=== PATIENT | male | born 1945 | race Caucasian/White ===

== ENCOUNTER 2023-07-05 15:01 | Outpatient (OUT) | payer MEDICARE, SELFPAY ==
[2023-07-06 04:07] LABS: PSA, Free 2.23 ng/mL; Prostate Specific Ag 9.5 ng/mL (0.0-4.0)
== END 2023-07-05 15:02 | disposition home or self-care (01) ==
LOC: LAB 15:07
PROVIDERS: PCP Family Medicine; Visit Provider Urology
DX: R97.20 Elevated prostate specific antigen [PSA] (principal)
CPT/HCPCS: 36415; 84153; 84154

== ENCOUNTER 2023-08-24 13:16 | Outpatient (OUT) | payer MEDICARE, SELFPAY | END 2023-08-24 13:17 | disposition home or self-care (01) | LOC: PST 13:18 | PROVIDERS: PCP Family Medicine; Visit Provider Urology | DX: Z01.818 Encounter for other preprocedural examination (principal); R97.20 Elevated prostate specific antigen [PSA]; I10 Essential (primary) hypertension; R31.9 Hematuria, unspecified; N40.0 Benign prostatic hyperplasia without lower urinary tract symptoms; E78.5 Hyperlipidemia, unspecified; N28.1 Cyst of kidney, acquired ==

== ENCOUNTER 2023-08-26 14:21 | Day surgery (SDC) | payer MEDICARE, SELFPAY ==
--- NOTE | 2023-08-24 13:19 | PC.NURSE ---
Left voice message, as patient did not answer. Gave instruction for patient to call the arrival time number after 4 pm tomorrow to obtain time of arrival for the 16th for his procedure. Also noted that he could have a light breakfast and his meds with a sip of water prior to coming in the morning of his procedure. Message included that it will be a local anesthetic, thus he can drive himself or he can have someone bring him.
[2023-08-26] MEDS: GENTAMICIN SULFATE 80 MG/2 ML VIAL IM (15:18)
[2023-08-26 15:56] VITALS: BP 140/65; PULSE 67; RESP 18
--- NOTE | 2023-08-26 15:59 | US_ITS ---
[address] [address] Patient Name: AYALA ROY MRN: [id number] date: 1945 Sex: M Assigned Patient Location: [facility] Current Patient Location: Accession/Order Number: [id number] Exam Date: 08/26/2023 16:00 Report Date: 08/27/2023 01:38 At the request of: VERNELL SIFUENTES Procedure: US prostate EXAMINATION: US prostate HISTORY: Elevated PSA, TRUS BX COMPARISON: No relevant comparison available. TECHNIQUE: Ultrasound exam for the prostate with an endorectal transducer was performed utilizing real-time and color duplex Doppler sonography. FINDINGS: ESTIMATED SIZE: 6.3 x 6.4 x 5.1 cm (108 mL) APPEARANCE: Heterogeneous echotexture. OTHER: 8 biopsies of right side and 8 biopsies of left side of prostate performed by Dr. Sifuentes. US/US prostate IMPRESSION: 1. Ultrasound-guided prostate biopsy performed by Dr. Sifuentes. Electronically authenticated by: MOHSEN GARCIA Date: 08/27/2023 01:38
[2023-08-26] MEDS: LIDOCAINE HCL 1% 100 MG/10 ML MDV INJ (16:00)
[2023-08-26] MEDS: LIDOCAINE 2% JELLY 20 ML UR (16:00)
[2023-08-26 16:08] VITALS: BP 137/62; PULSE 62; RESP 18; O2SAT 98
--- NOTE | 2023-08-26 16:18 | PM.URSON ---
Urology Surgery Operative Note Operative Note Procedure Date: 08/26/23 Time Out Performed: yes Pre-op Diagnosis: elevated PSA Post-op Diagnosis: same as pre-op Procedures performed: . #1. Transrectal ultrasound of the prostate. #2. Prostate needle biopsies Anesthesia: local Primary Surgeon: Ted Sifuentes Complications: none Estimated blood loss (mL): 20 Specimens: 16 satisfactory cores Indications for Procedures: this gentleman has an elevated PSA up to 9.2. His digital rectal exam is benign. His MRI was suspicion. He now presents for transrectal ultrasound with biopsies. He has signed an informed consent for these procedures after risks were explained. Some of these risks include bleeding, infection, sepsis and anesthesia to name a few Detailed description of Procedure: . The patient was kept on his gurney bed and brought to the endoscopy suite. He was put in the left lateral decubitus position. 2 percent lidocaine gel was passed per rectum. The ultrasound probe was passed per rectum. The prostate was scanned in the transverse and longitudinal views. The volume was calculated to be 112 g. No hypoechoic areas were noted. One percent plain lidocaine was used to place a debbie-prostatic block. I then began taking biopsies. I started at the left base and went towards the apex. I divided it up into 4 levels and from each level took 2 biopsies. The same maneuver was done on the right side. At the end of the procedure we had 16 satisfactory cores. The probe was removed. He was then discharged to home. The plan is that he will finish his antibiotic course. He will follow-up within 2 weeks to review the pathology. He has been instructed to present to the emergency room if he gets a temp near one 101 and/or shaking chills that will not stop
== END 2023-08-26 16:26 | disposition home or self-care (01) ==
PROVIDERS: PCP Family Medicine; Visit Provider Urology
PROC: (CPT 55700; principal; 2023-08-26 14:35)
DX: C61 Malignant neoplasm of prostate (principal); R97.20 Elevated prostate specific antigen [PSA]; I10 Essential (primary) hypertension; N40.1 Benign prostatic hyperplasia with lower urinary tract symptoms; E78.5 Hyperlipidemia, unspecified; N28.1 Cyst of kidney, acquired; R31.0 Gross hematuria; Z87.891 Personal history of nicotine dependence
CPT/HCPCS: 55700; 76872; 88305; 88344

== ENCOUNTER 2023-12-19 11:02 | Emergency (ER) | payer MEDICARE, SELFPAY ==
[2023-12-19 11:06] VITALS: BP 143/72; PULSE 64; RESP 16; TEMP 36.7; O2SAT 95; BMI 37.5
--- OUTSIDE RECORDS SUMMARY | 2023-12-19 11:11 | XMS_ITS | CCD ---
Author Name Unknown Address [address] [place] [address] Organization [facility] Care Team Providers Care Resident Assistant Name Role Phone MERRILL IRAHETA Primary Care Physician [phone] MD Ankur Duran Jr Attending Provider NON STAFF Primary Care Provider Unavailabl e ESEQUIEL, DR MERRILL Fisher Consulting Unavailable NADERER, DR MERRILL Fisher Attending Unavailable NADERER, DR MERRILL Fisher Admitting Unavailable NADERER, DR MERRILL Fisher Primary Care Unavailable SIFUENTES ., DR MATT Admitting Unavailable SIFUENTES ., DR MATT Consulting Unavailable SIFUENTES ., DR MATT Attending Unavailable NADERER, DR MERRILL Fisher Primary Care Unavailable WEST, DR AYALA Bob Consulting Unavailable NADERER, DR MERRILL Fisher Primary Care Unavailable SIFUENTES ., DR MATT Admitting Unavailable SIFUENTES ., DR MATT Consulting Unavailable SIFUENTES ., DR MATT Attending Unavailable Unavailable Primary Care Provider Unavailabl e SIFUENTES, Vernell R Attending Unavailable SIFUENTES, Vernell R Attending Unavailable SIFUENTES, Vernell R Referring Unavailable SIFUENTES, Vernell R Attending Unavailable SIFUENTES, Vernell R Attending Unavailable SIFUENTES, Vernell R Admitting Unavailable SIFUENTES, Vernell R Referring Unavailable SIFUENTES, Vernell R Attending Unavailable SIFUENTES, Vernell R Attending Unavailable SIFUENTES, Vernell R Attending Unavailable SIFUENTES, Vernell R Attending Unavailable Naderer, Merrill Fisher Primary Care Provider [phone] MERRILL IRAHETA Primary Care Unavailable ENGELER G SUKHDEV Referring Unavailable ENGELER G SUKHDEV Referring Unavailable ENGELER G SUKHDEV Attending Unavailable NADERER, MERRILL Fisher Primary Care Unavailable NADERER, MERRILL Fisher Primary Care Unavailable YESSIEREMERRILL Martinez Primary Care Unavailable ENGELER, G SUKHDEV Referring Unavailable ENGELER, G SUKHDEV Referring Unavailable NADERER, MERRILL Fisher Primary Care Unavailable SIFUENTES, VERNELL Martinez Referring Unavailable ENGELER G SUKHDEV Attending Unavailable NADERER, MERRILL A Primary Care Unavailable ENGELER, G SUKHDEV Referring Unavailable NADERER, MERRILL A Primary Care Unavailable NADERER, MERRILL A Primary Care Unavailable ENGELER, G SUKHDEV Referring Unavailable NADERER, MERRILL A Primary Care Unavailable ENGELER, G SUKHDEV Referring Unavailable NADERER, MERRILL A Primary Care Unavailable ENGELER, G SUKHDEV Referring Unavailable ENGELER, G SUKHDEV Referring Unavailable ENGELER, G SUKHDEV Attending Unavailable NADERER, MERRILL A Primary Care Unavailable NADERER, MERRILL A Primary Care Unavailable ENGELER, G SUKHDEV Attending Unavailable ENGELER, G SUKHDEV Referring Unavailable NADERER, MERRILL A Primary Care Unavailable ENGELER, G SUKHDEV Attending Unavailable ENGELER, G SUKHDEV Referring Unavailable NADERER, MERRILL A Primary Care Unavailable ENGELER, G SUKHDEV Referring Unavailable NADERER, MERRILL A Primary Care Unavailable ENGELER, G SUKHDEV Attending Unavailable NADERER, MERRILL A Primary Care Unavailable ENGELER, G SUKHDEV Referring Unavailable NADERER, MERRILL A Primary Care Unavailable ENGELER, G SUKHDEV Referring Unavailable NADERER, MERRILL A Primary Care Unavailable ENGELER, G SUKHDEV Attending Unavailable NADERER, MERRILL A Primary Care Unavailable NADERER, MERRILL A Primary Care Unavailable ENGELER, G SUKHDEV Referring Unavailable ENGELER, G SUKHDEV Referring Unavailable NADERER, MERRILL A Primary Care Unavailable NADERER, MERRILL A Primary Care Unavailable ENGELER, G SUKHDEV Attending Unavailable ENGELER, G SUKHDEV Referring Unavailable NADERER, MERRILL A Primary Care Unavailable ENGELER, G SUKHDEV Referring Unavailable NADERER, MERRILL A Primary Care Unavailable ENGELER, G SUKHDEV Attending Unavailable NADERER, MERRILL A Primary Care Unavailable ENGELER, G SUKHDEV Referring Unavailable NADERER, MERRILL A Primary Care Unavailable Allergies Allergy Classification Reported Allergen(s) Allergy Type Date of Onset Reaction(s) Facility (6 sources) Penicillin; Translations: [penicillin] Drug Allergy Unknown (qualifier value) [facility] (2 sources) Penicillins; Translations: [PENICILLINS] Drug allergy (disorder) [address] [facility] (11 sources) Penicillins Drug Allergy 3 Hives [facility] Medications Current Medications Medication Drug Class(es) Dates Sig (Normalized) Sig (Original) atenolol 100 mg / chlorthalidone 25 mg oral tablet (17 sources) Thiazide-like Diuretic, beta-Adrenergic Barak Start: 02-17-2022 atenolol-chlortha lidone 100 mg-25 mg Tab Refill(s) 0 Start Date: 02/17/22 Status: Ordered Start: 04-10-2020 take 1 tablet by laura th once daily Atenolol-Chlorthalidone 100-25 mg per tablet Take 1 tablet by mouth once daily. 0 04/10/2020 Active Comment on above: Take 1 tablet by laura th once daily. diphenhydrAMINE hydrochloride 25 mg oral capsule (1 source) Histamine-1 Receptor Antagonist Start: take 1 capsule by mouth three times daily Diphenhydramine Hcl (Benadryl) 25 mg Capsule Active 25 MG PO Three times daily March 17, 2022 7:22am dutasteride 0.5 mg oral capsule (1 source) 5-alpha Reductase Inhibitor Start: End: take 1 capsule by mouth once daily dutasteride 0.5 mg Cap 0.5 mg = 1 cap(s), Oral, Daily, X 30 day(s), # 30 cap(s), Refills(s) 11, Pharmacy: [id number], 186, cm, 07/05/23 13:25:00 EDT, Height/Length Dosing, 122, kg, 07/05/23 13:25:00 EDT, Weight Dosing Start Date: 07/05/23 Stop Date: 06/29/24 Status: Ordered fluticasone propionate 0.05 mg/actuat metered dose nasal spray (1 source) Corticosteroid Start: Fluticasone Propionate (Flonase Allergy Relief) 50 mcg/actuation [place],Suspension Active 1 SPRAY INTRANASAL Twice daily March 17, 2022 7:22am potassium chloride 20 meq extended release oral tablet (2 sources) Start: take 20 mEq by mouth twice daily Potassium Chloride Active 20 MEQ PO Twice daily March 17, 2022 7:22am Start: 02-17-2022 Potassium Chlo ride (Rqa-Afkh-Rlg M20) 20 mEq oral tablet, extended release Refills(s) 0 Start Date: 02/17/22 Status: Ordered prednisoLONE Opth acetate 1% Susp 5 mL (1 source) Start: 02-17-2022 prednisoLONE O pth acetate 1% Susp 5 mL Refill(s) 0 Start Date: 02/17/22 Status: Ordered Completed/Discontinued Medications Medication Drug Class(es) Dates Sig (Normalized) Sig (Original) amLODIPine 5 mg oral tablet (17 sources) Dihydropyridine Calcium Channel Barak Start: 04-10-2020 amLODIPine (NORVASC) 5 mg tablet Take 5 mg by mouth. 0 04/10/2020 Active Comment on above: Take 5 mg by mouth. ciprofloxacin 500 mg oral tablet (1 source) Quinolone Antimicrobial Start: 11-23-2022 take 1 tablet by mouth once daily Cipro 500 mg Tab 500 mg = 1 tab(s), Oral, Daily, Take 1 tablet the day before the procedure and 1 tablet after the procedure, # 2 tab(s), Refills(s) 0, Pharmacy: [id number], 186, cm, 11/23/22 11:13:00 EST, Height/Length Dosing, 120, kg, 11/23/22 11:13:... Start Date: 11/23/22 Status: Ordered nabumetone 500 mg oral tablet (17 sources) Nonsteroidal Anti-inflammatory Drug Start: 02-17-2022 nabumetone (RELAFEN) 500 mg tablet Refills(s) 0 0 02/17/2022 Active Comment on above: Refills(s) 0 simvastatin 40 mg oral tablet (17 sources) HMG-CoA Reductase Inhibitor Start: 04-10-2020 simvastatin (ZOCOR) 40 mg tablet Take 40 mg by mouth. 0 04/10/2020 Active Comment on above: Take 40 mg by mouth. Problems Problem Classification Problem Date Documented Da te Episodic/Chronic Cancer of prostate (11 sources) Malignant neoplasm of prostate; Translations: [Malignant tumor of prostate] Onset: 09-10-2023 Chronic Essential hypertension (4 sources) Hypertensive disorder 11-23-2022 Chronic Genitourinary symptoms and ill-defined conditions (11 sources) Gary hematuria; Translations: [Gross hematuria] Onset: 12-11-2022 11-23-2022 Episodic Hyperplasia of prostate (13 sources) Benign prostatic hypertrophy with outflow obstruction; Translations: [Benign prostatic hyperplasia with lower urinary tract symptoms] Onset: 02-17-2022 Chronic Other diseases of kidney and ureters (1 source) Urinary tract obstruction; Translations: [Other obstructive and reflux uropathy] Onset: 12-08-2022 Episodic Other diseases of kidney and ureters (3 sources) Acquired renal cyst without neoplastic change; Translations: [Cyst of kidney, acquired] Onset: 07-05-2023 Episodic Other diseases of kidney and ureters (3 sources) Simple renal cyst 07-05-2023 Episodic Other liver diseases (1 source) Fatty (change of) liver, not elsewhere classified; Translations: [FATTY CHANGE LIVER NEC] Onset: 12-14-2022 Chronic Other screening for suspected conditions (not mental disorders or infectious disease) (7 sources) Raised prostate specific antigen; Translations: [Elevated prostate specific antigen [PSA]] Onset: 02-17-2022 Episodic Results Test Name Value Interpretation Reference Range Facility CNOVon 12-13-2023 CNOV Office Visit (RADTSA ) AYALA DAMIAN ([id number]) 1945 M Date Time Provider Department 12/13/23 11:30 AM Adelfo GRAF During your visit today, we recorded the following information about you: Temperature Pulse Respiration Blood pressure 97.4 degrees 68/minute 18/minute 158/74 Weight 118.1 kg Adelfo Graf MD 12/13/2023 11:36 AM Signed Radiation Oncology - On Treatment Review (OTR) Note PATIENT NAME: Ayala Damian PATIENT DIAGNOSIS: Prostate adenocarcinoma, 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 COURSE: definitive Current dose: 3250 cGy in 13 fx Planned dose: 7000 cGy in 28 fx SUBJECTIVE: Overall doing well. Had some mild diarrhea last week. Responding to Imodium. Has not needed any since. PHYSICAL EXAM: 12/13/23 1124 BP: 158/74 Pulse: 68 Resp: 18 Temp: 36.3 ?C (97.4 ?F) SpO2: 95% Weight: 118.1 kg (260 lb 5.8 oz) KPS: 100 General Appearance: Alert and oriented. No acute distress. IMAGING/LAB RESULTS: Hemoglobin (g/dL) Date Value 12/02/2023 14.8 Hematocrit (%) Date Value 12/02/2023 42.1 WBC (k/uL) Date Value 12/02/2023 5.61 Platelet Count (k/uL) Date Value 12/02/2023 171 TOXICITY ASSESSMENT (CTC v4.0): Fatigue:grade 1 Radiation Dermatitis: grade 0 - No symptoms Diarrhea:grade 0 - No symptoms Proctitis: grade 0 - No symptoms Urinary frequency: grade 0 - No symptoms Dysuria: grade 1 Urinary incontinence: grade 0 (No symptoms) Urinary retention: grade 0 - No symptoms Treatment chart checked: Yes Patient treatment site reviewed and verified:Yes Port films reviewed and current:Yes Medications started: None ASSESSMENT/PLAN: Patient doing well. Chart and imaging reviewed. Continue radiation as outlined. Adelfo Graf MD Allergies As of Date: 12/13/2023 Noted Allergy Reaction PENICILLINS 09/21/2023 4 - Hives Date Reviewed: 12/13/2023 Reviewed by: Chelsy Fernando RN - Fully Assessed Reason for Visit: Radiotherapy On-treatment Visit [1722] Primary Visit Diagnosis:Malignant neoplasm of prostate (HCC) [C61] Prescriptions as of 12/13/2023 - amLODIPine (NORVASC) 5 mg tablet Take 5 mg by mouth. - Atenolol-Chlorthalidon e 100-25 mg per tablet Take 1 tablet by mouth once daily. - simvastatin (ZOCOR) 40 mg tablet Take 40 mg by mouth. - nabumetone (RELAFEN) 500 mg tablet Refills(s) 0 Problem List As Of Date: 12/13/2023 (None) Encounter Status:Closed by Adelfo GRAF on 12/13/23 [facility] CNOVon 12-06-2023 CNOV Office Visit (RADTSA ) AYALA DAMIAN ([id number]) 1945 M Date Time Provider Department 12/06/23 11:30 AM Adelfo GRAF RADFAYE During your visit today, we recorded the following information about you: Temperature Pulse Respiration Blood pressure 97.5 degrees 58/minute 18/minute 159/74 Weight 118.3 kg Adelfo Graf MD 12/06/2023 11:34 AM Signed Radiation Oncology - On Treatment Review (OTR) Note PATIENT NAME: Ayala Damian PATIENT DIAGNOSIS: Prostate adenocarcinoma, initial PSA 9.5, biopsy [place] score 4 + 3 = 7 (grade group 3), clinical stage T1c, N0, M0, stage IIC [T1-T2, N0, M0, PSA <20, GG 3] (AJCC 8th ed.), s/p TRUS Random biopsy. COURSE: definitive Current dose: 2000 cGy in 8 fx Planned dose: 7000 cGy in 28 fx SUBJECTIVE: Doing well, mild episode of dysuria. PHYSICAL EXAM: 12/06/23 1121 BP: 159/74 Pulse: (!) 58 Resp: 18 Temp: 36.4 ?C (97.5 ?F) SpO2: 97% Weight: 118.3 kg (260 lb 12.9 oz) KPS: 100 General Appearance: Alert and oriented. No acute distress. IMAGING/LAB RESULTS: Hemoglobin (g/dL) Date Value 12/02/2023 14.8 Hematocrit (%) Date Value 12/02/2023 42.1 WBC (k/uL) Date Value 12/02/2023 5.61 Platelet Count (k/uL) Date Value 12/02/2023 171 TOXICITY ASSESSMENT (CTC v4.0): Fatigue:grade 1 Radiation Dermatitis: grade 0 - No symptoms Diarrhea:grade 0 - No symptoms Proctitis: grade 0 - No symptoms Urinary frequency: grade 0 - No symptoms Dysuria: grade 1 Urinary incontinence: grade 0 (No symptoms) Urinary retention: grade 0 - No symptoms Treatment chart checked: Yes Patient treatment site reviewed and verified:Yes Port films reviewed and current:Yes Medications started: None ASSESSMENT/PLAN: Patient doing well. Chart and imaging reviewed. Continue radiation as outlined. Adelfo Graf MD Allergies As of Date: 12/06/2023 Noted Allergy Reaction PENICILLINS 09/21/2023 4 - Hives Date Reviewed: 12/06/2023 Reviewed by: Olga Monge LPN - Fully Assessed Primary Visit Diagnosis:Malignant neoplasm of prostate (HCC) [C61] Prescriptions as of 12/06/2023 - amLODIPine (NORVASC) 5 mg tablet Take 5 mg by mouth. - Atenolol-Chlorthalidon e 100-25 mg per tablet Take 1 tablet by mouth once daily. - simvastatin (ZOCOR) 40 mg tablet Take 40 mg by mouth. - nabumetone (RELAFEN) 500 mg tablet Refills(s) 0 Problem List As Of Date: 12/06/2023 (None) Encounter Status:Closed by Adelfo GRAF on 12/06/23 Normal [facility] CBC W Auto Differential pane l (Bld)on 12-02-2023 Basophils (Bld) [#/Vol] 0.04 10*3/uL Normal <0.11 [facility] Comment on above: Order Comment: Speci men Type: BLOOD SPECIMENOrdering Facility: [facility] Address: [address] [place] [address] Performed By: #### 5 7021-8 ####[facility] LABCLIA [id number] [place] [address] Basophils/100 WBC (Bld) 0.7 % Normal [facility] Comment on above: Order Comment: Speci men Type: BLOOD SPECIMENOrdering Facility: [facility] Address: [address] [place] [address] Performed By: #### 5 7021-8 ####[facility] LABCLIA [id number] [place] [address] Differential cell count method Nom (Bld) Auto Normal [facility] Comment on above: Order Comment: Speci men Type: BLOOD SPECIMENOrdering Facility: [facility] Address: [address] [place] [address] Performed By: #### 5 7021-8 ####[facility] LABCLIA [id number] [place] [address] Eosinophils (Bld) [#/Vol] 0.10 10*3/uL Normal <0.46 [facility] Comment on above: Order Comment: Speci men Type: BLOOD SPECIMENOrdering Facility: [facility] Address: [address] [place] [address] Performed By: #### 5 7021-8 ####[facility] LABCLIA [id number] [place] [address] Eosinophils/100 WBC (Bld) 1.8 % Normal [facility] Comment on above: Order Comment: Speci men Type: BLOOD SPECIMENOrdering Facility: [facility] Address: [address] [place] [address] Performed By: #### 5 7021-8 ####[facility] LABCLIA [id number] [place] [address] Erythrocyte distribution width (RBC) [Ratio] 12.3 % Normal 11.5-15.0 [facility] Comment on above: Order Comment: Speci men Type: BLOOD SPECIMENOrdering Facility: [facility] Address: [address] [place] [address] Performed By: #### 5 7021-8 ####[facility] LABCLIA [id number] [place] [address] Hematocrit (Bld) [Volume fraction] 42.1 % Normal 39.0-51.0 [facility] Comment on above: Order Comment: Speci men Type: BLOOD SPECIMENOrdering Facility: [facility] Address: [address] [place] [address] Performed By: #### 5 7021-8 ####[facility] LABCLIA [id number] [place] [address] Hemoglobin (Bld) [Mass/Vol] 14.8 g/dL Normal 13.0-17.0 [facility] Comment on above: Order Comment: Speci men Type: BLOOD SPECIMENOrdering Facility: [facility] Address: [address] [place] [address] Performed By: #### 5 7021-8 ####[facility] LABCLIA [id number] [place] [address] Immature granulocytes (Bld) [#/Vol] 10*3/uL Normal <0.10 [facility] Comment on above: Order Comment: Speci men Type: BLOOD SPECIMENOrdering Facility: [facility] Address: [address] [place] [address] Performed By: #### 5 7021-8 ####[facility] LABCLIA [id number] [place] [address] Immature granulocytes/100 WBC (Bld) 0.4 % Normal [facility] Comment on above: Order Comment: Speci men Type: BLOOD SPECIMENOrdering Facility: [facility] Address: [address] [place] [address] Performed By: #### 5 7021-8 ####[facility] LABCLIA [id number] [place] [address] Lymphocytes (Bld) [#/Vol] 0.59 10*3/uL Low 1.00-4.00 [facility] Comment on above: Order Comment: Speci men Type: BLOOD SPECIMENOrdering Facility: [facility] Address: [address] [place] [address] Performed By: #### 5 7021-8 ####[facility] LABCLIA [id number] [place] [address] Lymphocytes/100 WBC (Bld) 10.5 % Normal [facility] Comment on above: Order Comment: Speci men Type: BLOOD SPECIMENOrdering Facility: [facility] Address: [address] [place] [address] Performed By: #### 5 7021-8 ####[facility] LABCLIA [id number] [place] [address] MCH (RBC) [Entitic mass] 30.8 pg Normal 26.0-34.0 [facility] Comment on above: Order Comment: Speci men Type: BLOOD SPECIMENOrdering Facility: [facility] Address: [address] [place] [address] Performed By: #### 5 7021-8 ####[facility] LABCLIA [id number] [place] [address] MCHC (RBC) [Mass/Vol] 35.2 g/dL Normal 30.5-36.0 [facility] Comment on above: Order Comment: Speci men Type: BLOOD SPECIMENOrdering Facility: [facility] Address: [address] [place] [address] Performed By: #### 5 7021-8 ####[facility] LABIA [id number] [place] [address] MCV (RBC) [Entitic vol] 87.7 fL Normal 80.0-100.0 [facility] Comment on above: Order Comment: Speci men Type: BLOOD SPECIMENOrdering Facility: [facility] Address: [address] [place] [address] Performed By: #### 5 7021-8 ####[facility] LABCLIA [id number] [place] [address] Monocytes (Bld) [#/Vol] 0.61 10*3/uL Normal <0.87 [facility] Comment on above: Order Comment: Speci men Type: BLOOD SPECIMENOrdering Facility: [facility] Address: [address] [place] [address] Performed By: #### 5 7021-8 ####[facility] LABCLIA [id number] [place] [address] Monocytes/100 WBC (Bld) 10.9 % Normal [facility] Comment on above: Order Comment: Speci men Type: BLOOD SPECIMENOrdering Facility: [facility] Address: [address] [place] [address] Performed By: #### 5 7021-8 ####[facility] LABCLIA [id number] [place] [address] Neutrophils (Bld) [#/Vol] 4.25 10*3/uL Normal 1.45-7.50 [facility] Comment on above: Order Comment: Speci men Type: BLOOD SPECIMENOrdering Facility: [facility] Address: [address] [place] [address] Performed By: #### 5 7021-8 ####[facility] LABCLIA [id number] [place] [address] Neutrophils/100 WBC (Bld) 75.7 % Normal [facility] Comment on above: Order Comment: Speci men Type: BLOOD SPECIMENOrdering Facility: [facility] Address: [address] [place] [address] Performed By: #### 5 7021-8 ####[facility] LABCLIA [id number] [place] [address] Nucleated RBC (Bld) [#/Vol] 10*3/uL Normal <0.01 [facility] Comment on above: Order Comment: Speci men Type: BLOOD SPECIMENOrdering Facility: [facility] Address: [address] [place] [address] Performed By: #### 5 7021-8 ####[facility] LABCLIA [id number] [place] [address] Nucleated RBC/100 WBC (Bld) [Ratio] 0.0 /100 WBC Normal [facility] Comment on above: Order Comment: Speci men Type: BLOOD SPECIMENOrdering Facility: [facility] Address: [address] [place] [address] Performed By: #### 5 7021-8 ####[facility] LABCLIA [id number] [place] [address] Platelet mean volume (Bld) [Entitic vol] 10.7 fL Normal 9.0-12.7 [facility] Comment on above: Order Comment: Speci men Type: BLOOD SPECIMENOrdering Facility: [facility] Address: [address] [place] [address] Performed By: #### 5 7021-8 ####[facility] LABCLIA [id number] [place] [address] Platelets (Bld) [#/Vol] 171 10*3/uL Normal 150-400 [facility] Comment on above: Order Comment: Speci men Type: BLOOD SPECIMENOrdering Facility: [facility] Address: [address] [place] [address] Performed By: #### 5 7021-8 ####[facility] LABIA [id number] [place] [address] RBC (Bld) [#/Vol] 4.80 10*6/uL Normal 4.20-6.00 [facility] Comment on above: Order Comment: Speci men Type: BLOOD SPECIMENOrdering Facility: [facility] Address: [address] [place] [address] Performed By: #### 5 7021-8 ####[facility] LABCLIA [id number] [place] [address] WBC (Bld) [#/Vol] 5.61 10*3/uL Normal 3.70-11.00 [facility] Comment on above: Order Comment: Speci men Type: BLOOD SPECIMENOrdering Facility: [facility] Address: [address] [place] [address] Performed By: #### 5 7021-8 ####[facility] LABCLIA [id number] [place] [address] Basophils (Bld) [#/Vol] 0.04 10*3/uL <0.11 k/uL [facility] Basophils/100 WBC (Bld) 0.7 % [facility] Differential cell count method Nom (Bld) Auto [facility] Eosinophils (Bld) [#/Vol] 0.10 10*3/uL <0.46 k/uL [facility] Eosinophils/100 WBC (Bld) 1.8 % [facility] Erythrocyte distribution width (RBC) [Ratio] 12.3 % 11.5 - 15.0 % [facility] Hematocrit (Bld) [Volume fraction] 42.1 % 39.0 - 51.0 % [facility] Hemoglobin (Bld) [Mass/Vol] 14.8 g/dL 13.0 - 17.0 g/dL [facility] Immature granulocytes (Bld) [#/Vol] <0.10 k/uL [facility] Immature granulocytes/100 WBC (Bld) 0.4 % [facility] Lymphocytes (Bld) [#/Vol] 0.59 10*3/uL Low 1.00 - 4.00 k/uL [facility] Lymphocytes/100 WBC (Bld) 10.5 % [facility] MCH (RBC) [Entitic mass] 30.8 pg 26.0 - 34.0 pg [facility] MCHC (RBC) [Mass/Vol] 35.2 g/dL 30.5 - 36.0 g/dL [facility] MCV (RBC) [Entitic vol] 87.7 fL 80.0 - 100.0 fL [facility] Monocytes (Bld) [#/Vol] 0.61 10*3/uL <0.87 k/uL [facility] [facility] Monocytes/100 WBC (Bld) 10.9 % [facility] Neutrophils (Bld) [#/Vol] 4.25 10*3/uL 1.45 - 7.50 k/uL [facility] Neutrophils/100 WBC (Bld) 75.7 % [facility] Nucleated RBC (Bld) [#/Vol] <0.01 k/uL [facility] Nucleated RBC/100 WBC (Bld) [Ratio] 0.0 /100 WBC [facility] Platelet mean volume (Bld) [Entitic vol] 10.7 fL 9.0 - 12.7 fL [facility] Platelets (Bld) [#/Vol] 171 10*3/uL 150 - 400 k/uL [facility] RBC (Bld) [#/Vol] 4.80 10*6/uL 4.20 - 6.0 0 m/uL [facility] WBC (Bld) [#/Vol] 5.61 10*3/uL 3.70 - 11. 00 k/uL [facility] CNOVon 12-02-2023 CNOV Office Visit (RADTSA ) AYALA DAMIAN ([id number]) 1945 M Date Time Provider Department 12/02/23 11:45 AM LAB/PORT RADT CARLTON ROSA During your visit today, we recorded the following information about you: Chelsy Fernando RN 12/02/2023 11:49 AM Signed Ayala Damian presents in office today for: Lab Draw only . Ordering Provider: Sukhdev Graf M.D. Test (s) ordered: CBC Method for obtaining blood: Phlebotomy was performed, accessing left antecubital vein. Needle removed intact. Dressing secured. Patient denies discomfort, dizziness, light-headedness or weakness and left the department without assist. Chelsy Fernando RN Allergies As of Date: 12/02/2023 Noted Allergy Reaction PENICILLINS 09/21/2023 4 - Hives Date Reviewed: 11/29/2023 Reviewed by: Olga Monge LPN - Fully Assessed Reason for Visit: Phlebotomy [1172] Visit Diagnosis:Malignant neoplasm of prostate (HCC) [C61] Order(s):CBC + DIFF [SQCBCDIF] Order #: [id number]. #:[id number] Prescriptions as of 12/02/2023 - amLODIPine (NORVASC) 5 mg tablet Take 5 mg by mouth. - Atenolol-Chlorthalidon e 100-25 mg per tablet Take 1 tablet by mouth once daily. - simvastatin (ZOCOR) 40 mg tablet Take 40 mg by mouth. - nabumetone (RELAFEN) 500 mg tablet Refills(s) 0 Problem List As Of Date: 12/02/2023 (None) Visit Notes: >> Chelsy Fernando RN [facility] Dec 02, 2023 11:48 AM Status: Signed Ayala Damian presents in office today for: Lab Draw only . Ordering Provider: Sukhdev Graf M.D. Test (s) ordered: CBC Method for obtaining blood: Phlebotomy was performed, accessing left antecubital vein. Needle removed intact. Dressing secured. Patient denies discomfort, dizziness, light-headedness or weakness and left the department without assist. Chelsy Fernando RN Encounter Status:Closed by CHELSY FERNANDO on 12/02/23 [facility] CNOVon 11-29-2023 CNOV Office Visit (RADTSA ) AYALA DAMIAN ([id number]) 1945 M Date Time Provider Department 11/29/23 10:45 AM Adelfo GRAF During your visit today, we recorded the following information about you: Temperature Pulse Respiration Blood pressure 97.5 degrees 56/minute 16/minute 137/69 Weight 118.6 kg Adelfo Graf MD 11/29/2023 11:15 AM Signed Radiation Oncology - On Treatment Review (OTR) Note PATIENT NAME: Ayala Damian PATIENT DIAGNOSIS: Prostate adenocarcinoma, initial PSA 9.5, biopsy Macksburg score 4 + 3 = 7 (grade group 3), clinical stage T1c, N0, M0, stage IIC [T1-T2, N0, M0, PSA <20, GG 3] (AJCC 8th ed.), s/p TRUS Random biopsy. COURSE: definitive Current dose: 750 cGy in 3 fx Planned dose: 7000 cGy in 28 fx SUBJECTIVE: doing well. PHYSICAL EXAM: 11/29/23 1105 BP: 137/69 Pulse: (!) 56 Resp: 16 Temp: 36.4 ?C (97.5 ?F) SpO2: 96% Weight: 118.6 kg (261 lb 7.5 oz) KPS: 100 General Appearance: Alert and oriented. No acute distress. IMAGING/LAB RESULTS: None TOXICITY ASSESSMENT (CTC v4.0): Fatigue:grade 0 - No symptoms Radiation Dermatitis: grade 0 - No symptoms Diarrhea:grade 0 - No symptoms Proctitis: grade 0 - No symptoms Urinary frequency: grade 0 - No symptoms Dysuria: grade 0 - No symptoms Urinary incontinence: grade 0 (No symptoms) Urinary retention: grade 0 - No symptoms Treatment chart checked: Yes Patient treatment site reviewed and verified:Yes Port films reviewed and current:Yes Medications started: None ASSESSMENT/PLAN: Patient doing well. Chart and imaging reviewed. Continue radiation as outlined. Adelfo Graf MD Allergies As of Date: 11/29/2023 Noted Allergy Reaction PENICILLINS 09/21/2023 4 - Hives Date Reviewed: 11/29/2023 Reviewed by: Olga Monge LPN - Fully Assessed Reason for Visit: Radiotherapy On-treatment Visit [1722] Primary Visit Diagnosis:Malignant neoplasm of prostate (HCC) [C61] Prescriptions as of 11/30/2023 - amLODIPine (NORVASC) 5 mg tablet Take 5 mg by mouth. - Atenolol-Chlorthalidon e 100-25 mg per tablet Take 1 tablet by mouth once daily. - simvastatin (ZOCOR) 40 mg tablet Take 40 mg by mouth. - nabumetone (RELAFEN) 500 mg tablet Refills(s) 0 Problem List As Of Date: 11/29/2023 (None) Encounter Status:Closed by Adelfo GRAF on 11/29/23 [facility] CNOVon 11-25-2023 CNOV Office Visit (RADTSA ) AYALA DAMIAN ([id number]) 1945 M Date Time Provider Department 11/25/23 11:45 AM Adelfo GRAF During your visit today, we recorded the following information about you: Weight 116.8 kg Adelfo Graf MD 11/25/2023 12:43 PM Signed Radiation Oncology - On Treatment Review (OTR) Note PATIENT NAME: Ayala Damian PATIENT DIAGNOSIS: Prostate adenocarcinoma, 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 COURSE: definitive Current dose: 250 cGy in 1 fx Planned dose: 7000 cGy in 28 fx SUBJECTIVE: Here to start radiation, doing well. PHYSICAL EXAM: KPS: 100 General Appearance: Alert and oriented. No acute distress. IMAGING/LAB RESULTS: None TOXICITY ASSESSMENT (CTC v4.0): Fatigue:grade 0 - No symptoms Radiation Dermatitis: grade 0 - No symptoms Diarrhea:grade 0 - No symptoms Proctitis: grade 0 - No symptoms Urinary frequency: grade 0 - No symptoms Dysuria: grade 0 - No symptoms Urinary incontinence: grade 0 (No symptoms) Urinary retention: grade 0 - No symptoms Treatment chart checked: Yes Patient treatment site reviewed and verified:Yes Port films reviewed and current:Yes Medications started: None ASSESSMENT/PLAN: Patient starting radiation today. Plan of care and expectations again reviewed. Plan, MU calculations and qa report reviewed. Initial imaging including cone beam ct and verification reviewed and approved. First treatment given. Continue radiation as prescribed. Adelfo Graf MD Allergies As of Date: 11/25/2023 Noted Allergy Reaction PENICILLINS 09/21/2023 4 - Hives Date Reviewed: 11/25/2023 Reviewed by: Chelsy Fernando, CORINNE - Fully Assessed Reason for Visit: Radiotherapy On-treatment Visit [1722] Primary Visit Diagnosis:Malignant neoplasm of prostate (HCC) [C61] Prescriptions as of 11/25/2023 - amLODIPine (NORVASC) 5 mg tablet Take 5 mg by mouth. - Atenolol-Chlorthalidon e 100-25 mg per tablet Take 1 tablet by mouth once daily. - simvastatin (ZOCOR) 40 mg tablet Take 40 mg by mouth. - nabumetone (RELAFEN) 500 mg tablet Refills(s) 0 Problem List As Of Date: 11/25/2023 (None) Encounter Status:Closed by Adelfo GRAF on 11/25/23 [facility] CNPNon 11-22-2023 CNPN Telephone (RADTSA) AYALA DAMIAN ([id number]) 1945 M Date Time Provider Department 11/22/23 Adelfo GRAF RADTSA During your visit today, we recorded the following information about you: Olga Monge LPN 11/22/2023 10:59 AM Signed CBC order pending your approval. Olga Monge RN Allergies As of Date: 11/22/2023 Noted Allergy Reaction PENICILLINS 09/21/2023 4 - Hives Date Reviewed: 10/19/2023 Reviewed by: Olga Monge LPN - Fully Assessed Reason for Visit: Orders [681] Primary Visit Diagnosis:Malignant neoplasm of prostate (HCC) [C61] Order(s):CBC + DIFF [SQCBCDIF] Order #: [id number] FUTURE Prescriptions as of 11/22/2023 - amLODIPine (NORVASC) 5 mg tablet Take 5 mg by mouth. - Atenolol-Chlorthalidon e 100-25 mg per tablet Take 1 tablet by mouth once daily. - simvastatin (ZOCOR) 40 mg tablet Take 40 mg by mouth. - nabumetone (RELAFEN) 500 mg tablet Refills(s) 0 Problem List As Of Date: 11/22/2023 (None) Encounter Status:Closed by Adelfo GRAF on 11/22/23 [facility] CNOVon 11-17-2023 CNOV Office Visit (RADTSA ) AYALA DAMIAN ([id number]) 1945 Date Time Provider Department 11/17/23 11:00 AM Adelfo GRAF During your visit today, we recorded the following information about you: Allergies As of Date: 11/17/2023 Noted Allergy Reaction PENICILLINS 09/21/2023 4 - Hives Date Reviewed: 10/19/2023 Reviewed by: Olga Monge LPN - Fully Assessed Reason for Visit: Simulation Request Form [6740] Primary Visit Diagnosis:Malignant neoplasm of prostate (HCC) [C61] Order(s):RADIATION TREATMENT PER RADIATION ONCOLOGIST PLAN [2489463] Order #: [id number]: 1 CT SIM PLANNING RADIATION ONCOLOGY [[id number]] Order #: [id number] Prescriptions as of 11/17/2023 - amLODIPine (NORVASC) 5 mg tablet Take 5 mg by mouth. - Atenolol-Chlorthalidon e 100-25 mg per tablet Take 1 tablet by mouth once daily. - simvastatin (ZOCOR) 40 mg tablet Take 40 mg by mouth. - nabumetone (RELAFEN) 500 mg tablet Refills(s) 0 Problem List As Of Date: 11/17/2023 (None) Encounter Status:Closed by Adelfo GRAF on 11/17/23 [facility] Ambulatory Visit Summaryon 0 11-15-2023 Ambulatory Visit Summary AYALA DAMIAN :1945 Visit Date:11/15/2023 Ambulatory Visit Instructions Your Diagnosis Prostate cancer BPH with urinary obstruction Gross hematuria Simple renal cyst Your Care Team Attending Physician - RICHARD MAGANA, Vernell Martinez Primary Care Physician - ESEQUIEL MAGANA, MERRILL This Is Your Medications List Contact prescribing physician if questions or concerns amlodipine (amLODIPine 5 mg Tab) atenolol-chlorthalidon e (atenolol-chlorthalido ne 100 mg-25 mg Tab) nabumetone (nabumetone 500 mg Tab) simvastatin (simvastatin 40 mg Tab) Procedures Performed Transrectal biopsy of prostate using ultrasound guidance (08/26/2023), Cystoscopy (12/08/2022), Laser ablation of prostate (12/26/2014), Transrectal biopsy of prostate using ultrasound (US) guidance (12/26/2014), Flexible cystoscopy (12/14/2014), Transrectal biopsy of prostate using ultrasound (US) guidance (05/01/2013), Flexible cystoscopy (04/10/2005), Cataract, Colonoscopy. Discharge Vitals Heart Rate (Peripheral) 68 Respiratory Rate 16 Blood Pressure 134/76 Height 185 cm Height 73 in Weight 121 kg Weight 266.2 lb BMI 35.35 What to do next Scheduled Follow-Up Appointments Wednesday 10:15 AM EDT With: RICHARD MAGANA, Vernell Martinez Where: [facility] Patient Educationon 11-15-19 Patient Education Oncology Hormone Suppression Therapy for Prostate Cancer Hormone suppression therapy is a treatment for prostate cancer that can help slow the growth of cancer cells in the prostate gland. It is also called androgen deprivation therapy (ADT) or androgen suppression therapy. Hormone suppression therapy targets male sex hormones (androgens) in the body that help cancer cells grow. Hormone suppression therapy alone will not cure prostate cancer, but it can slow the growth of cancer cells and may shrink tumors over time. Your health care provider can help you find the best treatment that fits your lifestyle. Hormone suppression therapy may be used in the following cases: ? When prostate cancer has spread too far to other places in the body and cannot be cured by surgery or radiation. ? When a person has health problems that prevent the use of surgery or radiation. ? Before radiation to help shrink the size of the cancer and make the radiation treatment more effective. ? If the prostate cancer remains or comes back following treatment with surgery or radiation. What are the types of hormone suppression therapy? Orchiectomy Orchiectomy, also called surgical castration, is a surgery to remove one or both testicles. The testicles make the two main androgens?testosterone and dihydrotestosterone (DHT). This surgery reduces the levels of testosterone in the blood, leading to decreased androgen production. Medicine therapy Medicine therapy, also called medical or chemical castration, involves taking medicines to keep your body from making or using androgens. Medicines can do this in one of three ways: 1. Reducing androgen production by the testicles. ? Luteinizing hormone-releasing hormone (LHRH) agonists. These medicines are injected or implanted under your skin to lower the amount of androgens that your testicles make. Depending on the medicine, they can be given monthly or up to every 3 to 6 months. If you take these medicines, you may also be prescribed other medicines to help with side effects. ? LHRH antagonists. These medicines also work to lower the amount of androgens made in the testicles, but they work faster than LHRH agonist medicines and have less severe side effects. They are given as a monthly injection under the skin, and they are used when prostate cancer is in an advanced stage. ? Estrogens. These medicines are female hormones that help to reduce androgen production by the testicles. Estrogens are not used as commonly as other types of hormone suppression therapy due to their side effects. However, they may be used if other treatments do not work. 2. Blocking androgen attachment throughout the body. ? Anti-androgen medicines, also called androgen receptor antagonists, block areas on the body where androgens attach. These are pills that are usually used in combination with other types of hormone suppression therapy, like orchiectomy and other medicines. 3. Blocking androgen production throughout the body. ? Androgen synthesis inhibitor medicines. These medicines help to stop other areas of the body from making androgens. They are taken as pills. They may be used if the prostate cancer is advanced and has not gotten better with surgery or other medicines. A steroid medicine may be given with this type of medicine to help with side effects. What are the risks? Hormone suppression therapy may cause side effects, including: ? Hot flashes. ? Diarrhea and nausea. ? Itching. ? Sexual side effects, such as: ? Decrease or lack of sexual desire. ? Decrease in size of the penis or testicles. ? Inability to get an erection (erectile dysfunction, or impotence). ? Breast tenderness or increase in breast size. ? Fatigue. ? Weight gain. ? Anemia. ? Thinning of the bones (osteoporosis) and loss of muscle mass. ? Depression, mood swings, and trouble with thinking or focusing. Hormone suppression therapy may also increase your risk of high blood pressure, increased cholesterol levels, stroke, heart attack, or diabetes. What are the benefits? One of the main benefits of hormone suppression therapy is having additional treatment options. You may have only one type of treatment, or two or more types at the same time. Treatments may be combined to: ? Help with side effects. ? Treat advanced cancer. Where to find more information ? [place] [employer]: www.cancer.org ? National Cancer [place]: www.cancer.gov Contact a health care provider if: ? You have pain or side effects that do not get better with treatment. ? You have trouble urinating. ? You have new side effects that do not go away. Get help right away if: ? You have severe chest pain. ? You have trouble breathing. ? You have an irregular heartbeat. ? You have numbness or paralysis in the lower half of your body. ? You are confused. ? You have trouble talking or understanding speech. These symptoms may be an emergenc (more content not included)... Normal [facility] Urology Office/Clinic Noteon 11-15-2023 Urology Office/Clinic Note Chief Complaint Lupron Inj HPI Staff Pt is here today for initial Lupron Inj & follow up to referral to Dr Graf due to new DX of Prostate Cancer. Last seen by Dr Graf 10/19/23. Pt is planning on EBRT w/Lesia. Next appt is this coming Wednesday. Did not get PSA for today's encounter, states he did not know. Denies pain/burning and visible blood. Occasional slow stream, not always. Denies any concerns at this time. History of Present Illness Tests reviewed: reviewed rad onc notes I have reviewed the previous health record information and history for this patient from Dr. Sifuentes. I have reviewed and verified the staff HPI to be accurate for this encounter. Review of Systems PHQ Score Initial Depression Screen Score: 0 SCORE ROS - Provider Constitutional: denies weight loss, denies hot flashes. Eyes: denies eye problems. Gastrointestinal: denies nausea, denies vomiting. Cardiovascular: denies chest pain or angina. Integumentary: no dryness Musculoskeletal: denies musculoskeletal symptoms. ENMT: denies otolaryngeal symptoms. Respiratory: no shortness of breath. Heme/Lymph: denies easy bleeding tendency, denies easy bruising tendency. Psychiatric: no confusion, no anxiety. Genitourinary: See HPI. Physical Exam Vitals & Measurements HR: 68(Peripheral) RR: 16 BP: 134/76 HT: 73 in HT: 185 cm WT: 121 kg WT: 266.2 lb BMI: 35.35 General Appearance: alert, no distress, well nourished, well developed male. Genitourinary: normal scrotum, normal testes, normal urethra, normal epididymis, normal vas deferens/spermatic cord. Flank Pain: none. Bladder: nonpalpable. Assessment/Plan 1. Prostate cancer (C61: Malignant neoplasm of prostate) PSA: 01/12/22 - 9.29 11/14/22 - 7.8 & 21% 07/05/23 - 9.5 & 23.5% MRI of prostate 03/17/22 - No MRI evidence of prostate malignancy. Asymmetrically decompressed L SV, finding is nonspecific, however no abnormal enhancement. Finding is likely a sequela of prior infectious of inflammatory process. Prostate volume 119 mL. S/p TRUS/bx 08/26/23. Path reveals Macksburg 7 (4+3), GG3. Approximately 40% of tissue involvement. 2 cores. Results reviewed with pt. PSMA PET 10/12/23 - neg for mets. Last saw Dr. Graf 10/19/23, recommended pt to consider surgery vs radiation. Pt elected to proceed with EBRT and ADT therapies. First Lupron 45 mgIM injection given today with no complications. Right glute. Pt. denies side effects at this time. Discussed Lupron side effects (hot flashes, decreased libido, difficulty achieving/maintaining erection, bone thinning). Pt to start taking OTC vitamin C and D QD for bone health. -F/u in 6 mos w/ PSA and Lupron inj -Cont following w/ Dr. Graf 2. BPH with urinary obstruction (N40.1: Benign prostatic hyperplasia with lower urinary tract symptoms) S/p laser vaporization of prostate by Dr. Duran, date unknown. CT AP w con 12/11/22 [facility] - Heterogenous lobular prostate gland with calcifications, measures 6.7 cm transversely. Recommended in the past to start Dutasteride but pt did not want to start medication due to SEs. 3. Gross hematuria (R31.0: Gross hematuria) Cysto 12/08/22 - Moderate Hypertrophy, Areas of the lateral lobe regrowth appears as though they have bled in the past. [1] Moderate trabeculation. CT AP w con 12/11/22 [facility] - Numerous cortical hypodensities, the larger lesions are simple cysts. No hydro or obstructing stones. Heterogenous lobular prostate gland with calcifications, measures 6.7 cm transversely. No recurrence since neg hematuria workup last year. 4. Simple renal cyst (N28.1: Cyst of kidney, acquired) CT AP w con 12/11/22 [facility] - Numerous cortical hypodensities, the larger lesions are simple cysts. Simple cysts do not require surveillance. Follow-up With When Contact Information RICHARD MAGANA, Vernell Martinez, URL [facility] [address], [place] [address] [phone] Additional Instructions: 6 mos w/ PSA and Lupron inj Patient Education Hormone Suppression Therapy for Prostate Cancer Cherry Le, personally scribed for Dr. Sifuentes on 11/15/2023 15:19:56. . Documentation recorded by the scribe, Cherry Jose, accurately reflects the services(s) I performed and decisions made by me. Authenticated by Dr. Sifuentes on 11/15/2023 15:24:51. Problem List/Past Medical History Ongoing BPH with urinary obstruction Elevated PSA Gross hematuria Hypertension Prostate cancer Simple renal cyst Historical No qualifying data Procedure/Surgical History Transrectal biopsy of prostate using ultrasound guidance (08/26/2023), Cystoscopy (12/08/2022), Laser ablation of prostate (12/26/2014), Transrectal biopsy of prostate using ultrasound (US) guidance (12/26/2014), Flexible cystoscopy (12/14/2014), Transrectal biopsy of prostate using ultrasound (US) guidance (05/01/2013), Flexible cystoscopy (04/10/2005), Cataract, Colonoscopy. Medications amLODIPin (more content not included)... Normal [facility] Comment on above: Result Comment: Elec tronically Signed By: Vernell SIFUENTES MD\.br\Date and Time Signed: 11/15/23 15:24 EST\.br\Electronically Co-Signed By: Cherry Jose.br\Date and Time Co-Signed: 11/15/23 15:20 EST Consultation Noteon 10-20-19 Consultation Note [id number]#[id number] 0SALASF Mikayla Ewing [facility] CNOVon 10-19-2023 CNOV Office Visit (RADTSA ) AYALA DAMIAN ([id number]) 1945 M Date Time Provider Department 10/19/23 1:30 PM Adelfo GRAF During your visit today, we recorded the following information about you: Temperature Pulse Respiration Blood pressure 97.4 degrees 58/minute 18/minute 153/75 Weight 118.6 kg Adelfo Graf MD 10/19/2023 1:41 PM Signed Radiation Oncology - Prostate Cancer Follow-up note PATIENT NAME: Ayala Damian PATIENT DIAGNOSIS: Prostate adenocarcinoma, initial PSA 9.5, biopsy Macksburg score 4 + 3 = 7 (grade group 3), clinical stage T1c, N0, M0, stage IIC [T1-T2, N0, M0, PSA <20, GG 3] (AJCC 8th ed.), s/p TRUS Random biopsy. HPI: Patient returns after recent PSMA PET. Denies any new problems or concerns. PSMA PET 10/14/2023: Head and neck: - No PSMA-expressing lesion suspicious for metastasis. Chest: -Nonspecific enlarged paraesophageal lymph nodes, similar to prior CT abdomen/pelvis 12/11/2022 without significant tracer avidity. - No PSMA-expressing lesion suspicious for metastasis. Abdomens and Pelvis: -Prostatomegaly with heterogeneous tracer avidity posteriorly, consistent with patient's known prostate cancer. -Abdominal aortic aneurysm measuring up to 3.4 cm in diameter. - No PSMA-expressing lesion suspicious for metastasis. Bones and soft tissues: - No PSMA-expressing lesion suspicious for metastasis. Bowel Movement Frequency: 1/day Bowel Movement Quality: Normal Blood per Rectum: No Androgen Deprivation: none Prior Radiation Therapy, Collagen Vascular Disease, or Inflammatory Bowel Disease: No Any implanted or external electric devices? No Currently on Anticoagulation: No History of Hip Replacement: No History of Prior TURP: Prior laser ablation procedure ALLERGIES Allergen Reactions Penicillins Hives amLODIPine (NORVASC) 5 mg tablet Take 5 mg by mouth. Atenolol-Chlorthalidon e 100-25 mg per tablet Take 1 tablet by mouth once daily. simvastatin (ZOCOR) 40 mg tablet Take 40 mg by mouth. nabumetone (RELAFEN) 500 mg tablet Refills(s) 0 PAST MEDICAL HISTORY Diagnosis Date Arthritis Hard of hearing HTN (hypertension) Hypercholesteremia No past surgical history on file. FAMILY HISTORY Problem Relation Age of Onset Prostate Cancer Brother Breast Cancer Paternal Aunt Social History Tobacco Use Smoking status: Former Packs/day: 1.50 Years: 45.00 Additional pack years: 0.00 Total pack years: 67.50 Types: Cigarettes Start date: 1965 Quit date: 2003 Years since quittin.0 Smokeless tobacco: Never Substance Use Topics Alcohol use: Yes Comment: 2-3 mixed drink per day Drug use: Never Occupation: Retired Residence: Home REVIEW OF SYSTEMS: GENERAL: feeling well without fatigue, no recent change in weight NECK: denies swelling or pain in neck RESPIRATORY: no cough, no wheezing or shortness of breath CARDIOVASCULAR: no chest pain, no palpitations MUSCULOSKELETAL: denies any painful or swollen joints, no muscle aches SKIN: no rash As noted in HPI PHYSICAL EXAM: VS: BP 153/75 Pulse (!) 58 Temp 36.3 ?C (97.4 ?F) Resp 18 Wt 118.6 kg (261 lb 7.5 oz) SpO2 97% BMI (P) 35.46 kg/m? KARNOFSKY PERFORMANCE STATUS: 100 General Appearance: Alert and oriented. No acute distress. GENITOURINARY: Deferred exam RECTAL: Deferred exam RADIOLOGY/LABORATORY DATA: see HPI ASSESSMENT/PLAN: Prostate adenocarcinoma, initial PSA 9.5, biopsy Macksburg score 4 + 3 = 7 (grade group 3), clinical stage T1c, N0, M0, stage IIC [T1-T2, N0, M0, PSA <20, GG 3] (AJCC 8th ed.), s/p TRUS Random biopsy. [facility] (C61), [facility] Risk Group: Unfavorable Intermediate Risk Group Clinical State: Localized Cancer - New Diagnosis Patient presents after further staging with PSMA PET. No evidence of metastatic disease. Discussed options of management again at length with patient. Also discussed potential enrollment in and intergroup clinical study, GU010, a Parallel Phase III Randomized Trial of Genomic-Risk Stratified Unfavorable Intermediate Risk Prostate Cancer: De-Intensification and Intensification Clinical Trial Evaluation After long discussion patient was not interested. Discussed again treatment options including surgery versus radiation. Discussed both external beam as well as use of ADT. Discussed possibility of brachytherapy though I have concerns given his large gland size. After long discussion patient wants to proceed with external beam treatment. He is in agreement to ADT and I will have him see Dr. Sifuetnes for initiation of this. Will plan to see him back after this for simulation. Signed by: Adelfo Graf MD cc: Vernell Sifuentes [address] [place] [id number] Allergies As of Date: 10/19/2023 Noted Allergy Reaction PENICILLINS 09/21/2023 4 - Hives Date Reviewed: 10/19/2023 (more content not included)... Normal [facility] NM PET/CT PROSTATE WBon NM PET/CT PROSTATE WB * * *Final Report* * * DATE OF EXAM: Oct 14 2023 2:42PM NRN [id number] - NM PET/CT PROSTATE WB / PROCEDURE REASON: Cancer of prostate w/med recur risk (T2b-c or Macksburg 7 or PSA 10-20) (HCC) * * * * Physician Interpretation * * * * RESULT: [id number] WHOLE BODY PET/CT SCAN HISTORY: 77-year-old man with prostate cancer. Pre-treatment staging. Prostate cancer grade: Grade Group 3 (Sahil score 4 + 3) 08/26/2023 PSA: 9.5 ng/mL (07/05/2023) Therapy: Prior ADT: No PREVIOUS COMPARISON PET/CT STUDY: None OTHER COMPARISON: CT abdomen/pelvis 12/11/2022. MRI prostate 03/17/2022 TECHNIQUE: 10.8 mCi of [id number]. The PET imaging was obtained between TOP OF HEAD THROUGH PROXIMAL THIGH approximately 60 minutes after injection. Non-contrast spiral CT was also performed for attenuation correction. CT Dose-Length Product (DLP): 451mGy*cm CT Dose Reduction Employed: Yes RESULTS: HEAD AND NECK: Lymph nodes: No tracer-avid lymphadenopathy. Other: Physiologic activity in the salivary and lacrimal glands. No other lesions with abnormal tracer uptake. CHEST: Lymphnodes: Nonspecific enlarged paraesophageal lymph nodes without significant tracer avidity, max SUV of 2.8, for reference: 1.4 cm right paraesophageal lymph node (image 195), previously measuring 1.[address] abdomen/pelvis 12/11/2022. 1.7 cm left paraesophageal lymph node (image 190), previously measuring 1.[address] abdomen/pelvis 12/11/2022. Lungs and airways: No tracer-avid nodules or masses. Calcified granulomas. Cardiovascular structures: No lesions with abnormal tracer uptake. Pleura: No pleural effusion or lesions with abnormal tracer uptake. ABDOMEN AND PELVIS: Hepatobiliary and pancreas: Physiologic uptake. No tracer-avid lesions in the liver. No tracer-avid lesions in the pancrease. Hepatic steatosis. Spleen: Physiologic uptake. No splenomegaly or tracer-avid lesions. Adrenal Glands: No tracer-avid lesions. Kidneys: Physiologic activity but no tracer-avid lesions. Renal cysts. Mesentery and retroperitoneum: No tracer-avid lymph nodes or other lesions. Atherosclerotic calcifications with abdominal aortic aneurysm measuring up to 3.4 cm (image 273), similar to prior. GI tract: Physiologic activity but no tracer-avid abnormalities. Pelvis: Prostate bed: Prostatomegaly with heterogeneous tracer avidity posteriorly (max SUV 5.3). Seminal Vesicles bed: No tracer avid lesion. Lymph nodes: Right: * Common iliac: No tracer-avid nodes. * External iliac: No tracer-avid nodes. * Internal iliac: No tracer-avid nodes. * Obturator: No tracer-avid nodes. Left: * Common iliac: No tracer-avid nodes. * External iliac: No tracer-avid nodes. * Internal iliac: No tracer-avid nodes. * Obturator: No tracer-avid nodes. Pre-sacral: No tracer-avid nodes. Nadia-rectal: No tracer-avid nodes. Other findings: BONE AND OTHER FINDINGS: No PSMA-avid osseous destructive lesions. IMPRESSION: Head and neck: - No PSMA-expressing lesion suspicious for metastasis. Chest: -Nonspecific enlarged paraesophageal lymph nodes, similar to prior CT abdomen/pelvis 12/11/2022 without significant tracer avidity. - No PSMA-expressing lesion suspicious for metastasis. Abdomens and Pelvis: -Prostatomegaly with heterogeneous tracer avidity posteriorly, consistent with patient's known prostate cancer. -Abdominal aortic aneurysm measuring up to 3.4 cm in diameter. - No PSMA-expressing lesion suspicious for metastasis. Bones and soft tissues: - No PSMA-expressing lesion suspicious for metastasis. Transcribe Date/Time: Oct 14 2023 2:49P Dictated by: CLAUDIA JENNINGS MD This examination was interpreted and the report reviewed and electronically signed by: DOLLY BROTHERS MD on Oct 14 2023 9:25PM EST Thank you for allowing us to participate in the care of your patient. Should there be any questions regarding this interpretation, please call [phone]. If you are unable to reach us at the number above, please feel free to contact [facility] eRadiology at [phone]. [id number] Normal [facility] Consultation Noteon 09-26-20 Consultation Note [id number] Normal [facility] CNOVon 09-21-2023 CNOV Office Visit (RADTSA ) AYALA DAMIAN ([id number]) 1945 M Date Time Provider Department 09/21/23 9:00 AM Adelfo GRAF During your visit today, we recorded the following information about you: Olga Monge LPN 09/21/2023 10:01 AM Signed Pacemaker/Defibrillato r?N Previous Cancer(s)?N Previous Radiation?N Lupus/Scleroderma?N On body monitoring device?N Olga Monge RN AUA= 12 Adelfo Graf MD 09/21/2023 10:01 AM Signed Radiation Oncology - Prostate Cancer New Patient/Consult Note PATIENT NAME: Ayala Damian PATIENT REQUESTING PROVIDER: Dr. Sifuentes. DIAGNOSIS: 77 year old male with prostate adenocarcinoma, 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 HPI: 77 year old male with prostate adenocarcinoma who presents for an opinion regarding the role of radiation therapy in the management of the patient's disease. Final recommendations will be communicated back to the requesting physician by way of the shared medical record, or letter to requesting physician via US mail. The patient was diagnosed with prostate cancer and comes in today to discuss treatment options. Patient has a history of elevated PSA. Prior prostate biopsies including in 2012 and 2014 were negative. He has a history of obstructive uropathy, underwent prior KTP laser photo vaporization procedure 2014. Patient had gross hematuria earlier this year, CT abdomen and pelvis on 12/11/2022 demonstrating enlarged heterogeneous lobular calcified prostate gland, no areas suspicious for metastasis. Patient's PSA was elevated, 9.5 on 07/05/2023 (23.5% free) Previous PSAs: 11/14/2022 7.8 MRI prostate 04/01/2022: 6.6 x 5.1 x 6.8 cm plan 118 cc No evidence of adenopathy or suspicious bony findings. Asymmetric decompressed left seminal vesicle with T2 hypointensity, no MRI evidence of prostate malignancy Prostate biopsy, on August 26, 2023 revealed: 112 g prostate. No hypoechoic areas seen. Adenocarcinoma, Macksburg 7 (4+3) from the R1 biopsy site (2 of 2 cores from that site) Total # of positive biopsy cores: 2 Total # of biopsy cores sampled: 16 Greatest % cancer in any single core: 25-50% Staging Studies: MR Results: See HPI CAT Scan Results: See HPI Previous Treatment for Prostate Cancer: None Genomic Testing: None The patient reports the following pertinent history: Urinary frequency (D/N): 4-6/1-2 Dysuria: No Incontinence: 1- No pads Hematuria: Earlier this year no recent hematuria. - Total AUA Score: 12 Bowel Movement Frequency: 1/day Bowel Movement Quality: Normal Blood per Rectum: No Androgen Deprivation: none Prior Radiation Therapy, Collagen Vascular Disease, or Inflammatory Bowel Disease: No Any implanted or external electric devices? No Currently on Anticoagulation: No History of Hip Replacement: No History of Prior TURP: Prior laser ablation procedure ALLERGIES Allergen Reactions Penicillins Hives amLODIPine (NORVASC) 5 mg tablet Take 5 mg by mouth. Atenolol-Chlorthalidon e 100-25 mg per tablet Take 1 tablet by mouth once daily. simvastatin (ZOCOR) 40 mg tablet Take 40 mg by mouth. nabumetone (RELAFEN) 500 mg tablet Refills(s) 0 PAST MEDICAL HISTORY Diagnosis Date Arthritis Hard of hearing HTN (hypertension) Hypercholesteremia History reviewed. No pertinent surgical history. FAMILY HISTORY Problem Relation Age of Onset Prostate Cancer Brother Breast Cancer Paternal Aunt Social History Tobacco Use Smoking status: Former Packs/day: 1.50 Years: 45.00 Additional pack years: 0.00 Total pack years: 67.50 Types: Cigarettes Start date: 1965 Quit date: 2003 Years since quittin.9 Smokeless tobacco: Never Substance Use Topics Alcohol use: Yes Comment: 2-3 mixed drink per day Drug use: Never Occupation: Retired Residence: Home REVIEW OF SYSTEMS: GENERAL: feeling well without fatigue, no recent change in weight NECK: denies swelling or pain in neck RESPIRATORY: no cough, no wheezing or shortness of breath CARDIOVASCULAR: no chest pain, no palpitations MUSCULOSKELETAL: denies any painful or swollen joints, no muscle aches SKIN: no rash As noted in HPI PHYSICAL EXAM: VS: BP (P) 137/74 Pulse (P) 64 Temp (P) 36.8 ?C (98.3 ?F) Resp (P) 16 Ht (P) 182.9 cm (6') Wt (P) 117.9 kg (260 lb) SpO2 (P) 96% BMI (P) 35.26 kg/m? KARNOFSKY PERFORMANCE STATUS: 100 General Appearance: Alert and oriented. No acute distress. HEENT: NCAT. Sclera anicteric. PERRL. EOMI. Neck: Normal ROM. No palpable cervical or supraclavicular adenopathy. Chest: No respiratory distress. Lungs clear to auscultation bilaterally. Heart: Regular rate and rhythm. Abdomen: Soft. Nontender. Nondistended. (more content not included)... Normal [facility] CNPDarlin 09-21-2023 CNPN Telephone (NCCAP) AYALA DAMIAN ([id number]) 1945 M Date Time Provider Department 09/21/23 Adelfo GRAF NCCCHIQUI During your visit today, we recorded the following information about you: Shantell Bower 09/21/2023 9:38 AM Signed This form is used for MAIN CAMPUS APPOINTMENTS ONLY. Is this request for a Main [place] PET scan appointment? Yes: Sales Operations Analyst: Shantell Grier Requesting Person Dr Graf: Area Code + Phone/Pager: [phone] Who do we call to schedule this appointment? Other Contact: PSMA Pet please route to Tania Tim in [place] Requesting Staff Dr graf Area Code + Phone/Pager: [phone] PET Orders (A delay in scheduling will result if the orders are not present at time of review): Internal ADDITIONAL ACTION MAY BE REQUIRED IF PATIENTS OON INSURANCE OR SELF PAY COVERAGE HAS NOT BEEN CLEARED FOR REQUESTED APPOINTMENT. Scheduling: TERA: As soon as insurance will allow What account will this PET appointment be linked to? P/F Type of PET: Oncology: Are there additional diagnostic CT scans required to be done at time of PET scan? No Is the request for a PET MR ? No What account will diagnostic testing appointment be linked to? P/F Will the patient need anesthesia? NO Send requests to P COORD REVIEW Chelsy Sarmiento 09/21/2023 10:45 AM Signed Authorization number: PSMA Authorization date range: PSMA Primary Insurance: [employer] Diagnosis: Cancer of prostate w/med recur risk (T2b-c or Macksburg 7 or PSA 10-20) (HCC) [C61] DX Imaging: CT/CTA: 12/11/2022 CT ABD/PELV/, MRI/MRA: 03/17/2022 MR PROSTATE, and Ultrasound: 08/26/2023 US PROSTATE Pathology: Prior prostate biopsies including in 2012 and 2014 were negative.He has a history of obstructive uropathy, underwent prior KTP laser photo vaporization procedure 2014. Prostate biopsy, on August 26, 2023 revealed: 112 g prostate. No hypoechoic areas seen. Adenocarcinoma, Macksburg 7 (4+3) from the R1 biopsy site (2 of 2 cores from that site) adenocarcinoma, 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 Labs: 07/05/2023 PSA 9.5 11/14/2022 PSA 7.8 01/12/2022 PSA 9.29 Clinical Notes Reviewed: 09/21/2023 Rad Onc Date of last: NA Additional Information: Prostate cancer, staging Started Dutasteride Patient has a history of elevated PSA T2b-c or Macksburg 7 or PSA 10-20 Radiologist Reviewed: N/A Initial/Subsequent: Initial Treatment Strategy: 92 PET Protocol: PSMA Diagnostic Imaging Requested: No Is this a Pretreatment and/or an initial Pet scan: No - Schedule as requested Comments for Transaction Processor: TERA: As soon as insurance will allow ROUTE TO SCHEDULERS POOL P PET SMALL PARTS ASSEMBLER MC or P NM SPECIAL STUDIES Chelsy Moran 09/21/2023 10:56 AM Addendum Auth#: [id number] Date Range:09-21-23 to 12-19-23 99682/PSMA- piflufolastat (Pylarify) F-18 Adelfo Mcarthur MD INS Contact Number: Intake: online Case/Ref#: [id number] Notes: 09/21/2023 Submitted Clinicals information online via [employer] pending review Chelsy Moran 09/21/2023 10:56 AM Signed Advised scheduling to ignore, not authorized sent to scheduling in error, when authorized will send to [place] to schedule Allergies As of Date: 09/21/2023 Noted Allergy Reaction PENICILLINS 09/21/2023 4 - Hives Date Reviewed: 09/21/2023 Reviewed by: Olga Monge LPN - Fully Assessed Reason for Visit: Nm Pet Request [[id number]] Prescriptions as of 09/22/2023 - amLODIPine (NORVASC) 5 mg tablet Take 5 mg by mouth. - Atenolol-Chlorthalidon e 100-25 mg per tablet Take 1 tablet by mouth once daily. - simvastatin (ZOCOR) 40 mg tablet Take 40 mg by mouth. - nabumetone (RELAFEN) 500 mg tablet Refills(s) 0 Problem List As Of Date: 09/21/2023 (None) Encounter Status:Closed by SHANTELL BOWER on 09/22/23 [facility] Ambulatory Visit Summaryon 1 11-11-2022 Ambulatory Visit Summary AYALA DAMIAN :1945 Visit Date:09/10/2023 Ambulatory Visit Instructions Your Diagnosis Prostate cancer BPH with urinary obstruction Gross hematuria Simple renal cyst Your Care Team Attending Physician - RICHARD MAGANA, Vernell Martinez Primary Care Physician - MERRILL IRAHETA MD This Is Your Medications List dutasteride (dutasteride 0.5 mg Cap) Contact prescribing physician if questions or concerns amlodipine (amLODIPine 5 mg Tab) atenolol-chlorthalidon e (atenolol-chlorthalido ne 100 mg-25 mg Tab) nabumetone (nabumetone 500 mg Tab) simvastatin (simvastatin 40 mg Tab) Procedures Performed Transrectal biopsy of prostate using ultrasound guidance (08/26/2023), Cystoscopy (12/08/2022), Laser ablation of prostate (12/26/2014), Transrectal biopsy of prostate using ultrasound (US) guidance (12/26/2014), Flexible cystoscopy (12/14/2014), Transrectal biopsy of prostate using ultrasound (US) guidance (05/01/2013), Flexible cystoscopy (04/10/2005), Cataract, Colonoscopy. Discharge Vitals Heart Rate (Peripheral) 80 Respiratory Rate 16 Blood Pressure 138/89 Height 186 cm Height 73 in Weight 122 kg Weight 268.4 lb BMI 35.26 What to do next Scheduled Follow-Up Appointments Wednesday 8:45 AM EDT With: RICHARD MAGANA, Vernell Martinez Where: [facility] [place] Normal [facility] Patient Educationon 09-10-20 23 Patient Education Oncology Prostate Cancer The prostate is a small gland that produces fluid that makes up semen (seminal fluid). It is located below the bladder in men, in front of the rectum. Prostate cancer is the abnormal growth of cells in the prostate gland. What are the causes? The exact cause of this condition is not known. What increases the risk? You are more likely to develop this condition if: ? You are 65 years of age or older. ? You have a family history of prostate cancer. ? You have a family history of breast and ovarian cancer. ? You have genes that are passed from parent to child (inherited), such as BRCA1 and BRCA2. ? 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 men and men of descent are diagnosed with prostate cancer at higher rates than other men. The reasons for this are not well understood and are likely due to a combination of genetic and environmental factors. What are the signs or symptoms? Symptoms of this condition include: ? Problems with urination. This may include: ? A weak or interrupted flow of urine. ? Trouble starting or stopping urination. ? Trouble emptying the bladder all the way. ? The need to urinate more often, especially at night. ? Blood in urine or semen. ? Persistent pain or discomfort in the lower back, lower abdomen, or hips. ? Trouble getting an erection. ? Weakness or numbness in the legs or feet. How is this diagnosed? This condition can be diagnosed with: ? A digital rectal exam. For this exam, a health care provider inserts a gloved finger into the rectum to feel the prostate gland. ? A blood test called a prostate-specific antigen (PSA) test. ? A procedure in which a sample of tissue is taken from the prostate and checked under a microscope (prostate biopsy). ? An imaging test called transrectal ultrasonography. Once the condition is diagnosed, tests will be done to determine how far the cancer has spread. This is called staging the cancer. Staging may involve imaging tests, such as a bone scan, CT scan, PET scan, or MRI. Stages of prostate cancer The stages of prostate cancer are as follows: ? Stage 1 (I). At this stage, the cancer is found in the prostate only. The cancer is not visible on imaging tests, and it is usually found by accident, such as during prostate surgery. ? Stage 2 (II). At this stage, the cancer is more advanced than it is in stage 1, but the cancer has not spread outside the prostate. ? Stage 3 (III). At this stage, the cancer has spread beyond the outer layer of the prostate to nearby tissues. The cancer may be found in the seminal vesicles, which are near the bladder and the prostate. ? Stage 4 (IV). At this stage, the cancer has spread to other parts of the body, such as the lymph nodes, bones, bladder, rectum, liver, or lungs. Prostate cancer grading Prostate cancer is also graded according to how the cancer cells look under a microscope. This is called the Sahil score and the total score can range from 6?10, indicating how likely it is that the cancer will spread (metastasize) to other parts of the body. The higher the score, the greater the likelihood that the cancer will spread. ? Sahil 6 or lower: This indicates that the cancer cells look similar to normal prostate cells (well differentiated). ? Sahil 7: This indicates that the cancer cells look somewhat similar to normal prostate cells (moderately differentiated). ? Sahil 8, 9, or 10: This indicates that the cancer cells look very different than normal prostate cells (poorly differentiated). How is this treated? Treatment for this condition depends on several factors, including the stage of the cancer, your age, personal preferences, and your overall health. Talk with your health care provider about treatment options that are recommended for you. Common treatments include: ? Observation for early stage prostate cancer (active surveillance). This involves having exams, blood tests, and in some cases, more biopsies. For some men, this is the only treatment needed. ? Surgery. Types of surgeries include: ? Open surgery (radical prostatectomy). In this surgery, a larger incision is made to remove the prostate. ? A laparoscopic radical prostatectomy. This is a surgery to remove the prostate and lymph nodes through several small incisions. It is often referred to as a minimally invasive surgery. ? A robotic radical prostatectomy. This is laparoscopic surgery to remove the prostate and lymph nodes with the help of robotic arms that are controlled by the surgeon. ? Cryoablation. This is surgery to freeze and destroy cancer cells. ? Radiation treatment. Types of radiation treatment include: ? External beam radiation. This type aims beams of radiation from outside the body at the prostate to destroy cancerous cells. ? Brachytherapy. This type uses radioactive needles, seeds, wires, or tubes that are implanted into the prostate gland. Like external be (more content not included)... Normal [facility] Urology Office/Clinic Noteon 09-10-2023 Urology Office/Clinic Note Chief Complaint S/P TRUS/Bx HPI Staff S/P TRUS/Bx done 08/26/23 DX: Elevated PSA, BPH, Gross Hematuria & Simple Renal Cyst *Started on Dutasteride 0.5mg qd therapy at time of last in office encounter-However pt states he did not start taking due to potential side effects and he read that you have to stay on medication. Last PSA 07/05/23- 9.5 & 23.5% Visible blood in urine for 1wk following procedure, has since then subsided. Denies current pain and burning. History of Present Illness Tests reviewed: reviewed path report. I have reviewed the previous health record information and history for this patient from Dr. Sifuentes. I have reviewed and verified the staff HPI to be accurate for this encounter. There have been no associated fever, chills, flank pain, or blood in the urine. Denies any urinary infections since last encounter. Review of Systems PHQ Score Initial Depression Screen Score: 0 SCORE ROS - Provider Constitutional: denies weight loss, denies hot flashes. Eyes: denies eye problems. Gastrointestinal: denies nausea, denies vomiting. Cardiovascular: denies chest pain or angina. Integumentary: no dryness Musculoskeletal: denies musculoskeletal symptoms. ENMT: denies otolaryngeal symptoms. Respiratory: no shortness of breath. Heme/Lymph: denies easy bleeding tendency, denies easy bruising tendency. Psychiatric: no confusion, no anxiety. Genitourinary: See HPI. Physical Exam Vitals & Measurements HR: 80(Peripheral) RR: 16 BP: 138/89 HT: 73 in HT: 186 cm WT: 122 kg WT: 268.4 lb BMI: 35.26 General Appearance: alert, no distress, well nourished, well developed male. Genitourinary: normal scrotum, normal testes, normal urethra, normal epididymis, normal vas deferens/spermatic cord. Flank Pain: none. Bladder: nonpalpable. Assessment/Plan 1. Prostate cancer (C61: Malignant neoplasm of prostate) PSA: 01/12/22 - 9.29 11/14/22 - 7.8 & 21% 07/05/23 - 9.5 & 23.5% MRI of prostate 03/17/22 - No MRI evidence of prostate malignancy. Asymmetrically decompressed L SV, finding is nonspecific, however no abnormal enhancement. Finding is likely a sequela of prior infectious of inflammatory process. Prostate volume 119 mL. S/p TRUS/bx 08/26/23. Path reveals Sahil 7 (4+3), GG3. Approximately 40% of tissue involvement. 2 cores. Results reviewed with pt. The pathology report, which shows the presence of prostate cancer, was disclosed to the patient in detail today. I discussed with the patient all the treatment options, including active surveillance, radical prostatectomy either by open, laparoscopic, or laparoscopic robotic technique. I discussed the radiation therapy options, including prostate brachytherapy, external beam radiation therapy, and combinations of the two. Lupron hormonal therapy was also discussed. I went over the pros and cons of each therapy today. -Referral sent to Dr. Graf -Will have pt picker prostate cancer book when we have one available 2. BPH with urinary obstruction (N40.1: Benign prostatic hyperplasia with lower urinary tract symptoms) S/p laser vaporization of prostate by Dr. Duran, date unknown. CT AP w con 12/11/22 [facility] - Heterogenous lobular prostate gland with calcifications, measures 6.7 cm transversely. Pt was started on Dutasteride 0.5 mg qd at last visit, however pt did not start due to potential SEs and he read that you have to stay on medication. 3. Gross hematuria (R31.0: Gross hematuria) Cysto 12/08/22 - Moderate Hypertrophy, Areas of the lateral lobe regrowth appears as though they have bled in the past. [1] Moderate trabeculation. CT AP w con 12/11/22 [facility] - Numerous cortical hypodensities, the larger lesions are simple cysts. No hydro or obstructing stones. Heterogenous lobular prostate gland with calcifications, measures 6.7 cm transversely. Hematuria workup 11/2022 concluded and neg for malignancy. Did have gross hematuria for one week following TRUS/bx. 4. Simple renal cyst (N28.1: Cyst of kidney, acquired) CT AP w con 12/11/22 [facility] - Numerous cortical hypodensities, the larger lesions are simple cysts. Simple cysts do not require surveillance. Follow-up With When Contact Information RICHARD MAGANA, Vernell Martinez, URL [facility] [place] [address]- Additional Instructions: Follow up after pt meets with oncology Patient Education Prostate Cancer I, Richelle Waddell, personally scribed for Dr. Sifuentes on 09/10/2023 11:56:23. . Documentation recorded by the scribe, Richelle Waddell, accurately reflects the services(s) I performed and decisions made by me. Authenticated by Dr. Sifuentes on 09/10/2023 12:02:39. Problem List/Past Medical History Ongoing BPH with urinary obstruction Elevated PSA Gross hematuria Hypertension Prostate cancer Simple renal cyst Historical No qualifying data Procedure/Surgical History Transrectal biopsy of prostate using ultrasound (more content not included)... Normal [facility] Comment on above: Result Comment: Elec tronically Signed By: Vernell SIFUENTES MD\.br\Date and Time Signed: 09/10/23 12:02 EST\.br\Electronically Co-Signed By: Richelle Waddell\.br\Date and Time Co-Signed: 09/10/23 11:56 EST\.br\Electronically Co-Signed By: Richelle Waddell\.br\Date and Time Co-Signed: 09/10/23 12:00 EST Pathology Noteon 09-07-2023 Pathology Note [id number] 0TIFF Normal [facility] RAD - Ultrasound Reporton RAD - Ultrasound Report [id number]#1.0 0TIFF [facility] Operative Reporton Operative Report [id number]#1.0 0TIFF [facility] Insurance Correspondenceon 1 Insurance Correspondence [id number]#1.0 0TIFF Normal [facility] Consent for Procedure/Surger yon 07-29-2023 Consent for Procedure/Surgery [id number]#1.0 0TIFF [facility] Lab Reportson 07-07-2023 Lab Reports [id number]#1.00 CD:127 [facility] Ambulatory Visit Summaryon 0 07-05-2023 Ambulatory Visit Summary AYALA DAMIAN :1945 Visit Date:07/05/2023 Ambulatory Visit Instructions Your Diagnosis Elevated PSA BPH with urinary obstruction Gross hematuria Simple renal cyst Your Care Team Attending Physician - RICHARD MAGANA, Vernell Martinez Primary Care Physician - MERRILL IRAHETA MD This Is Your Medications List dutasteride (dutasteride 0.5 mg Cap) Contact prescribing physician if questions or concerns amlodipine (amLODIPine 5 mg Tab) atenolol-chlorthalidon e (atenolol-chlorthalido ne 100 mg-25 mg Tab) nabumetone (nabumetone 500 mg Tab) simvastatin (simvastatin 40 mg Tab) Procedures Performed Cystoscopy (12/08/2022), Cataract, Colonoscopy. Discharge Vitals Heart Rate (Peripheral) 70 Respiratory Rate 16 Blood Pressure 134/70 Height 186 cm Height 73 in Weight 122 kg Weight 268.4 lb BMI 35.26 What to do next Scheduled Follow-Up Appointments Wednesday 8:45 AM EDT With: RICHARD MAGANA, Vernell Martinez Where: [facility] Patient Educationon 07-05-20 23 Patient Education Oncology Prostate Cancer Screening Prostate cancer screening is testing that is done to check for the presence of prostate cancer in men. The prostate gland is a walnut-sized gland that is located below the bladder and in front of the rectum in males. The function of the prostate is to add fluid to semen during ejaculation. Prostate cancer is one of the most common types of cancer in men. Who should have prostate cancer screening? Screening recommendations vary based on age and other risk factors, as well as between the professional organizations who make the recommendations. In general, screening is recommended if: ? You are age 50 to 70 and have an average risk for prostate cancer. You should talk with your health care provider about your need for screening and how often screening should be done. Because most prostate cancers are slow growing and will not cause , screening in this age group is generally reserved for men who have a 10- to 15-year life expectancy. ? You are younger than age 50, and you have these risk factors: ? Having a father, brother, or uncle who has been diagnosed with prostate cancer. The risk is higher if your family member's cancer occurred at an early age or if you have multiple family members with prostate cancer at an early age. ? Being a male who is Black or is of [place] or sub-Saharan descent. In general, screening is not recommended if: ? You are younger than age 40. ? You are between the ages of 40 and 49 and you have no risk factors. ? You are 70 years of age or older. At this age, the risks that screening can cause are greater than the benefits that it may provide. If you are at high risk for prostate cancer, your health care provider may recommend that you have screenings more often or that you start screening at a younger age. How is screening for prostate cancer done? The recommended prostate cancer screening test is a blood test called the prostate-specific antigen (PSA) test. PSA is a protein that is made in the prostate. As you age, your prostate naturally produces more PSA. Abnormally high PSA levels may be caused by: ? Prostate cancer. ? An enlarged prostate that is not caused by cancer (benign prostatic hyperplasia, or BPH). This condition is very common in older men. ? A prostate gland infection (prostatitis) or urinary tract infection. ? Certain medicines such as male hormones (like testosterone) or other medicines that raise testosterone levels. A rectal exam may be done as part of prostate cancer screening to help provide information about the size of your prostate gland. When a rectal exam is performed, it should be done after the PSA level is drawn to avoid any effect on the results. Depending on the PSA results, you may need more tests, such as: ? A physical exam to check the size of your prostate gland, if not done as part of screening. ? Blood and imaging tests. ? A procedure to remove tissue samples from your prostate gland for testing (biopsy). This is the only way to know for certain if you have prostate cancer. What are the benefits of prostate cancer screening? ? Screening can help to identify cancer at an early stage, before symptoms start and when the cancer can be treated more easily. ? There is a small chance that screening may lower your risk of dying from prostate cancer. The chance is small because prostate cancer is a slow-growing cancer, and most men with prostate cancer from a different cause. What are the risks of prostate cancer screening? The main risk of prostate cancer screening is diagnosing and treating prostate cancer that would never have caused any symptoms or problems. This is called overdiagnosisand overtreatment. PSA screening cannot tell you if your PSA is high due to cancer or a different cause. A prostate biopsy is the only procedure to diagnose prostate cancer. Even the results of a biopsy may not tell you if your cancer needs to be treated. Slow-growing prostate cancer may not need any treatment other than monitoring, so diagnosing and treating it may cause unnecessary stress or other side effects. Questions to ask your health care provider ? When should I start prostate cancer screening? ? What is my risk for prostate cancer? ? How often do I need screening? ? What type of screening tests do I need? ? How do I get my test results? ? What do my results mean? ? Do I need treatment? Where to find more information ? The [place] [employer]: www.cancer.org ? [place] [employer]: www.auanet.org Contact a health care provider if: ? You have difficulty urinating. ? You have pain when you urinate or ejaculate. ? You have blood in your urine or semen. ? You have pain in your back or in the area of your prostate. Summary ? Prostate cancer is a common type of cancer in men. The prostate gland is located below the bladder and in front of the rectum. This gland adds flu (more content not included)... Normal [facility] Urology Office/Clinic Noteon 07-05-2023 Urology Office/Clinic Note Chief Complaint elevated PSA HPI Staff 77 yo male here for 7 month f/u to cysto. Previous Dx: elevated PSA, gross hematuria, BPH wo obstruction. S/p Cysto done 12/08/22. CT AP w con done 12/11/22 at [facility]. Most current PSA done is from 11/14/22 and is 7.8. Pt states that he has not seen any blood in his urine since he had the cystoscopy in November. He did not get a current PSA drawn. Dysuria: no Incomplete bladder emptying: no Hematuria: no Frequency: no Urgency: no Nocturia: depends on the amount he is drinking anywhere from 1-4 Stream: good stream Leaking: no Post void dripping: no Wearing pads/ Depends: no Urge incontinence: no Stress incontinence: no Incontinence without Sensory Awareness: no Abdominal pain: no Flank pain: no Sexual complaints: no History of Present Illness Tests reviewed: reviewed UA, cysto I have reviewed the previous health record information and history for this patient from Dr. Sifuentes. I have reviewed and verified the staff HPI to be accurate for this encounter. There have been no associated fever, chills, flank pain, or blood in the urine. Denies any urinary infections since last encounter. Review of Systems PHQ Score Initial Depression Screen Score: 0 ROS - Provider Constitutional: denies weight loss, denies hot flashes. Eyes: denies eye problems. Gastrointestinal: denies nausea, denies vomiting. Cardiovascular: denies chest pain or angina. Integumentary: no dryness Musculoskeletal: denies musculoskeletal symptoms. ENMT: denies otolaryngeal symptoms. Respiratory: no shortness of breath. Heme/Lymph: denies easy bleeding tendency, denies easy bruising tendency. Psychiatric: no confusion, no anxiety. Genitourinary: See HPI. Physical Exam Vitals & Measurements HR: 70(Peripheral) RR: 16 BP: 134/70 HT: 73 in HT: 186 cm WT: 122 kg WT: 268.4 lb BMI: 35.26 General Appearance: alert, no distress, well nourished, well developed male. Genitourinary: normal scrotum, normal testes, normal urethra, normal epididymis, normal vas deferens/spermatic cord. Flank Pain: none. Bladder: nonpalpable. Assessment/Plan 1. Elevated PSA (R97.20: Elevated prostate specific antigen [PSA]) PSA: 01/12/22 - 9.29 11/14/22 - 7.8 & 21% Did not get PSA level for appt. MRI of prostate 03/17/22 - No MRI evidence of prostate malignancy. Asymmetrically decompressed L SV, finding is nonspecific, however no abnormal enhancement. Finding is likely a sequela of prior infectious of inflammatory process. Prostate volume 119 mL. Follow up 6-8 mos with PSA FT or sooner if needed. Pt understands and agrees with plan. -PSA to be drawn IO today. 2. BPH with urinary obstruction (N40.1: Benign prostatic hyperplasia with lower urinary tract symptoms) S/p laser vaporization of prostate by Dr. Duran, date unknown. CT AP w con 12/11/22 [facility] - Heterogenous lobular prostate gland with calcifications, measures 6.7 cm transversely. Not taking any prostate meds. Emptying well. Feels he is voiding well. -Start Dutasteride 0.5 mg qd. SEs discussed. Rx sent to [facility]. 3. Gross hematuria (R31.0: Gross hematuria) Cysto 12/08/22 - Moderate Hypertrophy, Areas of the lateral lobe regrowth appears as though they have bled in the past. [1] Moderate trabeculation. CT AP w con 12/11/22 [facility] - Numerous cortical hypodensities, the larger lesions are simple cysts. No hydro or obstructing stones. Heterogenous lobular prostate gland with calcifications, measures 6.7 cm transversely. Hematuria workup 11/2022 concluded and neg for malignancy. No gross hematuria since cysto. Reviewed CT and cysto with pt. Gross hematuria likely from infected areas on very large prostate. Discussed adding 5-alpha reductase inhibitor which could help decrease prostatic bleeding episodes. 4. Simple renal cyst (N28.1: Cyst of kidney, acquired) CT AP w con 12/11/22 [facility] - Numerous cortical hypodensities, the larger lesions are simple cysts. Simple cysts do not require surveillance. Follow-up With When Contact Information RICHARD MAGANA, Vernell Martinez, URL [facility] [address], [place] [address]- [phone] Additional Instructions: 6-8 mos with PSA FT Patient Education Prostate Cancer Screening I, Erma Askew, personally scribed for Dr. Sifuentes on 07/05/2023 14:23:56. . Documentation recorded by the scribe, Erma Askew, accurately reflects the services(s) I performed and decisions made by me. Authenticated by Dr. Sifuentes on 07/05/2023 14:30:07. Problem List/Past Medical History Ongoing BPH with urinary obstruction Elevated PSA Gross hematuria Hypertension Simple renal cyst Historical No qualifying data Procedure/Surgical History Cystoscopy (12/08/2022), Cataract, Colonoscopy. Medications amLODIPine 5 mg Tab atenolol-chlorthalidon e 100 mg-25 mg Tab nabumetone 500 mg Tab simvastatin 40 mg Tab Allergies penicillin (Unknown) (more content not included)... Normal [facility] Comment on above: Result Comment: Elec tronically Signed By: Vernell SIFUENTES MD\.br\Date and Time Signed: 07/05/23 14:30 EDT\.br\Electronically Co-Signed By: Erma Askew\.br\Date and Time Co-Signed: 07/05/23 14:26 EDT\.br\Electronically Co-Signed By: Erma Askew\.br\Date and Time Co-Signed: 07/05/23 14:28 EDT Patient Letter FTon 2022 Patient Letter FT May 10, 2023 AYALA DAMIAN [address] [place] [address] : 1945 Dear Mr. Ayala Damian, [facility] is trying to reach you about scheduling an appointment concerning your elevated PSA level. You were scheduled for 05/31/23, but this has to be rescheduled. Your PSA done 11/14/2022 was 7.8. Normal PSA is 0-4. This will need to be monitored, as an elevated PSA can be a sign for infection, and/or possible prostate cancer. Please call the office to get this appointment rescheduled, so we can continue to provide you with quality care. Sincerely, Vernell Sifuentes M.D., F.A.C.S. [facility] [address] [place] [id number] , Option # SENT REGULAR/CERTIFIED MAIL [facility] Patient Letter [facility] May 10, 2023 AYALA DAMIAN [address] [place] [address] : 1945 Dear Mr. Ayala Damian, [facility] is trying to reach you about scheduling an appointment concerning your elevated PSA level. You were scheduled for 05/31/23, but this has to be rescheduled. Your PSA done 11/14/2022 was 7.8. Normal PSA is 0-4. This will need to be monitored, as an elevated PSA can be a sign for infection, and/or possible prostate cancer. Please call the office to get this appointment rescheduled, so we can continue to provide you with quality care. Sincerely, Vernell Sifuentes M.D., F.A.C.S. [facility] [address] [place] [id number] , Option # SENT REGULAR/CERTIFIED MAIL [facility] CBC AUTO DIFFon 02-22-2023 BASO # 0.1 103/ul Normal 0.0-0.1 [facility] Comment on above: Performed By: #### C BC #### [facility] [address] [address] [address] Lebron Marks Basophils/100 WBC (Bld) 1.1 % Normal 0.2-2.0 [facility] Comment on above: Performed By: #### C BC #### [facility] [address] [place] [address] Dr. Lebron Marks EO # 0.3 103/ul Normal 0.0-0.[address] [facility] Comment on above: Performed By: #### C BC #### [facility] [address] [place], [place] [address] Dr. Lebron Marks Eosinophils/100 WBC (Bld) 3.4 % Normal 0.9-7.[address] [facility] Comment on above: Performed By: #### C BC #### [facility] [address] [place] [address] Dr. Lebron Marks Erythrocyte distribution width (RBC) [Ratio] 12.2 % Normal 11.0-15.0 [facility] Comment on above: Performed By: #### C BC #### [facility] [address] [place] [address] Dr. Lebron Marks Hematocrit (Bld) [Volume fraction] 44.0 % Normal 42.0-54.0 [facility] Comment on above: Performed By: #### C BC #### [facility] [address] [place] [address] Dr. Lebron Marks Hemoglobin (Bld) [Mass/Vol] 15.9 g/dL Normal 14.0-18.0 [facility] Comment on above: Performed By: #### C BC #### [facility] [address] [place] [address] Dr. Lebron Marks IG # 0.02 10e3/ul Normal 0.00-0.03 [facility] Comment on above: Performed By: #### C BC #### [facility] [address] [place] [address] Dr. Lebron Marks IG % 0.3 % Normal 0.0-0.5 [facility] Comment on above: Performed By: #### C BC #### [facility] [address] [place] [address] Dr. Lebron Marks LYMPH # 0.9 103/ul Critically low 1.2-3.8 [facility] Comment on above: Performed By: #### C BC #### [facility] [address] [place] [address] Dr. Lebron Marks Lymphocytes/100 WBC (Bld) 11.7 % Critically low 20.5-60.0 [facility] Comment on above: Performed By: #### C BC #### [facility] [address] [place] [address] Dr. Lebron Marks MANUAL DIFF REQ NO Normal [facility] Comment on above: Performed By: #### C BC #### [facility] [address] [place] [address] Dr. Lebron Marks MCH (RBC) [Entitic mass] 31.7 pg Normal 25.9-34.0 [facility] Comment on above: Performed By: #### C BC #### [facility] [address] [address] [address] Lebron Marks MCHC (RBC) [Mass/Vol] 36.1 g/dL Critically high 29.9-35.2 [facility] Comment on above: Performed By: #### C BC #### [facility] [address] [address] [address] Lebron Marks MCV (RBC) [Entitic vol] 87.8 fL Normal 80.0-94.0 [facility] Comment on above: Performed By: #### C BC #### [facility] [address] [address] [address] Lebron Marks MONO # 0.9 103/ul Critically high 0.3-0.8 [facility] Comment on above: Performed By: #### C BC #### [facility] [address] [place] [address] Dr. Lebron Marks Monocytes/100 WBC (Bld) 11.7 % Normal 1.7-12.0 [facility] Comment on above: Performed By: #### C BC #### [facility] [address] [address] [address] Lebron Marks NEUT # 5.4 103/ul Normal 1.4-6.5 [facility] Comment on above: Performed By: #### C BC #### [facility] [address] [place] [address] Dr. Lebron Marks Neutrophils/100 WBC (Bld) 71.8 % Normal 43.0-75.[address] [facility] Comment on above: Performed By: #### C BC #### [facility] [address] [address] [address] Lebron Marks Platelet mean volume (Bld) [Entitic vol] 10.1 fL Normal 9.5-13.[address] [facility] Comment on above: Performed By: #### C BC #### [facility] [address] [address] [address] Lebron Marks PLT 193 103/ul Normal 150-[address] [facility] Comment on above: Performed By: #### C BC #### [facility] [address] [address] [address] Lebron Marks RBC 5.01 106/ul Normal 4.70-6.10 [facility] Comment on above: Performed By: #### C BC #### [facility] [address] [place] [address] Dr. Lebron Marks WBC 7.5 103/ul Normal 4.0-11.0 [facility] Comment on above: Performed By: #### C BC #### [facility] [address] [place] [address] Dr. Lebron Marks GLYCOHEMOGLOBIN A1Con 2022 ADA RECOMMENDATION SEE BELOW Normal [facility] Comment on above: Result Comment: ADA RECOMMENDED LIMIT 4.0 - 6.0 ADA THERAPEUTIC TARGET < 7.0 ACTION SUGGESTED > 7.0 Performed By: #### A 1C #### [facility] [address] [place] [address] Dr. Lebron Marks Glucose [Mass/Vol] 111 mg/dL Normal [facility] Comment on above: Performed By: #### A 1C #### [facility] [address] [place] [address] Dr. Lebron Marks HbA1c (Bld) [Mass fraction] 5.5 % Normal 4.5-6.2 [facility] Comment on above: Performed By: #### A 1C #### [facility] [address] [place] [address] Dr. Lebron Marks LIPID PROFILEon 02-22-2023 CHOL-HDL RATIO NORM SEE BELOW Normal [facility] Comment on above: Result Comment: 3.3 - 4.4 LOW RISK 4.4 - 7.1 AVERAGE RISK 7.1 - 11.0 MODERATE RISK >11.0 HIGH RISK Performed By: #### B MP, LIVER, LIPID, TSH #### [facility] [address] [place] [address] Dr. Lebron Marks Cholesterol [Mass/Vol] 174 mg/dL Normal <=200 [facility] Comment on above: Performed By: #### B MP, LIVER, LIPID, TSH #### [facility] [address] [place] [address] Dr. Lebron Marks Cholesterol in HDL [Mass/Vol] 59 mg/dL Normal 40-60 [facility] Comment on above: Performed By: #### B MP, LIVER, LIPID, TSH #### [facility] [address] [address] [address] Lebron Marks Cholesterol in LDL [Mass/Vol] 103.8 mg/dL Normal [facility] Comment on above: Performed By: #### B MP, LIVER, LIPID, TSH #### [facility] [address] [address] [address] Lebron Marks Cholesterol.total/Chol esterol in HDL [Mass ratio] 2.9 {ratio} Normal [facility] Comment on above: Performed By: #### B MP, LIVER, LIPID, TSH #### [facility] [address] [address] [address] Lebron Marks HDL NORMAL > or = 60 mg/dl - LO W CARDIOVASCULAR RISK <40 mg/dl - HIGH CARDIOVASCULAR RISK Normal [facility] Comment on above: Performed By: #### B MP, LIVER, LIPID, TSH #### [facility] [address] [address] [address] Lebron Marks LDL CALC NORMAL SEE BELOW Normal [facility] Comment on above: Result Comment: <100 mg/dl OPTIMAL 100 - 129 mg/dl NEAR OR ABOVE OPTIMAL 130 - 159 mg/dl BORDERLINE HIGH 160 - 189 mg/dl HIGH >190 mg/dl VERY HIGH Performed By: #### B MP, LIVER, LIPID, TSH #### [facility] [address] [address] [address] Lebron Marks Triglyceride [Mass/Vol] 56 mg/dL Normal <=[address] [facility] Comment on above: Performed By: #### B MP, LIVER, LIPID, TSH #### [facility] [address] [address] [address] Lebron Marks VLDL CALC 11.2 mg/dL Normal [facility] Comment on above: Performed By: #### B MP, LIVER, LIPID, TSH #### [facility] [address] [address] [address] Lebron Marks LIVER PROFILEon 02-22-2023 Albumin [Mass/Vol] 4.1 g/dL Normal 3.4-5.0 [facility] Comment on above: Performed By: #### B MP, LIVER, LIPID, TSH #### [facility] [address] [address] [address] Lebron Marks Albumin/Globulin [Mass ratio] 1.1 {ratio} Normal [facility] Comment on above: Performed By: #### B MP, LIVER, LIPID, TSH #### [facility] [address] [address] [address] Lebron Marks ALP [Catalytic activity/Vol] 80 U/L Normal 46-116 [facility] Comment on above: Performed By: #### B MP, LIVER, LIPID, TSH #### [facility] [address] [place] [address] Dr. Lebron Marks ALT [Catalytic activity/Vol] 128 U/L Critically high 16-63 [facility] Comment on above: Performed By: #### B MP, LIVER, LIPID, TSH #### [facility] [address] [place] [address] Dr. Lebron Marks AST [Catalytic activity/Vol] 101 U/L Critically high 15-37 [facility] Comment on above: Performed By: #### B MP, LIVER, LIPID, TSH #### [facility] [address] [place] [address] Dr. Lebron Marks BILI, CONJUGATED 0.3 mg/dL Critically high 0.0-0.2 [facility] Comment on above: Performed By: #### B MP, LIVER, LIPID, TSH #### [facility] [address] [place] [address] Dr. Lebron Marks Bilirubin [Mass/Vol] 1.2 mg/dL Critically high 0.2-1.0 [facility] Comment on above: Performed By: #### B MP, LIVER, LIPID, TSH #### [facility] [address] [address] [address] Lebron Marks Globulin (S) [Mass/Vol] 3.9 g/dL Normal [facility] Comment on above: Performed By: #### B MP, LIVER, LIPID, TSH #### [facility] [address] [address] [address] Lebron Marks Protein [Mass/Vol] 8.0 g/dL Normal 6.4-8.2 [facility] Comment on above: Performed By: #### B MP, LIVER, LIPID, TSH #### [facility] [address] [place] [address] Dr. Lebron Marks PROF CHEM 8 (BAS METB)on Anion gap [Moles/Vol] 11.0 mmol/L Normal [facility] Comment on above: Performed By: #### B MP, LIVER, LIPID, TSH #### [facility] [address] [place] [address] Dr. Lebron Marks Calcium [Mass/Vol] 10.0 mg/dL Normal 8.5-10.1 [facility] Comment on above: Performed By: #### B MP, LIVER, LIPID, TSH #### [facility] [address] [address] [address] Lebron Marks Chloride [Moles/Vol] 97 mmol/L Critically low 98-[address] [facility] Comment on above: Performed By: #### B MP, LIVER, LIPID, TSH #### [facility] [address] [place] [address] Dr. Lebron Marks CO2 [Moles/Vol] 32.2 mmol/L Critically high 21.0-32.0 [facility] Comment on above: Performed By: #### B MP, LIVER, LIPID, TSH #### [facility] [address] [place] [address] Dr. Lebron Marks Creatinine [Mass/Vol] 1.01 mg/dL Normal 0.70-1.30 [facility] Comment on above: Performed By: #### B MP, LIVER, LIPID, TSH #### [facility] [address] [place] [address] Dr. Lebron Marks EGFR-AF MARSHALLESE >60 Normal >=60 [facility] Comment on above: Performed By: #### B MP, LIVER, LIPID, TSH #### [facility] [address] [address] [address] Lebron Marks EGFR-NON AF MARSHALLESE >60 Normal >=60 [facility] Comment on above: Performed By: #### B MP, LIVER, LIPID, TSH #### [facility] [address] [address] [address] Lebron Marks Glucose [Mass/Vol] 128 mg/dL Critically high 74-106 [facility] Comment on above: Performed By: #### B MP, LIVER, LIPID, TSH #### [facility] [address] [place] [address] Dr. Lebron Marks Potassium [Moles/Vol] 3.2 mmol/L Critically low 3.5-5.1 [facility] Comment on above: Performed By: #### B MP, LIVER, LIPID, TSH #### [facility] [address] [address] [address] Lebron Marks Sodium [Moles/Vol] 137 mmol/L Normal 136-145 [facility] Comment on above: Performed By: #### B MP, LIVER, LIPID, TSH #### [facility] [address] [address] [address] Lebron Marks Urea nitrogen [Mass/Vol] 9.0 mg/dL Normal 7.0-18.0 [facility] Comment on above: Performed By: #### B MP, LIVER, LIPID, TSH #### [facility] [address] [place] [address] Dr. Lebron Marks Urea nitrogen/Creatinine [Mass ratio] 8.9 mg/mg Normal [facility] Comment on above: Performed By: #### B MP, LIVER, LIPID, TSH #### [facility] [address] [place] [address] Dr. Lebron Marks TSHon 02-22-2023 TSH 0.707 uIU/mL Normal 0.358-3.740 [facility] Comment on above: Performed By: #### B MP, LIVER, LIPID, TSH #### [facility] [address] [address] [address] Lebron Marks Lab Reportson 03-13-2023 Lab Reports [id number]#1.0 0CD:127 Normal [facility] RAD - CT Reporton 12-21-2022 RAD - CT Report [id number]#1.0 0CD:127 Normal [facility] RAD - CT Report [id number]#1.0 0CD:127 Normal [facility] UroVysion Fish and Urine Cyt o ([facility])on 12-15-2022 UVFISH & UC Diagnosis Info Invalid Interpretation Code [facility] Comment on above: Result Comment: A:Ur ine,Urine:Cystoscopy Diagnosis Summary - Diagnosis Summary - The UroVysion FISH study detected normal copy numbers for chromosomes 3, 7, 17, and 9p21. 108 cells were analyzed in this evaluation. No evidence of aneuploidy for chromosomes 3, 7, or 17 or deletion of the 9p21 locus was found in cells present in this specimen. This test does not rule out the possibility of a low grade non-invasive papillary urothelial carcinoma. These findings should be correlated with cytology and cystoscopy results.* Microscopic Notes - Microscopic Notes - Abnormal cells 9p21 deletions: Abnormal cells aneploid events: Total cells analyzed: 108 Hematuria: Gross Description Site ID:A color Yellow fixative Alcohol Received 90 mls of clear yellow fluid with the patient's name and, Urine on the vial. Electronically signed by : on: 12/15/2022 11:48:57 Performed By: #### 1 [id number] ####[facility] [id number] [id number] Pre-Certification Formon Pre-Certification Form [id number]#1.0 0CD:127 Normal [facility] CREATININEon 12-11-2022 Creatinine [Mass/Vol] 0.99 mg/dL Normal 0.70-1.30 [facility] Comment on above: Performed By: #### C TIEN #### [facility] [address] [place] [address] Dr. Lebron Marks EGFR-AF MARSHALLESE >60 Normal >=60 [facility] Comment on above: Performed By: #### C TIEN #### [facility] [address] [address] [address] Lebron Marks EGFR-NON AF MARSHALLESE >60 Normal >=[address] [facility] Comment on above: Performed By: #### C TIEN #### [facility] [id number] Lebron Marks CT ABD/PELV W CONon 12-12-[address] ABD/PELV W CON EXAMINATION: CT ABD/PELV W CON, 12/11/2022 7:25 AM EST HISTORY: Gary hematuria COMPARISON: 09/21/2014 TECHNIQUE: CT scan of the abdomen and pelvis was performed with IV contrast. CT dose reduction technique was used, including Automated Exposure Control. FINDINGS: LUNG BASES: Mild dependent atelectasis. Scattered calcified pulmonary nodules likely granulomas. Coronary atherosclerosis. LIVER: Diffuse hypoattenuation consistent with hepatic steatosis and 5 mm hypodensity right hepatic lobe axial image 28, nonspecific BILIARY: No dilatation or calcification. PANCREAS: No lesion, fluid collection, ductal dilatation, or atrophy. SPLEEN: No enlargement or focal lesion. ADRENALS: No mass or enlargement. KIDNEYS: Numerous bilateral cortical hypodensities the larger lesions are simple cysts. No hydronephrosis or obstructing nephrolithiasis BOWEL/MESENTERY: Nonobstructive bowel gas pattern. Normal appendix. 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 Additional fusiform aneurysm distal aorta measuring 3.4 cm. Moderate diffuse atherosclerosis RETROPERITONEUM: No mass or adenopathy. LYMPH NODES: No adenopathy. URINARY BLADDER: Small amount of air in the urinary bladder likely iatrogenic, clinically correlate PELVIC ORGANS: Heterogeneous lobular prostate gland with calcifications. The prostate gland measures 6.7 cm transversely ABDOMINAL WALL: No mass or hernia. BONES: No bony lesion or fracture. OTHER: Negative. IMPRESSION: Enlarged heterogeneous lobular calcified prostate gland Hepatic steatosis Electronically authenticated by: AYALA DARBY Date: 2022-12-11 14:37 Normal [facility] Coding Summary.on 12-09-2022 Coding Summary. CD:[id number] Gh 0bWw+PGhlYWQ+QU9EMQQjL 46mxLUrlB3NT9iSQC3XYQS WCXMTVY3VLT8kwFE0JQjhA 2VybiAv EmqroKSqOH14PNe1ZYE7sI ohZAkzqX4woANbV9j5JjMo VK54tM51XGaxADOnOeW3Uc ZpbjsgbWFy Z0wxLcRggIPzGqn+PHRhYm xlIHdpZHRoPScxMDAlJyBz vAovNM0tAd9kSPRrHUOybH xhcHNlOiBj h1aaHNRiNTxyJO5eoMadF3 LopAC0BRZuy4i9Io64rEX+ WGMtZAR4vXyxSEyzv018Vo Ysu3wuGDZ7 sMPdZCwxMIF2X32aq0L0HG XxFXYoUDU2tKC8qV8fvOxe fnlaU0RseJXmSgP4YMR9wS MroB2cyZoy xqfjcJ0sVxx+H59DKG2ZAM IDDN3OMcd8C8LpOdxfmGG+ UA77SVVrWQ88mOKedRLvi2 hdqGq9GuAv BGWuEBN2jRcyFQhpm8BeOO IsH76icSShb5D8XOFzcQxe qICrMiWsdOX0yL2qHQaozo ulq9tfoika Xasap6dalr13qJ19R89kBJ cxVKGiZQI9BTNfXSJufMac yn2feN3oQs3+ITebd1rmv9 vdkRl4KbCv FTTfroEuoNeaUAP0t6IcOn 04I1IfwNqsr0RvCjq9tt31 xQHpl5R8nOG1QSopYZIyqF 9sNRzcLcC8 UDTfDjJiyM84wQJzKFbpRh 5kkHpytCnmZI0wEYFxprfg NAJxzH1lURRjgXLyiFkcBA 4wNTBpbjtm r471SsAsAHR5RENtaOJlT9 KymZ2rXgJwMQWeDYToI9Ey iIDuTOnjC553MAxpMfW3XG OvrkKzW0St HAMboFtfQhM6u6H5Vz2Gi7 HpnplgQGK0CUaqSCBfQdSl JoZcFxA5L3OoDvj7SPVerK lkOK7dS4Zj QISruurjoipkrUU1QWIlQT VqqJ74lBSfBCbfMo7ik6K9 i339KNJtCOGjwY14Tm9eeS ogMTBwdCBU wI9htfuqs3lhewtuHxSwFS GgVMs1KNo4HAHuvLeaJcRi BVU0MoH6DFK6aLLvqU7yoD cbkckdgZ1f Oyc+L70nzF8nVBE2GSF2vu hiWZOqkeUcJU80SR94Q5Is PjwvdGFibGU+PGRpdiBzdH bxOI4wZhCv t7ydk4AnOFpjG6YiKAVgPF ijGmq1QQCeWXO6yYV5yM7a RCLgALsfg4N7sTZ0Q0Xuly Ebdb5qn6ek VFGhOYmiV12spTNtb6Z4PN KvuQJ8GFSgwInbYhYbfF52 Oyc+TUYwqDfnh7YaDskud9 mto8ufmAx0 UgNzQIIbclVebRpePBV1e6 KrDr32V80hUFunGWXoOUYk ICJoAADhiOfkwj9xlR1sSh 8+PGNvbCB3 pNZ6hC8sPEElYgF6UMirB7 62ZaLerPQmLjbhk0max8va dBm2TuDkYKRlnmQvgTiiFK U7k3TxCo24 Q36wLSqvRJRyJJXhVDKcKB XtxGhzjr4wsE2mCc5+PC9j f2mxuo80eC46sOZ+PHRkIH W1dMijOPoz XHCfqX1yNOdsCfQ0HIVlPp UpqQ66fYNnWGpcCz8kxTws jVhbVZ6wMEZftteoe550Yy Jqr5cfBLPe eKBmOFszNNO3U17sp9W8GV ZsAWLrYTA2xZH6pO7rzEyv bjogbGVmdDsgdmVydGljYW hjTPhaQ486 IHRvcDsnPlBhdGllbnQgTm WjRVz3Z9UgJqg6NANwkAwh BL5gwMLfTEikGg3pwJoggD qhQJ2tWOTx yprmb971OmFpo6lhUYFraO FdIHvsQMD6X41nq5Y8XYCg VMQgEFU1lOK0oG0bePmnel ogbGVmdDsg lcVtuRirMUggKAwnL273SL RvcDsnPkJpcnRoIERhdGU6 HM71VV04lHMap4N4vUE6J3 BhZGRpbmct fsvoxBA3ZGHsKMYryQ83Jl 5pvQhxRj0jZALyMOR5FBQg lGEsN9YmaD9hPfJmNNIlGH TtG6JcdQJc WMlqE412WHcgKhM5HKOubc KfA2RsOWCnzTanCzH0d1G4 Xf0XL6T1TL15AD63tEOti6 A3gJY3X5Jo JGLjwcwbkwfcxAK4RJIqED IsaZ81Rx9mwQfqBo4qZPFr CAT3XYFdpTUzR1AwrY9qPx AjMDAwMDAw R9FgvYStCZzzC743HOszIo H4PINalbJfK4HnIBRlcHby RvI1z6W5Bl7RNTy9IL45OY 18gNRxw3O4 iKB3D1TjINJqeqqjaoyofD U3NJHzYBWbzX55Ux2cwHgl Nd5sXFFqWLM3RBJgvPUiF4 TdwS4tZyHj ZTGhIIJuI5IaqMPyUSfiT1 67JGojJjW2EMWxlbFvU1Jl YNYgdTgfHrE1p4D6Er4MPN ZdTG93PED3 eBP1UJ43HA41A1QaVqrzrC FibGU+PHRhYmxlIHdpZHRo DHxmBJMvBwFmbYrvDZ9uRh 9yZGVyLWNv fLrmiXPxIqXnj4ucCJQsTM fnYW0vgOmjQ5FekVP1XDHx k6u9Oo37R97vL4ElnKR+PG TutFF3rUG8 lQ5qHuCzYgQ0QXbfL423Al CrsQDrKugfu1fof2oyeSc5 GwO6OKInhbQyyWnkHTN9x6 ZdOc00S11w IHdpZHRoPSIxNSUiIHZhbG qoty3tgJ9zMq3+PGNvbCB3 dOY2oF3hKzJfZjT2NKllQ4 49InRvcCIv Elpya0bva2xgmCa7MhPwLH QgeiJbhApeVUC3x6TqHn71 B4EmjZzbs7NoZcd4qr39zM Mev2N9zEM0 A3TxEJQvxrmcsYNyiWxmJM 0pBWIxqjhmOCDuoW5uCLTa V8q3GpGjVaL4LGhgW6Rizz Y9VNVgfPId YOgaUDG8Y34rr4C6BWChOV OxJZS1vJR1dV8oqOsikhxd bGVmdDsgdmVydGljYWwtYW lhT331MHVm sVwwAMWcyY2iOLLggNDhtY keVS5fBEBshacaDgGUYnXc DFWURvbLDP44GI31vLLep4 G4vVM2J6Vq SMMpozniazmiuTD1TXUjPQ IbzY77tCBwCDyaYz1ct3K2 u185VHCqFBPfyA02Qt6zcG ogMTBwdCBU qR2tpmzte1zycjqbYrSuPB JsOQo1KUi1QXWueNmtUtWk QGA5SsQ8DPW1uUEukO7csG uprhmjyU5x Oyc+FROlDWTgVWi3JIjazS Q+JDRhYGY8yVwnPCsqLLIu vR5aMKGjX8c5ZnMbPaE6UV scQ3EkJYTz vlodCa07tF2wJfGqAoP5VF qvO3JqpiP4NVCskJOtLOik ZKX3V75sq2D3VWPoHAGsOM Y2mJD6sN0l bGlnbjogbGVmdDsgdmVydG qiQMadEHqcG156BKRihKbx Vfe6ZWvaUNRyCF38MC06jN Hbw5V2oRH3 N8EiPNRoptvlilpgzHB7YH WtPGXbaJ44fXEyWSguLm8l t5I6i838LPVpRSNbyG91Em 9udDogMTBw iGDRrC7ubojmg7xgjvsdBb XnCNViCXo0WIr9CREpaMqn DjRbAMI1RsT6CAX3yICwqW 1hbGlnbjog nS1eQau+TWFsZTwvdGQ+PH LkQHO2sGbiQJtbUPGvvG7p NLGkL6v4LnUrEgG8THvlZ1 BhZGRpbmct Pg55fV0kPkNpUfL9YWhfV3 LstuS6LTOxrZSgORfhPTN7 F24dl6S4MJOzOMHyLLE7oK N4xV3gkAve bjogbGVmdDsgdmVydGljYW dxEPceP754NEHwyPnqTf22 uSXnwXummmL9A9OhJllebX I+RC18IWMn GN19fUQhmEDux3wevDd1Dk WnHOYiNQT9jXvzRQtby7Jp OGTgR20zwHYvy7C4XGRzlH xhcHNlOyBl zCP7mF7gVBbubplwj9rlog urAerva2arip07zS56X54w IHdpZHRoPSIzMCUiIHZhbG kxih1wgU4d Ii8+EPQtrUO6pIY5tL9lPn LfEpO4GXihQ881BjXqaMGi Hritk5myj4uhxWn7ZnSbGD IgdmFsaWdu BYK9o8MxEt36S58lXXhmOL MsNBIlCOMtQWMjrNevon8t lN2qYn2+KL6cb6kphx13bC 48dHI+PHRk YPC3iLdyWSufWDAgxW3bAD zeXuJ0AWBlIvCeuR37kLNy JQdqVr3nxDkdiGkeLE5cSB Vhhsnmb133 PcEvd8hgTMGpsIWaRQkpZD M9B82pf4W6PAKzFZVpSPL1 hAI8qL3auUvmjwsyhTIopQ sgdmVydGlj ZVpnXOksF685WVKzmIwuMr GewBNuE6twqfSPKZ5qLfka dGQ+HNLiKRO8aSytRMtrLS KqcE9cWMMb K9r0RoUtWpI0WOuwE8Igsd Y6HCUziAEuGUKbaYYHtS6d mwiay8wurnqtNvSsZVQwDA h3GPy7FHSw kPwtPiDsGNI3YwH6DGM3rK PmuD0jvEjgswvmxP9kGex+ RklOOjwvdGQ+TTDaSKB4uX xlPSdwYWRk pZ9oECNpA2g9XkThDaZ9CS vlV5JtcoN5SRQgpJCaQKJl mQMZcJ7lbclch6ufoqphKq AwMDAwMDt0 CWt9NDKdhGniTeQkQQX6Px F6VEX0qPFcpV1lzUfrgtvr fZ9qCud+TVJOOjwvdGQ+PH RkCKW8sSzd LPyhGPFruY6hVOXvD5y6Sr FuZcG6YCozN3KesqV1LFBw jWJoNPLdhDKPoG7rzmtdo2 xvcjogIzAw TTKwFXh0VOi4JCAsbTjjXp PsILO1CjC8JOH3nLZawJ2n dUetebahaM1vQce+UGF5ZX N5GI82MT66 K9CcAsxvmYIlyTR+PHRhYm xlIHdpZHRoPScxMDAlJyBz cHykEQ1oVv1fFLYkDGBgoF xhcHNlOiBj b2xs (more content not included)... Normal [facility] Consent for Procedure/Surger yon 12-08-2022 Consent for Procedure/Surgery [id number]#1. 00CD:127 Normal [facility] Consent for Treatmenton -2 Consent for Treatment [id number]#1.0 0CD:127 [facility] IntraOperative Documentson 0 12-08-2022 IntraOperative Documents [id number]#1. 00CD:127 [facility] Main OR Intraoperative Recor don 12-08-2022 Main OR Intraoperative Record IntraOp Document Type FTURO Summary Primary Physician: Vernell SIFUENTES MD Finalized Date/Time: 12/08/22 11:29:24 Pt. Name: AYALA DAMIAN/Sex: 1945 Male Med Rec #: [id number] Physician: Vernell SIFUENTES MD Financial #: [id number] Pt. Type: O Room/Bed: / Admit/Disch: 12/08/22 09:56:21 - Institution: Case Times FTURO Entry 1 Patient Times In Room 12/08/22 11:10:00 Out Room 12/08/22 11:29:00 Procedure Times Start 12/08/22 11:19:00 Stop 12/08/22 11:25:00 Anesthesia Times Last Modified By: Ubaldo SUN, Avani MCDONOUGH 12/08/22 11:24:28 Case Attendance FTURO Entry 1 Entry 2 Entry 3 Case Attendee RICHARD MAGANA, Vernell Conner RN, CNOR, Yudi DAMIAN, Jennifer Varma Role Performed Surgeon - Primary Tours Captain - Primary Scrub - Primary Time In 12/08/22 11:10:00 12/08/22 11:10:00 12/08/22 11:10:00 Time Out 12/08/22 11:29:00 12/08/22 11:29:00 12/08/22 11:29:00 Procedure CYSTOSCOPY LOCAL(.) CYSTOSCOPY LOCAL(.) CYSTOSCOPY LOCAL(.) Comments Last Modified By: Ubaldo RN, CNOR, Ubaldo SUN, TOMASOR, Ubaldo SUN, TOMASOR, Avani 12/08/22 Avani 12/08/22 Avani 12/08/22 11:24:30 11:24:30 11:24:30 Surgical Procedures FTURO Entry 1 Procedure Description Procedure CYSTOSCOPY LOCAL Modifiers . Surgeon Description CYSTOSCOPY Primary Procedure Yes Primary Surgeon Vernell SIFUENTES MD Start 12/08/22 11:19:00 Stop 12/08/22 11:25:00 Anesthesia Type Local Surgical Service Urology Wound Class 2 - Clean-Contaminated Last Modified By: Ubaldo SUN, TOMASOR, Avani 12/08/22 11:24:34 General Case Data FTURO Pre-Care Text: Classifies surgical wound, implements aseptic technique, initiates traffic control Entry 1 Case Information OR URO 1 FT Case Level None Wound Class 2 - Clean-Contaminated Specialty Urology Preop Diagnosis GROSS HEMATURIA, BPH Postop Same As Preop No WITH OBSTRUCTION, ELEVATED PSA Postop Diagnosis GROSS HEMATURIA, BPH Outcomes Met? Yes WITH OBSTRUCTION, ELEVATED PSA Last Modified By: Ubaldo SUN, TOMASOR, Avani 12/08/22 11:11:54 Post-Care Text: The patient is free from signs and symptoms of infection EU IntraOp - FTURO Pre-Care Text: Implements protective measures prior to operative or invasive procedure, confirms identity before the operative or invasive procedure, verifies operative procedure, surgical site, and laterality Entry 1 EU Perioperative Protocols Procedure(s) CYSTOSCOPY LOCAL(.) Patient Identity Birthday, ID Band Verified (select at Check, Patient least 2): Participation Consents / H and P HandP, Surgery/Procedure Operative Site N/A Verified Consent Marking Verified Surgical Site Yes Laterality Verified n/a Verified Procedure Verified Yes Correct Patient Yes Position Verified Availability Equipment, Medication Time Out Vernell SIFUENTES MD, Verified (If Participants Ubaldo SUN, CNOR, Applicable) Yudi Varma CST, Kimberly A Time Out Complete 12/08/22 11:12:00 Allergies Reviewed? Yes Allergies Reviewed Self/Patient With Body Position Supine Prep Area penis Prep Agents Betadine Solution Skin. Condition Unable to Visualize Additional FISH Specimens Collected Vitals - EU Blood Pressure 144/81 Pulse 69 bpm Respirations SPO2 EBL 0 IandO - EU Total Intake 0 mL Total Output 0 mL Outcomes Met? Yes Last Modified By: CEASAR Conner RN, Ruthann 12/08/22 11:15:02 Post-Care Text: The patient is free from signs and symptoms of injury caused by extraneous objects Sign Out FTURO Entry 1 Before Patient Leaves OR Nurse verbally Yes Nurse verbally n/a confirms with the confirms with the team the name of team that the procedure(s) instrument, sponge, recorded and needle counts are correct (or N/A) Nurse verbally n/a Nurse verbally n/a confirms with the confirms with the team how the team whether there specimen is labeled are any equipment (including patient problems to be name), if applicable addressed Sign Out Complete 12/08/22 11:27:00 Last Modified By: CEASAR Conner RN, Ruthann 12/08/22 11:25:24 Case Comments Finalized By: CEASAR Conner RN, Ruthann Document Signatures Signed By: CEASAR Conner RN, Ruthann 12/08/22 11:25 CEASAR Conner RN, Ruthann 12/08/22 11:29 Normal [facility] Main OR Preoperative Recordo n 12-08-2022 Main OR Preoperative Record Holding Area Document Type FTURO Summary Primary Physician: Vernell SIFUENTES MD Finalized Date/Time: 12/08/22 11:14:26 Pt. Name: AYALA DAMIAN/Sex: 1945 Male Med Rec #: [id number] Physician: Vernell SIFUENTES MD Financial #: [id number] Pt. Type: O Room/Bed: / Admit/Disch: 12/08/22 09:56:21 - Institution: Case Times Holding FTURO Pre-Care Text: Verifies consent for planned procedure, identifies individual values and wishes concerning care, includes family members in perioperative teaching Secures patient's records' belongings, and valuables, maintains patient's dignity and privacy, and maintains patient confidentiality Entry 1 In Holding 12/08/22 10:09:00 Outcomes Met? Yes Last Modified By: Maria Luz Orr LPN 12/08/22 10:09:39 Post-Care Text: The patient participates in decisions affecting his or her perioperative plan of care The patient's right to privacy is maintained Surgery Checklist FTURO Entry 1 Patient Birthday, Patient Procedure History and Physical, Identification: Participation Verification: Surgical Consent, With Patient NPO after Midnight: No Date/Time: 12/08/22 10:09:00 Personal Items: Glasses Personal Items clothes Comment: Limitations: na Complaints of Pain: No Pain Comment: na Skin Integrity Intact, [place], Warm, & Dry Vitals - EU Blood Pressure 144/81 Pulse 69 bpm Respirations 16 br/min SPO2 97 % RN Reviewed Yes Last Modified By: CEASAR Conner RN, Ruthann 12/08/22 11:14:24 General Comments: temp:36.3 Finalized By: CEASAR Conner RN, Ruthann Document Signatures Signed By: Maria Luz Orr LPN 12/08/22 10:13 CEASAR Conner RN, Ruthann 12/08/22 11:14 Normal [facility] Operative Reporton Operative Report Patient: AYALA DAMIAN Age: 77 years Sex: Male : 1945 Associated Diagnoses: None Author: Vernell SIFUENTES MD Procedure Operative Information Details: Date/ Time: 12/08/2022 11:26:00. Pre-Op Dx: Gross Hematuria - R31.0, BPH w/ LUTS - N40.1. Post-Op Dx: Same. Anesthesia Type: Local. Procedure: Local Cystoscopy. Complications: None. Risks/Benefits/Informe d Consent: Surgical risks, benefits, details of the procedure have been explained to the patient, Full informed consent has been obtained. Intraoperative Information Prepped: Patient is brought back to the endoscopy suite, Patient is placed in supine position, Patient prepped in the usual fashion with Betadine solution, 2% Xylocaine Jelly is placed per Urethra, After waiting several minutes the Cystoscope is introduced. The Urethra is: Normal. The Prostatic Urethra is: Moderate Hypertrophy, Areas of the lateral lobe regrowth appears as though they have bled in the past.. The Bladder is: Trabeculated (Moderate (2), No bladder tumors.). The ureteral orifices: Show efflux of clear urine. Specimens Removed: Bladder wash sent for Cytology test. Devices Implanted: None. Removal: Cystoscope is removed, The patient tolerated it well. Postoperative Information Discharge: Patient is discharged home with antibiotic coverage, Follow up arranged. Normal [facility] Comment on above: Result Comment: Elec tronically Signed By: RICHARD MAGANA, Vernell Martinez\.br\Date and Time Signed: 12/08/22 11:27 EST [facility] ([facility])on 12-08-2022 [facility] Method of Extraction Cystoscopy Normal [facility] Comment on above: Performed By: #### 1 [id number] ####[facility] [id number] [place] [address] [facility] Number of Jars 1 Invalid Interpretation Code [facility] Comment on above: Performed By: #### 1 [id number] ####[facility] [address] [place] [address] [facility] Specimen Cystoscopy Normal [facility] Comment on above: Performed By: #### 1 [id number] ####[facility] [address] [place] [address] [facility] Type of Service Technical Only [facility] Comment on above: Performed By: #### 1 [id number] ####[facility] [address] [place] [address] Historical Records Officeon 2022 Historical Records Office [id number] 0CD:[id number] Normal [facility] Ambulatory Visit Summaryon 0 11-23-2022 Ambulatory Visit Summary AYALA DAMIAN :1945 Visit Date:11/23/2022 Ambulatory Visit Instructions Your Diagnosis Elevated PSA Gross hematuria BPH without urinary obstruction Tests Performed CT Abdomen/Pelvis w/ Contrast -- Results Pending -- Please visit your patient portal for your results or contact your primary care physician. Your Care Team Attending Physician - Vernell SIFUENTES MD Primary Care Physician - MERRILL IRAHETA MD This Is Your Medications List Contact prescribing physician if questions or concerns amlodipine (amLODIPine 5 mg Tab) atenolol-chlorthalidon e (atenolol-chlorthalido ne 100 mg-25 mg Tab) nabumetone (nabumetone 500 mg Tab) simvastatin (simvastatin 40 mg Tab) Procedures Performed Cataract, Colonoscopy. Discharge Vitals Heart Rate (Peripheral) 68 Respiratory Rate 16 Blood Pressure 132/78 Height 186 cm Height 73 in Weight 120 kg Weight 264 lb BMI 34.69 What to do next You Need to Schedule the Following Appointments Follow Up with RICHARD MAGANA, LISANDRO Smith When: Where: [facility] [address], [place] [address]- Medications What When Instructions Unchanged amlodipine (amLODIPine 5 mg Tab) Contact prescribing physician if questions or concerns Unchanged atenolol-chlorthalidon e (atenolol-chlorthalido ne 100 mg-25 mg Tab) Contact prescribing physician if questions or concerns Unchanged nabumetone (nabumetone 500 mg Tab) Contact prescribing physician if questions or concerns Unchanged simvastatin (simvastatin 40 mg Tab) Contact prescribing physician if questions or concerns Allergies penicillin (Unknown) Problems Ongoing - Any problem that you are currently receiving treatment for. BPH without urinary obstruction Elevated PSA Gross hematuria Hypertension Education Materials Prostate Cancer Screening The prostate is a walnut-sized gland that is located below the bladder and in front of the rectum in males. The function of the prostate (prostate gland) is to add fluid to semen during ejaculation. Prostate cancer is the second most common type of cancer in men. A screening test for cancer is a test that is done before cancer symptoms start. Screening can help to identify cancer at an early stage, when the cancer can be treated more easily. The recommended prostate cancer screening test is a blood test called the prostate-specific antigen (PSA) test. PSA is a protein that is made in the prostate. As you age, your prostate naturally produces more PSA. Abnormally high PSA levels may be caused by: ? Prostate cancer. ? An enlarged prostate that is not caused by cancer (benign prostatic hyperplasia, BPH). This condition is very common in older men. ? A prostate gland infection (prostatitis). ? Medicines to assist with hair growth, such as finasteride. Depending on the PSA results, you may need more tests, such as: ? A physical exam to check the size of your prostate gland. ? Blood and imaging tests. ? A procedure to remove tissue samples from your prostate gland for testing (biopsy). Who should have screening? Screening recommendations vary based on age. ? If you are younger than age 40, screening is not recommended. ? If you are age 40?54 and you have no risk factors, screening is not recommended. ? If you are younger than age 55, ask your health care provider if you need screening if you have one of these risk factors: ? Being of -[place] descent. ? Having a family history of prostate cancer. ? If you are age 55?69, talk with your health care provider about your need for screening and how often screening should be done. ? If you are older than age 70, screening is not recommended. This is because the risks that screening can cause are greater than the benefits that it may provide (risks outweigh the benefits). If you are at high risk for prostate cancer, your health care provider may recommend that you have screenings more often or start screening at a younger age. You may be at high risk if you: ? Are older than age 55. ? Are -[place]. ? Have a father, brother, or uncle who has been diagnosed with prostate cancer. The risk may be higher if your family member's cancer occurred at an early age. What are the benefits of screening? There is a small chance that screening may lower your risk of dying from prostate cancer. The chance is small because prostate cancer is typically a slow-growing cancer, and most men with prostate cancer from a different cause. What are the risks of screening? The main risk of prostate cancer screening is diagnosing and treating prostate cancer that would never have caused any symptoms or problems (overdiagnosis and overtreatment). PSA screening cannot tell you if your PSA is high due to cancer or a different cause. A prostate biopsy is the only procedure to diagnose prostate cancer. Even the results o (more content not included)... Normal [facility] Ambulatory Visit Summary AYALA DAMIAN :1945 Visit Date:11/23/2022 Ambulatory Visit Instructions Your Diagnosis Elevated PSA Gross hematuria BPH without urinary obstruction Tests Performed CT Abdomen/Pelvis w/ Contrast -- Results Pending -- Please visit your patient portal for your results or contact your primary care physician. Your Care Team Attending Physician - Vernell SIFUENTES MD Primary Care Physician - MERRILL IRAHETA MD This Is Your Medications List Contact prescribing physician if questions or concerns amlodipine (amLODIPine 5 mg Tab) atenolol-chlorthalidon e (atenolol-chlorthalido ne 100 mg-25 mg Tab) nabumetone (nabumetone 500 mg Tab) simvastatin (simvastatin 40 mg Tab) Procedures Performed Cataract, Colonoscopy. Discharge Vitals Heart Rate (Peripheral) 68 Respiratory Rate 16 Blood Pressure 132/78 Height 186 cm Height 73 in Weight 120 kg Weight 264 lb BMI 34.69 What to do next You Need to Schedule the Following Appointments Follow Up with RICHARD MAGANA, Vernell Martinez, LISANDRO When: Where: [facility] [address], [place] [address]- Medications What When Instructions Unchanged amlodipine (amLODIPine 5 mg Tab) Contact prescribing physician if questions or concerns Unchanged atenolol-chlorthalidon e (atenolol-chlorthalido ne 100 mg-25 mg Tab) Contact prescribing physician if questions or concerns Unchanged nabumetone (nabumetone 500 mg Tab) Contact prescribing physician if questions or concerns Unchanged simvastatin (simvastatin 40 mg Tab) Contact prescribing physician if questions or concerns Allergies penicillin (Unknown) Problems Ongoing - Any problem that you are currently receiving treatment for. BPH without urinary obstruction Elevated PSA Gross hematuria Hypertension Education Materials Prostate Cancer Screening The prostate is a walnut-sized gland that is located below the bladder and in front of the rectum in males. The function of the prostate (prostate gland) is to add fluid to semen during ejaculation. Prostate cancer is the second most common type of cancer in men. A screening test for cancer is a test that is done before cancer symptoms start. Screening can help to identify cancer at an early stage, when the cancer can be treated more easily. The recommended prostate cancer screening test is a blood test called the prostate-specific antigen (PSA) test. PSA is a protein that is made in the prostate. As you age, your prostate naturally produces more PSA. Abnormally high PSA levels may be caused by: ? Prostate cancer. ? An enlarged prostate that is not caused by cancer (benign prostatic hyperplasia, BPH). This condition is very common in older men. ? A prostate gland infection (prostatitis). ? Medicines to assist with hair growth, such as finasteride. Depending on the PSA results, you may need more tests, such as: ? A physical exam to check the size of your prostate gland. ? Blood and imaging tests. ? A procedure to remove tissue samples from your prostate gland for testing (biopsy). Who should have screening? Screening recommendations vary based on age. ? If you are younger than age 40, screening is not recommended. ? If you are age 40?54 and you have no risk factors, screening is not recommended. ? If you are younger than age 55, ask your health care provider if you need screening if you have one of these risk factors: ? Being of -[place] descent. ? Having a family history of prostate cancer. ? If you are age 55?69, talk with your health care provider about your need for screening and how often screening should be done. ? If you are older than age 70, screening is not recommended. This is because the risks that screening can cause are greater than the benefits that it may provide (risks outweigh the benefits). If you are at high risk for prostate cancer, your health care provider may recommend that you have screenings more often or start screening at a younger age. You may be at high risk if you: ? Are older than age 55. ? Are -[place]. ? Have a father, brother, or uncle who has been diagnosed with prostate cancer. The risk may be higher if your family member's cancer occurred at an early age. What are the benefits of screening? There is a small chance that screening may lower your risk of dying from prostate cancer. The chance is small because prostate cancer is typically a slow-growing cancer, and most men with prostate cancer from a different cause. What are the risks of screening? The main risk of prostate cancer screening is diagnosing and treating prostate cancer that would never have caused any symptoms or problems (overdiagnosis and overtreatment). PSA screening cannot tell you if your PSA is high due to cancer or a different cause. A prostate biopsy is the only procedure to diagnose prostate cancer. Even the results o (more content not included)... Normal [facility] Patient Educationon 11-23-19 Patient Education Oncology Prostate Cancer Screening The prostate is a walnut-sized gland that is located below the bladder and in front of the rectum in males. The function of the prostate (prostate gland) is to add fluid to semen during ejaculation. Prostate cancer is the second most common type of cancer in men. A screening test for cancer is a test that is done before cancer symptoms start. Screening can help to identify cancer at an early stage, when the cancer can be treated more easily. The recommended prostate cancer screening test is a blood test called the prostate-specific antigen (PSA) test. PSA is a protein that is made in the prostate. As you age, your prostate naturally produces more PSA. Abnormally high PSA levels may be caused by: ? Prostate cancer. ? An enlarged prostate that is not caused by cancer (benign prostatic hyperplasia, BPH). This condition is very common in older men. ? A prostate gland infection (prostatitis). ? Medicines to assist with hair growth, such as finasteride. Depending on the PSA results, you may need more tests, such as: ? A physical exam to check the size of your prostate gland. ? Blood and imaging tests. ? A procedure to remove tissue samples from your prostate gland for testing (biopsy). Who should have screening? Screening recommendations vary based on age. ? If you are younger than age 40, screening is not recommended. ? If you are age 40?54 and you have no risk factors, screening is not recommended. ? If you are younger than age 55, ask your health care provider if you need screening if you have one of these risk factors: ? Being of -[place] descent. ? Having a family history of prostate cancer. ? If you are age 55?69, talk with your health care provider about your need for screening and how often screening should be done. ? If you are older than age 70, screening is not recommended. This is because the risks that screening can cause are greater than the benefits that it may provide (risks outweigh the benefits). If you are at high risk for prostate cancer, your health care provider may recommend that you have screenings more often or start screening at a younger age. You may be at high risk if you: ? Are older than age 55. ? Are -[place]. ? Have a father, brother, or uncle who has been diagnosed with prostate cancer. The risk may be higher if your family member's cancer occurred at an early age. What are the benefits of screening? There is a small chance that screening may lower your risk of dying from prostate cancer. The chance is small because prostate cancer is typically a slow-growing cancer, and most men with prostate cancer from a different cause. What are the risks of screening? The main risk of prostate cancer screening is diagnosing and treating prostate cancer that would never have caused any symptoms or problems (overdiagnosis and overtreatment). PSA screening cannot tell you if your PSA is high due to cancer or a different cause. A prostate biopsy is the only procedure to diagnose prostate cancer. Even the results of a biopsy may not tell you if your cancer needs to be treated. Slow-growing prostate cancer may not need any treatment other than monitoring, so diagnosing and treating it may cause unnecessary stress or other side effects. A prostate biopsy may also cause: ? Infection or fever. ? A false negative. This is a result that shows that you do not have prostate cancer when you actually do have prostate cancer. Questions to ask your health care provider ? When should I start prostate cancer screening? ? What is my risk for prostate cancer? ? How often do I need screening? ? What type of screening tests do I need? ? How do I get my test results? ? What do my results mean? ? Do I need treatment? Contact a health care provider if: ? You have difficulty urinating. ? You have pain when you urinate or ejaculate. ? You have blood in your urine or semen. ? You have pain in your back or in the area of your prostate. ? You have trouble getting or maintaining an erection (erectile dysfunction, ED). Summary ? Prostate cancer is a common type of cancer in men. The prostate (prostate gland) is located below the bladder and in front of the rectum. This gland adds fluid to semen during ejaculation. ? Prostate cancer screening may identify cancer at an early stage, when the cancer can be treated more easily. ? The prostate-specific antigen (PSA) test is the recommended screening test for prostate cancer. ? Discuss the risks and benefits of prostate cancer screening with your health care provider. If you are age 70 or older, screening is likely to lead to more risks than benefits (risks outweigh the benefits). This information is not intended to replace advice given to you by your health care provider. Make sure you discuss any questions you have with your health care provider. Document Released: 07/08/2018 Document R (more content not included)... Normal [facility] Pre-Certification Formon Pre-Certification Form [id number]. [id number] Normal [facility] Urology Office/Clinic Noteon 11-23-2022 Urology Office/Clinic Note Chief Complaint 6m PSA F/T HPI Staff DLS pt here today for f/u with PSA F/T due to elevated PSA. NEG Prostate MRI done 03/17/22. PSA F/T done 11/14/22- 7.8 & 21.0% Pt unable to provide urine specimen today. Visible blood in urine last Summer, last 2 days. Subsided since then. Denies urinary complaints at this time. History of Present Illness Tests reviewed: reviewed UA, PSA. I have reviewed the previous health record information and history for this patient from Dr. Sifuentes. I have reviewed and verified the staff HPI to be accurate for this encounter. There have been no associated fever, chills, flank pain, or blood in the urine. Denies any urinary infections since last encounter. Review of Systems PHQ Score Initial Depression Screen Score: 0 ROS - Provider Constitutional: denies weight loss, denies hot flashes. Eyes: denies eye problems. Gastrointestinal: denies nausea, denies vomiting. Cardiovascular: denies chest pain or angina. Integumentary: no dryness Musculoskeletal: denies musculoskeletal symptoms. ENMT: denies otolaryngeal symptoms. Respiratory: no shortness of breath. Heme/Lymph: denies easy bleeding tendency, denies easy bruising tendency. Psychiatric: no confusion, no anxiety. Genitourinary: See HPI. Physical Exam Vitals & Measurements HR: 68(Peripheral) RR: 16 BP: 132/78 HT: 73 in HT: 186 cm WT: 120 kg WT: 264 lb BMI: 34.69 General Appearance: alert, no distress, well nourished, well developed male. Genitourinary: normal scrotum, normal testes, normal urethra, normal epididymis, normal vas deferens/spermatic cord. Flank Pain: none. Bladder: nonpalpable. Assessment/Plan DLS pt. 1. Elevated PSA (R97.20: Elevated prostate specific antigen [PSA]) PSA: 01/12/22 - 9.29 11/14/22 - 7.8 & 21% MRI of prostate w/wo con done 03/17/22 was negative. Prostate volume 119 mL. PSA remains abnormally elevated but did decrease from prior. Apparently pt has had at least 2 previous negative prostate bxs. Results not on file. Also states he has had laser vaporization of his prostate with a bx. Pt thinks he has had 4 bxs total. Explained pt's PSA is still elevated for his age range. Follow up in 6 mos with PSA or sooner if needed. Pt understands and agrees with plan. 2. Gross hematuria (R31.0: Gross hematuria) No sample provided for UA today. Visible blood in urine, pt believe it was around last summer, lasted 2 days. No visible blood since. Otherwise, not voicing any urinary habit complaints. Pt states he spoke with his PCP Dr. Zambrano and he thought it was a UTI. Was not having pain or burning at that time. Possible blood was from prostate. Explained hematuria workup including cysto for lower urinary tract evaluation and imaging for upper urinary tract imaging. Pt states he has had microhematuria since he was a teen. Explained potential for unfavorable etiologies given gross blood. Will schedule cysto. Will send urine for cytology at cysto. The risks and benefits for cystoscopy have been discussed. The risks include bleeding, infection, and irritation of the bladder and urinary channel, among others. The patient, after being informed of procedural details and after questions have been answered, wishes to proceed. Full informed consent has been obtained. Will order Local anesthesia. Prophylactic abx sent to [facility]. -CT AP w con 3. BPH without urinary obstruction (N40.0: Benign prostatic hyperplasia without lower urinary tract symptoms) S/p laser vaporization of prostate, date unknown. Follow-up With When Contact Information RICHARD MAGANA, Vernell Martinez, URL [facility] [address] [place] [address]- Additional Instructions: schedule cysto and CT AP w con Patient Education Prostate Cancer Screening I, Erma Askew, personally scribed for Dr. Sifuentes on 11/23/2022 12:24:45. . Documentation recorded by the scribe, Erma Askew, accurately reflects the services(s) I performed and decisions made by me. Authenticated by Dr. Sifuentes on 11/23/2022 12:28:38. Problem List/Past Medical History Ongoing BPH without urinary obstruction Elevated PSA Gross hematuria Hypertension Historical No qualifying data Procedure/Surgical History Cataract, Colonoscopy. Medications amLODIPine 5 mg Tab atenolol-chlorthalidon e 100 mg-25 mg Tab nabumetone 500 mg Tab simvastatin 40 mg Tab Allergies penicillin (Unknown) Social History Tobacco Former smoker, quit more than 30 days ago Tobacco Use:. Never Smokeless Tobacco Use:., 11/23/2022 Family History Arthritis: Mother. High blood pressure: Mother, Sister and Brother. Migraine: Mother and Sister. Immunizations Vaccine Date Status SARS-CoV-2 mRNA (tozinameran 5y-11y) vac 08/23/2021 Recorded SARS-CoV-2 mRNA (tozinameran 5y-11y) vac 12/11/2020 Recorded SARS-CoV-2 mRNA (tozinameran 5y-11y) vac 11/22/2020 Recorded Lab Results Test Name Test Result Date/T (more content not included)... Normal [facility] Comment on above: Result Comment: Elec tronically Signed By: RICHARD MAGANA, Vernell R\.br\Date and Time Signed: 11/23/22 12:28 EST\.br\Electronically Co-Signed By: Erma Askew\.br\Date and Time Co-Signed: 11/23/22 12:26 EST PSA, FREE AND TOTAL RATIOon 11-17-2022 % Free PSA 21.0 % Normal [facility] Comment on above: Result Comment: The table below lists the probability of prostate cancer for men with non-suspicious GRETA results and total PSA between 4 and 10 ng/mL, by patient age (Perry et al, HEBER 1998, 279:1542). % Free PSA 50-64 yr 65-75 yr 0.00-10.00% 56% 55% 10.01-15.00% 24% 35% 15.01-20.00% 17% 23% 20.01-25.00% 10% 20% >25.00% 5% 9% Please note: Perry et al did not make specific recommendations regarding the use of percent free PSA for any other population of men. Performed By: #### P SAFREE #### [facility] [address] [place] [address] Dr. Lebron Marks Prostate specific Ag [Mass/Vol] 7.8 ng/mL Critically high 0.0-4.0 [facility] Comment on above: Result Comment: Rosana orellana ECLIA methodology. . According to the [place] [employer], Serum PSA should decrease and remain at undetectable levels after radical prostatectomy. The AUA defines biochemical recurrence as an initial PSA value 0.2 ng/mL or greater followed by a subsequent confirmatory PSA value 0.2 ng/mL or greater. Values obtained with different assay methods or kits cannot be used interchangeably. Results cannot be interpreted as absolute evidence of the presence or absence of malignant disease. Performed By: #### P SAFREE #### [facility] [address] [place] [address] [address] Lebron Marks PSA, Free 1.64 ng/mL Normal N/A [facility] Comment on above: Result Comment: Rosana orellana ECLIA methodology. Performed By: #### P SAFREE #### [facility] [address] [address] [address] Lebron Marks MR prostate wo/w conon 03-19 MR prostate wo/w con [facility] [place] [address] [place] [address] MRI Report Signed with Addenda Patient: Ayala Damian MR#: [id number] : 1945 Acct:[id number] Age/Sex: 76 / M ADM Date: 03/17/22 Loc: Room: Type: [facility] Attending Dr: Ankur Duran Jr, MD Copies to: Ankur Duran Jr, MD, FACS Ordering Provider: Ankur Duran Jr, MD, FACS Date of Service: 03/17/22 MR/MR prostate wo/w con: ELEVATED PSA ADDENDUM 1 Impression should state: 3. Asymmetrically decompressed left seminal vesicle with associated T2 hypointensity. Finding is nonspecific, however no abnormal enhancement, restricted diffusion or low ADC value is identified to suggest seminal vesicle invasion from occult prostate malignancy. Finding is likely a sequela of prior infectious or inflammatory process. Impression dictated by: Gibran Elam Jr., D.O.04/01/2022 1:44 PM Dictation Location: [place] [address] Addendum Dictated By: Gibran Elam Jr, DO Addendum Signed By: 04/01/221343 Addendum Cosigned By: DD/ TD/TT: 04/01/22 EXAMINATION: MR prostate wo/w con HISTORY: Elevated PSA COMPARISON: NONE TECHNIQUE: Multiparametric imaging of the prostate gland was performed with IV contrast. FINDINGS: Prostate Dimensions: 6.6 x 5.1 x 6.8 cm. Prostate Volume: 119 mL Peripheral Zone: Heterogenous in T2 signal suggestive of prior prostatitis. No focal T2 or ADC map abnormality is identified to suggest prostate malignancy. Central/Transitional Zone: BPH changes. Seminal Vesicles: Asymmetrically decompressed left seminal vesicle with associated T2 hypointensity. No restricted diffusion or low ADC value. No abnormal enhancement. Neurovascular bundles: Unremarkable. Lymphadenopathy: No evidence of lymphadenopathy. Bladder: The bladder is unremarkable. Bowel: The visualized bowel is without acute abnormality. Peritoneal Cavity: No free fluid. Bilateral fat filled inguinal hernias. Bones: No suspicious bony lesion. MR/MR prostate wo/w con IMPRESSION: 1. No MRI evidence of prostate malignancy. 2. BPH. 3. Asymmetrically decompressed left femoral vesicle with associated T2 hypointensity. Finding is nonspecific, however no abnormal enhancement, restricted diffusion or low ADC value is identified to suggest seminal vesicle invasion from occult prostate malignancy. Finding is likely a sequela of prior infectious or inflammatory process. Impression dictated by: Gibran Elam Jr., D.O.03/19/2022 9:46 PM Dictation Location: [place] [address] Transcribed By: [facility] 03/19/222145 Dictated By: Gibran Elam Jr, DO 03/19/222123 Signed By: 03/19/222145 [facility] Creatinine (Bld) [Mass/Vol]O rdered By: Ankur Duran on 03-17-2022 Creatinine [Mass/Vol] 1.0 mg/dL 0.6-1.3 [facility] Comment on above: ER/ESD physician is notified/shown all ISTAT results. Critical values may be confirmed by laboratory testing if deemed necessary by ER attending doctor. ISTAT XRay CREon 03-17-2022 Creatinine [Mass/Vol] 1.0 mg/dL Normal 0.6-1.3 [facility] Comment on above: Result Comment: ER/E SD physician is notified/shown all ISTAT results. Critical values may be confirmed by laboratory testing if deemed necessary by ER attending doctor. Performed By: #### I SCRE #### [facility] [address] [place] [address] Point of Care testing , ISTAT GFR ( > 60 Normal [facility] Comment on above: Result Comment: GFR estimated reference range: According to KDOQI guidelines, <60 ml/min/1.73m2 is sufficient to diagnose a patient with chronic kidney disease. PERFORMED BY: [place] [address] PATHOLOGIST ACCOUNTING GENERALIST LIAN ZHANG M.D. Performed By: #### I SCRE #### [address] Point of Care testing , ISTAT GFR (Non- Am > 60 Normal [facility] Comment on above: Performed By: #### I SCRE #### [address] Point of Care testing , No Panel InformationOrdered By: Ankur Duran on 03-17-2022 POC Estimated GFR > 60 [facility] Comment on above: GFR estimated refere nce range: According to KDOQI guidelines, <60 ml/min/1.73m2 is sufficient to diagnose a patient with chronic kidney disease. POC Estimated GFR Non- Amer > 60 [facility] XR pre/post mri xrayon 03-17 XR pre/post mri xray [facility] [place] [address] [place] [address] XRay Report Signed Patient: Ayala Damian MR#: [id number] : 1945 Acct:[id number] Age/Sex: 76 / M ADM Date: 03/17/22 Loc: MR Room: Type: [facility] Attending Dr: Ankur Duran Jr, MD Ordering Provider: Ankur Duran Jr, MD, FACS Date of Service: 03/17/22 XR/XR pre/post mri xray: HAND R/O METAL Copies to: Ankur Duran Jr, MD, FACS Left hand 03/17/2022. CLINICAL DATA: Pre-MRI screening evaluation. FINDINGS: 3 views of the left hand were obtained. There is a 4 x 2 mm metallic density in the superficial soft tissues at the dorsal aspect of the distal third finger, just proximal to the nail bed. This finding is consistent with a foreign body. XR/XR pre/post mri xray IMPRESSION: Small metallic foreign body in the distal left third finger. Impression dictated by: Teofilo Erickson Jr., M.D.03/17/2022 1:43 PM Dictation Location: [facility]- Transcribed By: [facility] [place] 03/17/22 1343 Dictated By: Teofilo Erickson Jr, MD 03/17/22 1340 Signed By: 03/17/22 1343 [facility] Vital Signs Date Time Vital Sign Value Performing Clinician Facility 12-13-2023 11:24-0500 Body temperature 97.39 [degF] GUILLERMINA Graf MD Work Phone: [facility] 12-13-2023 11:24-0500 Body weight 118.1 kg GUILLERMINA Graf MD Work Phone: [facility] 12-13-2023 11:24-0500 Diastolic blood pressure 74 mm[Hg] GUILLERMINA Graf MD Work Phone: [facility] 12-13-2023 11:24-0500 Heart rate 68 /min GUILLERMINA Graf MD Work Phone: [facility] 12-13-2023 11:24-0500 Respiratory rate 18 /min GUILLERMINA Graf MD Work Phone: [facility] 12-13-2023 11:24-0500 SaO2% (BldA) [Mass fraction] 95 % GUILLERMINA Graf MD Work Phone: [facility] 12-13-2023 11:24-0500 Systolic blood pressure 158 mm[Hg] GUILLERMINA Graf MD Work Phone: [facility] 11-29-2023 11:05-0500 Body temperature 97.5 [degF] GUILLERMINA Graf MD Work Phone: [facility] 11-29-2023 11:05-0500 Body weight 118.6 kg GUILLERMINA Graf MD Work Phone: [facility] 11-29-2023 11:05-0500 Diastolic blood pressure 69 mm[Hg] GUILLERMINA Graf MD Work Phone: [facility] 11-29-2023 11:05-0500 Heart rate 56 /min GUILLERMINA Graf MD Work Phone: [facility] 11-29-2023 11:05-0500 Respiratory rate 16 /min GUILLERMINA Graf MD Work Phone: [facility] 11-29-2023 11:05-0500 SaO2% (BldA) [Mass fraction] 96 % GUILLERMINA Graf MD Work Phone: [facility] 11-29-2023 11:05-0500 Systolic blood pressure 137 mm[Hg] GUILLERMINA Graf MD Work Phone: [facility] 11-25-2023 11:46-0500 Body weight 116.8 kg GUILLERMINA Graf MD Work Phone: [facility] 11-15-2023 14:41-0500 Blood Pressure Location Vernell SIFUENTES [facility] 11-15-2023 14:41-0500 Diastolic blood pressure 76 mm[Hg] Vernell SIFUENTES [facility] 11-15-2023 14:41-0500 Heart rate 68 /min Vernell SIFUENTES [facility] 11-15-2023 14:41-0500 Respiratory rate 16 /min Vernlel SIFUENTES [facility] 11-15-2023 14:41-0500 Systolic blood pressure 134 mm[Hg] Vernell SIFUENTES [facility] 09-10-2023 11:40-0500 Blood Pressure Location Vernell SIFUENTES [facility] 09-10-2023 11:40-0500 Diastolic blood pressure 89 mm[Hg] Vernell SIFUENTES [facility] 09-10-2023 11:40-0500 Heart rate 80 /min Vernell SIFUENTES [facility] 09-10-2023 11:40-0500 Respiratory rate 16 /min Vernell SIFUENTES [facility] 09-10-2023 11:40-0500 Systolic blood pressure 138 mm[Hg] Vernell SIFUENTES [facility] 07-05-2023 13:04-0400 Blood Pressure Location Vernell SIFUENTES [facility] 07-05-2023 13:04-0400 Diastolic blood pressure 70 mm[Hg] Vernell SIFUENTES [facility] 07-05-2023 13:04-0400 Heart rate 70 /min Vernell SIFUENTES [facility] 07-05-2023 13:04-0400 Respiratory rate 16 /min Vernell SIFUENTES [facility] 07-05-2023 13:04-0400 Systolic blood pressure 134 mm[Hg] Vernell SIFUENTES [facility] 02-17-2022 09:31-0400 Blood Pressure Location Ankur Duran Jr. [facility] 02-17-2022 09:31-0400 Diastolic blood pressure 82 mm[Hg] Ankur Duran Jr. [facility] 02-17-2022 09:31-0400 Heart rate 79 /min Ankur Duran Jr. [facility] 02-17-2022 09:31-0400 Respiratory rate 16 /min Ankur Duran Jr. [facility] 02-17-2022 09:31-0400 Systolic blood pressure 149 mm[Hg] Ankur Duran Jr. [facility] Encounters Encounter Date Encounter Type Care Provider Facility Start: 12-17-2023 End: 12-17-2023 ambulatory Adelfo GRAF Facility:[facility] Start: 12-16-2023 End: 12-16-2023 ambulatory Adelfo GRAF Facility:[facility] Start: 12-15-2023 End: 12-15-2023 ambulatory Adelfo GRAF Facility:[facility] Start: 12-14-2023 End: 12-14-2023 ambulatory Adelfo GRAF Facility:[facility] Start: 12-13-2023 End: 12-13-2023 ambulatory Adelfo GRAF Facility:[facility] Start: 12-13-2023 End: 12-13-2023 Patient encounter procedure Adelfo Graf MD Work Phone: Radiation Oncology Comment on above: Malignant neoplasm o f prostate (HCC) (Primary Dx) Start: 12-10-2023 End: 12-10-2023 ambulatory MERRILL IRAHETA Facility:[facility] Start: 12-09-2023 End: 12-09-2023 ambulatory MERRILL A NADERER Facility:[facility] Start: 12-08-2023 End: 12-08-2023 ambulatory MERRILL A YESSIERER Facility:[facility] Start: 12-07-2023 End: 12-07-2023 ambulatory MERRILL A YESSIERER Facility:[facility] Start: 12-06-2023 End: 12-06-2023 ambulatory MERRILL Fisher YESSIERER Facility:[facility] Start: 12-03-2023 End: 12-03-2023 ambulatory MERRILL A YESSIERER Facility:[facility] Start: 12-02-2023 End: 12-02-2023 ambulatory MERRILL A YESSIERER Facility:[facility] Start: 12-02-2023 End: 12-02-2023 Patient encounter procedure Lab/[facility] Lomeli Work Phone: Radiation Oncology Comment on above: Malignant neoplasm o f prostate (HCC) Start: 12-01-2023 End: 12-01-2023 ambulatory MERRILL Natalia ESEQUIEL Facility:[facility] Start: 11-30-2023 End: 11-30-2023 ambulatory Adelfo GRAF Facility:[facility] Start: 11-29-2023 End: 11-29-2023 ambulatory Adelfo GRAF Facility:[facility] Start: 11-29-2023 End: 11-29-2023 Patient encounter procedure Adelfo Graf MD Work Phone: Radiation Oncology Comment on above: Malignant neoplasm o f prostate (HCC) (Primary Dx) Start: 11-26-2023 End: 11-26-2023 ambulatory Adelfo GRAF Facility:[facility] Start: 11-25-2023 End: 11-25-2023 ambulatory Adelfo GRAF Facility:[facility] Start: 11-25-2023 End: 11-25-2023 Patient encounter procedure Adelfo Graf MD Work Phone: Radiation Oncology Comment on above: Malignant neoplasm o f prostate (HCC) (Primary Dx) Start: 11-22-2023 Telephone encounter Adelfo Graf MD Work Phone: Radiation Oncology Comment on above: Orders Start: 11-17-2023 Patient encounter procedure Adelfo Graf MD Work Phone: [place] Start: 11-17-2023 Radiation Oncology Note Adelfo Graf MD Work Phone: Radiation Oncology Comment on above: Simulation Note Treatment Planning Start: 11-17-2023 End: 11-18-2023 ambulatory Adelfo GRAF Facility:[facility] Start: 11-15-2023 End: 11-16-2023 ambulatory Vernell SIFUENTES Facility:[facility] Start: 11-15-2023 End: 11-15-2023 Patient encounter procedure Vernell SIFUENTES [facility] Start: 10-27-2023 End: 10-27-2023 ambulatory Not Available Start: 10-19-2023 End: 10-19-2023 ambulatory Olga Monge LPN Radiation Oncology Comment on above: Patient Education Start: 10-14-2023 End: 10-14-2023 ambulatory Adelfo GRAF Facility:[facility] Start: 09-21-2023 End: 09-21-2023 Patient encounter procedure Adelfo Graf MD Work Phone: Radiation Oncology Comment on above: Cancer of prostate w /med recur risk (T2b-c or Sahil 7 or PSA 10-20) (HCC) (Primary Dx) Start: 09-21-2023 Telephone encounter Adelfo Graf MD Work Phone: [facility] Comment on above: Nm Pet Request Start: 09-21-2023 End: 09-21-2023 ambulatory VERNELL SIFUENTES Facility:[facility] Start: 09-20-2023 Chart abstracting Clarice moore RN Work Phone: Hematology/Oncology Comment on above: Research ([id number] Pr escreen) Start: 09-10-2023 End: 09-11-2023 ambulatory Vernell SIFUENTES Facility:[facility] Start: 09-10-2023 End: 09-10-2023 Patient encounter procedure Vernell SIFUENTES [facility] Start: 08-26-2023 End: 08-27-2023 ambulatory Vernell SIFUENTES Facility:[id number] Start: 07-05-2023 End: 07-06-2023 ambulatory Vernell SIFUENTES Facility:[facility] Start: 07-05-2023 End: 07-05-2023 Patient encounter procedure Vernell SIFUENTES [facility] Start: 05-31-2023 ambulatory Vernell SIFUENTES [facility] ty:[facility] [place] Start: 02-22-2023 End: 02-23-[address] MERRILL IRAHETA Facility:[facility] Start: 12-11-2022 End: 12-12-[address] VERNELL SIFUENTES . Facility: Start: 12-08-2022 End: 12-09-2022 ambulatory Vernell SIFUENTES Facility:[facility] Start: 12-08-2022 End: 12-08-2022 Patient encounter procedure Vernell SIFUENTES [facility] Start: 11-23-2022 End: 2022 ambulatory Vernell SIUFENTES Facility:[facility] Start: 11-14-2022 End: 11-15-[address] MERRILL IRAHETA Facility:[facility] Start: 03-17-2022 End: 03-17-2022 Patient encounter procedure MD Ankur Duran Jr Work Phone: [facility] [place] Start: 02-17-2022 End: 02-17-2022 Patient encounter procedure Ankur Duran Jr. [facility] Procedures Date Procedure Procedure Detail Performing Clinician Start: 12-02-2023 Blood count complete auto&auto difrntl wbc G Sukhdev Graf MD Work Phone: Start: 08-26-2023 Transrectal biopsy o f prostate using ultrasound guidance Vernell SIFUENTES Start: 12-08-2022 Cystoscopy Vernell NGUYEN Start: 03-17-2022 XR pre/post mri xray MD Ankur Duran Jr Work Phone: Start: 12-26-2014 Laser ablation of prostate Vernell SIFUENTES Comment on above: Green Light laser Start: 12-26-2014 Transrectal biopsy o f prostate using ultrasound guidance Vernell SIFUENTES Start: 12-14-2014 Flexible cystoscopy Ambar SIFUENTES Start: 05-01-2013 Transrectal biopsy o f prostate using ultrasound guidance Vernell SIFUENTES Start: 04-10-2005 Flexible cystoscopy Ambar SIFUENTES Cataract (morphologi c abnormality) Ankur Duran Jr. Colonoscopy Ankur Logan Plan of Treatment Date Care Activity Detail Author Start: 05-08-2024 ambulatory Ambulatory Facility:[facility] Start: 12-02-2023 End: 03-02-2024 CBC W Auto Differential panel - Blood CBC + DIFF Lab Routine Malignant neoplasm of prostate (HCC) Expected: 12/02/2023, Expires: 03/02/2024 [facility] Work Phone: Comment on above: Expected: 12/02/2023 , Expires: 03/02/2024 Start: 10-11-2023 Advance Directive Discussion Advance Directive Discussion [facility] Start: 10-11-2023 [facility] Start: 06-11-2023 Influenza vaccination Influenza Vacc ine (#1) [facility] Start: 10-11-2022 Advance Directive Discussion Advance Directive Discussion [facility] Start: 10-11-2022 Depression Assessment Depression Ass essment [facility] Start: 03-17-2022 MR prostate wo/w con MR prostate wo/ w con [facility] Start: 2012 Pneumococcal Vaccine : 65+ (1 - PCV) Pneumococcal Vaccine: 65+ (1 - PCV) [facility] Start: 2012 Pneumococcal Vaccine : 65+ (1 of 1 - PCV) Pneumococcal Vaccine: 65+ (1 of 1 - PCV) [facility] Start: 2007 RSV Vaccine (1 - 1-d ose 60+ series) RSV Vaccine (1 - 1-dose 60+ series) [facility] Start: 1997 Shingrix Vaccine (1 of 2) Shingrix Vaccine (1 of 2) [facility] Start: 1992 Cologuard (FIT-DNA) Cologuard (FIT-D NA) [facility] Start: 1992 Colonoscopy Colonoscopy [facility] Start: 1992 Colorectal Cancer Screening Colorectal Cancer Screening [facility] Start: [address] Colonography [facility] Start: 1992 Diabetes Screening Diabetes Screenin g [facility] Start: 1992 Fecal Occult Blood Fecal Occult Bloo d [facility] Start: 1992 Screening for malign ant neoplasm of colon [facility] Start: 1992 Sigmoidoscopy Sigmoidoscopy [facility] Start: 1982 Lipid 1996 panel - S horacio or Plasma Lipid Screening [facility] Start: 1982 Lipid panel Lipid Screening [facility] Start: 1966 Urine microalbumin profile DTaP,Tdap,Td Vaccine (1 - Tdap) [facility] Start: 1965 Hepatitis C Screening Hepatitis C [facility] Start: 1965 Hepatitis C screening Hepatitis C [facility] Start: 05-24-1948 Covid-19 Vaccine (#1) Covid-19 Vacci ne (#1) [facility] End: 10-20-2024 NM PET/CT PROSTATE WHOLE BODY IMAGING NM PET/CT PROSTATE WHOLE BODY IMAGING Radiology Routine Cancer of prostate w/med recur risk (T2b-c or Macksburg 7 or PSA 10-20) (HCC) 1 Occurrences starting 09/21/2023 until 10/20/2024 [facility] Work Phone: Comment on above: 1 Occurrences starti ng 09/21/2023 until 10/20/[facility]24 [facility] Immunizations Immunization Date Immunization Notes Care Provider Kaitlin adam 08-05-2023 influenza virus vaccine, unspecified formulation Vernell RICHARD [facility] 07-28-2022 influenza virus vaccine, unspecified formulation Vernell RICHARD [facility] 07-12-2022 SARS-CoV-2 (COVID-19 ) [id number] Vernell RICHARD [facility] 02-20-2022 COVID-19 mRNA, Comirnaty (Pfizer) MD Ankur Duran Jr Work Phone: [facility] 02-20-2022 SARS-CoV-2 mRNA (vssffoxtuzl-xzjx-wdesf se) vaccine Vernell SIFUENTES [facility] 08-23-2021 COVID-19 mRNA, Comirnaty (Pfizer) MD Ankur Duran Jr Work Phone: [facility] 08-23-2021 SARS-CoV-2 mRNA (tozinameran 5y-11y) vaccine Ankur Duran Jr. [facility] 12-11-2020 COVID-19 mRNA, Comirnaty (Pfizer) MD Ankur Duran Jr Work Phone: [facility] 12-11-2020 SARS-CoV-2 mRNA (tozinameran 5y-11y) vaccine Ankur Duran Jr. [facility] 11-22-2020 COVID-19 mRNA, Comirnaty (Pfizer) MD Ankur Duran Jr Work Phone: [facility] 11-22-2020 SARS-CoV-2 mRNA (tozinameran 5y-11y) vaccine Ankur Duran Jr. [facility] 07-26-2020 influenza virus vaccine, unspecified formulation Vernell SIFUENTES [facility] Payers Date Payer Category Payer Unknown [id number] 1957 Medicare [id number] 1945 Unknown [id number] 2.16.84 [id number] 1945 Unknown [id number] 2.16.84 [id number] 1945 Unknown [id number] 2.16.84 [id number] 1945 Unknown [id number] 2.16.84 [id number] 1945 Unknown [id number] 2.16.8 [id number] 1945 Unknown [id number] 2.16.8 [id number] 1945 Unknown [id number] 2.16.8 [id number] 1945 Unknown [id number] 2.16.8 [id number] 1945 Unknown [id number] 2.16.8 [id number] 1945 Unknown [id number] 2.16.8 [id number] 1945 Unknown [id number] 2.16.8 [id number] 1945 Unknown [id number] 2.16.8 [id number] Medicare Medicare [id number] Self-pay Self Pay [id number] Social History Date Type Detail Facility Start: 02-17-2022 Tobacco smoking status Never s moked tobacco (finding) [facility] Start: 09-21-2023 End: 10-19-2023 Sex Assigned At Male [facility] Start: 1945 Sex Assigned At Male [facility] Start: 11-23-2022 End: 09-21-2023 Tobacco smoking status Ex-smoker (finding) [facility] Tobacco smoking status Never [facility] Tobacco smoking stat [facility] Tobacco smoking consumption unknown [facility] Work Phone: Start: 1945 Sex Assigned At Not on file [facility] Start: 10-11-1965 End: 10-11-2003 History of tobacco use Current smoker [facility] Start: 10-11-1965 End: 10-11-2003 History of tobacco use Cigarette Smoker [facility] Start: 09-21-2023 End: 10-19-2023 Cigarettes smoked current (pack per day) - Reported 1.5 [facility] Start: 09-21-2023 Tobacco use and exposure Smokeless tobacco non-user [facility] Start: 09-21-2023 End: 12-06-2023 Alcohol intake Current drinker of alcohol (finding) [facility] Start: 09-21-2023 Alcohol Comment 2-3 mixed drink per day [facility] Functional Status Date Assessment Result Facility 11-15-2023 Functional Status N/A [facility] 09-10-2023 Functional Status N/A [facility] 07-05-2023 Functional Status N/A [facility] Clinical Notes 02-17-2022 to 12-13-2023 Adelfo Graf MD - 12/13/2023 11:24 AM Chelsy Fong RN - 12/02/2023 11:48 AM Adelfo Gifford MD - 11/29/2023 11:15 AM Adelfo Gifford MD - 11/25/2023 12:37 PM EST Note Date & Type Note Facility 12-13-2023 Note HNO ID: [id number] Author: Adelfo GRAF MD Service: ? 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 COURSE: definitive Current dose: 3250 cGy in 13 fx Planned dose: 7000 cGy in 28 fx SUBJECTIVE: Overall doing well. Had some mild diarrhea last week. Responding to Imodium. Has not needed any since. PHYSICAL EXAM: 12/13/23 1124 BP: 158/74 Pulse: 68 Resp: 18 Temp: 36.3 ?C (97.4 ?F) SpO2: 95% Weight: 118.1 kg (260 lb 5.8 oz) KPS: 100 General Appearance: Alert and oriented. No acute distress. IMAGING/LAB RESULTS: Hemoglobin (g/dL) Date Value 12/02/2023 14.8 Hematocrit (%) Date Value 12/02/2023 42.1 WBC (k/uL) Date Value 12/02/2023 5.61 Platelet Count (k/uL) Date Value 12/02/2023 171 TOXICITY ASSESSMENT (CTC v4.0): Fatigue:grade 1 Radiation Dermatitis: grade 0 - No symptoms Diarrhea:grade 0 - No symptoms Proctitis: grade 0 - No symptoms Urinary frequency: grade 0 - No symptoms Dysuria: grade 1 Urinary incontinence: grade 0 (No symptoms) Urinary retention: grade 0 - No symptoms Treatment chart checked: Yes Patient treatment site reviewed and verified:Yes Port films reviewed and current:Yes Medications started: None ASSESSMENT/PLAN: Patient doing well. Chart and imaging reviewed. Continue radiation as outlined. Adelfo Graf MD [facility] 12-13-2023 History of Present illness Narrative Radiation Oncology - On Treatment Review (OTR) Note PATIENT NAME: Ayala Damian PATIENT DIAGNOSIS: Prostate adenocarcinoma, 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 COURSE: definitive Current dose: 3250 cGy in 13 fx Planned dose: 7000 cGy in 28 fx SUBJECTIVE: Overall doing well. Had some mild diarrhea last week. Responding to Imodium. Has not needed any since. PHYSICAL EXAM: 12/13/23 1124 BP: 158/74 Pulse: 68 Resp: 18 Temp: 36.3 C (97.4 F) SpO2: 95% Weight: 118.1 kg (260 lb 5.8 oz) KPS: 100 General Appearance: Alert and oriented. No acute distress. IMAGING/LAB RESULTS: Hemoglobin (g/dL) Date Value 12/02/2023 14.8 Hematocrit (%) Date Value 12/02/2023 42.1 WBC (k/uL) Date Value 12/02/2023 5.61 Platelet Count (k/uL) Date Value 12/02/2023 171 TOXICITY ASSESSMENT (CTC v4.0): Fatigue:grade 1 Radiation Dermatitis: grade 0 - No symptoms Diarrhea:grade 0 - No symptoms Proctitis: grade 0 - No symptoms Urinary frequency: grade 0 - No symptoms Dysuria: grade 1 Urinary incontinence: grade 0 (No symptoms) Urinary retention: grade 0 - No symptoms Treatment chart checked: Yes Patient treatment site reviewed and verified:Yes Port films reviewed and current:Yes Medications started: None ASSESSMENT/PLAN: Patient doing well. Chart and imaging reviewed. Continue radiation as outlined. Adelfo Graf MD documented in this encounter [facility] 12-06-2023 Note HNO ID: [id number] Author: Adelfo GRAF MD Service: ? Author Type: Physician Type: Progress Notes Filed: 12/06/2023 11:34 Note Text: Radiation Oncology - On Treatment Review (OTR) Note PATIENT NAME: Ayala Damian PATIENT DIAGNOSIS: Prostate adenocarcinoma, 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 COURSE: definitive Current dose: 2000 cGy in 8 fx Planned dose: 7000 cGy in 28 fx SUBJECTIVE: Doing well, mild episode of dysuria. PHYSICAL EXAM: 12/06/23 1121 BP: 159/74 Pulse: (!) 58 Resp: 18 Temp: 36.4 ?C (97.5 ?F) SpO2: 97% Weight: 118.3 kg (260 lb 12.9 oz) KPS: 100 General Appearance: Alert and oriented. No acute distress. IMAGING/LAB RESULTS: Hemoglobin (g/dL) Date Value 12/02/2023 14.8 Hematocrit (%) Date Value 12/02/2023 42.1 WBC (k/uL) Date Value 12/02/2023 5.61 Platelet Count (k/uL) Date Value 12/02/2023 171 TOXICITY ASSESSMENT (CTC v4.0): Fatigue:grade 1 Radiation Dermatitis: grade 0 - No symptoms Diarrhea:grade 0 - No symptoms Proctitis: grade 0 - No symptoms Urinary frequency: grade 0 - No symptoms Dysuria: grade 1 Urinary incontinence: grade 0 (No symptoms) Urinary retention: grade 0 - No symptoms Treatment chart checked: Yes Patient treatment site reviewed and verified:Yes Port films reviewed and current:Yes Medications started: None ASSESSMENT/PLAN: Patient doing well. Chart and imaging reviewed. Continue radiation as outlined. Adelfo Graf MD [facility] 12-02-2023 Nurse Note Ayala Damian presents in office today for: Lab Draw only . Ordering Provider: Sukhdev Graf M.D. Test (s) ordered: CBC Method for obtaining blood: Phlebotomy was performed, accessing left antecubital vein. Needle removed intact. Dressing secured. Patient denies discomfort, dizziness, light-headedness or weakness and left the department without assist. Chelsy Fernando RN documented in this encounter [facility] 11-29-2023 Note HNO ID: [id number] Author: Adelfo GRAF MD Service: ? 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 COURSE: definitive Current dose: 750 cGy in 3 fx Planned dose: 7000 cGy in 28 fx SUBJECTIVE: doing well. PHYSICAL EXAM: 11/29/23 1105 BP: 137/69 Pulse: (!) 56 Resp: 16 Temp: 36.4 ?C (97.5 ?F) SpO2: 96% Weight: 118.6 kg (261 lb 7.5 oz) KPS: 100 General Appearance: Alert and oriented. No acute distress. IMAGING/LAB RESULTS: None TOXICITY ASSESSMENT (CTC v4.0): Fatigue:grade 0 - No symptoms Radiation Dermatitis: grade 0 - No symptoms Diarrhea:grade 0 - No symptoms Proctitis: grade 0 - No symptoms Urinary frequency: grade 0 - No symptoms Dysuria: grade 0 - No symptoms Urinary incontinence: grade 0 (No symptoms) Urinary retention: grade 0 - No symptoms Treatment chart checked: Yes Patient treatment site reviewed and verified:Yes Port films reviewed and current:Yes Medications started: None ASSESSMENT/PLAN: Patient doing well. Chart and imaging reviewed. Continue radiation as outlined. 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 COURSE: definitive Current dose: 750 cGy in 3 fx Planned dose: 7000 cGy in 28 fx SUBJECTIVE: doing well. PHYSICAL EXAM: 11/29/23 1105 BP: 137/69 Pulse: (!) 56 Resp: 16 Temp: 36.4 C (97.5 F) SpO2: 96% Weight: 118.6 kg (261 lb 7.5 oz) KPS: 100 General Appearance: Alert and oriented. No acute distress. IMAGING/LAB RESULTS: None TOXICITY ASSESSMENT (CTC v4.0): Fatigue:grade 0 - No symptoms Radiation Dermatitis: grade 0 - No symptoms Diarrhea:grade 0 - No symptoms Proctitis: grade 0 - No symptoms Urinary frequency: grade 0 - No symptoms Dysuria: grade 0 - No symptoms Urinary incontinence: grade 0 (No symptoms) Urinary retention: grade 0 - No symptoms Treatment chart checked: Yes Patient treatment site reviewed and verified:Yes Port films reviewed and current:Yes Medications started: None ASSESSMENT/PLAN: Patient doing well. Chart and imaging reviewed. Continue radiation as outlined. Adelfo Graf MD documented in this encounter [facility] 11-25-2023 Note HNO ID: [id number] Author: Adelfo GRAF MD Service: ? Author Type: Physician Type: Progress Notes Filed: 11/25/2023 12:43 Note Text: Radiation Oncology - On Treatment Review (OTR) Note PATIENT NAME: Ayala Damian PATIENT DIAGNOSIS: Prostate adenocarcinoma, 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 COURSE: definitive Current dose: 250 cGy in 1 fx Planned dose: 7000 cGy in 28 fx SUBJECTIVE: Here to start radiation, doing well. PHYSICAL EXAM: KPS: 100 General Appearance: Alert and oriented. No acute distress. IMAGING/LAB RESULTS: None TOXICITY ASSESSMENT (CTC v4.0): Fatigue:grade 0 - No symptoms Radiation Dermatitis: grade 0 - No symptoms Diarrhea:grade 0 - No symptoms Proctitis: grade 0 - No symptoms Urinary frequency: grade 0 - No symptoms Dysuria: grade 0 - No symptoms Urinary incontinence: grade 0 (No symptoms) Urinary retention: grade 0 - No symptoms Treatment chart checked: Yes Patient treatment site reviewed and verified:Yes Port films reviewed and current:Yes Medications started: None ASSESSMENT/PLAN: Patient starting radiation today. Plan of care and expectations again reviewed. Plan, MU calculations and qa report reviewed. Initial imaging including cone beam ct and verification reviewed and approved. First treatment given. Continue radiation as prescribed. 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 COURSE: definitive Current dose: 250 cGy in 1 fx Planned dose: 7000 cGy in 28 fx SUBJECTIVE: Here to start radiation, doing well. PHYSICAL EXAM: KPS: 100 General Appearance: Alert and oriented. No acute distress. IMAGING/LAB RESULTS: None TOXICITY ASSESSMENT (CTC v4.0): Fatigue:grade 0 - No symptoms Radiation Dermatitis: grade 0 - No symptoms Diarrhea:grade 0 - No symptoms Proctitis: grade 0 - No symptoms Urinary frequency: grade 0 - No symptoms Dysuria: grade 0 - No symptoms Urinary incontinence: grade 0 (No symptoms) Urinary retention: grade 0 - No symptoms Treatment chart checked: Yes Patient treatment site reviewed and verified:Yes Port films reviewed and current:Yes Medications started: None ASSESSMENT/PLAN: Patient starting radiation today. Plan of care and expectations again reviewed. Plan, MU calculations and qa report reviewed. Initial imaging including cone beam ct and verification reviewed and approved. First treatment given. Continue radiation as prescribed. Adelfo Graf MD documented in this encounter [facility] 11-22-2023 Miscellaneous Notes CBC order pending your approval. Olga Monge RN documented in this encounter [facility] 11-17-2023 Note HNO ID: [id number] Author: Adelfo GRAF MD Service: ? Author Type: Physician Type: Progress Notes Filed: 11/23/2023 13:02 Note Text: AYALA DAMIAN [id number] 11/17/2023 [facility] Department of Radiation Oncology Treatment Planning Note For reasons stated in the consult note, Ayala Damian is a candidate for radiation therapy. Based on review and interpretation of the relevant diagnostic studies together with the exam findings, Ayala Damian was simulated on 11/17/2023 at which time the target volume and/or requisite marcelino were delineated, as indicated in the simulation note, to be treated according to the prescription. The treatment target and organs at risk were contoured on the simulation scan . After reviewing multiple treatment plans with dosimetry, the best plan was approved to deliver the prescribed course of radiation to the target area using inverse planning to allow for the best isodose distribution, treating to the 98% isodose line with 10MV and 3 marcelino. Custom MLC asym jaws for IMRT were the treatment devices used to shape/modify the beams. Limiting dose to normal tissue was confirmed upon review of the calculated dose volume histogram. IMRT planning was used because it best met the dose/volume constraints for the organs at risk for this patient, better than what could be achieved using conventional or 3D planning. The specific dose requirements for the PTV, organs at risk and dose-volume histograms are contained in this treatment plan and/or elsewhere in the medical record. A completed summary of this plan dated 11/23/2023 incorporated herein by reference includes dose, beam arrangements, energy, blocking, isodose distribution, and/or ports and DVH. Electronically Signed Sukhdev Graf M.D. 41:02 PM [facility] 11-17-2023 Note HNO ID: [id number] Author: Adelfo GRAF MD Service: ? Author Type: Physician Type: Progress Notes Filed: 11/17/2023 15:49 Note Text: AYALA DAMIAN [id number] 11/17/2023 [facility] Radiation Oncology Department SIMULATION NOTE DATE OF SIMULATION: 11/17/2023 THERAPIST: Brandy Perdomo MACHINE: [employer] DIAGNOSIS: Malignant neoplasm of [id number] AREA: Prostate CONTRAST: None Consent in Epic: Yes PATIENT POSITION: Supine. FIXATION DEVICE: In order to achieve accurate and reproducible treatments, the patient is immobilized with orfit AIO A time-out was conducted and recorded by the therapist. CT scan was completed for target localization and planning. Field arrangement will be determined after plan has been completed. The patient is scheduled for a verification simulation on the treatment machine to ensure proper set-up and field arrangement is correct prior to the first treatment of primary and boost marcelino if applicable. Patient education will be completed per nursing. Electronically Signed Sukhdev Graf M.D. / CDT 43:49 PM [facility] 11-17-2023 History of Present illness Narrative AYALA DAMIAN [id number] 11/17/2023 [facility] Radiation Oncology Department SIMULATION NOTE DATE OF SIMULATION: 11/17/2023 THERAPIST: Brandy Perdomo MACHINE: [employer] DIAGNOSIS: Malignant neoplasm of [id number] AREA: Prostate CONTRAST: None Consent in Epic: Yes PATIENT POSITION: Supine. FIXATION DEVICE: In order to achieve accurate and reproducible treatments, the patient is immobilized with orfit AIO A time-out was conducted and recorded by the therapist. CT scan was completed for target localization and planning. Field arrangement will be determined after plan has been completed. The patient is scheduled for a verification simulation on the treatment machine to ensure proper set-up and field arrangement is correct prior to the first treatment of primary and boost marcelino if applicable. Patient education will be completed per nursing. Electronically Signed Sukhdev Graf M.D. / CDT 43:49 PM documented in this encounter [facility] 11-17-2023 History of Present illness Narrative AYALA DAMIAN [id number] 11/17/2023 [facility] Department of Radiation Oncology Treatment Planning Note For reasons stated in the consult note, Ayala Damian is a candidate for radiation therapy. Based on review and interpretation of the relevant diagnostic studies together with the exam findings, Ayala Damian was simulated on 11/17/2023 at which time the target volume and/or requisite marcelino were delineated, as indicated in the simulation note, to be treated according to the prescription. The treatment target and organs at risk were contoured on the simulation scan . After reviewing multiple treatment plans with dosimetry, the best plan was approved to deliver the prescribed course of radiation to the target area using inverse planning to allow for the best isodose distribution, treating to the 98% isodose line with 10MV and 3 marcelino. Custom MLC asym jaws for IMRT were the treatment devices used to shape/modify the beams. Limiting dose to normal tissue was confirmed upon review of the calculated dose volume histogram. IMRT planning was used because it best met the dose/volume constraints for the organs at risk for this patient, better than what could be achieved using conventional or 3D planning. The specific dose requirements for the PTV, organs at risk and dose-volume histograms are contained in this treatment plan and/or elsewhere in the medical record. A completed summary of this plan dated 11/23/2023 incorporated herein by reference includes dose, beam arrangements, energy, blocking, isodose distribution, and/or ports and DVH. Electronically Signed Sukhdev Graf M.D. 41:02 PM documented in this encounter [facility] 11-15-2023 Hospital Discharge instructions Patient Education 11/15/2023 15:16:50 Hormone Suppression Therapy for Prostate Cancer Hormone Suppression Therapy for Prostate Cancer Hormone suppression therapy is a treatment for prostate cancer that can help slow the growth of cancer cells in the prostate gland. It is also called androgen deprivation therapy (ADT) or androgen suppression therapy. Hormone suppression therapy targets male sex hormones (androgens) in the body that help cancer cells grow. Hormone suppression therapy alone will not cure prostate cancer, but it can slow the growth of cancer cells and may shrink tumors over time. Your health care provider can help you find the best treatment that fits your lifestyle. Hormone suppression therapy may be used in the following cases: When prostate cancer has spread too far to other places in the body and cannot be cured by surgery or radiation. When a person has health problems that prevent the use of surgery or radiation. Before radiation to help shrink the size of the cancer and make the radiation treatment more effective. If the prostate cancer remains or comes back following treatment with surgery or radiation. What are the types of hormone suppression therapy? Orchiectomy Orchiectomy, also called surgical castration, is a surgery to remove one or both testicles. The testicles make the two main androgens testosterone and dihydrotestosterone (DHT). This surgery reduces the levels of testosterone in the blood, leading to decreased androgen production. Medicine therapy Medicine therapy, also called medical or chemical castration, involves taking medicines to keep your body from making or using androgens. Medicines can do this in one of three ways: 1.Reducing androgen production by the testicles. Luteinizing hormone-releasing hormone (LHRH) agonists. These medicines are injected or implanted under your skin to lower the amount of androgens that your testicles make. Depending on the medicine, they can be given monthly or up to every 3 to 6 months. If you take these medicines, you may also be prescribed other medicines to help with side effects. LHRH antagonists. These medicines also work to lower the amount of androgens made in the testicles, but they work faster than LHRH agonist medicines and have less severe side effects. They are given as a monthly injection under the skin, and they are used when prostate cancer is in an advanced stage. Estrogens. These medicines are female hormones that help to reduce androgen production by the testicles. Estrogens are not used as commonly as other types of hormone suppression therapy due to their side effects. However, they may be used if other treatments do not work. 2.Blocking androgen attachment throughout the body. Anti-androgen medicines, also called androgen receptor antagonists, block areas on the body where androgens attach. These are pills that are usually used in combination with other types of hormone suppression therapy, like orchiectomy and other medicines. 3.Blocking androgen production throughout the body. Androgen synthesis inhibitor medicines. These medicines help to stop other areas of the body from making androgens. They are taken as pills. They may be used if the prostate cancer is advanced and has not gotten better with surgery or other medicines. A steroid medicine may be given with this type of medicine to help with side effects. What are the risks? Hormone suppression therapy may cause side effects, including: Hot flashes. Diarrhea and nausea. Itching. Sexual side effects, such as: ?Decrease or lack of sexual desire. ?Decrease in size of the penis or testicles. ?Inability to get an erection (erectile dysfunction, or impotence). ?Breast tenderness or increase in breast size. Fatigue. Weight gain. Anemia. Thinning of the bones (osteoporosis) and loss of muscle mass. Depression, mood swings, and trouble with thinking or focusing. Hormone suppression therapy may also increase your risk of high blood pressure, increased cholesterol levels, stroke, heart attack, or diabetes. What are the benefits? One of the main benefits of hormone suppression therapy is having additional treatment options. You may have only one type of treatment, or two or more types at the same time. Treatments may be combined to: Help with side effects. Treat advanced cancer. Where to find more information [employer] [place]: www.cancer.org National Cancer [place]: www.cancer.gov Contact a health care provider if: You have pain or side effects that do not get better with treatment. You have trouble urinating. You have new side effects that do not go away. Get help right away if: You have severe chest pain. You have trouble breathing. You have an irregular heartbeat. You have numbness or paralysis in the lower half of your body. You are confused. You have trouble talking or understanding speech. These symptoms may be an emergency. Do not wait to see if the symptoms will go away. Get medical help right away. Call your local emergency services (911 in the [place] Do not drive yourself to the hospital. Summary Hormone suppression therapy is a treatment for prostate cancer that can help to slow the growth of cancer cells in the prostate gland. Hormone suppression therapy alone will not cure prostate cancer, but it can slow the growth of prostate cancer and may shrink tumors over time. Treatment to suppress hormones may include surgery or medicines. Side effects such as hot flashes, changes in sexual function or desire, and weakened bones can result from hormone suppression therapy. This information is not intended to replace advice given to you by your health care provider. Make sure you discuss any questions you have with your health care provider. Document Revised: 01/08/2022 Document Reviewed: 01/08/2022 [employer] Patient Education 2022 [employer]. Follow Up Care 10/19/2023 13:28:55 With:RICHARD MAGANA, Vernell Martinez, URL Address: [facility] [address], [place] [address]- [phone] When: Unknown Comments:6 mos w/ PSA and Lupron inj [facility] 10-19-2023 Note HNO ID: [id number] Author: Adelfo GRAF MD Service: ? Author Type: Physician Type: Progress Notes Filed: 10/19/2023 13:41 Note Text: Radiation Oncology - Prostate Cancer Follow-up note PATIENT NAME: Ayala Damian PATIENT DIAGNOSIS: Prostate adenocarcinoma, initial PSA 9.5, biopsy Macksburg score 4 + 3 = 7 (grade group 3), clinical stage T1c, N0, M0, stage IIC [T1-T2, N0, M0, PSA <20, GG 3] (AJCC 8th ed.), s/p TRUS Random biopsy. HPI: Patient returns after recent PSMA PET. Denies any new problems or concerns. PSMA PET 10/14/2023: Head and neck: - No PSMA-expressing lesion suspicious for metastasis. Chest: -Nonspecific enlarged paraesophageal lymph nodes, similar to prior CT abdomen/pelvis 12/11/2022 without significant tracer avidity. - No PSMA-expressing lesion suspicious for metastasis. Abdomens and Pelvis: -Prostatomegaly with heterogeneous tracer avidity posteriorly, consistent with patient's known prostate cancer. -Abdominal aortic aneurysm measuring up to 3.4 cm in diameter. - No PSMA-expressing lesion suspicious for metastasis. Bones and soft tissues: - No PSMA-expressing lesion suspicious for metastasis. Bowel Movement Frequency: 1/day Bowel Movement Quality: Normal Blood per Rectum: No Androgen Deprivation: none Prior Radiation Therapy, Collagen Vascular Disease, or Inflammatory Bowel Disease: No Any implanted or external electric devices? No Currently on Anticoagulation: No History of Hip Replacement: No History of Prior TURP: Prior laser ablation procedure ALLERGIES Allergen Reactions Penicillins Hives amLODIPine (NORVASC) 5 mg tablet Take 5 mg by mouth. Atenolol-Chlorthalidone 100-25 mg per tablet Take 1 tablet by mouth once daily. simvastatin (ZOCOR) 40 mg tablet Take 40 mg by mouth. nabumetone (RELAFEN) 500 mg tablet Refills(s) 0 PAST MEDICAL HISTORY Diagnosis Date Arthritis Hard of hearing HTN (hypertension) Hypercholesteremia No past surgical history on file. FAMILY HISTORY Problem Relation Age of Onset Prostate Cancer Brother Breast Cancer Paternal Aunt Social History Tobacco Use Smoking status: Former Packs/day: 1.50 Years: 45.00 Additional pack years: 0.00 Total pack years: 67.50 Types: Cigarettes Start date: 1965 Quit date: 2003 Years since quittin.0 Smokeless tobacco: Never Substance Use Topics Alcohol use: Yes Comment: 2-3 mixed drink per day Drug use: Never Occupation: Retired Residence: Home REVIEW OF SYSTEMS: GENERAL: feeling well without fatigue, no recent change in weight NECK: denies swelling or pain in neck RESPIRATORY: no cough, no wheezing or shortness of breath CARDIOVASCULAR: no chest pain, no palpitations MUSCULOSKELETAL: denies any painful or swollen joints, no muscle aches SKIN: no rash As noted in HPI PHYSICAL EXAM: VS: BP 153/75 Pulse (!) 58 Temp 36.3 ?C (97.4 ?F) Resp 18 Wt 118.6 kg (261 lb 7.5 oz) SpO2 97% BMI (P) 35.46 kg/m? KARNOFSKY PERFORMANCE STATUS: 100 General Appearance: Alert and oriented. No acute distress. GENITOURINARY: Deferred exam RECTAL: Deferred exam RADIOLOGY/LABORATORY DATA: see HPI ASSESSMENT/PLAN: Prostate adenocarcinoma, initial PSA 9.5, biopsy Macksburg score 4 + 3 = 7 (grade group 3), clinical stage T1c, N0, M0, stage IIC [T1-T2, N0, M0, PSA <20, GG 3] (AJCC 8th ed.), s/p TRUS Random biopsy. Prostate cancer (C61), 2019 NCCN Risk Group: Unfavorable Intermediate Risk Group Clinical State: Localized Cancer - New Diagnosis Patient presents after further staging with PSMA PET. No evidence of metastatic disease. Discussed options of management again at length with patient. Also discussed potential enrollment in and intergroup clinical study, GU010, a Parallel Phase III Randomized Trial of Genomic-Risk Stratified Unfavorable Intermediate Risk Prostate Cancer: De-Intensification and Intensification Clinical Trial Evaluation After long discussion patient was not interested. Discussed again treatment options including surgery versus radiation. Discussed both external beam as well as use of ADT. Discussed possibility of brachytherapy though I have concerns given his large gland size. After long discussion patient wants to proceed with external beam treatment. He is in agreement to ADT and I will have him see Dr. Sifuentes for initiation of this. Will plan to see him back after this for simulation. Signed by: Adelfo Graf MD cc: Vernell Sifuentes [id number] [facility] [id number] [facility] 10-19-2023 Note Education (THOMASA) AYALA DAMIAN ([id number]) 1945 M Date Time Provider Department 10/19/23 OLGA MONGE Reason for Visit: Patient Education [91] Visit Notes: >> Olga Monge LPN Tue Oct 19, 2023 11:15 AM Status: Signed Radiation Therapy - Patient Education Note PATIENT NAME: Ayala Damian PATIENT October 19, 2023 [facility] FACILITY/LOCATION: [facility] READINESS TO LEARN Cognitive Ability: alert and oriented Motivation to learn: Interested Family Support: High - Very involved in pt care Instruction provide to: Patient and Spouse Patient learns best by: Multiple Methods Factors effecting learning: None Physical limitations effecting learning: Hard of Hearing--wears a hearing aid LEARNING RESPONSE Diagnosis: Pt simulated today for radiation therapy to pelvis. Education Topic/Teaching Points: Radiation therapy, Side effects, and OTV: Method of instruction: Written instruction - handouts Verbal instruction Patient /Family response: Patient and family verbalized understanding of radiation treatments, side effects, OTV, and transportation. Follow-up plan: Recommend - Recommend continued instruction and follow up as directed Supplemental material: Informational handouts on Bladder function, Diarrhea, Fatigue, Pelvic handout, Skin changes, and patient education binder. Referral (recommendation): None, Pt denied need for social work, van service, and government instructor. Was approved? No Signed by: Olga Monge LPN During your visit today, we recorded the following information about you: Allergies As of Date: 10/19/2023 Noted Allergy Reaction PENICILLINS 09/21/2023 4 - Hives Date Reviewed: 10/19/2023 Reviewed by: Olga Monge LPN - Fully Assessed Prescriptions as of 11/17/2023 - amLODIPine (NORVASC) 5 mg tablet Take 5 mg by mouth. - Atenolol-Chlorthalidone 100-25 mg per tablet Take 1 tablet by mouth once daily. - simvastatin (ZOCOR) 40 mg tablet Take 40 mg by mouth. - nabumetone (RELAFEN) 500 mg tablet Refills(s) 0 Encounter Status:Closed by OLGA MONGE on 11/17/23 [facility] 10-19-2023 Nurse Note Radiation Therapy - Patient Education Note PATIENT NAME: Ayala Damian PATIENT October 19, 2023 [facility] FACILITY/LOCATION: [facility] READINESS TO LEARN Cognitive Ability: alert and oriented Motivation to learn: Interested Family Support: High - Very involved in pt care Instruction provide to: Patient and Spouse Patient learns best by: Multiple Methods Factors effecting learning: None Physical limitations effecting learning: Hard of Hearing--wears a hearing aid LEARNING RESPONSE Diagnosis: Pt simulated today for radiation therapy to pelvis. Education Topic/Teaching Points: Radiation therapy, Side effects, and OTV: Method of instruction: Written instruction - handouts Verbal instruction Patient /Family response: Patient and family verbalized understanding of radiation treatments, side effects, OTV, and transportation. Follow-up plan: Recommend - Recommend continued instruction and follow up as directed Supplemental material: Informational handouts on Bladder function, Diarrhea, Fatigue, Pelvic handout, Skin changes, and patient education binder. Referral (recommendation): None, Pt denied need for social work, van service, and government instructor. Was approved? No Signed by: Olga Monge LPN documented in this encounter [facility] 10-14-2023 Note HNO ID: [id number] Author: CARRIE TIM RT(R) Service: ? Author Type: Technologist Type: Progress Notes Filed: 10/14/2023 13:30 Note Text: RADIOLOGY SERVICE PROGRESS NOTE SERVICE DATE: 10/14/2023 SERVICE TIME: 1:29 PM PATIENT IDENTITY VERIFICATION COMPLETED USING TWO (2) STANDARD IDENTIFIERS: Name and Date of confirmed by patient verbally POST EXAM PIV STATUS: Discontinued PROCEDURE TYPE: NM INJECT: PET/CT BODY SCAN. 10.8 mCi [id number]. No other medications given.. ADMINISTRATION TIME: 1230 PATIENT DISCHARGED TO: Ambulatory patient, left [place] department area. A Diagnostic radioactive procedure has taken place, with no further precautions necessary other than routine body substance precautions. More information regarding radiation safety can be found using this link: [email or web address] SIGNATURE: RT Alethea(R) PATIENT NAME: Ayala Damian DATE: October 14, 2023 TIME: 1:29 PM PAGER/CONTACT #: [facility] 10-14-2023 Note HNO ID: [id number] Author: GONZALO GUERRERO RN Service: ? Author Type: Registered Nurse Type: Progress Notes Filed: 10/14/2023 13:14 Note Text: Radiology Service Progress Note DATE OF SERVICE: October 14, 2023 TIME: 1:14 PM PATIENT IDENTITY VERIFICATION COMPLETED USING TWO (2) STANDARD IDENTIFIERS: Name and Date of confirmed by patient verbally. FALL SCREENING: Has the patient had 2 falls in the last year or 1 fall with injury or currently using an Ambulatory Assistive Device (Walker, Cane, Wheelchair, Crutches, etc.)? No PATIENT GENDER DATA: Male EXAM: CT -CONTRAST INDUCED NEPHROPATHY RISK FACTORS: Not applicable CREATININE: No results found for: CREAT , EGFROTH , EGFRAA P.O.C.T. RESULTS: N/A October 14, 2023 TREATMENT: N/A IV SITE: Ambulatory: A peripheral IV was started in the Left antecubital site with a Angio cath: 24 gauge. IV SITE APPEARANCE: Clean,Dry and Intact SIGNATURE: Gonzalo Guerrero RN PATIENT NAME: Ayala Damian DATE: October 14, 2023 TIME: 1:14 PM [facility] 09-21-2023 Evaluation note Diagnosis Cancer of prostate w/med recur risk (T2b-c or Sahil 7 or PSA 10-20) (HCC)- Primary Malignant neoplasm of prostate documented in this encounter [facility]12-12-2023 Reason for referral (narrative)* Diagnostic Procedure Only (Routine) - Authorized Specialty Diagnoses / Procedures Referred By Contac t Referred To Contact MOLECULAR & FUNCTIONAL IMAGING Diagnoses Cancer of prostate w/med recur risk (T2b-c or Macksburg 7 or PSA 10-20) (HCC) Procedures NM PET/CT PROSTATE WHOLE BODY IMAGING PET IMAGING CT ATTENUATION SKULL BASE MID-THIGH F-18 PSMA Adelfo Warren MD [address] [place] [address] [place] [address] Molecular & Functional Imaging [address] [place] [address] Referral ID Status Reason Start Date Expiration Date Visits Requested Visits Authorized [id number] Authorized Auto-Generat ed Referral 3 12/19/2023 1 1 [facility]12-12-2023 NoteHNO ID: [id number] Author: Adelfo Graf MD Service: ? Author Type: Physician Type: Progress Notes Filed: 09/21/2023 10:01 AM Note Text: Radiation Oncology - Prostate Cancer New Patient/Consult Note PATIENT NAME: Ayala Damian PATIENT REQUESTING PROVIDER: Dr. Sifuentes. DIAGNOSIS: 77 year old male with prostate adenocarcinoma, initial PSA 9.5, biopsy Macksburg score 4 + 3 = 7 (grade group 3), clinical stage T1c, N0, M0, stage IIC [T1-T2, N0, M0, PSA <20, GG 3] (AJCC 8th ed.), s/p TRUS Random biopsy. HPI: 77 year old male with prostate adenocarcinoma who presents for an opinion regarding the role of radiation therapy in the management of the patient's disease. Final recommendations will be communicated back to the requesting physician by way of the shared medical record, or letter to requesting physician via [place] mail. The patient was diagnosed with prostate cancer and comes in today to discuss treatment options. Patient has a history of elevated PSA. Prior prostate biopsies including in 2012 and 2014 were negative. He has a history of obstructive uropathy, underwent prior KTP laser photo vaporization procedure 2014. Patient had gross hematuria earlier this year, CT abdomen and pelvis on 12/11/2022 demonstrating enlarged heterogeneous lobular calcified prostate gland, no areas suspicious for metastasis. Patient's PSA was elevated, 9.5 on 07/05/2023 (23.5% free) Previous PSAs: 11/14/2022 7.8 MRI prostate 04/01/2022: 6.6 x 5.1 x 6.8 cm plan 118 cc No evidence of adenopathy or suspicious bony findings. Asymmetric decompressed left seminal vesicle with T2 hypointensity, no MRI evidence of prostate malignancy Prostate biopsy, on August 26, 2023 revealed: 112 g prostate. No hypoechoic areas seen. Adenocarcinoma, Macksburg 7 (4+3) from the R1 biopsy site (2 of 2 cores from that site) Total # of positive biopsy cores: 2 Total # of biopsy cores sampled: 16 Greatest % cancer in any single core: 25-50% Staging Studies: MR Results: See HPI CAT Scan Results: See HPI Previous Treatment for Prostate Cancer: None Genomic Testing: None The patient reports the following pertinent history: Urinary frequency (D/N): 4-6/1-2 Dysuria: No Incontinence: 1- No pads Hematuria: Earlier this year no recent hematuria. - Total AUA Score: 12 Bowel Movement Frequency: 1/day Bowel Movement Quality: Normal Blood per Rectum: No Androgen Deprivation: none Prior Radiation Therapy, Collagen Vascular Disease, or Inflammatory Bowel Disease: No Any implanted or external electric devices? No Currently on Anticoagulation: No History of Hip Replacement: No History of Prior TURP: Prior laser ablation procedure ALLERGIES Allergen Reactions Penicillins Hives amLODIPine (NORVASC) 5 mg tablet Take 5 mg by mouth. Atenolol-Chlorthalidone 100-25 mg per tablet Take 1 tablet by mouth once daily. simvastatin (ZOCOR) 40 mg tablet Take 40 mg by mouth. nabumetone (RELAFEN) 500 mg tablet Refills(s) 0 PAST MEDICAL HISTORY Diagnosis Date Arthritis Hard of hearing HTN (hypertension) Hypercholesteremia History reviewed. No pertinent surgical history. FAMILY HISTORY Problem Relation Age of Onset Prostate Cancer Brother Breast Cancer Paternal Aunt Social History Tobacco Use Smoking status: Former Packs/day: 1.50 Years: 45.00 Additional pack years: 0.00 Total pack years: 67.50 Types: Cigarettes Start date: 1965 Quit date: 2003 Years since quittin.9 Smokeless tobacco: Never Substance Use Topics Alcohol use: Yes Comment: 2-3 mixed drink per day Drug use: Never Occupation: Retired Residence: Home REVIEW OF SYSTEMS: GENERAL: feeling well without fatigue, no recent change in weight NECK: denies swelling or pain in neck RESPIRATORY: no cough, no wheezing or shortness of breath CARDIOVASCULAR: no chest pain, no palpitations MUSCULOSKELETAL: denies any painful or swollen joints, no muscle aches SKIN: no rash As noted in HPI PHYSICAL EXAM: VS: BP (P) 137/74 Pulse (P) 64 Temp (P) 36.8 ?C (98.3 ?F) Resp (P) 16 Ht (P) 182.9 cm (6') Wt (P) 117.9 kg (260 lb) SpO2 (P) 96% BMI (P) 35.26 kg/m? KARNOFSKY PERFORMANCE STATUS: 100 General Appearance: Alert and oriented. No acute distress. HEENT: NCAT. Sclera anicteric. PERRL. EOMI. Neck: Normal ROM. No palpable cervical or supraclavicular adenopathy. Chest: No respiratory distress. Lungs clear to auscultation bilaterally. Heart: Regular rate and rhythm. Abdomen: Soft. Nontender. Nondistended. Musculoskeletal: No edema. Normal ROM in extremities. No bone or spine tenderness. Neuro: Speech fluent. Gait normal. No focal deficits. Skin: No rashes noted Lymphatics: No palpable lymphadenopathy. GENITOURINARY: Deferred exam RECTAL: Deferred exam RADIOLOGY/LABORATORY DATA: see HPI ASSESSMENT/PLAN: Prostate adenocarcinoma, initial PSA 9.5, biopsy Sahil score 4 + 3 = 7 (more content not included)...[facility] 09-21-2023 Miscellaneous Notes* Telephone Encounter - Chelsy Moran - 09/21/2023 10:49 AM EST Advised scheduling to ignore, not authorized sent to scheduling in error, when authorized [place] to schedule * Telephone Encounter - Chelsy Moran - 09/21/2023 10:33 AM EST Auth#: [id number] Date Range:09-21-23 to 12-19-23 97271/PSMA- piflufolastat (Pylarify) [id number] Adelfo Mcarthur MD INS Contact Number: Intake: online Case/Ref#: [id number] Notes: 09/21/2023 Submitted Clinicals information online via [facility] pending review * Telephone Encounter - Chelsy Moran - 09/21/2023 10:12 AM EST Authorization number: PSMA Authorization date range: PSMA Primary Insurance: [employer] AND [employer] O Diagnosis: Cancer of prostate w/med recur risk (T2b-c or Sahil 7 or PSA 10-20) (HCC) [C61] DX Imaging: CT/CTA: 12/11/2022 CT ABD/PELV/, MRI/MRA: 03/17/2022 MR PROSTATE, and Ultrasound: 08/26/2023 US PROSTATE Pathology: Prior prostate biopsies including in 2012 and 2014 were negative.He has a history of obstructive uropathy, underwent prior KTP laser photo vaporization procedure 2014. Prostate biopsy, on August 26, 2023 revealed: 112 g prostate. No hypoechoic areas seen. Adenocarcinoma, Sahil 7 (4+3) from the R1 biopsy site (2 of 2 cores from that site) adenocarcinoma, initial PSA 9.5, biopsy Macksburg score 4 + 3 = 7 (grade group 3), clinical stage T1c, N0, M0, stage IIC [T1-T2, N0, M0, PSA <20, GG 3] (AJCC 8th ed.), s/p TRUS Random biopsy. Labs: 07/05/2023 PSA 9.5 11/14/2022 PSA 7.8 \01/12/2022 PSA 9.29 Clinical Notes Reviewed: 09/21/2023 Rad Onc Date of last: NA Additional Information: Prostate cancer, staging Started Dutasteride Patient has a history of elevated PSA T2b-c or Sahil 7 or PSA 10-20 Radiologist Reviewed: N/A Initial/Subsequent: Initial Treatment Strategy: 92 PET Protocol: PSMA Diagnostic Imaging Requested: No Is this a Pretreatment and/or an initial Pet scan: No - Schedule as requested Comments for Transaction Processor: TERA: As soon as insurance will allow ROUTE TO SCHEDULERS POOL P PET SMALL PARTS ASSEMBLER MC or P NM SPECIAL STUDIES MC * Telephone Encounter - Shantell Bower - 09/21/2023 9:36 AM EST This form is used for MAIN CAMPUS APPOINTMENTS ONLY. Is this request for a Main [place] PET scan appointment? Yes: Sales Operations Analyst: Shantell Grier Requesting Person Dr Graf: Area Code + Phone/Pager: [phone] Who do we call to schedule this appointment? Other Contact: PSMA Pet please route to Tania Tim in [place] Requesting Staff Dr graf Area Code + Phone/Pager: [phone] PET Orders (A delay in scheduling will result if the orders are not present at time of review): Internal ADDITIONAL ACTION MAY BE REQUIRED IF PATIENTS OON INSURANCE OR SELF PAY COVERAGE HAS NOT BEEN CLEARED FOR REQUESTED APPOINTMENT. Scheduling: TERA: As soon as insurance will allow What account will this PET appointment be linked to? P/F Type of PET: Oncology: Are there additional diagnostic CT scans required to be done at time of PET scan? No Is the request for a PET MR ? No What account will diagnostic testing appointment be linked to? P/F Will the patient need anesthesia? NO Send requests to P COORD REVIEW [facility] History of Present illness Narrative* Adelfo Graf MD - 09/21/2023 9:00 AM EST Radiation Oncology - Prostate Cancer New Patient/Consult Note PATIENT NAME: Ayala Damian PATIENT REQUESTING PROVIDER: Dr. Sifuentes. DIAGNOSIS: 77 year old male with prostate adenocarcinoma, initial PSA 9.5, biopsy Sahil score 4 +3 = 7 (grade group 3), clinical stage T1c, N0, M0, stage IIC [T1-T2, N0, M0, PSA <20, GG 3] (AJCC 8th ed.), s/p TRUS Random biopsy. HPI: 77 year old male with prostate adenocarcinoma who presents for an opinion regarding the role of radiation therapy in the management of the patient's disease. Final recommendations will be communicated back to the requesting physician by way of the shared medical record, or letter to requestingphysician via [place] mail. The patient was diagnosed with prostate cancer and comes in today to discuss treatment options. Patient has a history of elevated PSA. Prior prostate biopsies including in 2012 and 2014 were negative. He has a history of obstructive uropathy, underwent prior KTP laser photo vaporization procedure 2014. Patient had gross hematuria earlier this year, CT abdomen and pelvis on 12/11/2022 demonstrating enlarged heterogeneous lobular calcified prostate gland, no areas suspicious for metastasis. Patient's PSA was elevated, 9.5 on 07/05/2023 (23.5% free) Previous PSAs: 11/14/2022 7.8 MRI prostate 04/01/2022: 6.6 x 5.1 x 6.8 cm plan 118 cc No evidence of adenopathy or suspicious bony findings. Asymmetric decompressed left seminal vesicle with T2 hypointensity, no MRI evidence of prostate malignancy Prostate biopsy, on August 26, 2023 revealed: 112 g prostate. No hypoechoic areas seen. Adenocarcinoma, Macksburg 7 (4+3) from the R1 biopsy site (2 of 2 cores from that site) Total # of positive biopsy cores: 2 Total # of biopsy cores sampled: 16 Greatest % cancer in any single core: 25-50% Staging Studies: MR Results: See HPI CAT Scan Results: See [facility] Previous Treatment for Prostate Cancer: None Genomic Testing: None The patient reports the following pertinent history: Urinary frequency (D/N): 4-6/1-2 Dysuria: No Incontinence: 1- No pads Hematuria: Earlier this year no recent hematuria. - Total AUA Score: 12 Bowel Movement Frequency: 1/day Bowel Movement Quality: Normal Blood per Rectum: No Androgen Deprivation: none Prior Radiation Therapy, Collagen Vascular Disease, or Inflammatory Bowel Disease: No Any implanted or external electric devices? No Currently on Anticoagulation: No History of Hip Replacement: No History of Prior TURP: Prior laser ablation procedure ALLERGIES Allergen Reactions Penicillins Hives amLODIPine (NORVASC) 5 mg tablet Take 5 mg by mouth. Atenolol-Chlorthalidone 100-25 mg per tablet Take 1 tablet by mouth once daily. simvastatin (ZOCOR) 40 mg tablet Take 40 mg by mouth. nabumetone (RELAFEN) 500 mg tablet Refills(s) 0 PAST MEDICAL HISTORY Diagnosis Date Arthritis Hard of hearing HTN (hypertension) Hypercholesteremia History reviewed. No pertinent surgical history. FAMILY HISTORY Problem Relation Age of Onset Prostate Cancer Brother Breast Cancer Paternal Aunt Social History Tobacco Use Smoking status: Former Packs/day: 1.50 Years: 45.00 Additional pack years: 0.00 Total pack years: 67.50 Types: Cigarettes Start date: 1965 Quit date: 2003 Years since quittin.9 Smokeless tobacco: Never Substance Use Topics Alcohol use: Yes Comment: 2-3 mixed drink per day Drug use: Never Occupation: Retired Residence: Home REVIEW OF SYSTEMS: GENERAL: feeling well without fatigue, no recent change in weight NECK: denies swelling or pain in neck RESPIRATORY: no cough, no wheezing or shortness of breath CARDIOVASCULAR: no chest pain, no palpitations MUSCULOSKELETAL: denies any painful or swollen joints, no muscle aches SKIN: no rash As noted in HPI PHYSICAL EXAM: VS: BP (P) 137/74 Pulse (P) 64 Temp (P) 36.8 C (98.3 F) Resp (P) 16 Ht (P) 182.9 cm (6') Wt (P) 117.9 kg (260 lb) SpO2 (P) 96% BMI (P) 35.26 kg/m KARNOFSKY PERFORMANCE STATUS: 100 General Appearance: Alert and oriented. No acute distress. HEENT: NCAT. Sclera anicteric. PERRL. EOMI. Neck: Normal ROM. No palpable cervical or supraclavicular adenopathy. Chest: No respiratory distress. Lungs clear to auscultation bilaterally. Heart: Regular rate and rhythm. Abdomen: Soft. Nontender. Nondistended. Musculoskeletal: No edema. Normal ROM in extremities. No bone or spine tenderness. Neuro: Speech fluent. Gait normal. No focal deficits. Skin: No rashes noted Lymphatics: No palpable lymphadenopathy. GENITOURINARY: Deferred exam RECTAL: Deferred exam RADIOLOGY/LABORATORY DATA: see HPI ASSESSMENT/PLAN: Prostate adenocarcinoma, initial PSA 9.5, biopsy Macksburg score 4 + 3 = 7 (grade group 3), clinical stage T1c, N0, M0, stage IIC [T1-T2, N0, M0, PSA <20, GG 3] (AJCC 8th ed.), s/p TRUS Random biopsy. Prostate cancer (C61), 2019 NCCN Risk Group: Unfavorable Intermediate Risk Group Clinical State: Localized Cancer - New Diagnosis Patient presents with a fairly low volume prostate cancer though with Macksburg grade group 3 histology. Patient's health status otherwise very good without active issues. Discussed potential options of management ranging from active surveillance to definitive treatment. Given his histology I do feeldefinitive treatment is warranted. We discussed potential options including both surgical and radiation approaches including both external beam and brachytherapy. I do have concerns that given his pelvic geometry and significant prostate enlargement he would notbe eligible for brachytherapy. I also discussed with patient potential role of ADT. Patient also may benefit from decipher genomic analysis for decision-making. This may have some help deciding on ADT given his low-volume disease though would lean toward adding ADT given his Gleasongrade group histology. Patient is also a candidate for GU010, a Parallel Phase III Randomized Trial of Genomic-Risk Stratified Unfavorable Intermediate Risk Prostate Cancer: De- Intensification and Intensification Clinical Trial Evaluation. We discussed this as well. Plan to have him back after PSMA PET for further discussion. Signed by: Adelfo Graf MD cc: Vernell Sifuentes [id number] [place] [address] documented in this encounterOhio[facility]12-12-[facility] Nurse Note* Olga Monge LPN - 09/21/2023 8:58 AM EST Pacemaker/Defibrillator?N Previous Cancer(s)?N Previous Radiation?N Lupus/Scleroderma?N On body monitoring device?N Olga Monge RN AUA= 12 documented in this encounterOhiohealth [facility]12-11-2023 NoteHNO ID: [id number] Author: Clarice Aguilar RN Service: ? Author Type: Registered Nurse Type: Progress Notes Filed: 09/20/2023 9:13 AM Note Text: Summary: GU010 Prescreen IRB [id number] GU010 Parallel Phase III Randomized Trials of Genomic-Risk Stratified Unfavorable Intermediate Risk Prostate Cancer: De-Intensification and Intensification Clinical Trial Evaluation (Guidance) Ayala Damian was reviewed for potential clinical trial enrollment on [facility] #GU010 by the [facility] [place] group on 09/20/23. Per initial review, patient has disease type Prostate cancer, Macksburg 7=4+3 and appears to be preliminarily eligible and further testing/procedures required to determine final eligibility. Requesting democrat notified. Clarice Aguilar, MSN, RN Clinical Research Nurse [facility] History of Present illness Narrative* Clarice Aguilar RN - 09/20/2023 9:09 AM ESTSummary: GU010 Prescreen IRB [id number] GU010 Parallel Phase III Randomized Trials of Genomic-Risk Stratified Unfavorable Intermediate Risk Prostate Cancer: De-Intensification and Intensification Clinical Trial Evaluation (Guidance) Ayala Damian was reviewed for potential clinical trial enrollment on [facility] #GU010 by the [facility] [place] group on 09/20/23. Per initial review, patient has disease type Prostate cancer, Macksburg 7=4+3 and appears to be preliminarily eligible and further testing/procedures required to determine final eligibility. Requestingparty notified. lCarice Aguilar, MSN, RN Clinical Research Nurse documented in this encounterOhiohealth [facility]12-01-2023 Hospital Discharge instructions Patient Education 09/10/2023 11:53:09 Prostate Cancer Prostate Cancer The prostate is a small gland that produces fluid that makes up semen (seminal fluid). It is located below the bladder in men, in front of the rectum. Prostate cancer is the abnormal growth of cells in the prostate gland. What are the causes? The exact cause of this condition is not known. What increases the risk? You are more likely to develop this condition if: You are 65 years of age or older. You have a family history of prostate cancer. You have a family history of breast and ovarian cancer. You have genes that are passed from parent to child (inherited), such as BRCA1 and BRCA2. 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 men and men of descent are diagnosed with prostate cancer at higher rates than other men. The reasons for this are not well understood and are likely due to a combination of genetic and environmental factors. What are the signs or symptoms? Symptoms of this condition include: Problems with urination. This may include: ?A weak or interrupted flow of urine. ?Trouble starting or stopping urination. ?Trouble emptying the bladder all the way. ?The need to urinate more often, especially at night. Blood in urine or semen. Persistent pain or discomfort in the lower back, lower abdomen, or hips. Trouble getting an erection. Weakness or numbness in the legs or feet. How is this diagnosed? This condition can be diagnosed with: A digital rectal exam. For this exam, a health care provider inserts a gloved finger into the rectum to feel the prostate gland. A blood test called a prostate-specific antigen (PSA) test. A procedure in which a sample of tissue is taken from the prostate and checked under a microscope (prostate biopsy). An imaging test called transrectal ultrasonography. Once the condition is diagnosed, tests will be done to determine how far the cancer has spread. This is called staging the cancer. Staging may involve imaging tests, such as a bone scan, CT scan, PETscan, or MRI. Stages of prostate cancer The stages of prostate cancer are as follows: Stage 1 (I). At this stage, the cancer is found in the prostate only. The cancer is not visible on imaging tests, and it is usually found by accident, such as during prostate surgery. Stage 2 (II). At this stage, the cancer is more advanced than it is in stage 1, but the cancer has not spread outside the prostate. Stage 3 (III). At this stage, the cancer has spread beyond the outer layer of the prostate to nearby tissues. The cancer may be found in the seminal vesicles, which are near the bladder and the prostate. Stage 4 (IV). At this stage, the cancer has spread to other parts of the body, such as the lymph nodes, bones, bladder, rectum, liver, or lungs. Prostate cancer grading Prostate cancer is also graded according to how the cancer cells look under a microscope. This is called the [place] score and the total score can range from 6 10, indicating how likely it is that the cancer will spread (metastasize) to other parts of the body. The higher the score, the greater thelikelihood that the cancer will spread. [place]acks[place] 6 or lower: This indicates that the cancer cells look similar to normal prostate cells (well differentiated). Sahil 7: This indicates that the cancer cells look somewhat similar to normal prostate cells (moderately differentiated). Sahil 8, 9, or 10: This indicates that the cancer cells look very different than normal prostate cells (poorly differentiated). How is this treated? Treatment for this condition depends on several factors, including the stage of the cancer, your age, personal preferences, and your overall health. Talk with your health care provider about treatment options that are recommended for you. Common treatments include: Observation for early stage prostate cancer (active surveillance). This involves having exams, blood tests, and in some cases, more biopsies. For some men, this is the only treatment needed. Surgery. Types of surgeries include: ?Open surgery (radical prostatectomy). In this surgery, a larger incision is made to remove the prostate. ?A laparoscopic radical prostatectomy. This is a surgery to remove the prostate and lymph nodes through several small incisions. It is often referred to as a minimally invasive surgery. ?A robotic radical prostatectomy. This is laparoscopic surgery to remove the prostate and lymph nodes with the help of robotic arms that are controlled by the surgeon. ?Cryoablation. This is surgery to freeze and destroy cancer cells. Radiation treatment. Types of radiation treatment include: ?External beam radiation. This type aims beams of radiation from outside the body at the prostate to destroy cancerous cells. ?Brachytherapy. This type uses radioactive needles, seeds, wires, or tubes that are implanted into the prostate gland. Like external beam radiation, brachytherapy destroys cancerous cells. An advantage is that this type of radiation limits the damage to surrounding tissue and has fewer side effects. Chemotherapy. This treatment kills cancer cells or stops them from multiplying. It kills both cancer cells and normal cells. Targeted therapy. This treatment uses medicines to kill cancer cells without damaging normal cells. Hormone treatment. This treatment involves taking medicines that act on testosterone, one of the male hormones, by: ?Stopping your body from producing testosterone. ?Blocking testosterone from reaching cancer cells. Follow these instructions at home: Lifestyle Do not use any products that contain nicotine or tobacco. These products include cigarettes, chewing tobacco, and vaping devices, such as e-cigarettes. If you need help quitting, ask your health careprovider. Eat a healthy diet. To do this: ?Eat foods that are high in fiber. These include beans, whole grains, and fresh fruits and vegetables. ?Limit foods that are high in fat and sugar. These include fried or sweet foods. Treatment for prostate cancer may affect sexual function. If you have a partner, continue to have intimate moments. This may include touching, holding, hugging, and caressing your partner. Get plenty of sleep. Consider joining a support group for men who have prostate cancer. Meeting with a support group mayhelp you learn to manage the stress of having cancer. General instructions Take dmlv-nky-fvajohe and prescription medicines only as told by your health care provider. If you have to go to the hospital, notify your cancer specialist (oncologist). Keep all follow-up visits. This is important. Where to find more information [place] [employer]: www.cancer.org [place] [employer] Oncology: www.cancer.net National Cancer [place]: www.cancer.gov Contact a health care provider if: You have new or increasing trouble urinating. You have new or increasing blood in your urine. You have new or increasing pain in your hips, back, or chest. Get help right away if: You have weakness or numbness in your legs. You cannot control urination or your bowel movements (incontinence). You have chills or a fever. Summary The prostate is a small gland that is involved in the production of semen. It is located below a man's bladder, in front of the rectum. Prostate cancer is the abnormal growth of cells in the prostate gland. Treatment for this condition depends on the stage of the cancer, your age, personal preferences, and your overall health. Talk with your health care provider about treatment options that are recommended for you. Consider joining a support group for men who have prostate cancer. Meeting with a support group mayhelp you learn to manage the stress of having cancer. This information is not intended to replace advice given to you by your health care provider. Make sure you discuss any questions you have with your health care provider. Document Revised: 12/24/2021 Document Reviewed: 12/24/2021 [employer] Patient Education 2022 [employer]. Follow Up Care 07/13/2023 13:24:51 With:RICHARD MAGANA, Vernell Martinez, URL Address: [address] [place], [place] [id number]- When: Unknown [facility] 09-25-2023 Hospital Discharge instructions Patient Education 07/05/2023 08:29:19 Prostate Cancer Screening Prostate Cancer Screening Prostate cancer screening is testing that is done to check for the presence of prostate cancer in men. The prostate gland is a walnut-sized gland that is located below the bladder and in front of therectum in males. The function of the prostate is to add fluid to semen during ejaculation. Prostatecancer is one of the most common types of cancer in men. Who should have prostate cancer screening? Screening recommendations vary based on age and other risk factors, as well as between the professional organizations who make the recommendations. In general, screening is recommended if: You are age 50 to 70 and have an average risk for prostate cancer. You should talk with your healthcare provider about your need for screening and how often screening should be done. Because most prostate cancers are slow growing and will not cause , screening in this age group is generally reserved for men who have a 10- to 15-year life expectancy. You are younger than age 50, and you have these risk factors: ?Having a father, brother, or uncle who has been diagnosed with prostate cancer. The risk is higherif your family member's cancer occurred at an early age or if you have multiple family members withprostate cancer at an early age. ?Being a male who is Black or is of [place] or sub-Saharan descent. In general, screening is not recommended if: You are younger than age 40. You are between the ages of 40 and 49 and you have no risk factors. You are 70 years of age or older. At this age, the risks that screening can cause are greater than the benefits that it may provide. If you are at high risk for prostate cancer, your health care provider may recommend that you have screenings more often or that you start screening at a younger age. How is screening for prostate cancer done? The recommended prostate cancer screening test is a blood test called the prostate-specific antigen(PSA) test. PSA is a protein that is made in the prostate. As you age, your prostate naturally produces more PSA. Abnormally high PSA levels may be caused by: Prostate cancer. An enlarged prostate that is not caused by cancer (benign prostatic hyperplasia, or BPH). This condition is very common in older men. A prostate gland infection (prostatitis) or urinary tract infection. Certain medicines such as male hormones (like testosterone) or other medicines that raise testosterone levels. A rectal exam may be done as part of prostate cancer screening to help provide information about the size of your prostate gland. When a rectal exam is performed, it should be done after the PSA level is drawn to avoid any effect on the results. Depending on the PSA results, you may need more tests, such as: A physical exam to check the size of your prostate gland, if not done as part of screening. Blood and imaging tests. A procedure to remove tissue samples from your prostate gland for testing (biopsy). This is the only way to know for certain if you have prostate cancer. What are the benefits of prostate cancer screening? Screening can help to identify cancer at an early stage, before symptoms start and when the cancer can be treated more easily. There is a small chance that screening may lower your risk of dying from prostate cancer. The chance is small because prostate cancer is a slow-growing cancer, and most men with prostate cancer from a different cause. What are the risks of prostate cancer screening? The main risk of prostate cancer screening is diagnosing and treating prostate cancer that would never have caused any symptoms or problems. This is called overdiagnosisand overtreatment. PSA screening cannot tell you if your PSA is high due to cancer or a different cause. A prostate biopsy is the only procedure to diagnose prostate cancer. Even the results of a biopsy may not tell you if your cancer needs to be treated. Slow-growing prostate cancer may not need any treatment other than monitoring, so diagnosing and treating it may cause unnecessary stress or other side effects. Questions to ask your health care provider When should I start prostate cancer screening? What is my risk for prostate cancer? How often do I need screening? What type of screening tests do I need? How do I get my test results? What do my results mean? Do I need treatment? Where to find more information The [place] [employer]: www.cancer.org [place] [employer]: www.auanet.org Contact a health care provider if: You have difficulty urinating. You have pain when you urinate or ejaculate. You have blood in your urine or semen. You have pain in your back or in the area of your prostate. Summary Prostate cancer is a common type of cancer in men. The prostate gland is located below the bladder and in front of the rectum. This gland adds fluid to semen during ejaculation. Prostate cancer screening may identify cancer at an early stage, when the cancer can be treated more easily and is less likely to have spread to other areas of the body. The prostate-specific antigen (PSA) test is the recommended screening test for prostate cancer, butit has associated risks. Discuss the risks and benefits of prostate cancer screening with your health care provider. If you are age 70 or older, the risks that screening can cause are greater than the benefits that it may provide. This information is not intended to replace advice given to you by your health care provider. Make sure you discuss any questions you have with your health care provider. Document Revised: 03/23/2022 Document Reviewed: 03/23/2022 [employer] Patient Education 2022 [employer]. Follow Up Care 05/17/2023 15:23:06 With:RICHARD MAGANA, Vernell Martinez, DEMETRICEL Address: [facility] [address] [place] [phone] When: Unknown [facility] 02-28-2023 Note [id number]:[id number] 12-08-2022 NoteCustom Cystoscopy ? Voiding after the procedure: there may be some pain, burning, urgency, frequency and blood tingedurine following the procedure. These symptoms usually resolve within 2-5 days. Drink the amount of fluid it takes to keep the urine pink to yellow or clear in color. Drinking enough water and fluids will help to ease any discomfort after your procedure. ? If you are having problems that seem out of the ordinary, please call. ? If unable to contact your physician and you feel it is an emergency, go to the nearest emergency room or call 911 ? Diet ? you may resume your normal diet. ? Activity ? you may resume your normal activities ? Call if you have a fever over 100 degrees.[facility] 12-08-2022 Hospital Discharge instructions Patient Education 12/08/2022 11:25:58 [facility] - Cystoscopy Discharge Instructions (CUSTOM) Cystoscopy Voiding after the procedure: there may be some pain, burning, urgency, frequency and blood tinged urine following the procedure. These symptoms usually resolve within 2-5 days. Drink the amount of fluid it takes to keep the urine pink to yellow or clear in color. Drinking enough water and fluids will help to ease any discomfort after your procedure. If you are having problems that seem out of the ordinary, please call. If unable to contact your physician and you feel it is an emergency, go to the nearest emergency room or call 911 Diet you may resume your normal diet. Activity you may resume your normal activities Call if you have a fever over 100 degrees. Follow Up Care 11/23/2022 13:52:07 With:Vernell SIFUENTES Address: [facility] [address] [place] [address] Business (1) When:06/07/2023 11:25:41 Comments:with a psa [facility]05-10-2022 Hospital Discharge instructions Patient Education 02/17/2022 09:44:20 Prostate Cancer Screening Prostate Cancer Screening The prostate is a walnut-sized gland that is located below the bladder and in front of the rectum in males. The function of the prostate (prostate gland) is to add fluid to semen during ejaculation. Prostate cancer is the second most common type of cancer in men. A screening test for cancer is a test that is done before cancer symptoms start. Screening can helpto identify cancer at an early stage, when the cancer can be treated more easily. The recommended prostate cancer screening test is a blood test called the prostate-specific antigen (PSA) test. PSA is a protein that is made in the prostate. As you age, your prostate naturally produces more PSA. Abnormally high PSA levels may be caused by: Prostate cancer. An enlarged prostate that is not caused by cancer (benign prostatic hyperplasia, BPH). This condition is very common in older men. A prostate gland infection (prostatitis). Medicines to assist with hair growth, such as finasteride. Depending on the PSA results, you may need more tests, such as: A physical exam to check the size of your prostate gland. Blood and imaging tests. A procedure to remove tissue samples from your prostate gland for testing (biopsy). Who should have screening? Screening recommendations vary based on age. If you are younger than age 40, screening is not recommended. If you are age 40 54 and you have no risk factors, screening is not recommended. If you are younger than age 55, ask your health care provider if you need screening if you have oneof these risk factors: ?Being of -[place] descent. ?Having a family history of prostate cancer. If you are age 55 69, talk with your health care provider about your need for screening and how often screening should be done. If you are older than age 70, screening is not recommended. This is because the risks that screening can cause are greater than the benefits that it may provide (risks outweigh the benefits). If you are at high risk for prostate cancer, your health care provider may recommend that you have screenings more often or start screening at a younger age. You may be at high risk if you: Are older than age 55. Are -[place]. Have a father, brother, or uncle who has been diagnosed with prostate cancer. The risk may be higher if your family member's cancer occurred at an early age. What are the benefits of screening? There is a small chance that screening may lower your risk of dying from prostate cancer. The chance is small because prostate cancer is typically a slow-growing cancer, and most men with prostate cancer from a different cause. What are the risks of screening? The main risk of prostate cancer screening is diagnosing and treating prostate cancer that would never have caused any symptoms or problems (overdiagnosis and overtreatment). PSA screening cannot tell you if your PSA is high due to cancer or a different cause. A prostate biopsy is the only procedure to diagnose prostate cancer. Even the results of a biopsy may not tell you if your cancer needs leif treated. Slow-growing prostate cancer may not need any treatment other than monitoring, so diagnosing and treating it may cause unnecessary stress or other side effects. A prostate biopsy may also cause: Infection or fever. A false negative. This is a result that shows that you do not have prostate cancer when you actually do have prostate cancer. Questions to ask your health care provider When should I start prostate cancer screening? What is my risk for prostate cancer? How often do I need screening? What type of screening tests do I need? How do I get my test results? What do my results mean? Do I need treatment? Contact a health care provider if: You have difficulty urinating. You have pain when you urinate or ejaculate. You have blood in your urine or semen. You have pain in your back or in the area of your prostate. You have trouble getting or maintaining an erection (erectile dysfunction, ED). Summary Prostate cancer is a common type of cancer in men. The prostate (prostate gland) is located below the bladder and in front of the rectum. This gland adds fluid to semen during ejaculation. Prostate cancer screening may identify cancer at an early stage, when the cancer can be treated more easily. The prostate-specific antigen (PSA) test is the recommended screening test for prostate cancer. Discuss the risks and benefits of prostate cancer screening with your health care provider. If you are age 70 or older, screening is likely to lead to more risks than benefits (risks outweigh the benefits). This information is not intended to replace advice given to you by your health care provider. Make sure you discuss any questions you have with your health care provider. Document Released: 07/08/2018 Document Revised: 09/09/2018 Document Reviewed: 07/08/2018 [employer] Patient Education 2020 [employer]. Follow Up Care 01/16/2022 09:03:48 With:Roger Elias MD, Ankur Lawton URO Address: [facility] [address], [place] [address]- When: Unknown Comments:will schedule a follow up after the MRI [facility] evaluation + Plan note No data available for this section [facility] evaluation + Plan note Future Appointments Appointment Date:05/31/2023 09:30:00 AM Scheduled Provider:Vernell SIFUENTES MD Location:[facility] Appointment Type:URO Office Visit Diagnostic Tests Pending * [facility]) [facility]08[facility] Future Appointments Appointment Date:02/07/2024 08:45:00 AM Scheduled Provider:Vernell SIFUENTES MD Location:[facility] Appointment Type:URO Office Visit Diagnostic Tests Pending * PSA Free & Total 07/05/23 [facility] evaluation + Plan note Future Appointments Appointment Date:02/07/2024 08:45:00 AM Scheduled Provider:Vernell SIFUENTES MD Location:[facility] Appointment Type:URO Office Visit [facility] evaluation + Plan note Future Appointments Appointment Date:05/08/2024 10:15:00 AM Scheduled Provider:Vern[facility]ENTES [facility] Office Visit Diagnostic Tests Pending * PSA Total 11/15/23 [facility] evaluation noteNo assessment information available [facility] Work Phone: Evaluation note* Diagnosis Malignant neoplasm of prostate (HCC)- Primary Malignant neoplasm of prostate [facility] Malignant neoplasm of prostate (HCC)- Primary Malignant neoplasm of prostate [facility] [place] [facility] Diagnosis Malignant neoplasm of prostate (HCC)- Primary Malignant neoplasm of prostate [facility] [place] [facility]* Diagnosis Malignant neoplasm of prostate (HCC) Malignant neoplasm of prostate [facility] [place] [facility]* Diagnosis Malignant neoplasm of prostate (HCC)- Primary Malignant neoplasm of prostate [facility] No data available for this section [facility] (n[facility]ative[facility] Referred by: RICHARD MAGANA, Vernell Martinez [facility] [place] Chief Complaint and Reason for Visit Chief Complaint elevated psa Advance Directives No Advanced Directives Records Found Advance Directive Response Recorded Date/ Time Advance Directives No February 27 2 12:47pm Summary Purpose Family History No Family History Records FoundNo Family History Records Found No data available for this section No Family History Records FoundNo Family History Records Found No data available for this section No Family History Records Found Additional Source Comments Care Teams (unrecognized sec tion and content) Team Status: Inactive Member Role Status Dates Ankur Duran Jr, MD Attending Provider Active NON STAFF Primary Care Provider Active Team Status: Active Member Role Status Dates NON STAFF Primary Care Provider Active Resident Assistant Relationship Specialty Start Date End Date Merrill Iraheta [address] [place] [address] PCP - General Family Medicine 10/14/23 Resident Assistant Relationship Specialty Start Date End Date Merrill Iraheta [address] [place] [address] PCP - General Family Medicine 10/14/23 Resident Assistant Relationship Specialty Start Date End Date Merrill Iraheta [address] [place] [address] PCP - General Family Medicine 10/14/23 Resident Assistant Relationship Specialty Start Date End Date Merrill Iraheta [address] [place] [address] PCP - General Family [facility] 10/14/23 Resident Assistant Relationship Specialty Start Date End Date Merrill Iraheta [address] [place] [address] PCP - General [facility] 10/14/23 Resident Assistant Relationship Specialty Start Date End Date Merrill Iraheta [address] [place] [address] PCP - [facility] 10/14/23 Resident Assistant Relationship Specialty Start Date End Date Merrill Iraheta [address] [place] [address] PCP - General [facility] 10/14/23 Resident Assistant Relationship Specialty Start Date End Date Merrill Iraheta [address] [place] [address] PCP - General [facility] 10/14/23 Goals (unrecognized section and content) Goals may be documented in a n alternate section (unrecognized sect ion and content) No Status Records FoundNo Status Records FoundNo Status Records FoundNo Status Records FoundNo Status Records Found INFORMATION SOURCE (unrecogn ized section and content) DATE CREATED AUTHOR 04/02/2022 [facility] DATE CREATED AUTHOR AUTHOR'S ORGANIZ ATION 02/23/2023 [facility] DATE CREATED AUTHOR AUTHOR'S ORGANIZ ATION 10/28/2023 [facility] DATE CREATED AUTHOR AUTHOR'S ORGANIZ ATION 11/16/2023 [facility] DATE CREATED AUTHOR AUTHOR'S ORGANIZ ATION 12/17/2023 [facility] Source Comments (unrecognize d section and content) In the event this informatio n is protected by the Federal Confidentiality of Alcohol and Drug Abuse Patient Records regulations: The Federal rules restrict any use of the information to criminally investigate or prosecute any alcohol or drug abuse patient.[facility] CenterIn the event this information is protected by the Federal Confidentiality of Alcohol and Drug Abuse Patient Records regulations: The Federal rules restrict any use of the information to criminally investigate or prosecute any alcohol or drug abuse patient.[facility] CenterIn the event this information is protected by the Federal Confidentiality of Alcohol and Drug Abuse Patient Records regulations: The Federal rules restrict any use of the information to criminally investigate or prosecute any alcohol or drug abuse patient.[facility] CenterIn the event this information is protected by the Federal Confidentiality of Alcohol and Drug Abuse Patient Records regulations: The Federal rules restrict any use of the information to criminally investigate or prosecute any alcohol or drug abuse patient.[facility] CenterIn the event this information is protected by the Federal Confidentiality of Alcohol and Drug Abuse Patient Records regulations: The Federal rules restrict any use of the information to criminally investigate or prosecute any alcohol or drug abuse patient.[facility] CenterIn the event this information is protected by the Federal Confidentiality of Alcohol and Drug Abuse Patient Records regulations: The Federal rules restrict any use of the information to criminally investigate or prosecute any alcohol or drug abuse patient.[facility] CenterIn the event this information is protected by the Federal Confidentiality of Alcohol and Drug Abuse Patient Records regulations: The Federal rules restrict any use of the information to criminally investigate or prosecute any alcohol or drug abuse patient.[facility] CenterIn the event this information is protected by the Federal Confidentiality of Alcohol and Drug Abuse Patient Records regulations: The Federal rules restrict any use of the information to criminally investigate or prosecute any alcohol or drug abuse patient.[facility] CenterIn the event this information is protected by the Federal Confidentiality of Alcohol and Drug Abuse Patient Records regulations: The Federal rules restrict any use of the information to criminally investigate or prosecute any alcohol or drug abuse patient.[facility] CenterIn the event this information is protected by the Federal Confidentiality of Alcohol and Drug Abuse Patient Records regulations: The Federal rules restrict any use of the information to criminally investigate or prosecute any alcohol or drug abuse patient.[facility] CenterIn the event this information is protected by the Federal Confidentiality of Alcohol and Drug Abuse Patient Records regulations: The Federal rules restrict any use of the information to criminally investigate or prosecute any alcohol or drug abuse patient.[facility] CenterIn the event this information is protected by the Federal Confidentiality of Alcohol and Drug Abuse Patient Records regulations: The Federal rules restrict any use of the information to criminally investigate or prosecute any alcohol or drug abuse patient.[facility] Reason for Visit (unrecogniz ed section and content) Reason Comments Research GU010 Prescreen Reason Comments Consult Reason Comments Nm Pet Request Reason Comments Patient Education Reason Comments Orders Reason Comments Radiotherapy On-treatment Visit Reason Comments Phlebotomy FOR RECORDS PERTAINING TO PATIENTS WHO ARE OR HAVE BEEN ENROLLED IN A CHEMICAL DEPENDENCY/SUBSTANCEABUSE PROGRAM, SOME INFORMATION MAY BE OMITTED. This clinical summary was aggregated from multiple sources. Caution should be exercised in using it in the provision of clinical care. This summary normalizes information from multiple sources, and as a consequence, information in this document may materially change the coding, format and clinical context of patient data. In addition, data may be omitted in some cases. CLINICAL DECISIONS SHOULD BE BASED ON THE PRIMARY CLINICAL RECORDS. [employer] provides no warranty or guarantee of the accuracy or completeness of information in this document.
--- NOTE | 2023-12-19 11:21 | ED.EAR1 ---
HPI - Ear Problem General Chief complaint: Ear Stated complaint: EAR PAIN Time Seen by Provider: 12/19/23 11:07 Source: patient Mode of arrival: walk-in History of Present Illness HPI Narrative: 78-year-old male presents for earwax buildup in the left ear. He tried irrigating it at home but was not successful. His hearing is somewhat diminished. No bleeding or purulent drainage from his ear. No symptoms in the right ear. He has had this issue previously. Related Data Home Medications Medication Instructions Recorded Confirmed amlodipine 5 mg tablet 5 mg PO DAILY 08/24/23 08/24/23 atenolol 100 mg-chlorthalidone 25 1 tab PO DAILY 08/24/23 08/24/23 mg tablet nabumetone 500 mg tablet 500 mg PO BID 08/24/23 08/24/23 simvastatin 40 mg tablet 40 mg PO DAILY 08/24/23 08/24/23 Allergies Allergy/AdvReac Type Severity Reaction Status Date / Time Penicillins Allergy Verified 08/24/23 13:26 Review of Systems ROS Narrative A ten point review of systems is negative except as noted above. PFSH [facility] Medical History (Updated 12/19/23 @ 11:37 by Kirill Scott MD) Hypercholesterolemia ?E78.00 - Pure hypercholesterolemia, unspecified (ICD-10) Hypertension ?I10 - Essential (primary) hypertension (ICD-10) Simple renal cyst ?N28.1 - Cyst of kidney, acquired (ICD-10) Gross hematuria ?R31.0 - Gross hematuria (ICD-10) Elevated PSA ?R97.20 - Elevated prostate specific antigen [PSA] (ICD-10) BPH (benign prostatic hyperplasia) ?N40.0 - Benign prostatic hyperplasia without lower urinary tract symptoms (ICD-10) Surgical History (Updated 08/24/23 @ 13:16 by Sylvia Driscoll, CORINNE) H/O cataract removal with insertion of prosthetic lens ?Z98.49 - Cataract extraction status, unspecified eye (ICD-10) ?Z96.1 - Presence of intraocular lens (ICD-10) H/O colonoscopy ?Z98.890 - Other specified postprocedural states (ICD-10) H/O cystoscopy ?Z98.890 - Other specified postprocedural states (ICD-10) Family History (Updated 08/24/23 @ 13:18 by Sylvia Driscoll RN) Other Arthritis Family history of hypertension Migraine Social History (Updated 08/24/23 @ 13:23 by Sylvia Driscoll RN) Smoking status: Former smoker Exam Narrative Exam Narrative: Nurses note and vital signs reviewed and patient is not hypoxic. General: The patient appears well and in no apparent distress. Patient is resting comfortably on cart. Skin: Warm, dry, no pallor noted. There is no rash noted. Head: Normocephalic, atraumatic Eye: Normal conjunctiva, no drainage Ears, Nose, Mouth, and Throat: oral mucosa is moist. Nares patent. Significant cerumen present in the left external canal Cardiovascular: Not tachycardic Respiratory: Patient is in no distress, no accessory muscle use, lungs are clear to auscultation, no wheezing, rales or rhonchi Back: non-tender GI: Soft and nontender Musculoskeletal: The patient has no evidence of calf tenderness, no pitting edema, symmetrical pulses noted bilaterally Neurological: A&O, normal speech Psychiatric: Cooperative Constitutional Vital Signs, click to edit/add: Last Vital Signs Temp 98.1 F 12/19/23 11:06 Pulse 64 12/19/23 11:06 Resp 16 12/19/23 11:06 BP 143/72 H 12/19/23 11:06 Pulse Ox 95 12/19/23 11:06 O2 Del Method Room Air 12/19/23 11:06 Course Vital Signs Vital signs: Vital Signs Temperature 98.1 F 12/19/23 11:06 Pulse Rate 64 12/19/23 11:06 Respiratory Rate 16 12/19/23 11:06 Blood Pressure 143/72 H 12/19/23 11:06 Pulse Oximetry 95 12/19/23 11:06 Oxygen Delivery Method Room Air 12/19/23 11:06 Temperature 98.1 F 12/19/23 11:06 Pulse Rate 64 12/19/23 11:06 Respiratory Rate 16 12/19/23 11:06 Blood Pressure 143/72 H 12/19/23 11:06 Pulse Oximetry 95 12/19/23 11:06 Oxygen Delivery Method Room Air 12/19/23 11:06 Medical Decision Making MDM Narrative Medical decision making narrative: Nursing staff has irrigated his ear with excellent results and he feels improved. Reexamination shows much less cerumen present. Findings were discussed with the patient. Differential Diagnosis Differential Diagnosis: Cerumen impaction, otitis externa, foreign body Discharge Plan Discharge Stand Alone Forms: Portal Instructions Chief Complaint: Ear Clinical Impression: Cerumen impaction Patient Disposition: Home, Self-Care Time of Disposition Decision: 11:36 Condition: Good Mode of Transportation: Private Vehicle Prescriptions / Home Meds: No Action amlodipine 5 mg tablet 5 mg PO DAILY atenolol-chlorthalidone 100-25 mg tablet 1 tab PO DAILY nabumetone 500 mg tablet 500 mg PO BID simvastatin 40 mg tablet 40 mg PO DAILY Instructions: Triethanolamine Polypeptide Oleate (Into the ear) (Cerumenex) Referrals: Merrill Delvalle MD [Primary Care Provider] - 1 week
== END 2023-12-19 11:52 | disposition home or self-care (01) ==
PROVIDERS: Emergency Provider Emergency Medicine; PCP Family Medicine
DX: H61.22 Impacted cerumen, left ear (principal); Z79.899 Other long term (current) drug therapy; E78.00 Pure hypercholesterolemia, unspecified; I10 Essential (primary) hypertension; N40.0 Benign prostatic hyperplasia without lower urinary tract symptoms; Z98.49 Cataract extraction status, unspecified eye; Z96.1 Presence of intraocular lens; Z98.890 Other specified postprocedural states; Z87.891 Personal history of nicotine dependence
CPT/HCPCS: 69209; 99282

== ENCOUNTER 2025-09-03 11:24 | Outpatient (OUT) | payer MEDICARE, SELFPAY ==
--- OUTSIDE RECORDS SUMMARY | 2025-08-29 04:11 | XMS_ITS | Continuity of Care Document ---
Author Organization [facility] Address [address] [place] [address] Phone Care Team Providers Care Pharmacy Care Coordinator Name Role Phone NON STAFF Primary Care Provider Unavailabl e Merrill Delvalle MD Attending Provider Merrill Delvalle MD Primary Care Provider Care Teams Patient Care Team Team Status: Active Member Role/Relationship Status Dates Merrill Delvalle MD Primary Care Provider Active Visit Care Team Team Status: Inactive Member Role/Relationship Status Dates NON STAFF Primary Care Provider Active Start: July 17, 2025 End: July 17, 2025Mar Warren Delvalle ProviderActiveStart: July 17, 2025 End: July 17, 2025 Patient Care Team Team Status: Inactive Member Role/Relationship Status Dates Merrill Delvalle MD Primary Care Provider Active S tart: August 29, 2025 End: August 29, 2025[facility]War[facility] Lea ProviderActiveStart: August 29, 2025 End: August 29, 2025 Chief Complaint and Reason for Visit Chief Complaint Admit Date Knee Pain July 17, 2025 1: 45pm Reason for Visit Admit Date Primary osteoarthritis of right knee Oct cole 2024 1:45pm Medicare annual wellness visit, subseque nt August 29, 2025 8:32am Obesity August 29, 2025 8:32am Allergies, Adverse Reactions, Alerts Allergen Type Severity Reaction Last Updated Verified Status Penicillins Allergy Unknown Unknown Reaction Novembe r 2024 8:46am Yes Active Social History Smoking Status Status Start Date End Date Date of Observa tion Ex-smoker (finding) July 17, 2025 1:57pm Observation Status Observation Response Date of Response Legal Sex Male (finding) Sex Assigned At BirthMaleFebruary 1945 Problems Active Problems Problem Diagnosis/Recorded Date Onset Date Stat Medicare annual wellness vis it, subsequent August 29, 2025 8:56am Unknown Active Benign essential tremor July 13, 2025 10:36am Unkn own Active Primary osteoarthritis of right knee July 13, 2025 10:37am Unknown Active Prostate cancer July 13, 2025 10:37am Unknown Active Benign essential hypertension July 13, 2025 10:36a m Unknown Active Dyslipidemia July 13, 2025 10:36am Unknown Ac tive AAA (abdominal aortic aneury sm) without rupture July 13, 2025 10:35am Unknown Active Encounter for long-term (cur rent) use of medications August 29, 2025 8:56am Unknown Active Prediabetes July 13, 2025 10:37am Unknown Ac tive BPH without urinary obstruction July 13, 2025 10:3 6am Unknown Active Obesity July 13, 2025 10:37am Unknown Ac tive Medications Medication Status Dose Units Route Directions Qty Days Refills S tart Date Stop Date End Date Reason(s) Instructions Adherence Atenolol-Chlorthalidone 100-25 mg Tablet Active 1 TAB PO Daily March 16, 2022 11:00pmUnknownAmlodipine 5 mg VqjlprLaznvx9EWOVQjnvlHtre 2021 11:00pmUnknownSimvastatin 40 mg BmepfiXbozdn08CBUSPhugtYyap 2021 11:00pmUnknownDiphenhydramine Hcl (Benadryl) 25 mg VihhkclMxvosxsfhaee44IQDK Three times daily as needed for Allergy SymptomsJun2021 11:00pmOctober 2024 10:38amFluticasone Propionate (Flonase Allergy Relief) 50 mcg/actuation [place],GzsthnwrlwPbmsmwiuzezo2SSFGTOHYJQKLGBCHiwcz daily as needed for Allergic SymptomsJun2021 11:00pmOctober 2024 10:38amNabumetone 500 mg HynykfAgoqopkdfzqk350IJKCHybzkRstb 6th, 2022 11:00pmOctober 2024 10:41amPotassium Chloride 20 mEq Tablet Extended VdskyfvKhuptslgbppt48VAAJXNnsjz dailyJun2021 11:00pmOctober 2024 10:38amNabumetone 500 mg tablet Luppmh680LPHJSmwqz dailyOctuofl health - [facility] 2024 10:38amUnknownTamsulosin 0.4 mg capsuleActive0.4MGPODaily at bedtimeOctuofl health - [facility]byville hospital 2024 11:00pmUnknownPrednisone 50 mg cyjuzmQyrgad20ERQLUqmem27Lntunex 2024 11:00pmUnknown Immunizations Immunization Event Date Not Given Reason Dose Number Piano [employer] Lot Number Reason(s) Given Vaccine Information Statement (VIS) Detail Administration Location COVID-19 mRNA, Comirnaty (Buy.On.Social) November 22, 2020 COVID-19 mRNA, Comirnaty (Buy.On.Social)December 11OVI mRNA, Comirnaty (Buy.On.Social)August 23OVI mRNA, Comirnaty (Buy.On.Social)February 20, 2022 Vital Signs Vital Reading Result Reference Range Collection Date/Time Height 73 [in_i] July 17, 2025 12:89zzYeuhzz026.66 kgOctuofl health - [facility] hospital 2024 12:54pmBody Kgrfaihyqkp08.3 [degF]97.6-99.0Octuofl health [facility] 2024 12:54pmHeart Rate62 /qzq07-530 July 17, 2025 12:54pmRespiratory rate18 /rmi92-81Fejloet 2024 12:54pm Oxygen saturation by Pulse %95-100[facility] 2024 12:54pmBP Smkvarqi575 mm[Hg]100-140[facility] 2024 12:54pmBP Vzfxaocdj43 mm[Hg]60-100 July 17, 2025 12:54pmBMI (Body Mass Index)33.6 kg/m6Iuwowyl 2024 12:41flBvoutj19 [in_i]August 29, 2025 8:71dgJhplha120.21 kgNov[facility] 2024 8:45amBody Surlttvrrjr65.1 [degF]97.6-99.0[facility] 2024 8:45amHeart Rate71 /fzs56-927Daclhrdo 2024 8:45amRespiratory rate18 /loa40-77Vquotzfp 2024 8:45amOxygen saturation by Pulse rizrfhfd40 %95-100[facility] 2024 8:45amBP Pgkljuiz387 mm[Hg]100-140August 29, 2025 8:45amBP Xhkfiwfhg74 mm[Hg]60-100August 29, 2025 8:45amBMI (Body Mass Index)33.5 kg/h6HnfkphmvAugust 29, 2025 8:45am Advance Directives Advance Directive Response Recorded Date/ Time Advance Directives No February 27 11:47am Insurance Providers Guarantor Richard Nati Address [address] [place] [address]Jlcmicr Info.Home Phone: Payer Group Member ID Coverage Type Subscriber Relationship to Subscriber Effective Date Expiration Date Medicare [facility]SelfAntheJohn [facility] PFFS Id: [id number] Nati Id: [id number] [address] [place] [address] Home Phone: Self Encounters Encounter Location(s) Arrival/Admit Date Discharge/Departure Date Discharge/Departure Disposition Provider(s) Departed Physician/ Provider Office Visit -[facility] [place] July 17, 2025 1:45pm July 17, 2025 2:34pm Discharged to home care or self care (routine discharge) Merrill Delvalle MD Departed Physician/ Provider Office Visit -[facility] Family Medicine [place] August 29, 2025 8:32am August 29, 2025 9:09am Discharged to home care or self care (routine discharge) Merrill Delvalle MD Recent Diagnosis Onset Date Admit Date Primary osteoarthritis of right knee Unknown July 17, 2025 1:45pm Medicare annual wellness visit, subsequent Unkno wn August 29, 2025 8:32am Obesity Unknown August 29, 2 025 8:32am Assessments Diagnosis Onset Date Resolution Status Admit Date Primary osteoarthritis of right knee acuteOctober 2024 1:45pmMedicare annual wellness visit, subsequentacute August 29, 2025 8:32amObesityacuteNov2024 8:32am Plan of Treatment Author Merrill Delvalle [facility] HospitalAuthored[facility] 2024 1:39pmIncreased pain and swelling in knee. Start prednisone for inflammation and ice PRN. Refer to ortho for possible injection. Future Tests Future scheduled test information is unavailable Pending Tests Test Name Ordered Date Scheduled Date Comprehensive Metabolic Panel August 29 9:02am Future Visits Future appointment information is unavailable Future Procedures Procedure Name Ordered Date Scheduled Date A1C with Estimated Average Glu August 29 9:02am Complete Blood Count Auto DiffNovember 2024 9:02amLipid PanelNovember 2024 9:02amThyroid Stimulating HormoneNovember 2024 9:02am Future Medications Future medication information is unavailable Patient Instructions Patient instructions are unavailable
--- OUTSIDE RECORDS SUMMARY | 2025-09-03 11:30 | XMS_ITS | Clinical Summary ---
Author Organization [facility] Address [address] [place], [place] [id number] Care Team Providers Care Digital Retoucher Name Role Phone Merrill Delvalle MD Primary Care Provider [phone] Allergies Active AllergyReactionsCriticalityNoted FpvxAdmxnsfmDjpfvemtcsvBmdam26/12/2023 Medications MedicationSigDispense QuantityRefillsLast FilledStart DateEnd DateStatus amLODIPine (NORVASC) 5 mg tablet Take 5 mg by mouth.04/10/2020Active Atenolol-Chlorthalidone 100-25 mg per tablet Take 1 tablet by mouth once daily.04/10/2020Active simvastatin (ZOCOR) 40 mg tablet Take 40 mg by mouth.04/10/2020Active nabumetone (RELAFEN) 500 mg tablet Refills(s) ctive tamsulosin (FLOMAX) 0.4 mg Take 1 capsule by mouth daily at bedtime. 90 capsule 5Active Active Problems ProblemNoted DateDiagnosed DateProstate ivqdky9307/27/2024 Family History Medical HistoryRelationCommentsProstate CancerBrotherBreast CancerPaternal Aunt RelationStatusCommentsBrotherAlivePaternal AuntDeceased Social History Tobacco UseTypesPacks/DayYears UsedDateSmoking Tobacco: FormerCigarettes1.545 1965 - 2003Smokeless Tobacco: Never Tobacco Cessation:Counseling Given: Not Answered Alcohol UseStandard Drinks/WeekCommentsYes0 (1 standard drink = 0.6 oz pure alcohol)2-3 mixed drink per dayPHQ-2AnswerDate RecordedPHQ-2 pfmqy008 Area Deprivation IndexAnswerDate RecordedNational Score (1-100), lower number is lower ognc090307/27/2024State Score (1-10), lower number is lower tcsg027 Data from: https://www.neighborhoodatlas.medicine.[facility].edu/. Last address used for [address]/27/2024Sex and Gender InformationValueDate RecordedSex Assigned at BirthNot on fileLegal MfqSgqn42/04/2023 11:40 AM EST Gender IdentityNot on fileSexual OrientationNot on file Last Filed Vital Signs Vital SignReadingTime TakenCommentsBlood Cmirqwbi987/7607 1:02 PM EDT Xzsvc4894 1:02 PM CVJPjzxyhbilmb21.7 ??C (98 ??F)04/26/2025 1:02 PM EDT Respiratory Fmhn571304/26/2025 1:02 PM EDTOxygen Aonumxwdly80%04/26/2025 1:02 PM EDTInhaled Oxygen Concentration--Yytbmw157.9 kg (255 lb 8.2 oz)04/26/2025 1:02 PM EDTHeight--Body Mass Index-- Plan of Treatment DateTypeDepartmentCare Team (Latest Contact Info)Klmahoimwvq59/14/2026 9:30 AM ESTOffice Visit [facility] [address] [place] [address] [place] [address] lab10/31/2025 9:30 AM ESTOffice Visit Radiation Oncology [address] [place] [address] [place] [address] Adelfo Graf MD [address] [place] [address] [place] [address] 6 month follow upHealth MaintenanceDue DateLast DoneCommentsAnxiety Screening 1965Depression Daxjzkaxp12/14/1966Hepatitis C Zidnjthul59/14/1966 DTaP,Tdap,Td Vaccine (1 - Tdap)1966Pneumococcal Vaccine: 50+ (1 of 1 - PCV)1997Shingrix Vaccine (1 of 2)1997RSV Vaccine (1 - 1-dose 75+ series)02/14/2023Advance Directive Cffggvnsoh85/01/2025Medicare Advantage Annual Wellness Visit5Covid-19 Vaccine ( season)2025 08/08/2023, 07/12/2022, 02/20/2022, Additional history existsInfluenza Vaccine (#1)511/05/2024, 08/05/2023, 07/28/2022, Additional history exists Diabetes Jwhktgyso01, 07/20/2024, 4Cologuard (FIT-DNA)Rqswdbpiycvh02/07/8975AvjfeqxrdenAfncuiuupgei54/04/2020Colorectal Cancer ScreeningDiscontinuedCT ColonographyDiscontinuedFecal Occult Blood DiscontinuedSigmoidoscopyDiscontinued Procedures Procedure NamePriorityDate/TimeAssociated DiagnosisCommentsBASIC METABOLIC PANEL Gzwtlgt7507/20/2024 10:40 AM EDT Borderline diabetes Unspecified essential hypertension Encounter for long-term (current) use of other medications Hyperlipidemia, unspecified hyperlipidemia type Obesity, unspecified class, unspecified obesity type, unspecified whether serious comorbidity present from Last 3 Months or Most Recently Relevant to Health Maintenance Results * (ABNORMAL) BASIC METABOLIC PANEL (07/20/2024 10:40 AM EDT)ComponentValueRef RangeTest MethodAnalysis TimePerformed AtPathologist LhvzftbsrXcymptc307(H)74 - 99 mg/dL07/20/2024 11:56 AM EDTNORTHCSURGEONS CHOICE MEDICAL CENTER LABComment: The [place] Diabetes Association (ADA) provides guidance for cutoff values for fasting glucose andrandom glucose. The ADA defines fasting as no caloric intake for at least 8 hours. Fasting plasma glucose results between 100 to 125 mg/dL indicate increased risk for diabetes (prediabetes). Fasting plasma glucose results greater than or equal to 126 mg/dL meet the criteria for diagnosis of diabetes. In the absence of unequivocal hyperglycemia, results should be confirmed by repeat testing. In a patient with classic symptoms of hyperglycemia or hyperglycemic crisis, random plasma glucose results greater than or equal to 200 mg/dL meet the criteria for diagnosis of diabetes. Reference: Standards of Medical Care in Diabetes 2016, [place] Diabetes Association. Diabetes Care. 2016.39(Suppl 1). PWE370 - 24 mg/dL07/20/2024 11:56 AM [facility] Creatinine0.860.73 - 1.22 mg/dL07/20/2024 11:56 AM [facility] VZESktoeg457806 - 144 mmol/L1 11:56 AM [facility] LABPotassium3.5(L)3.7 - 5.1 mmol/L1 11:56 AM EDT [facility] BNLRjjzrjmf63(L)98 - 107 mmol/L1 11:56 AM [facility] YIEDJ76980 - 30 mmol/L1 11:56 AM [facility] LABAnion Bpx082 - 15 mmol/L 07/20/2024 11:56 AM [facility] LABCalcium, Total10.0 8.5 - 10.2 mg/dL07/20/2024 11:56 AM [facility] Estimated Glomerular Filtration Rate90>=60 mL/min/1.73m 07/20/2024 11:56 AM [facility] LABComment:Estimated Glomerular Filtration Rate (eGFR) is calculated using the 2020 CKD-EPI creatinine equation. This equation utilizes serum creatinine, sex, and age as parameters. The creatinine assay has traceable calibration to isotope dilution- mass spectrometry. Refer to KDIGO guidelines for clinical interpretation. In patients with unstable renal function, e.g. those with acute kidney injury, the eGFRmay not accurately reflect actual GFR.Specimen (Source)Anatomical Location / LateralityCollection Method / VolumeCollection TimeReceived TimeBloodBLOOD SPECIMEN / UnknownVenipuncture / Dcuxoqk9007/20/2024 10:40 AM EDT1 10:40 AM EDT Narrative Authorizing ProviderResult TypeResult StatusMerrill Delvalle MDLABORATORYFinal ResultPerforming OrganizationAddressCity/State/ZIP CodePhone Number [facility] [address] [place] [address] from Last 3 Months or Most Recently Relevant to Health Maintenance Insurance Care Teams Team MemberRelationshipSpecialtyStart DateEnd Date Merrill Delvalle MD [address] [facility], [place] [id number] PCP - GeneralFamily Medicine10/14/23
--- OUTSIDE RECORDS SUMMARY | 2025-09-03 11:30 | XMS_ITS | Clinical Summary ---
Author Organization [facility] Address [address] [place] [address] Care Team Providers Care Key Ringer Name Role Phone Merrill Delvalle MD Primary Care Provider [phone] Merrill Delvalle MD Unavailable Allergies Active AllergyReactionsCriticalityNoted DateCommentsPenicillinsHives,Other, Oepfdfl2205/06/2020 As a child Medications MedicationSigDispense QuantityRefillsLast FilledStart DateEnd DateStatus nabumetone (Relafen) 500 MG tablet Indications:Osteoarthritis, unspecified osteoarthritis type, unspecified site Take 1 tablet (500 mg) by mouth in the morning and 1 tablet (500 mg) before bedtime. 60 tablet 4Active tamsulosin (Flomax) 0.4 MG 24 hr capsule Take 0.4 mg by mouth DailyActive atenolol-chlorthalidone (Tenoretic) 100-25 MG tablet Indications:Essential (primary) hypertensionTake 1 tablet by mouth Daily 90 tablet 5Active simvastatin (Zocor) 40 MG tablet Indications:Hyperlipidemia, unspecifiedTake 1 tablet (40 mg) by mouth Daily 90 tablet 5Active amLODIPine (Norvasc) 5 MG tablet Indications:Essential (primary) hypertensionTake 1 tablet (5 mg) by mouth Daily 90 tablet 5Active Active Problems ProblemNoted DateDiagnosed DateBenign essential lnelcu1401/16/2025 Assessment & Plan (01/16/2025 9:49 AM EDT): Occasional tremor and likely essential tremor. Discussed options including primidone but wants to monitor. BPH without urinary eatrscuzieq54/08/2024rostate ioally6207/18/2024 Assessment & Plan (01/16/2025 9:50 AM EDT): Follow with oncology. Assessment & Plan (07/18/2024 3:07 PM EDT): Follow with oncology. Benign essential ykgiskqjvwza53/08/2024 Assessment & Plan (01/16/2025 9:49 AM EDT): BP controlled and monitor PRN. Assessment & Plan (07/18/2024 3:07 PM EDT): BP controlled and monitor PRN. Primary osteoarthritis of right knee07/18/2024 Assessment & Plan (01/16/2025 9:50 AM EDT): Pain stable and use relafen PRN. Iqktwkkhmoc08/08/2024Encounter for long-term (current) use of medications 07/18/20247714Vxccyxllvskd72/08/2024Encounter for Medicare annual wellness exam 07/18/2024 Assessment & Plan (07/18/2024 3:07 PM EDT): Due for labs. Discussed proper diet and regular aerobic exercise. Need aerobic exercise 5-6 days a week for 30 minutes at a time. Smaller portions and limit total calories. Colonoscopy every 10 years. Tetanus every 10 years. Advised not to smoke. Discussed daily Aspirin therapy. Obesity (BMI 30-39.9)07/18/2024AA (abdominal aortic aneurysm) without rupture 07/18/2024 Assessment & Plan (07/18/2024 3:09 PM EDT): Follow with specialists. Social History Tobacco UseTypesPacks/DayYears UsedDateSmoking Tobacco: NeverSmokeless Tobacco: Never Tobacco Cessation:Counseling Given: Not Answered Sex and Gender InformationValueDate RecordedSex Assigned at BirthNot on file Legal GumQelf3012/23/2022 11:46 PM EDTGender IdentityNot on fileSexual Orientation Not on file Last Filed Vital Signs Vital SignReadingTime TakenCommentsBlood Zhehbocb239/5204 9:20 AM EDT Wheri0982/05/2025 9:20 AM EJTEfmhbkhjzds36.2 ??C (97.1 ??F)01/16/2025 9:20 AM EDTRespiratory Tldi2506 9:20 AM EDTOxygen Tywcrafbhw00%01/16/2025 9:20 AM EDTInhaled Oxygen Concentration--Jfiwae497 kg (256 lb)01/16/2025 9:20 AM EDT Fgsvut262.4 cm (6' 1 )01/16/2025 9:20 AM EDTBody Mass Index33.78001/16/2025 9:20 AM EDT Plan of Treatment Health MaintenanceDue DateLast DoneCommentsMedicare Annual Wellness (AWV) 1945Pneumococcal Vaccine: 65+ Years (1 of 2 - PCV)1966COVID-19 Vaccine ( - season)/, 02/20/2022, 08/23/2021, Additional history existsInfluenza Vaccine (#1)511/05/2024, 08/05/2023, 07/28/2022, Additional history existsFIT-KCLAxbstbdfhhdo91/07/2020Colonoscopy Zttxwjudebbi70/04/2020Colorectal Cancer ScreeningDiscontinuedCT Colonography DiscontinuedFITDiscontinuedFOBTDiscontinuedSigmoidoscopyDiscontinued Insurance Care Teams Team MemberRelationshipSpecialtyStart DateEnd Date Merrill Delvalle MD PCP - [facility]08/16/23 Mrerill Delvalle MD [address] [place] [address] PCP - [facility]09/10/24
--- OUTSIDE RECORDS SUMMARY | 2025-09-03 11:30 | XMS_ITS | Clinical Summary ---
Author Organization [facility] tem Address [id number] [address] [place] [address] Care Team Providers Care Brake Reliner Name Role Phone Merrill Delvalle MD Primary Care Provider [phone] Allergies Active AllergyReactionsCriticalityNoted DateCommentsPenicillinsOther (See Comments)05/06/2020 As a child Medications MedicationSigDispense QuantityRefillsLast FilledStart DateEnd DateStatus amLODIPine (NORVASC) 5 mg tablet Take 5 mg by mouth daily.04/10/2020Active atenoloL-chlorthalidone (TENORETIC) 100-25 mg per tablet Take 1 tablet by mouth daily.04/10/2020Active simvastatin (ZOCOR) 40 mg tablet Take 40 mg by mouth daily.04/10/2020Active Active Problems No known active problems Family History Medical HistoryRelationNameCommentsProstate cancerBrotherHeart diseaseFather Heart diseaseMotherRelationNameStatusCommentsBrotherAliveFatherDeceasedMother Social History Tobacco UseTypesPacks/DayYears UsedDateSmoking Tobacco: FormerCigarettesQuit: 10/11/1999Smokeless Tobacco: NeverChildcareAnswerDate RecordedChildcareUnknown 03/22/2019EmploymentAnswerDate KlfxsedfHaqkkqsnrvSdvayja38/12/2019Purpose - Life AnswerDate RecordedPurpose and direction in siexPwbfhfo67/11/2021Sex and Gender InformationValueDate RecordedSex Assigned at BirthNot on fileLegal SexMale 05/16/2015 11:39 AM EDTGender IdentityNot on fileSexual OrientationNot on file Last Filed Vital Signs Vital SignReadingTime TakenCommentsBlood Ynhgrwsq151/8008 9:40 AM EDT Tcnrb7219 11:03 AM CMURdcbwduodtg40.5 ??C (97.7 ??F)05/22/2020 9:40 AM EDTRespiratory Jzwg4923 11:03 AM EDTOxygen Uqbgajanjx11%05/14/2020 11:03 AM EDTInhaled Oxygen Concentration--Kciyjo257.5 kg (259 lb)05/22/2020 9:40 AM DOTAcqdwk392.9 cm (6')05/22/2020 9:40 AM EDTBody Mass Index35.1308 9:40 AM EDT Plan of Treatment Health MaintenanceDue DateLast DoneCommentsDepression Rtkmwaynp11/14/1960Tobacco Eawbmoqpc49/14/1960DTaP,Tdap and Td Vaccines (1 - Tdap)1966Zoster (Shingles) Vaccine (1 of 2)1997Abdominal Aortic Aneurysm (AAA) Screen 2012Fall Risk Pwqssxmdm40/14/2013RSV ( or age 60+ yrs) (1 - 1-dose 75+ series)8592Atnvjcbyjea33, 05/14/2020Influenza Asvjdct1006/11/2025 Medical Devices Not on file Procedures Procedure NamePriorityDate/TimeAssociated SuyslgymkBoevztcyOPDFEGJJNKQ63/04/2020 7:38 AM EDT from Last 3 Months or Most Recently Relevant to Health Maintenance Results * Colonoscopy (05/14/2020 7:38 AM EDT)Specimen (Source)Anatomical Location / LateralityCollection Method / VolumeCollection TimeReceived Time05/14/2020 7:38 AM EDT Narrative PM CARDIOVASCULAR - 05/14/2020 10:23 AM EDT [facility] Patient Name: Richard Damian ?? Procedure Date No Time: 05/14/2020 ?? CSN : [id number] Date of : 1945 Admit Type: Outpatient Age: 74 Room: [facility] OR 06 Gender: Male Note Status: Finalized Attending MD: Tyrone Herrera DO Procedure: ?Colonoscopy Indications: ?Positive Cologuard test Providers: ?Tyrone Herrera DO Medicines: ?Propofol per Anesthesia Complications: ?No immediate complications. Procedure: ?After I obtained informed consent, the scope was passed ?under direct vision. Throughout the procedure, the ?patient's blood pressure, pulse, and oxygen saturations ?were monitored continuously. The [facility] CF-[id number] ?#[id number] ADULT COLONOSCOPE was introduced through the ?anus and advanced to the cecum, identified by the ?appendiceal orifice, IC valve and transillumination. ?The colonoscopy was technically difficult and complex ?due to the patient's body habitus. Successful ?completion of the procedure was aided by applying ?abdominal pressure. The patient tolerated the procedure ?well. The quality of the bowel preparation was good. Findings: ? The perianal and digital rectal examinations were normal. ? Two pedunculated polyps were found in the sigmoid colon and mid ? descending colon. The polyps were 3 to 8 mm in size. These polyps were ? removed with a hot snare. Resection and retrieval were complete. ? A 2 mm polyp was found in the descending colon. The polyp was sessile. ? Fulguration to ablate the remaining base of the lesion by monopolar ? probe was successful. ? The exam was otherwise without abnormality on direct and retroflexion ? views. Estimated Blood Loss: Estimated blood loss: none. Impression: ? - Two 3 to 8 mm polyps in the sigmoid colon and in the ?mid descending colon, removed with a hot snare. ?Resected and retrieved. ?- One 2 mm polyp in the descending colon. Treated with ?a monopolar probe. ?- The examination was otherwise normal on direct and ?retroflexion views. Recommendation: ? - Patient has a contact number available for ?emergencies. The signs and symptoms of potential ?delayed complications were discussed with the patient. ?Return to normal activities tomorrow. Written discharge ?instructions were provided to the patient. ?- Repeat colonoscopy in 3 years for surveillance based ?on pathology results. ?- Return to my office in 1 week. Procedure Code(s): ?--- Professional --- ?46132, Colonoscopy, flexible; with ablation of ?tumor(s), polyp(s), or other lesion(s) (includes pre- ?and post-dilation and guide wire passage, when ?performed) ?97094, 59, Colonoscopy, flexible; with removal of ?tumor(s), polyp(s), or other lesion(s) by snare ?technique Diagnosis Code(s): ? --- Professional --- ? K63.5, Polyp of colon ? R19.5, Other fecal abnormalities CPT copyright 2019 [employer]. All rights reserved. The codes documented in this report are preliminary and upon second hand review may be revised to meet current compliance requirements. DO Tyrone Jones DO 05/14/2020 10:23:19 AM Number of Addenda: 0 Note Initiated On: 05/14/2020 7:38 AM Procedure Note Tyrone Herrera DO - 05/14/2020 [facility] Patient Name: Richard Damian Procedure Date No Time: 05/14/2020 CSN : [id number] Date of : 1945 Admit Type: Outpatient Age: 74 Room: [place] [address] Gender: Male Note Status: Finalized Attending MD: Tyrone Herrera DO Procedure: Colonoscopy Indications: Positive Cologuard test Providers: Tyrone Herrera DO Medicines: Propofol per Anesthesia Complications: No immediate complications. Procedure: After I obtained informed consent, the scope waspassed under direct vision. Throughout the procedure, the patient's blood pressure, pulse, and oxygensaturations were monitored continuously. The [employer] CF-[id number] #[id number] ADULT COLONOSCOPE was introduced throughthe anus and advanced to the cecum, identified by the appendiceal orifice, IC valve and transillumination. The colonoscopy was technically difficult andcomplex due to the patient's body habitus. Successful completion of the procedure was aided by applying abdominal pressure. The patient tolerated theprocedure well. The quality of the bowel preparation wasgood. Findings: The perianal and digital rectal examinations were normal. Two pedunculated polyps were found in the sigmoid colon and mid descending colon. The polyps were 3 to 8 mm in size. These polypswere removed with a hot snare. Resection and retrieval were complete. A 2 mm polyp was found in the descending colon. The polyp wassessile. Fulguration to ablate the remaining base of the lesion by monopolar probe was successful. The exam was otherwise without abnormality on direct and retroflexion views. Estimated Blood Loss: Estimated blood loss: none. Impression: - Two 3 to 8 mm polyps in the sigmoid colon and inthe mid descending colon, removed with a hot snare. Resected and retrieved. - One 2 mm polyp in the descending colon. Treatedwith a monopolar probe. - The examination was otherwise normal on direct and retroflexion views. Recommendation: - Patient has a contact number available for emergencies. The signs and symptoms of potential delayed complications were discussed with thepatient. Return to normal activities tomorrow. Writtendischarge instructions were provided to the patient. - Repeat colonoscopy in 3 years for surveillancebased on pathology results. - Return to my office in 1 week. Procedure Code(s): --- Professional --- 60691, Colonoscopy, flexible; with ablation of tumor(s), polyp(s), or other lesion(s) (includespre- and post-dilation and guide wire passage, when performed) 40247, 59, Colonoscopy, flexible; with removal of tumor(s), polyp(s), or other lesion(s) by snare technique Diagnosis Code(s): --- Professional --- K63.5, Polyp of colon R19.5, Other fecal abnormalities CPT copyright 2019 [employer]. All rights reserved. The codes documented in this report are preliminary and upon second hand reviewmay be revised to meet current compliance requirements. DO Tyrone Jones DO 05/14/2020 10:23:19 AM Number of Addenda: 0 Note Initiated On: 05/14/2020 7:38 AM Authorizing ProviderResult TypeResult StatusMichaelaura Herrera DOGI PROCEDURE ORDERABLESFinal ResultPerforming OrganizationAddressCity/State/ZIP CodePhone Number PM CARDIOVASCULAR from Last 3 Months or Most Recently Relevant to Health Maintenance Insurance Care Teams Team MemberRelationshipSpecialtyStart DateEnd Date Merrill Delvalle MD PCP - GeneralFamily Medicine04/25/20
--- OUTSIDE RECORDS SUMMARY | 2025-09-03 11:30 | XMS_ITS ---
Author Organization [facility] Address [address] [place], [place] [id number] Care Team Providers Care Telephone Appointment Clerk Name Role Phone Merrill Delvalle MD Primary Care Provider [phone] Active Problems ProblemNoted DateDiagnosed DateProstate [id number] Current Treatment and Therapy Plans No current plan information found. Past Treatment and Therapy Plans No past plan information found. Treatment Summaries Prostate cancer (HCC)* Treatment Summary and Survivorship Care Plan for Prostate Cancer Provided by: Coby Villaseñor APRN.CUTTING TABLE OPERATOR FIRST General Information Patient Name: Richard Damian Patient : 1945 Patient phone: () Email: No e-mail address on record Health Care Providers Primary Care Provider: Dr. Merrill Delvalle Urologic Surgeon: Dr. Ted Sifuentes Radiation Oncologist: Devon Graf MD - Other Providers: Coby Villaseñor APRN.CUTTING TABLE OPERATOR FIRST Treatment Summary Diagnosis Cancer Type: Adenocarcinoma of the Prostate Location: See pathology printout Diagnosis Date (year): August 26, 2023 Histology Subtype: Prostate Cancer Stage:IIC; Clinical stage T1c, N0, M0 Sahil Score: 4 + 3 = 7 PSA at Diagnosis: 9.5 Clinical Trial: No Treatment Completed Surgery: Yes Surgery Date(s) (year): August 26, 2023 Surgical procedure/location/findings: Transrectal ultrasound random biopsy; See pathology printout External beam radiation: Yes Pelvis/Prostate: Yes: End Date (year): January 03, 2024 (November 25, 2023 through January 03, 2024) RADIATION SUMMARY: DATES OF TREATMENT: 11/25/2023 to 01/03/2024 AREA TREATED: Pelvis Prostate DELIVERED DOSE: Area: Pelvis Prostate 7,000 cGy in 39 fractions, 3Fields, IMRT, 10 MV with daily CBCT TOTAL: 7,000 cGy in 28 fractions ELAPSED TIME: 39 days. Brachytherapy to prostate: No Systemic Therapy (chemotherapy, hormonal therapy, other): Yes Name of Agents Used: Lupron (or similar LHRH agonist): End Dates (year): Had once- 11/15/2023 Presistent symptoms or side effects at completion of treatment: No Follow-up Care Plan Schedule of clinical visits Coordinating Provider When/How often Dr. Roseanna Graf Every 3-6 months x2 years, then once yearly Dr. Merrill Delvalle Per Dr. Mook Sifuentes Per Dr. Sifuentes Cancer surveillance or other recommended related tests Coordinating Provider Test How Often Dr. Roseanna Graf PSA (Prostate Specific Antigen) Every 3-6 months x2 years, then once yearly Please continue to see your primary care provider for all general health care recommended for a (man) (women) your age, including cancer screening tests. Any symptoms should be brought to the attention of your provider: 1. Anything that represents a brand new symptom; 2. Anything that represents a persistent symptom; 3. Anything you are worried about that might be related to the cancer coming back. Possible late- and long-term effects that someone with this type of cancer and treatment may experience: Erectile dysfunction, Hot flashes, Incontinence, Painful urination, Rectal pain, Shortening ofthe penis, Skin irritation or darkening, Sterility, Trouble voiding or passing uring (urinary retention), and Urinary frequency Cancer survivors may experience issues with the areas listed below. If you have any concerns in these or other areas, please speak with your doctors or nurses to find out how you can get help with them: anxiety or depression , emotional or mental health, fatigue, fertility, financial advice or assistance, insurance, memory or concentration loss, parenting, physicial functioning, school/work, and sexual functioning A number of lifestyle/behaviors can affect your ongoing health, including the risk for the cancer coming back or developing another cancer. Discuss these recommendations with your doctor or nurse: alcohol use, diet, management of medications, management of other illnesses, physical activity, sun screen use, tobacco use/cessation, and weight management (loss/gain) Resources you may be interested in: www.cancer.net [facility] Dermatology Nurse Butcher Assistant Art Therapy Massage Therapy Support Groups- Contact Dermatology Nurse for dates and times Prepared by: Coby Villaseñor APRN.CNP Delivered on: 01/25/2025 - This Survivorship Care Plan is a cancer treatment summary and follow-up plan is provided to you to keep with your health care records and to share with your primary care provider. - This summary is a brief record of major aspects of your cancer treatment. You can share your copywith any of your doctors or nurses. However, this is not a detailed or comprehensive record of yourcare.
--- OUTSIDE RECORDS SUMMARY | 2025-09-03 11:36 | XMS_ITS | CCD ---
Author Organization [facility] Care Team Providers Care Thread Cutter Name Role Phone MERRILL IRAHETA Primary Care Physician MD Ankur Duran Jr Attending Provider NON STAFF Primary Care Provider Unavailtao e ESEQUIEL, DR MERRILL Fisher Consulting Unavailable NADEREJuan, DR MERRILL Fisher Attending Unavailable NADEREJuan, DR MERRILL Fisher Admitting Unavailable NADEREJuan, DR MERRILL Fisher Primary Care Unavailable RAMOS ., DR MATT Admitting Unavailable RAMOS ., DR MATT Consulting Unavailable RAMOS ., DR MATT Attending Unavailable ESEQUIEL, DR MERRILL Fisher Primary Care Unavailable ORION, DR AYALA Bob Consulting Unavailable NADERER, DR MERRILL Fisher Primary Care Unavailable RAMOS ., DR MATT Admitting Unavailable RAMOS ., DR MATT Consulting Unavailable RAMOS ., DR MATT Attending Unavailable Unavailable Primary Care Provider UnavailMerrill Tavera Primary Care Provider Merrill Iraheta Primary Care Provider Merrill Iraheta MD Primary Care Provider [phone] Merrill Iraheta MD Primary Care Provider [phone] Merrill Iraheta MD Unavailable MERRILL IRAHETA Attending Unavailable MERRILL IRAHETA Attending Unavailable MERRILL IRAHETA Primary Care Unavailable ESEQUIEL, MERRILL Fisher Primary Care Unavailable Adelfo GABRIEL Attending Unavailable MERRILL IRAHETA Primary Care Unavailable MERRILL IRAHETA A Primary Care Unavailable Adelfo GABRIEL Attending Unavailable ESEQUIEL, MERRILL A Primary Care Unavailable RADHA ZAPIEN Attending Unavailable ESEQUIEL, MERRILL Fisher Primary Care Unavailable ESEQUIEL, MERRILL A Primary Care Unavailable Adelfo GABRIEL Attending Unavailable Adelfo GABRIEL Referring Unavailable MERRILL IRAHETA A Primary Care Unavailable NON STAFF Primary Care Provider Unavailtao e Zurdoerer MD, Merrill Attending Provider [phone] Vernell RAMOS Attending Unavailable Vernell RAMOS Attending Unavailable Vernell RAMOS Attending Unavailable Allergies Allergy ClassificationReported Allergen(s)Allergy TypeDate of OnsetReaction(s) Facility (7 sources)Penicillin; Translations: [penicillin]Drug AllergyUnknown (qualifier value)[facility] (2 sources)Penicillins; Translations: [PENICILLINS]Drug allergy (disorder) 89-52-9409Zwz [facility] (20 sources)PenicillinsDrug Qudzvvm79-59-3147ZaibcFgiuilbdm Clinic (8 sources)PenicillinsDrug Pafucyb58-51-6201Axzqp, Other, UnknownN[facility] (4 sources)PenicillinsDrug Rvxnazz31-12-2378VjvkrPzalwlgga Clinic Medications Current Medications MedicationDrug Class(es)DatesSig (Normalized)Sig (Original)amLODIPine 5 mg oral tablet (20 sources)Dihydropyridine Calcium Channel BlockerStart: 50-01-3280pieq 1 tablet by mouth once dailyAmlodipine 5 mg Tablet Active 5 MG PO Daily March 17, 2022 12:00am Complies with drug therapyComment on above:Take 5 mg by mouth. atenolol 100 mg / chlorthalidone 25 mg oral tablet (20 sources)Thiazide-like Diuretic, beta-Adrenergic BlockerStart: 02-17-2022 atenolol-chlorthalidone 100 mg-25 mg Tab Refill(s) 0 Start Date: 02/17/22 Status: OrderedStart: 67-08-4182chzg 1 tablet by mouth once dailyAtenolol- Chlorthalidone 100-25 mg Tablet Active 1 TAB PO Daily March 17, 2022 12:00am Complies withdrug therapyComment on above:Take 1 tablet by mouth once daily. dutasteride 0.5 mg oral capsule (1 source)5-alpha Reductase InhibitorStart: 07-05-2023 End: 44-62-4910pdto 1 capsule by mouth once dailydutasteride 0.5 mg Cap 0.5 mg = 1 cap(s), Oral, Daily, X 30 day(s), # 30 cap(s), Refills(s) 11, Pharmacy: [facility] #[id number], 186, cm, 07/05/23 13:25:00 EDT, Height/Length Dosing, 122, kg, 07/05/23 13:25:00 EDT, Weight Dosing Start Date: 07/05/23 Stop Date: 06/29/24 Status: Orderednabumetone 500 mg oral tablet (20 sources)Nonsteroidal Anti-inflammatory DrugStart: 69-55-5913nlpo 1 tablet by mouth twice dailyNabumetone 500 mg tablet Active 500 MG PO Twice daily July 13, 2025 11:38am Complies with drug therapyStart: 02-17-2022 End: 72-89-4160obld 1 tablet by mouth once dailyNabumetone 500 mg Tablet Discontinued 500 MG PO Daily March 17, 2022 12:00am July 13, 2025 11:41am Comment on above: Refills(s) 0prednisoLONE Opth acetate 1% Susp 5 mL (1 source)Start: 85-06-8132lqstkkdpBTMZ Opth acetate 1% Susp 5 mL Refill(s) 0 Start Date: 02/17/22 Status: OrderedpredniSONE 50 mg oral tablet (1 source)Start: 61-80-7506oukz 1 tablet by mouth once dailyPrednisone 50 mg tablet Active 50 MG PO Daily July 17, 2025 12:00am Complies with drug therapysimvastatin 40 mg oral tablet (20 sources)HMG-CoA Reductase InhibitorStart: 30-76-6368oxkd 1 tablet by mouth once dailySimvastatin 40 mg Tablet Active 40 MG PO Daily March 17, 2022 12:00am Complies with drug therapyComment on above:Take 40 mg by mouth.tamsulosin hydrochloride 0.4 mg oral capsule (20 sources)alpha-Adrenergic BlockerStart: 00-96-5778subz 1 capsule by mouth once daily at bedtimeTamsulosin 0.4 mg capsule Active 0.4 MG PO Daily at bedtime July 17, 2025 12:00am Complies withdrug therapyStart: 02-14-2024 End: 52-13-7234oeos 1 capsule by mouth once daily at bedtimetamsulosin (FLOMAX) 0.4 mg Take 1 capsule by mouth daily at bedtime. 90 capsule 1 11/09/2024 Active Start: 12-24-2023 End: 99-20-7680ivha 1 capsule by mouth once daily at bedtimetamsulosin (FLOMAX) 0.4 mg Take 1 capsule by mouth daily at bedtime. 30 capsule 2 12/24/2023 024 DiscontinuedComment on above:Take 1 capsule by mouth daily at bedtime. Completed/Discontinued Medications MedicationDrug Class(es)DatesSig (Normalized)Sig (Original)ciprofloxacin 500 mg oral tablet (1 source)Quinolone AntimicrobialStart: 06-75-2503fxiz 1 tablet by mouth once dailyCipro 500 mg Tab 500 mg = 1 tab(s), Oral, Daily, Take 1 tablet the day before the procedure and 1 tablet after the procedure, # 2 tab(s), Refills(s) 0, Pharmacy: [facility] #[id number], 186, cm, 11/23/22 11:13:00 EST, Height/Length Dosing, 120, kg, 11/23/22 11:13:... Start Date: 11/23/22 Status: OrdereddiphenhydrAMINE hydrochloride 25 mg oral capsule (3 sources)Histamine-1 Receptor AntagonistStart: 03-17-2022 End: 04-74-0853rxwq 1 capsule by mouth three times daily as needed Diphenhydramine Hcl (Benadryl) 25 mg Capsule Discontinued 25 MG PO Three times daily as needed for Allergy Symptoms March 17, 2022 12:00am July 13, 2025 11:38amfluticasone propionate 0.05 mg/actuat metered dose nasal spray (3 sources)CorticosteroidStart: 03-17-2022 End: 16-82-4760Ytzvwbztato Propionate (Flonase Allergy Relief) 50 mcg/actuation [place],Suspension Discontinued 1 SPRAY INTRANASAL Twice daily as needed for Allergic Symptoms March 17, 2022 12:00am July 13, 2025 11:38ampotassium chloride 20 meq extended release oral tablet (4 sources)Start: 03-17-2022 End: 26-90-6410mnko 1 tablet by mouth twice dailyPotassium Chloride 20 mEq Tablet Extended Release Discontinued 20 MEQ PO Twice daily March 172:00am July 13, 2025 11:38amStart: 16-68-6634Mfnayyuul Chloride (Wah-Exxp-Kqe M20) 20 mEq oral tablet, extended release Refills(s) 0 Start Date:02/17/22 Status: Ordered Problems Active Problems Problem ClassificationProblemDateDocumented DateEpisodic/ChronicAortic; peripheral; and visceral artery aneurysms (12 sources)Abdominal aortic aneurysm without rupture; Translations: [Abdominal aortic aneurysm (AAA) without rupture, unspecified part (CMS/HCC)]Onset: 907565-47-1134XpkspnuFgvubj of prostate (20 sources)Malignant neoplasm of prostate; Translations: [Malignant tumor of prostate]Onset: 90-71-6588YxswtglTdwmfmmu mellitus without complication (13 sources)Prediabetes; Translations: [Prediabetes]Onset: EpisodicDisorders of lipid metabolism (13 sources)Dyslipidemia; Translations: [Hyperlipidemia, unspecified]Onset: 489761-03-2276LddbhjbDfhveoxnr hypertension (20 sources)Hypertensive disorder; Translations: [Benign essential hypertension] Onset: 633941-45-9662CxtpmmoMbkeoswmzqysz symptoms and ill-defined conditions (13 sources)Gary hematuria; Translations: [Gross hematuria]Onset: 12-11-2022 67-48-4842DiuydccpWtteidhzpfm of prostate (20 sources)Benign prostatic hypertrophy with outflow obstruction; Translations: [Benign prostatic hyperplasia with lower urinary tract symptoms]Onset: 96-80-0274ZrdsvmdUpftnwzxpvsjzj (15 sources)Osteoarthritis; Translations: [Unspecified osteoarthritis, unspecified site]Onset: 696248-21-8476MqymptdGjanx diseases of kidney and ureters (1 source)Urinary tract obstruction; Translations: [Other obstructive and reflux uropathy]Onset: 86-20-9104TwwmimlxBiyud diseases of kidney and ureters (4 sources)Acquired renal cyst without neoplastic change; Translations: [Cyst of kidney, acquired]Onset: 45-21-9925NulkvpzwBofvs diseases of kidney and ureters (4 sources)Simple renal ihhr14-71-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 hereditary and degenerative nervous system conditions (8 sources)Essential tremor; Translations: [Essential tremor]Onset: 01-16-2025 07-63-4107KanpejwJfhyf liver diseases (1 source)Fatty (change of) liver, not elsewhere classified; Translations: [FATTY CHANGE LIVER NEC]Onset: 73-21-4178HbrudgyJkopn nutritional; endocrine; and metabolic disorders (10 sources)Body mass index 30+ - obesity; Translations: [Obesity, unspecified] Onset: 617088-61-6000YebrgjqCfayw nutritional; endocrine; and metabolic disorders (1 source)Obesity, unspecified; Translations: [Obesity, unspecified class, unspecified obesity type, unspecified whether serious comorbidity present]Onset: 12-96-8089YfxygkhJqeso nutritional; endocrine; and metabolic disorders (2 sources)Obesity; Translations: [Obesity, unspecified]32-08-9244IvgzxrnZcjjl screening for suspected conditions (not mental disorders or infectious disease) (8 sources)Raised prostate specific antigen; Translations: [Elevated prostate specific antigen [PSA]]Onset: 24-05-2363PmhvubkaYkgssntqgdjo (1 source)M17.11 - Unilateral primary osteoarthritis, right knee Past or Other Problems Problem ClassificationProblemDateDocumented DateEpisodic/ChronicMood disorders (8 sources)Mood disordersOnset: 816733-80-0233Vxazp aftercare (10 sources)Long-term current use of drug therapy; Translations: [Other [place] [facility] (current) drug therapy]Onset: 017221-47-8797UlovziiqLjkjy aftercare (1 source)Other remote computer terminal operator (current) drug therapy; Translations: [Encounter for long-term (current) use of other medications]Onset: 70-57-2818Fjfhndke Results Test NameValueInterpretationReference RangeFacilityProvider Letteron 08-07-2025 Provider LetterProvider Letter August 07, 2025 AYALA DAMIAN [address] [place] [id number] : 1945 Dear Ayala , We have been trying to reach you with no success. It is important that you return our call regarding a message from your provider upon receiving this letter. Also, at the time of your call, please provide us with your current information. Thank you for your prompt attention to this matter. Sincerely, [facility] [place] [id number] [facility], [place] [address] PreethiAnahy [facility] Medical CenterTOMASOVkj 84-69-5661KOTROirrir Visit (RADTSA) AYALA DAMIAN ([id number]) 1945 M Date Time Provider Department 04/26/25 1:30 PM Adelfo GABRIEL During your visit today, we recorded the following information about you: Temperature Pulse Respiration Blood pressure 98 degrees 68/minute 16/minute 156/76 Weight 115.9 kg Olga Monge RN 04/26/2025 1:29 PM Signed AUA= 5 Adelfo Gabriel MD 04/26/2025 1:29 PM Signed Radiation Oncology - Follow Up Note PATIENT NAME: Ayala Damian PATIENT DIAGNOSIS: Prostate adenocarcinoma, 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 RADIATION SUMMARY: DATES OF TREATMENT: 11/25/2023 to 01/03/2024 AREA TREATED: Pelvis Prostate DELIVERED DOSE: Area: Pelvis Prostate 7,000 cGy in 39 fractions, 3Fields, IMRT, 10 MV with daily CBCT TOTAL: 7,000 cGy in 28 fractions ELAPSED TIME: 39 days. INTERVAL HISTORY: Doing well no new problems. PSA HISTORY: PSA (ng/mL) Date Value 04/19/2025 0.30 01/18/2025 0.51 07/20/2024 0.25 01/31/2024 0.59 ALLERGIES Allergen Reactions Penicillins Hives tamsulosin (FLOMAX) 0.4 mg Take 1 capsule by mouth daily at bedtime. amLODIPine (NORVASC) 5 mg tablet Take 5 mg by mouth. Atenolol-Chlorthalidone 100-25 mg per tablet Take 1 tablet by mouth once daily. simvastatin (ZOCOR) 40 mg tablet Take 40 mg by mouth. nabumetone (RELAFEN) 500 mg tablet Refills(s) 0 REVIEW OF SYSTEMS: D/N = 4-5/1-2 Hematuria: none Dysuria: none Incontinence: none Urgency: none Catheter use: none Medications to aid urination: flomax - Total AUA Score: 5 Bowel movement frequency: 1/day Bowel movement quality: normal Blood per rectum: none Androgen deprivation: Lupron x 1 PHYSICAL EXAM: BP 156/76 Pulse 68 Temp 36.7 ?C (98 ?F) Resp 16 Wt 115.9 kg (255 lb 8.2 oz) SpO2 97% BMI (P) 34.65 kg/m? KPS: 100 General Appearance: Alert and oriented. No acute distress. No neck supraclavicular or axillary lymphadenopathy Rectal exam is deferred. ASSESSMENT/PLAN: Prostate adenocarcinoma, initial PSA 9.5, biopsy Sahil score 4 + 3 = 7 (grade group 3), clinical stage T1c, N0, M0, stage IIC [T1-T2, N0, M0, PSA <20, GG 3] (AJCC 8th ed.), s/p definitive radiation completed December 2023. Doing well. No significant posttreatment issues. PSA is low and stable over the last 12 months. Slight rise last evaluation likely related to ADT withdrawal and testosterone recovery. He continues close follow-up with his urologist. Recommend continued surveillance we will plan to see patient back in 6 months for further follow-up. Plan to see patient back in 3 months. Signed by: Adelfo Gabriel MD cc: Merrill Iraheta MD ([facility]) [address] [place] [address] Referring Provider: Adelfo GABRIEL [[id number]] Allergies As of Date: 04/26/2025 Noted Allergy Reaction PENICILLINS 09/21/2023 4 - Hives Date Reviewed: 04/26/2025 Reviewed by: Olga Monge, RN - Fully Assessed Reason for Visit: Prostate Cancer [590] Primary Visit Diagnosis:Malignant neoplasm of prostate (HCC) [C61] Order(s):PROSTATE-SPECIFIC ANTIGEN DIAGNOSTIC [SQPSA] Order #: [id number] FUTURE Prescriptions as of 04/26/2025 - tamsulosin (FLOMAX) 0.4 mg Take 1 capsule by mouth daily at bedtime. - amLODIPine (NORVASC) 5 mg tablet Take 5 mg by mouth. - Atenolol-Chlorthalidone 100-25 mg per tablet Take 1 tablet by mouth once daily. - simvastatin (ZOCOR) 40 mg tablet Take 40 mg by mouth. - nabumetone (RELAFEN) 500 mg tablet Refills(s) 0 Problem List As Of Date 04/26/2025 Noted Resolved Prostate cancer (HCC) [C61] 07/27/2024 Level of Service: OFFICE/OUTPATIENT ESTABLISHED [facility] 20 MIN [[id number]] Encounter Status:Closed by Adelfo GABRIEL on 04/26/25NoOhio[facility] PSA SERPL-MCNCon 35-11-1930MUY PSA SERPL-MCNC0.3 ng/mLNINF - 2.60 ng/mLNOMS HealthcareComment on above:Total PSA test methodology used is the Electrochemiluminescence Immunoassay by [employer]. Total PSA values by differing methodologies cannot be interchanged.Specimen Type: BLOOD SPECIMEN Ordering Facility: [facility] Address: [address] [place] [address] Original Ordering Provider: Adelfo FALKCitizens Memorial HealthcareA SerPl-mCncon 14-50-6609Zpzpdtxk specific Ag [Mass/Vol]0.30 ng/mLNormal<2.60 [facility] on above:Order Comment: Specimen Type: BLOOD SPECIMEN Ordering Facility: External Submitter Address: , ,Result Comment: Total PSA test methodology used is the Electrochemiluminescence Immunoassay by [employer]. Total PSA values by differing methodologies cannot be interchanged.Performed By: #### [id number] #### [facility] CLIA [id number] [address] [place] [address] [place] #### 73457-2 #### [facility] CLIA [id number] [address] [place] [address] [place] [facility] CLIA [id number] [address] [place], [place] [address]QQGZzp [id number] (RADTSA) AYALA DAMIAN ([id number]) 1945 M Date Time Provider Department 04/18/25 Adelfo GABRIEL During your visit today, we recorded the following information about you: Olga Monge RN 04/18/2025 12:05 PM Signed Please sign pended PSA order for 04/19/25 appt. Previous PSA order is for a screening. Thanks Olga Monge RN Allergies As of Date: 04/18/2025 Noted Allergy Reaction PENICILLINS 09/21/2023 4 - Hives Date Reviewed: 01/26/2025 Reviewed by: Radha Zapien APRN.SOFTWARE SALES CONSULTANT - Fully Assessed Reason for Visit: Orders [681] Primary Visit Diagnosis:Malignant neoplasm of prostate (HCC) [C61] Order(s):PROSTATE-SPECIFIC ANTIGEN DIAGNOSTIC [SQPSA] Order #: [id number] FUTURE Prescriptions as of 04/18/2025 - tamsulosin (FLOMAX) 0.4 mg Take 1 capsule by mouth daily at bedtime. - amLODIPine (NORVASC) 5 mg tablet Take 5 mg by mouth. - Atenolol-Chlorthalidone 100-25 mg per tablet Take 1 tablet by mouth once daily. - simvastatin (ZOCOR) 40 mg tablet Take 40 mg by mouth. - nabumetone (RELAFEN) 500 mg tablet Refills(s) 0 Problem List As Of Date 04/18/2025 Noted Resolved Prostate cancer (HCC) [C61] 07/27/2024 Encounter Status:Closed by OLGA MONGE on 04/18/25[facility] Summaryon [id number] Visit SummaryAmbulatory Visit Summary AYALA DAMIAN :1945 Visit Date:01/26/2025 Ambulatory Visit Instructions Your Diagnosis Prostate cancer BPH with urinary obstruction Gross hematuria Simple renal cyst Your Care Team Attending Physician - RICHARD MAGANA, Vernell Martinez Primary Care Physician - MERRILL IRAHETA MD This Is Your Medications List Contact prescribing physician if questions or concerns amlodipine (amLODIPine 5 mg Tab) atenolol-chlorthalidone (atenolol-chlorthalidone 100 mg-25 mg Tab) nabumetone (nabumetone 500 mg Tab) simvastatin (simvastatin 40 mg Tab) tamsulosin (tamsulosin 0.4 mg Cap) Procedures Performed Transrectal biopsy of prostate using ultrasound guidance (08/26/2023), Cystoscopy (12/08/2022), Laser ablation of prostate (12/26/2014), Transrectal biopsy of prostate using ultrasound (US) guidance (12/26/2014), Flexible cystoscopy (12/14/2014), Transrectal biopsy of prostate using ultrasound (US) guidance (05/01/2013), Flexible cystoscopy (04/10/2005), Cataract, Colonoscopy. Discharge Vitals Temperature (Temporal Artery) 36.9 ???C Heart Rate (Peripheral) 58 Respiratory Rate 17 Blood Pressure 129/63 Height 185 cm Height 73 in Weight 115 kg Weight 253.531 lb BMI 33.6 What to do next You Need to Schedule the Following Appointments Follow Up with RICHARD MAGANA, Vernell Martinez, URL When: Where: [address] [place] [address]- You Need to Complete the Following PSA Total, Blood, Routine collect, 03/11/25, Order for future visit, Lab Collect, Prostate cancer, Required & Missing, Print Label By Order Location PSA Total, Blood, Routine collect, 06/11/25, Order for future visit, Lab Collect, Prostate cancer, Required & Missing, Print Label By Order Location Medications What When Instructions Unchanged amlodipine (amLODIPine 5 mg Tab) Contact prescribing physician if questions or concerns Unchanged atenolol-chlorthalidone (atenolol-chlorthalidone 100 mg-25 mg Tab) Contact prescribing physician if questions or concerns Unchanged nabumetone (nabumetone 500 mg Tab) Contact prescribing physician if questions or concerns Unchanged simvastatin (simvastatin 40 mg Tab) Contact prescribing physician if questions or concerns Unchanged tamsulosin (tamsulosin 0.4 mg Cap) Contact prescribing physician if questions or concerns Allergies penicillin (Unknown) Problems Ongoing - Any problem that you are currently receiving treatment for. BPH with urinary obstruction Elevated PSA Gross hematuria Hypertension Prostate cancer Simple renal cyst Patient Survey You may receive a survey via text or e-mail asking about your office visit. Please share your experience with us by completing your survey. We appreciate your feedback and thank you for choosing us for your care. Education Materials Prostate Cancer The prostate is a small [...] more likely to develop this condition if: ??? You are 65 years of age or older. ??? You have a family history of prostate cancer. ??? You have a family history of breast and ovarian cancer. ??? You have genes that are passed from parent to child (inherited), such as BRCA1 and BRCA2. ??? 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 men and men of descent are diagnosed with prostate cancer at higher rates than other men. The reasons for this are not well understood and are likely due to a combination of genetic and environmental factors. What are the signs or symptoms? Symptoms of this condition include: ??? Problems with urination. This may include: ? A weak or interrupted flow of urine. ? Trouble starting or stopping urination. ? Trouble emptying the bladder all the way. ? The need to urinate more often, especially at night. ??? Blood in urine or semen. ??? Persistent pain or discomfort in the lower back, lower abdomen, or hips. ??? Trouble getting an erection. ??? Weakness or numbness in the legs or feet. How is this diagnosed? This condition can be diagnosed with: ??? A digital rectal exam. For this exam, a health care provider inserts a gloved finger into the rectum to feel the prostate gland. ??? A blood test called a prostate-specific antigen (PSA) test. ??? A procedure in which a sample of tissue is taken from the prostate and checked under a microscope (prostate biopsy). ??? An imaging test called transrectal ultrasonography. Once the condition is diagnosed, tests will be done to determine how far the cancer has spread. This is called staging the cancer. Staging may involve imaging tests, such as a bone scan, CT scan (more content not included)...[facility] Office/Clinic Noteon [id number] Office/Clinic NoteUrology Office/Clinic Note Chief Complaint 8 months with PSA HPI Staff 79 year old male patient here for 8 month follow up with PSA. Previous Dx: Prostate Cancer, BPH, Gross Hematuria & Simple Renal Cyst S/P EBRT completed 01/03/24. Last Lupron Inj 05/12/[address] Gabriel 07/27/24. Plan is to f/u q6m w/PSA. Previous PSA 07/20/24- 0.25 Current PSA- 01/18/25- 0.51 *Tamsulosin 0.4mg qd Denies any urinary complaints at this time. History of Present Illness Tests reviewed: reviewed UA and PSA. I have reviewed the previous health record information and history for this patient from Dr. Ramos I have reviewed and verified the staff [...] See HPI. Physical Exam Vitals & Measurements T: 36.9 ???C(Temporal Artery) HR: 58(Peripheral) RR: 17 BP: 129/63 HT: 185 cm HT: 73 in WT: 253.531 lb WT: 115 kg BMI: 33.6 General Appearance: alert, no distress, well nourished, well developed male. Assessment/Plan 1. Prostate cancer (C61: Malignant neoplasm of prostate) PSA 01/12/22 - 9.29 11/14/22 - 7.8 & 21% 07/05/23 - 9.5 & 23.5% 01/31/24 - 0.59 01/18/25 - 0.51 MRI of prostate 03/17/22 - No MRI evidence of prostate malignancy. Asymmetrically decompressed L SV, finding is nonspecific, however no abnormal enhancement. Finding is likely a sequela of prior infectious of inflammatory process. S/p TRUS/bx 08/26/23. Path reveals Arrington 7 (4+3), GG3. Approximately 40% of tissue involvement. 2cores. Results reviewed with pt. PSMA PET 10/12/23 - neg for mets. S/p EBRT 01/03/24. Continues following with Dr. Gabriel. First Lupron 45 mgIM injection given 11/15/23. Pt declined 2nd Lupron 05/12/24. -Cont following with Dr. Gabriel -F/up in 6 mos w/ PSA (PSA in 3 mos) 2. BPH with urinary obstruction (N40.1: Benign prostatic hyperplasia with lower urinary tract symptoms) S/p laser vaporization of prostate by Dr. Duran, date unknown. MRI of prostate 03/17/22 - Prostate volume [address] AP w con 12/11/22 [facility] - Heterogenous lobular prostate gland with calcifications, measures 6.7 cmtransversely. Recommended in the past to start Dutasteride but pt did not want to start medication due to SEs. UA today negative for blood or infection. IPSS 4.5. Dr. Gabriel started pt on Flomax 0.4mg qd. Mentions he does not remember to take them daily. Encouraged pt to take med routinely. -Take Flomax as directed 3. Gross hematuria (R31.0: Gross hematuria) S/p Cysto 12/08/22 - Moderate Hypertrophy, Areas of the lateral lobe regrowth appears as though they have bled in the past. [1] Moderate trabeculation. CT AP w con 12/11/22 [facility] - neg for masses or filling defects. No recurrence since neg hematuria workup last year. 4. Simple renal cyst (N28.1: Cyst of kidney, acquired) CT AP w con 12/11/22 [facility] - Numerous cortical hypodensities, the larger lesions are simple cysts. Simple cysts do not require surveillance. Follow-up With When Contact Information Vernell RAMOS MD, URL [address] [place] [address]- Additional Instructions: 6 mos w/ PSA Patient Education Prostate Cancer I, Richelle Waddell, personally scribed for Dr. Ramos on 01/26/2025 11:54:19. . Documentation recorded by the scribe, Richelle Waddell, accurately reflects the services(s) I performed and decisions made by me. Authenticated by Dr. Ramos on 01/26/2025 11:56:41. Problem List/Past Medical History Ongoing BPH with [...] (05/01/2013), Flexible cystoscopy (04/10/2005), Cataract, Colonoscopy. Medications amLODIPine 5 mg Tab atenolol-chlorthalidone 100 mg-25 mg Tab nabumetone 500 mg Tab simvastatin 40 mg Tab tamsulosin 0.4 mg Cap Allergies penicillin (Unknown) Social History Tobacco For (more content not included)...[facility] HospitalComment on above:Result Comment: Electronically Signed By: Vernell RAMOS MD\.br\Date and Time Signed: 01/26/25 11:56 EDT\.br\Electronically Co-Signed By: Richelle Waddell\.br\Date and Time Co-Signed: 01/26/2511:54 EDTCNOVon [id number] Office Visit (RADTSA) AYALA DAMIAN ([id number]) 1945 M Date Time Provider Department 01/25/25 1:30 PM Adelfo GABRIEL During your visit today, we recorded the following information about you: Temperature Respiration Weight 96.9 degrees 16/minute 116 kg Chelsy Flores RN 01/25/2025 1:47 PM Signed AUA 8 CORINNE Melgar G Phillip, MD 01/25/2025 1:47 PM Signed Radiation Oncology - Follow Up Note PATIENT NAME: Ayala Damian PATIENT DIAGNOSIS: Prostate adenocarcinoma, 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 RADIATION SUMMARY: DATES OF TREATMENT: 11/25/2023 to 01/03/2024 AREA TREATED: Pelvis Prostate DELIVERED DOSE: Area: Pelvis Prostate 7,000 cGy in 39 fractions, 3Fields, IMRT, 10 MV with daily CBCT TOTAL: 7,000 cGy in 28 fractions ELAPSED TIME: 39 days. INTERVAL HISTORY: Doing well no new problems. PSA HISTORY: PSA (ng/mL) Date Value 01/18/2025 0.51 07/20/2024 0.25 01/31/2024 0.59 ALLERGIES Allergen Reactions Penicillins Hives tamsulosin (FLOMAX) 0.4 mg Take 1 capsule by mouth daily at bedtime. amLODIPine (NORVASC) 5 mg tablet Take 5 mg by mouth. Atenolol-Chlorthalidone 100-25 mg per tablet Take 1 tablet by mouth once daily. simvastatin (ZOCOR) 40 mg tablet Take 40 mg by mouth. nabumetone (RELAFEN) 500 mg tablet Refills(s) 0 REVIEW OF SYSTEMS: D/N = 4-5/1-2 Hematuria: none Dysuria: none Incontinence: none Urgency: none Catheter use: none Medications to aid urination: flomax - Total AUA Score: 8 Bowel movement frequency: 1/day Bowel movement quality: normal Blood per rectum: none Androgen deprivation: Lupron x 1 PHYSICAL EXAM: Temp 36.1 ?C (96.9 ?F) Resp 16 Wt 116 kg (255 lb 11.7 oz) SpO2 93% BMI (P) 34.68 kg/m? KPS: 100 General Appearance: Alert and oriented. No acute distress. Rectal exam is deferred. ASSESSMENT/PLAN: Prostate adenocarcinoma, initial PSA 9.5, biopsy Sahil score 4 + 3 = 7 (grade group 3), clinical stage T1c, N0, M0, stage IIC [T1-T2, N0, M0, PSA <20, GG 3] (AJCC 8th ed.), s/p definitive radiation completed December 2023. Doing well. No significant posttreatment issues. PSA has increased somewhat from last fall. Still relatively low value. This may represent effect of testosterone recovery after prior ADT. Recommend rechecking in 3 months. If continues to increase significantly would consider PSMA PET for further evaluation. Plan to see patient back in 3 months. Signed by: Adelfo Gabriel MD cc: Merrill Iraheta MD ([facility]) [address] [place] [address] Olga Zamudio, RN 04/18/2025 12:06 PM Signed Addended by: OLGA MONGE on: 04/18/2025 12:06 PM Modules accepted: Orders Allergies As of Date: 01/25/2025 Noted Allergy Reaction PENICILLINS 09/21/2023 4 - Hives Date Reviewed: 01/25/2025 Reviewed by: Chelsy Flores, CORINNE - Fully Assessed Reason for Visit: Prostate Cancer [590] Primary Visit Diagnosis:Malignant neoplasm of prostate (HCC) [C61] Prescriptions as of 04/18/2025 - tamsulosin (FLOMAX) 0.4 mg Take 1 capsule by mouth daily at bedtime. - amLODIPine (NORVASC) 5 mg tablet Take 5 mg by mouth. - Atenolol-Chlorthalidone 100-25 mg per tablet Take 1 tablet by mouth once daily. - simvastatin (ZOCOR) 40 mg tablet Take 40 mg by mouth. - nabumetone (RELAFEN) 500 mg tablet Refills(s) 0 Problem List As Of Date 01/25/2025 Noted Resolved Prostate cancer (HCC) [C61] 07/27/2024 Level of Service: OFFICE/OUTPATIENT ESTABLISHED LOW MDM 20 MIN [98855] Additional E/M codes: VISIT CPLX INHERENT EANDM ASSOC WITH MED * Disposition: Return in about 3 months (around 04/26/2025). Follow-up and Disposition History for Encounter Date Provider Department Center 01/25/2025 [id number] GABRIEL Letter Text Encounter Status:Closed by Adelfo GABRIEL on 01/25/25[facility] ColumbusCNOVSPon [id number] (SP) Office (HEMASA) AYALA DAMIAN ([id number]) 1945 M Date Time Provider Department 01/25/25 2:00 PM RADHA ZAPIEN During your visit today, we recorded the following information about you: Radha Zapien APRN.CNP 01/26/2025 8:59 AM Signed Ayala Damian returns for scheduled follow-up. Patient was seen and examined by Dr. Gabriel today. He is doing well. He offers no new complaints today. He denies any unusual pain. No bone pain. He is urinating well. No pain, burning or difficulty with urination. No hematuria. He denies any problems with his bowels. No constipation or diarrhea. Patient was given treatment summary and survivorship care plan for prostate cancer. Patient will follow-up as scheduled. Radha Zapien APRN.CNP Allergies As of Date: 01/25/2025 Noted Allergy Reaction PENICILLINS 09/21/2023 4 - Hives Date Reviewed: 01/25/2025 Reviewed by: Chelsy Flores, CORINNE - Fully Assessed Primary Visit Diagnosis:Prostate cancer (HCC) [C61] Prescriptions as of 02/04/2025 - tamsulosin (FLOMAX) 0.4 mg Take 1 capsule by mouth daily at bedtime. - amLODIPine (NORVASC) 5 mg tablet Take 5 mg by mouth. - Atenolol-Chlorthalidone 100-25 mg per tablet Take 1 tablet by mouth once daily. - simvastatin (ZOCOR) 40 mg tablet Take 40 mg by mouth. - nabumetone (RELAFEN) 500 mg tablet Refills(s) 0 Problem List As Of Date 01/25/2025 Noted Resolved Prostate cancer (HCC) [C61] 07/27/2024 Encounter Status:Closed by RADHA ZAPIEN on 01/26/25NoOhio[facility] PSA SERPL-MCNCon 28-47-3277PFC PSA SERPL-MCNC0.51 ng/mLNINF - 2.60 ng/mLNOMS HealthcareComment on above:Total PSA test methodology used is the Electrochemiluminescence Immunoassay by [employer]. Total PSA values by differing methodologies cannot be interchanged.Specimen Type: BLOOD SPECIMEN Ordering Facility: [facility] Address: [address] [place] [address] Original Ordering Provider: Adelfo FALKCitizens Memorial HealthcareNatalia SerPl-mCncon 24-88-7274Hbnicbgm specific Ag [Mass/Vol]0.51 ng/mLNormal<2.60 [facility] on above:Order Comment: Specimen Type: BLOOD SPECIMEN Ordering Facility: External Submitter Address: , ,Result Comment: Total PSA test methodology used is the Electrochemiluminescence Immunoassay by [employer]. Total PSA values by differing methodologies cannot be interchanged.Performed By: #### 3016-3 #### [facility] CLIA [id number] [address] [place] [address] [place] #### 99154-4 #### [facility] CLIA [id number] [address] [place] [address] [place] [facility] CLIA [id number] [address] [place] [address] 20708RWPArx 31-94-4227CGMHWvbtiv Visit (RADTSA) AYALA DAMIAN ([id number]) 1945 M Date Time Provider Department 07/27/24 1:15 PM Adelfo GABRIEL During your visit today, we recorded the following information about you: Temperature Pulse Respiration Blood pressure 98.2 degrees 63/minute 18/minute 137/66 Weight 117.6 kg Chelsy Flores RN 07/27/2024 1:31 PM Signed AUA 5 CORINNE Melgar G Phillip, MD 07/27/2024 1:37 PM Signed Radiation Oncology - Follow Up Note PATIENT NAME: Ayala Damian PATIENT DIAGNOSIS: Prostate adenocarcinoma, 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 RADIATION SUMMARY: DATES OF TREATMENT: 11/25/2023 to 01/03/2024 AREA TREATED: Pelvis Prostate DELIVERED DOSE: Area: Pelvis Prostate 7,000 cGy in 39 fractions, 3Fields, IMRT, 10 MV with daily CBCT TOTAL: 7,000 cGy in 28 fractions ELAPSED TIME: 39 days. INTERVAL HISTORY: Doing well no new problems. PSA HISTORY: PSA (ng/mL) Date Value 07/20/2024 0.25 01/31/2024 0.59 ALLERGIES Allergen Reactions Penicillins Hives tamsulosin (FLOMAX) 0.4 mg Take 1 capsule by mouth daily at bedtime. amLODIPine (NORVASC) 5 mg tablet Take 5 mg by mouth. Atenolol-Chlorthalidone 100-25 mg per tablet Take 1 tablet by mouth once daily. simvastatin (ZOCOR) 40 mg tablet Take 40 mg by mouth. nabumetone (RELAFEN) 500 mg tablet Refills(s) 0 REVIEW OF SYSTEMS: D/N = 4-5/1-2 Hematuria: none Dysuria: none Incontinence: none Urgency: none Catheter use: none Medications to aid urination: flomax - Total AUA Score: 5 Bowel movement frequency: 1/day Bowel movement quality: normal Blood per rectum: none Androgen deprivation: Currently being treated with Lupron. PHYSICAL EXAM: BP 137/66 Pulse 63 Temp 36.8 ?C (98.2 ?F) Resp 18 Wt 117.6 kg (259 lb 4.2 oz) SpO2 94% BMI (P) 35.16 kg/m? KPS: 100 General Appearance: Alert and oriented. No acute distress. Rectal exam is deferred. ASSESSMENT/PLAN: Prostate adenocarcinoma, initial PSA 9.5, biopsy Arrington score 4 + 3 = 7 (grade group 3), clinical stage T1c, N0, M0, stage IIC [T1-T2, N0, M0, PSA <20, GG 3] (AJCC 8th ed.), s/p definitive radiation completed December 2023. Doing well. PSA continues to respond very well. No significant posttreatment related issues. Recommend follow-up in 6 months. He has continued follow-up with his urologist Dr. Ramos. Signed by: Adelfo Gabriel MD cc: Merrill Iraheta MD ([facility]) [address] [place] [address] No referring provider defined for this encounter. Allergies As of Date: 07/27/2024 Noted Allergy Reaction PENICILLINS 09/21/2023 4 - Hives Date Reviewed: 07/27/2024 Reviewed by: Chelsy Flores, RN - Fully Assessed Reason for Visit: Prostate Cancer [590] Primary Visit Diagnosis:Malignant neoplasm of prostate (HCC) [C61] Order(s):PROSTATE-SPECIFIC ANTIGEN DIAGNOSTIC [SQPSA] Order #: [id number] FUTURE Prescriptions as of 07/27/2024 - tamsulosin (FLOMAX) 0.4 mg Take 1 capsule by mouth daily at bedtime. - amLODIPine (NORVASC) 5 mg tablet Take 5 mg by mouth. - Atenolol-Chlorthalidone 100-25 mg per tablet Take 1 tablet by mouth once daily. - simvastatin (ZOCOR) 40 mg tablet Take 40 mg by mouth. - nabumetone (RELAFEN) 500 mg tablet Refills(s) 0 Problem List As Of Date 07/27/2024 Noted Resolved Prostate cancer (HCC) [C61] 07/27/2024 Visit Notes: >> Chelsy Flores RN [facility] Jul 27, 2024 1:23 PM Status: Signed AUA 5 Chelsy Flores RN Disposition: Return in about 6 months (around 01/25/2025). Follow-up and Disposition History for Encounter Date Provider Department Center 07/27/2024 [id number] GABRIEL [facility] Encounter Status:Closed by Adelfo GABRIEL on 07/27/24NoalCSelect Medical [facility] - DublinBaarh [facility] metabolic 2000 panelon 48-40-4010Oqels gap [Moles/Vol]15 mmol/L Normal8-15[facility] on above:Order Comment: Specimen Type: BLOOD SPECIMEN Ordering Facility: External Submitter Address: , ,Performed By: #### 3016-3 #### [facility] CLIA [id number] [address] [place] [address] [place] #### 02911-9 #### [facility] CLIA [id number] [address] [place] [address] [place] [facility] CLIA [id number] [address] [place], [place] [address]Calcium [Mass/Vol]10.0 mg/dLNormal8.5-10.2CPremier Health Miami Valley Hospital North on above:Order Comment: Specimen Type: BLOOD SPECIMEN Ordering Facility: External Submitter Address: , ,Performed By: #### 3016-3 #### [facility] CLIA [id number] [address] [place] [address] [place] #### 01921-1 #### [facility] CLIA [id number] [address] [place] [address] [place] [facility] CLIA [id number] [address] [place], [place] [address]Yxudacoo [Moles/Vol]94 mmol/GWum93-334BgmlgfxzgOhiohealth Shelby HospitalComment on above:Order Comment: Specimen Type: BLOOD SPECIMEN Ordering Facility: External Submitter Address: , ,Performed By: #### 3016-3 #### [facility] CLIA [id number] [address] [place] [address] [place] #### 30540-6 #### [facility] CLIA [id number] [address] [place] [address] [place] [facility] CLIA [id number] [address] [place] [address]CL8 [Moles/Vol]27 mmol/PAmymfm40-44GkpsnusxcOhiohealth Shelby Hospital Comment on above:Order Comment: Specimen Type: BLOOD SPECIMEN Ordering Facility: External Submitter Address: , ,Performed By: #### 3016-3 #### [facility] CLIA [id number] [address] [place] [address] [place] #### 05278-4 #### [facility] CLIA [id number] [address] [place] [address] [place] [facility] CLIA [id number] [address] [place] [address] 977[address]Juqqkxlnkv [Mass/Vol]0.86 mg/dLNormal0.73-1.22Ohiohealth Shelby HospitalComhenry ford jack[facility] on above:Order Comment: Specimen Type: BLOOD SPECIMEN Ordering Facility: External Submitter Address: , ,Performed By: #### 3016-3 #### [facility] CLIA [id number] [address] [place] [address] [place] #### 48596-7 #### [facility] CLIA [id number] [facility] [place] [address] [facility] CLIA [id number] [address] [place], [place] [address]Sajgwooozw and Glomerular filtration rate.predicted panel (S/P/Bld)90 mL/min/1.73m???Normal>=60Ohiohealth Shelby HospitalComment on above: Order Comment: Specimen Type: BLOOD SPECIMEN Ordering Facility: External Submitter Address: , ,Result Comment: Estimated Glomerular Filtration Rate (eGFR) is calculated using the 2020 CKD-EPI creatinine equation. This equation utilizes serum creatinine, sex, and age as parameters. The creatinine assay has traceable calibration to isotope dilution-mass spectrometry. Refer to KDIGO guidelines f or clinical interpretation. In patients with unstable renal function, e.g. those with acute kidney injury, the eGFR may not accurately reflect actual GFR. Performed By: #### 3016-3 #### [facility] CLIA [id number] [address] [place] [address] OF [facility] #### 60336-8 #### [facility] CLIA [id number] [facility] [place] [id number] [place] [facility] CLIA [id number] [address] [place] [address] 63426Znwxflb [Mass/Vol]131 mg/zAQsyp21-41SuuxctyhmOhiohealth Shelby Hospital Comment on above:Order Comment: Specimen Type: BLOOD SPECIMEN Ordering Facility: External Submitter Address: , ,Result Comment: The [place] Diabetes Association (ADA) provides guidance for cutoff values for fasting glucose and random glucose. The ADA defines fasting as no [...] Standards of Medical Care in Diabetes 2016, [place] Diabetes Association. Diabetes Care. 2016.39(Suppl 1).Performed By: #### 3016-3 #### [facility] CLIA [id number] [address] [place] [address] OF [place] #### 30429-9 #### [facility] CLIA [id number] [address] [place], [place] [address] [facility] CLIA [id number] [address] [place] [address] 77233Bxnltquat [Moles/Vol]3.5 mmol/LLow3.7-5.1CPremier Health Miami Valley Hospital [facility] on above:Order Comment: Specimen Type: BLOOD SPECIMEN Ordering Facility: External Submitter Address: , ,Performed By: #### 3016-3 #### [facility] CLIA [id number] [address] [place] [address] [place] #### 40808-7 #### [facility] CLIA [id number] [address] [place] [address] OF [facility] CLIA [id number] [address] [place] [address] 13009Fviyve [Moles/Vol]136 mmol/GJbbrsn562-553LxoyjcvoxPremier Health [facility] on above:Order Comment: Specimen Type: BLOOD SPECIMEN Ordering Facility: External Submitter Address: , ,Performed By: #### 3016-3 #### [facility] CLIA [id number] [address] [place] [address] OF [place] #### 36237-1 #### [facility] CLIA [id number] [address] [place] [address] OF [place] [facility] CLIA [id number] [address] [place] [address]Hhnk nitrogen [Mass/Vol]11 mg/dLNormal9-24[facility] on above:Order Comment: Specimen Type: BLOOD SPECIMEN Ordering Facility: External Submitter Address: , ,Performed By: #### 3016-3 #### [facility] CLIA [id number] [address] [place] [address] [place] #### 13621-3 #### [facility] CLIA [id number] [address] [place] [address] LAB CLIA [id number] [address] [place] [address] 75451WXW W Auto Differential panel (Bld)on 75-13-0803Olbuuxpai (Bld) [#/Vol]0.05 10*3/uLNormal<0.11CSelect Medical OhioHealth Rehabilitation Hospital - DublinComment on above: Order Comment: Specimen Type: BLOOD SPECIMEN Ordering Facility: External Submitter Address: , ,Performed By: #### 3016-3 #### [facility] CLIA [id number] [address] [place] [address] [place] #### 23456-5 #### [facility] CLIA [id number] [address] [place] [address] LAB CLIA [id number] [address] [place] [address] 88044Umbitaclj/100 WBC (Bld)1.0 %NormalOhiohealth Shelby Hospital Comment on above:Order Comment: Specimen Type: BLOOD SPECIMEN Ordering Facility: External Submitter Address: , ,Performed By: #### 3016-3 #### [facility] CLIA [id number] [address] [place] [address] [place] #### 55977-2 #### [facility] CLIA [id number] [address] [place] [address] OF [place] [facility] CLIA [id number] [address] [place] [address] 83128Hphlyfystppk cell count method Nom (Bld)AutoNormalClevelECU Health Medical Centerment on above:Order Comment: Specimen Type: BLOOD SPECIMEN Ordering Facility: External Submitter Address: , ,Performed By: #### 3016-3 #### [facility] CLIA [id number] [address] [place] [address] [place] #### 34828-0 #### [facility] CLIA [id number] [address] [place] [id number] [facility] CLIA [id number] [address] [place] [address] 648[address]Jiqyjyxpety (Bld) [#/Vol]0.15 10*3/uLNormal<0.46[facility] on above:Order Comment: Specimen Type: BLOOD SPECIMEN Ordering Facility: External Submitter Address: , ,Performed By: #### 3016-3 #### [facility] CLIA [id number] [facility] OF [place] #### 84023-6 #### [facility] CLIA [id number] [address] [place] [address] [place] [facility] CLIA [id number] [address] [place] [address] 17516Bmcvplssvth/100 WBC (Bld)2.9 %NormalOhiohealth Shelby Hospital Comment on above:Order Comment: Specimen Type: BLOOD SPECIMEN Ordering Facility: External Submitter Address: , ,Performed By: #### 3016-3 #### [facility] CLIA [id number] [facility] [place] [address] [place] #### 69312-2 #### [facility] CLIA [id number] [facility] [place] [id number] [place] [facility] CLIA [id number] [address] [place] [address] 32181Lxtoiwumpws distribution width (RBC) [Ratio]12.2 %Normal 11.5-15.0[facility] on above:Order Comment: Specimen Type: BLOOD SPECIMEN Ordering Facility: External Submitter Address: , ,Performed By: #### 3016-3 #### [facility] CLIA [id number] [address] [place] [address] [place] #### 70113-3 #### [facility] CLIA [id number] [address] [place] [address] [place] [facility] CLIA [id number] [address] [place] [address] 71638Hfvfytirhv (Bld) [Volume fraction]37.8 %Low39.0-51.0[facility] on above:Order Comment: Specimen Type: BLOOD SPECIMEN Ordering Facility: External Submitter Address: , ,Performed By: #### 3016-3 #### [facility] CLIA [id number] [address] [place] [address] [place] #### 81693-4 #### [facility] CLIA [id number] [address] [place] [address] [place] [facility] CLIA [id number] [address] [place] [address] 657[address]Foxfsbwljo (Bld) [Mass/Vol]13.7 g/qUYgmoya64.0-17.0[facility] on above:Order Comment: Specimen Type: BLOOD SPECIMEN Ordering Facility: External Submitter Address: , ,Performed By: #### 3016-3 #### [facility] CLIA [id number] [address] [place] [address] [place] #### 71501-8 #### [facility] CLIA [id number] [facility] LAB CLIA [id number] [address] [place] [address] 683[address]Vayuyygx granulocytes (Bld) [#/Vol]10*3/uLNormal<0.10[facility] on above:Order Comment: Specimen Type: BLOOD SPECIMEN Ordering Facility: External Submitter Address: , ,Performed By: #### 3016-3 #### [facility] CLIA [id number] [address] [place] [address] [place] #### 42354-1 #### [facility] CLIA [id number] [address] [place] [address] OF [facility] CLIA [id number] [address] [place] [address] 62092Lnalzvly granulocytes/100 WBC (Bld)0.4 %NormalPremier Health [facility] on above:Order Comment: Specimen Type: BLOOD SPECIMEN Ordering Facility: External Submitter Address: , ,Performed By: #### 3016-3 #### [facility] CLIA [id number] [address] [place] [address] [place] #### 62711-4 #### [facility] CLIA [id number] [address] [place] [address] [place] [facility] CLIA [id number] [address] [place] [address] 43227Jziulpykdne (Bld) [#/Vol]0.32 10*3/uLLow1.00-4.00[facility] on above:Order Comment: Specimen Type: BLOOD SPECIMEN Ordering Facility: External Submitter Address: , ,Performed By: #### 3016-3 #### [facility] CLIA [id number] [address] [place] [address] [place] #### 12790-1 #### [facility] CLIA [id number] [address] [place] [facility] CLIA [id number] [address] [place] [address] 96625Owpskqrpwsj/100 WBC (Bld)6.3 %NormalOhiohealth Shelby Hospital Comment on above:Order Comment: Specimen Type: BLOOD SPECIMEN Ordering Facility: External Submitter Address: , ,Performed By: #### 3016-3 #### [facility] CLIA [id number] [address] [place] [address] [place] #### 12863-1 #### [facility] CLIA [id number] [address] [place] [address] [place] [facility] CLIA [id number] [address] [place] [address] 80845ZPM (RBC) [Entitic mass]33.3 lwAnyanu01.0-34.0Ohiohealth Shelby HospitalComment on above:Order Comment: Specimen Type: BLOOD SPECIMEN Ordering Facility: External Submitter Address: , ,Performed By: #### 3016-3 #### [facility] CLIA [id number] [address] [place] [address] [place] #### 53161-7 #### [facility] CLIA [id number] [address] [place] [address] [place] [facility] CLIA [id number] [address] [place] [address] 59656RVCN (RBC) [Mass/Vol]36.2 g/oGVuvk36.5-36.0[facility] on above:Order Comment: Specimen Type: BLOOD SPECIMEN Ordering Facility: External Submitter Address: , ,Performed By: #### 3016-3 #### [facility] CLIA [id number] [address] [place] [address] [place] #### 96290-8 #### [facility] CLIA [id number] [address] [place] [address] LAB CLIA [id number] [address] [place] [address] 48577KCM (RBC) [Entitic vol]91.7 iQKbdolm05.0-100.0Ohiohealth Shelby HospitalComment on above:Order Comment: Specimen Type: BLOOD SPECIMEN Ordering Facility: External Submitter Address: , ,Performed By: #### 3016-3 #### [facility] CLIA [id number] [address] [place] [address] [place] #### 39525-5 #### [facility] CLIA [id number] [address] [place] [address] LAB CLIA [id number] [address] [place] [address] 38041Lksvqyfct (Bld) [#/Vol]0.60 10*3/uLNormal<0.87Ohiohealth Shelby HospitalComment on above:Order Comment: Specimen Type: BLOOD SPECIMEN Ordering Facility: External Submitter Address: , ,Performed By: #### 3016-3 #### [facility] CLIA [id number] [address] [place] [address] [place] #### 03758-2 #### [facility] CLIA [id number] [address] [place] [address] OF [facility] CLIA [id number] [address] [place] [address] 58038Ozuxveesi/100 WBC (Bld)11.7 %NormalCleSelect Medical [facility] Comment on above:Order Comment: Specimen Type: BLOOD SPECIMEN Ordering Facility: External Submitter Address: , ,Performed By: #### 3016-3 #### [facility] CLIA [id number] [address] [place] [address] [place] #### 48830-3 #### [facility] CLIA [id number] [address] [place] [address] OF [facility] CLIA [id number] [address] [place] [address] 33135Eggtnyqijhe (Bld) [#/Vol]3.97 10*3/uLNormal1.45-7.50[facility] on above:Order Comment: Specimen Type: BLOOD SPECIMEN Ordering Facility: External Submitter Address: , ,Performed By: #### 3016-3 #### [facility] CLIA [id number] [address] [place] [address] [place] #### 19774-3 #### [facility] CLIA [id number] [address] [place] [address] [place] [facility] CLIA [id number] [address] [place] [address] 62698Xeetzqoekgy/100 WBC (Bld)77.7 %NormalPremier Health [facility] on above:Order Comment: Specimen Type: BLOOD SPECIMEN Ordering Facility: External Submitter Address: , ,Performed By: #### 3016-3 #### [facility] CLIA [id number] [address] [place] [address] [place] #### 35893-8 #### [facility] CLIA [id number] [address] [place] [address] [place] [facility] CLIA [id number] [address] [place] [address] 45554Njtcgxkvj RBC (Bld) [#/Vol]10*3/uLNormal<0.01[facility] on above:Order Comment: Specimen Type: BLOOD SPECIMEN Ordering Facility: External Submitter Address: , ,Performed By: #### 3016-3 #### [facility] CLIA [id number] [facility] [place] [address] [place] #### 17175-3 #### [facility] CLIA [id number] [address] [place] [address] [place] [facility] CLIA [id number] [address] [place] [address] 21528Mikfbtogg RBC/100 WBC (Bld) [Ratio]0.0 /100 WBCNormalCPremier Health Miami Valley Hospital North on above:Order Comment: Specimen Type: BLOOD SPECIMEN Ordering Facility: External Submitter Address: , ,Performed By: #### 3016-3 #### [facility] CLIA [id number] [address] [place] [address] [place] #### 29190-5 #### [facility] CLIA [id number] [address] [place] [address] [place] [facility] CLIA [id number] [address] [place] [address] 05113Wlbklwoq mean volume (Bld) [Entitic vol]10.0 fLNormal9.0-12.7 [facility] on above:Order Comment: Specimen Type: BLOOD SPECIMEN Ordering Facility: External Submitter Address: , ,Performed By: #### 3016-3 #### [facility] CLIA [id number] [address] [place] [address] [place] #### 20114-4 #### [facility] CLIA [id number] [address] [place], [place] [address] [place] [facility] CLIA [id number] [address] [place] [address] 45786Wmuzmzduo (Bld) [#/Vol]147 10*3/iQWbg669-091Uctqaaqfj Clinic ClevelandComment on above:Order Comment: Specimen Type: BLOOD SPECIMEN Ordering Facility: External Submitter Address: , ,Result Comment: Results checked and verified.No clot detected. Performed By: #### 3016-3 #### [facility] CLIA [id number] [address] [place] [address] [place] #### 48744-9 #### [facility] CLIA [id number] [address] [place] [address] OF [facility] CLIA [id number] [address] [place] [address] 85250RQE (Bld) [#/Vol]4.12 10*6/uLLow4.20-6.00[facility] on above:Order Comment: Specimen Type: BLOOD SPECIMEN Ordering Facility: External Submitter Address: , ,Performed By: #### 3016-3 #### [facility] CLIA [id number] [address] [place] [address] [place] #### 34247-5 #### [facility] CLIA [id number] [address] [place] [address] OF [facility] CLIA [id number] [address] [place] [address] 43851VZI (Bld) [#/Vol]5.11 10*3/uLNormal3.70-11.00[facility] on above:Order Comment: Specimen Type: BLOOD SPECIMEN Ordering Facility: External Submitter Address: , ,Performed By: #### 3016-3 #### [facility] CLIA [id number] [address] [place] [address] [place] #### 21309-5 #### [facility] CLIA [id number] [address] [place] [address] [place] [facility] CLIA [id number] [address] [place] [address] 28705FGN CBC W AUTO DIFF BLDon 66-42-8146Nywkegruy/100 WBC (Bld)1.0 %[facility] BASOPHILS # BLD AUTO0.05NINFFulton State Hospital DIFFERENTIAL METHOD BLDAutoNOMPike County Memorial Hospital EOSINOPHIL # BLD AUTO0.15NINFNODeaconess Incarnate Word Health System CCF LYMPHOCYTES # BLD AUTO0.32LowSainte Genevieve County Memorial HospitalF MONOCYTES # BLD AUTO0.60NINF [facility] HospitalF NEUTROPHILS # BLD AUTO3.97NOSt. Joseph Medical CenterF NRBC # BLD AUTO <0.01NINFSainte Genevieve County Memorial HospitalF NRBC/100 WBC BLD-RTO0.0/100 WBCSainte Genevieve County Memorial HospitalF PLATELET # BLD [id number] Memorial HospitalComment on above:Results checked and verified.No clot detected.CCF PMV BLD AUTO10.0 fL9.0 - 12.7 fLSainte Genevieve County Memorial HospitalF WBC # BLD AUTO5.11NODeaconess Incarnate Word Health SystemEosinophils/100 WBC (Bld)2.9 %[facility] Erythrocyte distribution width (RBC) [Ratio]12.2 %11.5 - 15.0 %[facility] Hematocrit (Bld) [Volume fraction]37.8 %Low39.0 - 51.0 %[facility] Hemoglobin (Bld) [Mass/Vol]13.7 g/dL13.0 - 17.0 g/dLSainte Genevieve County Memorial Hospital GRANULOCYTES # BLD AUTO<0.03NINFSainte Genevieve County Memorial Hospital GRANULOCYTES/LEUK NFR BLD AUTO0.4 %[facility] Memorial HospitalInterpretation and review of laboratory resultsAbnormal Jefferson Memorial HospitalLymphocytes/100 WBC (Bld)6.3 %[facility] HospitalH (RBC) [Entitic mass]33.3 pg26.0 - 34.0 pgSt. Louis Children's HospitalHC (RBC) [Mass/Vol]36.2 g/fOWaah36.5 - 36.0 g/dLSt. Louis Children's HospitalV (RBC) [Entitic vol]91.7 fL80.0 - 100.0 fLJefferson Memorial HospitalMonocytes/100 WBC (Bld)11.7 %[facility] Memorial HospitalNeutrophils/100 WBC (Bld) 77.7 %[facility] Memorial HospitalRBC (Bld) [#/Vol]4.12 10*6/uLLow4.20 - 6.00 m/uLNOMA HealthcareSpecimen Type: BLOOD SPECIMEN Ordering Facility: External Submitter Address: , , Original Ordering Provider: MERRILL AVILA TjotovtgjuLpW6g (Bld)on [id number] glucose Estimated from glycated hemoglobin (Bld) [Mass/Vol]103 mg/dLNormalCPremier Health [facility] Hospital [facility] on above:Order Comment: Specimen Type: BLOOD SPECIMEN Ordering Facility: External Submitter Address: , ,Result Comment: eAG: (Estimated average glucose) is a calculated value from HgbA1c and is community health representative of the average blood glucose level in the last 2-3 month period.Performed By: #### 3016-3 #### [facility] CLIA [id number] [address] [place] [address] [place] #### 19394-3 #### [facility] CLIA [id number] [address] [place] [address] LAB CLIA [id number] [address] [place] [address] 60605PkR0v (Bld) [Mass fraction]5.2 %Normal4.3-5.6CPremier Health Miami Valley Hospital [facility] on above:Order Comment: Specimen Type: BLOOD SPECIMEN Ordering Facility: External Submitter Address: , ,Result Comment: [place] [employer] guidelines indicate that patients with HgbA1c in the range 5.7-6.4% are at increased risk for development of diabetes, and intervention by lifestyle modification may be beneficial. HgbA1c greater or equal to 6.5% is considered diagnostic of diabetes.Performed By: #### 3016-3 #### [facility] CLIA [id number] [address] [place] [address] [place] #### 00550-3 #### [facility] CLIA [id number] [address] [place] [address] LAB CLIA [id number] [address] [place] [address] 24149Stpuluu function 2000 panelon 00-30-6399Fclrgdj [Mass/Vol]4.2 g/dLNormal3.9-4.9CPremier Health Miami [facility] Hospital [facility] on above:Order Comment: Specimen Type: BLOOD SPECIMEN Ordering Facility: External Submitter Address: , ,Performed By: #### 3016-3 #### [facility] CLIA [id number] [address] [place] [address] [place] #### 20980-3 #### [facility] CLIA [id number] [address] [place] [address] [place] [facility] CLIA [id number] [address] [place] [address] 67167ILD [Catalytic activity/Vol]75 U/XTganqz85-283HwcrwpczyPremier Health [facility] Hospital [facility] on above:Order Comment: Specimen Type: BLOOD SPECIMEN Ordering Facility: External Submitter Address: , ,Performed By: #### 3016-3 #### [facility] CLIA [id number] [address] [place] [address] [place] #### 03562-1 #### [facility] CLIA [id number] [address] [place] [address] [place] [facility] CLIA [id number] [address] [place] [address] 16421NWY [Catalytic activity/Vol]90 U/FUbdl59-76VzqkevfodPremier Health [facility] Hospital [facility] on above:Order Comment: Specimen Type: BLOOD SPECIMEN Ordering Facility: External Submitter Address: , ,Performed By: #### 3016-3 #### [facility] CLIA [id number] [address] [place] [address] [place] #### 45510-9 #### [facility] CLIA [id number] [address] [place] [address] [place] [facility] CLIA [id number] [address] [place], [place] [address]RJH [Catalytic activity/Vol]110 U/KMzyj39-81UnwknokwuPremier Health [facility] Hospital [facility] on above:Order Comment: Specimen Type: BLOOD SPECIMEN Ordering Facility: External Submitter Address: , ,Performed By: #### 3016-3 #### [facility] CLIA [id number] [address] [place] [address] [place] #### 27137-2 #### [facility] CLIA [id number] [address] [place] [address] [place] [facility] CLIA [id number] [address] [place] [address] 07199Gsdpyvtpm [Mass/Vol]0.8 mg/dLNormal0.2-1.3CPremier Health [facility] on above:Order Comment: Specimen Type: BLOOD SPECIMEN Ordering Facility: External Submitter Address: , ,Performed By: #### 3016-3 #### [facility] CLIA [id number] [address] [place] [address] [place] #### 77904-7 #### [facility] CLIA [id number] [address] [place] [address] [place] [facility] CLIA [id number] [address] [place] [address] 68662Cfuawamvv.conjugated [Mass/Vol]0.3 mg/dLHigh<0.2CPremier Health [facility] on above:Order Comment: Specimen Type: BLOOD SPECIMEN Ordering Facility: External Submitter Address: , ,Performed By: #### 3016-3 #### [facility] CLIA [id number] [address] [place] [address] [place] #### 71011-1 #### [facility] CLIA [id number] [address] OF [facility] CLIA [id number] [address] [place] [address] 91323Iqbwtjw [Mass/Vol]6.8 g/dLNormal6.3-8.0[facility] on above:Order Comment: Specimen Type: BLOOD SPECIMEN Ordering Facility: External Submitter Address: , ,Performed By: #### 3016-3 #### [facility] CLIA [id number] [address] [place] [address] [place] #### 69076-0 #### [facility] CLIA [id number] [address] [place] [address] OF [facility] CLIA [id number] [address] [place] [address] 67593Eegqw [address] [facility] 17-90-4414Bdslgxosjyx [Mass/Vol]157 mg/dL Normal<200[facility] on above:Order Comment: Specimen Type: BLOOD SPECIMEN Ordering Facility: External Submitter Address: , ,Result Comment: <200 mg/dL, Desirable 200-239 mg/dL, Borderline high >239 mg/dL, HighPerformed By: #### 3016-3 #### [facility] CLIA [id number] [address] [place] [address] [place] #### 06728-3 #### [facility] CLIA [id number] [address] [place] [address] OF [facility] CLIA [id number] [address] [place] [address] 03211Arhtgmgecrs in HDL [Mass/Vol]44 mg/dLNormal>39[facility] on above:Order Comment: Specimen Type: BLOOD SPECIMEN Ordering Facility: External Submitter Address: , ,Result Comment: 40-59 mg/dL, Acceptable >59 mg/dL, High: Negative risk factor for coronary heart disease <40 mg/dL, Low: Positive risk factor for coronary heart diseasePerformed By: #### 3016-3 #### [facility] CLIA [id number] [address] [place] [address] [place] #### 16510-2 #### [facility] CLIA [id number] [address] [place] [address] OF [facility] CLIA [id number] [address] [place] [address] 94649Vactfjyfdoh in LDL [Mass/Vol]97 mg/dLNormal<100[facility] on above:Order Comment: Specimen Type: BLOOD SPECIMEN Ordering Facility: External Submitter Address: , ,Result Comment: <100 mg/dL, Optimal 100-129 mg/dL, Near optimal/above optimal 130-159 mg/dL, Borderline high 160-189 mg/dL, High >189 mg/dL, Very high Secondary prevention optimal LDL Cholesterol levels are recommended to be < 70 mg/dLPerformed By: #### 3016-3 #### [facility] CLIA [id number] [address] [place] [address] [place] #### 82052-6 #### [facility] CLIA [id number] [address] [place] [address] [place] [facility] CLIA [id number] [address] [place] [address] 15481Oakmocsbnlq in LDL/Cholesterol in HDL [Mass ratio]2.20 {ratio} Normal<2.54[facility] on above:Order Comment: Specimen Type: BLOOD SPECIMEN Ordering Facility: External Submitter Address: , ,Result Comment: Reference: 1. National Cholesterol Education Program ATP III Guideline At-A-Glance Quick Desk Reference: National Heart, Lung, and Blood [place]. National Institutes of Health. 2001: NIH Publication No. 01-3305. 2. An International Atherosclerosis Society position paper: global recommendations for the management of dyslipidemia: executive summary, Atherosclerosis. 2014: 232(2):410-413.Performed By: #### 3016-3 #### [facility] CLIA [id number] [address] [place] [address] [place] #### 42908-6 #### [facility] CLIA [id number] [address] [place] [id number] [place] [facility] CLIA [id number] [address] [place] [address] 76195Leywellobkl in VLDL [Mass/Vol]16 mg/dLNormal<30[facility] on above:Order Comment: Specimen Type: BLOOD SPECIMEN Ordering Facility: External Submitter Address: , ,Performed By: #### 3016-3 #### [facility] CLIA [id number] [address] [place] [address] [place] #### 79312-0 #### [facility] CLIA [id number] [address] [place] [facility] CLIA [id number] [address] [place] [address] 64741Njnsrxlzpto non HDL [Mass/Vol]113 mg/dLNormal<130[facility] on above:Order Comment: Specimen Type: BLOOD SPECIMEN Ordering Facility: External Submitter Address: , ,Result Comment: <130 mg/dL, Optimal 130-159 mg/dL, Near optimal/above optimal 160-189 mg/dL, Borderline high 190-219 mg/dL, High >219 mg/dL, Very high Secondary prevention optimal non HDL Cholesterol levels are recommended to be <100 mg/dLPerformed By: #### 3016-3 #### [facility] CLIA [id number] [address] [place] [address] [place] #### 87944-0 #### [facility] CLIA [id number] [facility] STATES OF [facility] CLIA [id number] [address] [place] [address] 74164Ypdutbhukcv.total/Cholesterol in HDL [Mass ratio]3.57 {ratio} Normal<5.10[facility] on above:Order Comment: Specimen Type: BLOOD SPECIMEN Ordering Facility: External Submitter Address: , ,Performed By: #### 3016-3 #### [facility] CLIA [id number] [address] [place] [address] [place] #### 07949-4 #### [facility] CLIA [id number] [facility] [place] [facility] CLIA [id number] [address] [place] [address] 46482NMXDVJD TIME0 hrsNormalCPremier Health [facility] on above:Order Comment: Specimen Type: BLOOD SPECIMEN Ordering Facility: External Submitter Address: , ,Performed By: #### 3016-3 #### [facility] CLIA [id number] [address] [place] [address] [place] #### [id number] #### [facility] CLIA [id number] [address] [place] [address] [place] [facility] CLIA [id number] [address] [place] [address] [id number] [Mass/Vol]82 mg/dLNormal<150[facility] on above:Order Comment: Specimen Type: BLOOD SPECIMEN Ordering Facility: External Submitter Address: , ,Result Comment: <150 mg/dL, Normal 150-199 mg/dL, Borderline high 200-499 mg/dL, High >499 mg/dL, Very highPerformed By: #### 3016-3 #### [facility] CLIA [id number] [place] [address] [place] #### [id number] #### [facility] CLIA [id number] [address] [place] [address] LAB CLIA [id number] [address] [place] [address] [id number] SerPl-mCncon 63-05-3224Zlhzyqly specific Ag [Mass/Vol]0.25 ng/mLNormal<2.60[facility] on above:Order Comment: Specimen Type: BLOOD SPECIMEN Ordering Facility: External Submitter Address: , ,Result Comment: Total PSA test methodology used is the Electrochemiluminescence Immunoassay by [employer]. Total PSA values by differing methodologies cannot be interchanged.Performed By: #### 3016-3 #### [facility] CLIA [id number] [address] [place] [address] [place] #### [id number] #### [facility] CLIA [id number] [address] [place] [address] LAB CLIA [id number] [address] [place] [address] [id number] SerPl-aCncon 98-96-0064PHG Qn1.560 m[IU]/LNormal 0.270-4.200[facility] on above:Order Comment: Specimen Type: BLOOD SPECIMEN Ordering Facility: External Submitter Address: , ,Performed By: #### 3016-3 #### [facility] CLIA [id number] [address] [place] [address] [place] #### [id number] #### [facility] CLIA [id number] [address] [place] [address] LAB CLIA [id number] [address] [place] [address] [id number] W Auto Differential panel (Bld)on 53-70-2307Sovotkboo (Bld) [#/Vol]0.04 10*3/uL<0.11 k/uLChillicothe Va Medical CenterBasophils/100 WBC (Bld)0.7 % [facility] CenterDifferential cell count method Nom (Bld)AutoClevelWhite Hospital Eosinophils (Bld) [#/Vol]0.10 10*3/uL<0.46 k/uLChillicothe Va Medical CenterEosinophils/100 WBC (Bld)1.8 %[facility] CenterErythrocyte distribution width (RBC) [Ratio]12.3 % 11.5 - 15.0 %[facility] CenterHematocrit (Bld) [Volume fraction]42.1 %39.0 - 51.0 %[facility] CenterHemoglobin (Bld) [Mass/Vol]14.8 g/dL13.0 - 17.0 g/dLChillicothe Va Medical CenterImmature granulocytes (Bld) [#/Vol]<0.10 k/uLChillicothe Va Medical CenterImmature granulocytes/100 WBC (Bld)0.4 %[facility] CenterLymphocytes (Bld) [#/Vol]0.59 10*3/uLLow1.00 - 4.00 k/uLChillicothe Va Medical CenterLymphocytes/100 WBC (Bld)10.5 % [facility] CenterMCH (RBC) [Entitic mass]30.8 pg26.0 - 34.0 pgCUniversity Hospitals Conneaut [facility] Center MCHC (RBC) [Mass/Vol]35.2 g/dL30.5 - 36.0 g/dLChillicothe Va Medical CenterMCV (RBC) [Entitic vol]87.7 fL80.0 - 100.0 fLCUniversity Hospitals Conneaut Medical CenterMonocytes (Bld) [#/Vol]0.61 10*3/uL <0.87 k/uLChillicothe Va Medical CenterMonocytes/100 WBC (Bld)10.9 %[facility] Neutrophils (Bld) [#/Vol]4.25 10*3/uL1.45 - 7.50 k/uLChillicothe Va Medical Center Neutrophils/100 WBC (Bld)75.7 %[facility] CenterNucleated RBC (Bld) [#/Vol]<0.01 k/uLChillicothe Va Medical CenterNucleated RBC/100 WBC (Bld) [Ratio]0.0 /100 WBCChillicothe Va Medical CenterPlatelet mean volume (Bld) [Entitic vol]10.7 fL9.0 - 12.7 [facility] (d) [#/Vol]171 10*3/uL150 - 400 k/[facility] (d) [#/Vol]4.80 10*6/uL4.20 - 6.00 m/[facility] (d) [#/Vol]5.61 10*3/uL 3.70 - 11.00 k/Kindred HealthcarePET+CT Guidance for localization of tumor of Whole body-- W 18F-FDG Annabelel 14-39-2532DOCTYVTFKK: Head and neck: - No PSMA-expressing lesion [...] any questions regarding this interpretation, please call [phone]. If you are unable to reach us at the number above, please feel free to contact [facility] eRadiology at [phone].DIVISION OF RADIOLOGY* * *Final Report* * * DATE OF EXAM: Oct 14 2023 2:42PM NRN 0093 - NM PET/CT PROSTATE WB / PROCEDURE REASON: Cancer of prostate w/med recur risk (T2b-c or Sahil 7 or PSA 10-20) (HCC) * * * * Physician Interpretation * * * * RESULT: 52O-MFIBiG-RATH WHOLE BODY PET/CT SCAN HISTORY: 77-year-old man with prostate cancer. Pre-treatment staging. Prostate cancer grade: Grade Group 3 (Sahil score 4 + 3) 08/26/2023 PSA: 9.5 ng/mL (07/05/2023) Therapy: Prior ADT: No PREVIOUS COMPARISON PET/CT STUDY: None OTHER COMPARISON: CT abdomen/pelvis 12/11/2022. MRI prostate 03/17/2022 TECHNIQUE: 10.8 mCi of 00E-ORXOpA-PZXE. The PET imaging was obtained between TOP [...] OTHER FINDINGS: No PSMA-avid osseous destructive lesions. DIVISION OF RADIOLOGYProvider, [facility] [place] - 10/14/2023 * * *Final Report* * * DATE OF EXAM: Oct 14 2023 2:42PM NRN 0093 - NM PET/CT PROSTATE WB / PROCEDURE REASON: Cancer of prostate w/med recur risk (T2b-c or Arrington 7 or PSA 10-20) (HCC) * * * * Physician Interpretation * * * * RESULT: 23U-EDTCgT-YKKK WHOLE BODY PET/CT SCAN HISTORY: 77-year-old man with prostate cancer. Pre-treatment staging. Prostate cancer grade: Grade Group 3 (Sahil score 4 + 3) 08/26/2023 PSA: 9.5 ng/mL (07/05/2023) Therapy: Prior ADT: No PREVIOUS COMPARISON PET/CT STUDY: None OTHER COMPARISON: CT abdomen/pelvis 12/11/2022. MRI prostate 03/17/2022 TECHNIQUE: 10.8 mCi of 84F-FUQShZ-CYOH. The PET imaging was obtained between TOP [...] OTHER FINDINGS: No PSMA-avid osseous destructive lesions. IMPRESSION IMPRESSION: Head and neck: - No PSMA-expressing [...] any questions regarding this interpretation, please call [phone]. If you are unable to reach us at the number above, please feel free to contact [facility] eRadiology at [phone]. [facility] CenterRadiology Study observation (narrative)[facility]+CT Guidance for localization of tumor of Whole body-- W 18F-FDG IVOrdered By: Ccf Provider on 76-34-2668Orsqdhyjq [facility] HospitalCB AUTO DIFFon [id number] #0.1 103/ul Normal0.0-0.1The [facility] HospitalComment on above:Performed By: #### CBC #### [facility] [address] [address] [address] Lebron MarksBasophils/100 WBC (Bld)1.1 %Normal0.2-2.0[facility] Comment on above:Performed By: #### CBC #### [facility] [address] [address] [address] Lebron Pardo #0.3 103/ulNormal0.0-0.7The [facility] HospitalComment on above: Performed By: #### CBC #### [facility] [address] [address] [address] Lebron Cardonaosinophils/100 WBC (Bld)3.4 %Normal0.9-7.0[facility] Comment on above:Performed By: #### CBC #### [facility] [address] [address] [address] Lebron Cardonarythrocyte distribution width (RBC) [Ratio]12.2 %Nzmlsu66.0-15.0 [facility] HospitalComment on above:Performed By: #### CBC #### [facility] [address] [address] [address] Lebron MarksHematocrit (Bld) [Volume fraction]44.0 %Tflbru38.0-54.0[facility] HospitalComment on above:Performed By: #### CBC #### [facility] [address] [address] [address] Lebron MarksHemoglobin (Bld) [Mass/Vol]15.9 g/lXIiixvb60.0-18.0The [facility] HospitalComment on above:Performed By: #### CBC #### [facility] [address] [place] [address] Dr. Lebron Rojo #0.02 10e3/ulNormal0.00-0.03The [facility] HospitalComment on above:Performed By: #### CBC #### [facility] [address] [place] [address] Dr. Lebron Rojo %0.3 %Normal0.0-0.5The [facility] HospitalComment on above: Performed By: #### CBC #### [facility] [address] [place] [address] Dr. Lebron Friend #0.9 103/ulCritically low1.2-3.8The [facility] Comment on above:Performed By: #### CBC #### [facility] [address] [place] [address] Dr. Lebron Friendhocytes/100 WBC (Bld)11.7 %Critically low20.5-60.0The [facility] HospitalComment on above:Performed By: #### CBC #### [facility] [address] [place] [address] Dr. Lebron CarlsonUAL DIFF REQNONormalThe [facility] HospitalComment on above: Performed By: #### CBC #### [facility] [address] [place] [address] Dr. Lebron Borja (RBC) [Entitic mass]31.7 taKohscs49.9-34.0The [facility] HospitalComment on above:Performed By: #### CBC #### [facility] [address] [place] [address] Dr. Lebron Borja (RBC) [Mass/Vol]36.1 g/dLCritically high29.9-35.2The [facility] HospitalComment on above:Performed By: #### CBC #### [facility] [address] [address] [address] Lebron BorjaV (RBC) [Entitic vol]87.8 kBIgcmjh79.0-94.0The [facility] Hospitalment on above:Performed By: #### CBC #### [facility] [address] [place] [address] Dr. Lebron Hess #0.9 103/ulCritically high0.3-0.8The [facility] Comment on above:Performed By: #### CBC #### [facility] [address] [place] [address] Dr. Lebron Roocytes/100 WBC (Bld)11.7 %Normal1.7-12.0The [facility] Comment on above:Performed By: #### CBC #### [facility] [address] [place] [address] Dr. Lebron Parker #5.4 103/ulNormal1.4-6.5The [facility] HospitalComment on above:Performed By: #### CBC #### [facility] [address] [place] [address] Dr. Lebron Castutrophils/100 WBC (Bld)71.8 %Pdupau96.0-75.0The [facility] HospitalComment on above:Performed By: #### CBC #### [facility] [address] [place] [address] Dr. Lebron Mendezlet mean volume (Bld) [Entitic vol]10.1 fLNormal9.5-13.5The [facility] HospitalComment on above:Performed By: #### CBC #### [facility] [address] [place] [address] Dr. Lebron MarksPLT193 103/viMgadfq984-833Tof [facility] HospitalComment on above: Performed By: #### CBC #### [facility] [address] [place] [address] Dr. Lebron MarksRBC5.01 106/ulNormal4.70-6.10The [facility] HospitalComment on above:Performed By: #### CBC #### [facility] [address] [address] [address] Lebron MarksWBC7.5 103/ulNormal4.0-11.0The [facility] on above: Performed By: #### CBC #### [facility] [address] [address] [address] Lebron MarksGLYCOHEMOGLOBIN A1Con 22-91-0081RWZ RECOMMENDATIONSEE BELOWOhiohealth Van Wert HospitalComment on above:Result Comment: ADA RECOMMENDED LIMIT 4.0 - 6.0 ADA THERAPEUTIC TARGET < 7.0 ACTION SUGGESTED > 7.0Performed By: #### A1C #### [facility] [address] [address] [address] Lebron MarksGlucose [Mass/Vol]111 mg/dLNoGalion Community HospitalComment on above:Performed By: #### A1C #### [facility] [address] [place] [address] Dr. Lebron MarksHbA1c (Bld) [Mass fraction]5.5 %Normal4.5-6.2[facility] HospitalComment on above:Performed By: #### A1C #### [facility] [address] [address] [address] Lebron MarksLIPID PROFILEon 92-96-3275AFSL-HDL RATIO NORMSEE [facility] HospitalComhenry ford jackson hospital on above:Result Comment: 3.3 - 4.4 LOW RISK 4.4 - 7.1 AVERAGE RISK 7.1 - 11.0 MODERATE RISK >11.0 HIGH RISKPerformed By: #### BMP, LIVER, LIPID, TSH #### [facility] [address] [address] [address] Lebron MarksCholesterol [Mass/Vol]174 mg/dLNormal<=200The [facility] Comment on above:Performed By: #### BMP, LIVER, LIPID, TSH #### [facility] [address] [address] [address] Lebron MarksCholesterol in HDL [Mass/Vol]59 mg/yWOvspin92-54Arq [facility] HospitalComment on above:Performed By: #### BMP, LIVER, LIPID, TSH #### [facility] [address] [address] [address] Lebron MarksCholesterol in LDL [Mass/Vol]103.8 mg/dLWhite HospitalComment on above:Performed By: #### BMP, LIVER, LIPID, TSH #### [facility] [address] [address] [address] Lebron Basurto.total/Cholesterol in HDL [Mass ratio]2.9 {ratio} NormalThe [facility] HospitalComhenry ford jackson hospital on above:Performed By: #### BMP, LIVER, LIPID, TSH #### [facility] [address] [address] [address] Lebron Brantley NORMAL> or = 60 mg/dl - LOW CARDIOVASCULAR RISK <40 mg/dl - HIGH CARDIOVASCULAR RISKNoGalion Community HospitalComment on above:Performed By: #### BMP, LIVER, LIPID, TSH #### [facility] [address] [address] [address] Lebron Henriquez CALC NORMALSEE BELOWNoGalion Community HospitalComment on above:Result Comment: <100 mg/dl OPTIMAL 100 - 129 mg/dl NEAR OR ABOVE OPTIMAL 130 - 159 mg/dl BORDERLINE HIGH 160 - 189 mg/dl HIGH >190 mg/dl VERY HIGH Performed By: #### BMP, LIVER, LIPID, TSH #### [facility] [address] [address] [address] Lebron MarksTriglyceride [Mass/Vol]56 mg/dLNormal<=150[facility] Comment on above:Performed By: #### BMP, LIVER, LIPID, TSH #### [facility] [address] [address] [address] Lebron PearceLDL CALC11.2 mg/dLNoGalion Community HospitalComment on above: Performed By: #### BMP, LIVER, LIPID, TSH #### [facility] [address] [address] [address] Lebron Salmeron PROFILEon 97-58-9226Eggxjvg [Mass/Vol]4.1 g/dLNormal3.4-5.0 The [facility] HospitalComment on above:Performed By: #### BMP, LIVER, LIPID, TSH #### [facility] [address] [place] [address] Dr. Lebron MarksAlbumin/Globulin [Mass ratio]1.1 {ratio}NormalThe [facility] on above:Performed By: #### BMP, LIVER, LIPID, TSH #### [facility] [address] [place] [address] Dr. Lebron Matos [Catalytic activity/Vol]80 U/FXhewuk67-801Bzp [facility] HospitalComment on above:Performed By: #### BMP, LIVER, LIPID, TSH #### [facility] [address] [place] [address] Dr. Lebron Mohamud [Catalytic activity/Vol]128 U/LCritically fkax64-92Ipz [facility] HospitalComment on above:Performed By: #### BMP, LIVER, LIPID, TSH #### [facility] [address] [place] [address] Dr. Lebron Art [Catalytic activity/Vol]101 U/LCritically urxy26-58TyeRegency Hospital Companyment on above:Performed By: #### BMP, LIVER, LIPID, TSH #### [facility] [address] [place] [address] Dr. Lebron Guerra, CONJUGATED0.3 mg/dLCritically high0.0-0.2[facility] on above:Performed By: #### BMP, LIVER, LIPID, TSH #### [facility] [address] [place] [address] Dr. Lebron Driscollirubin [Mass/Vol]1.2 mg/dLCritically high0.2-1.0The [facility] Hospitalment on above:Performed By: #### BMP, LIVER, LIPID, TSH #### [facility] [address] [place] [address] Dr. Lebron MarksGlobulin (S) [Mass/Vol]3.9 g/dLNormalThe [facility] HospitalComment on above:Performed By: #### BMP, LIVER, LIPID, TSH #### [facility] [address] [address] [address] Lebron MarksProtein [Mass/Vol]8.0 g/dLNormal6.4-8.2The [facility] Comment on above:Performed By: #### BMP, LIVER, LIPID, TSH #### [facility] [address] [address] [address] Lebron MarksPROF CHEM 8 (BAS METB)on 37-89-5407Vmwvq gap [Moles/Vol]11.0 mmol/LNormalThe [facility] HospitalComment on above:Performed By: #### BMP, LIVER, LIPID, TSH #### [facility] [address] [place] [address] Dr. Lebron MarksCalcium [Mass/Vol]10.0 mg/dLNormal8.5-10.1The [facility] Comment on above:Performed By: #### BMP, LIVER, LIPID, TSH #### [facility] [address] [place] [address] Dr. Lebron MarksChloride [Moles/Vol]97 mmol/LCritically ugh59-849Rys [facility] HospitalComment on above:Performed By: #### BMP, LIVER, LIPID, TSH #### [facility] [address] [place] [address] Dr. Lebron MarksCO2 [Moles/Vol]32.2 mmol/LCritically high21.0-32.0The [facility] HospitalComment on above:Performed By: #### BMP, LIVER, LIPID, TSH #### [facility] [address] [place] [address] Dr. Lebron MarksCreatinine [Mass/Vol]1.01 mg/dLNormal0.70-1.30The [facility] HospitalComment on above:Performed By: #### BMP, LIVER, LIPID, TSH #### [facility] [address] [place] [address] Dr. Diana ChangEGFR-AF IRANIAN>60Normal>=60The [facility] HospitalComment on above:Performed By: #### BMP, LIVER, LIPID, TSH #### [facility] [address] [address] [address] Lebron CardonaGFR-NON AF IRANIAN>60Normal>=60The [facility] HospitalComment on above:Performed By: #### BMP, LIVER, LIPID, TSH #### [facility] [address] [address] [address] Lebron MarksGlucose [Mass/Vol]128 mg/dLCritically zkjj24-405Ayz [facility] HospitalComment on above:Performed By: #### BMP, LIVER, LIPID, TSH #### [facility] [address] [address] [address] Lebron MarksPotassium [Moles/Vol]3.2 mmol/LCritically low3.5-5.1The [facility] HospitalComment on above:Performed By: #### BMP, LIVER, LIPID, TSH #### [facility] [address] [place] [address] Dr. Lebron MarksSodium [Moles/Vol]137 mmol/MEbecxt723-156Gut [facility] Comment on above:Performed By: #### BMP, LIVER, LIPID, TSH #### [facility] [address] [address] [address] Lebron MarksUrea nitrogen [Mass/Vol]9.0 mg/dLNormal7.0-18.0The [facility] Hospitalment on above:Performed By: #### BMP, LIVER, LIPID, TSH #### [facility] [address] [address] [address] Lebron MarksUrea nitrogen/Creatinine [Mass ratio]8.9 mg/mgNormalThe [facility] HospitalComment on above:Performed By: #### BMP, LIVER, LIPID, TSH #### [facility] [address] [address] [address] Lebron Jacob 52-08-5567XDJ9.707 uIU/mLNormal0.358-3.740The [facility] HospitalComment on above:Performed By: #### BMP, LIVER, LIPID, TSH #### [facility] [address] [place] [address] Dr. Lebron Miller 83-08-1122Mejqywhyzy [Mass/Vol]0.99 mg/dLNormal 0.70-1.30The [facility] HospitalComment on above:Performed By: #### CREA #### [facility] [address] [place] [address] Dr. Diana ChangEGFR-AF IRANIAN>60Normal>=60The [facility] HospitalComment on above:Performed By: #### CREA #### [facility] [address] [address] [address] Lebron CardonaGFR-NON AF IRANIAN>60Normal>=60The [facility] HospitalComment on above:Performed By: #### CREA #### [facility] [address] [place] [address] Dr. Lebron MarksCT ABD/PELV W CONon 40-14-2467WY ABD/PELV W CONEXAMINATION: CT ABD/PELV W CON, 12/11/2022 7:25 AM [...] Electronically authenticated by: AYALA DARBY Date: 2022-12-11 14:37NormalThe [facility] HospitalPSA, FREE AND TOTAL RATIOon 11-17-2022% Free PSA21.0 %NormalThe [facility] on above:Result Comment: The table below lists the probability [...] free PSA for any other population of men.Performed By: #### PSAFREE #### [facility] [address] [place] [address] Dr. Lebron Solano specific Ag [Mass/Vol]7.8 ng/mLCritically high0.0-4.0The [facility] HospitalComhenry ford jackson hospital on above:Result Comment: [employer] ECLIA methodology. . According to the [employer], Serum PSA should decrease and [...] of the presence or absence of malignant disease.Performed By: #### PSAFREE #### [facility] [id number] Lebron Mathew, Free1.64 ng/mLNormalN/AThe [facility] HospitalComhenry ford jack[facility] hospital on above:Result Comment: [employer] ECLIA methodology.Performed By: #### PSAFREE #### [facility] [address] [address] [address] Lebron MarksMR prostate wo/w conon 69-91-1001BN prostate wo/w [facility] Main [place] [address] [place] [address] MRI Report Signed with Addenda Patient: Ayala Damian MR#: [id number] : 1945 Acct:[id number] Age/Sex: 76 / M ADM Date: 03/17/22 Loc: MR Room: Type: [facility] Attending Dr: Ankur Duran Jr, MD Copies to: Ankur Duran Jr, MD, FACS Ordering Provider: Ankur Duran Jr, MD, MAURA Date of Service: 03/17/22 MR/MR prostate wo/w [...] process. Impression dictated by: Gibran Elam Jr., Zachery04/01/2022 1:44 PM Dictation Location: RADIO-PC-13 Addendum Dictated By: Gibran Elam Jr, DO [...] process. Impression dictated by: Gibran Elam Jr., D.ODesmond03/19/2022 9:46 PM Dictation Location: [place] [address] Transcribed By: [facility] 03/19/222145 Dictated By: Gibran Elam Jr, DO 03/19/222123 Signed By: 03/19/222145[facility] Jewish HospitalCreatinine (Bld) [Mass/Vol] Ordered By: Ankur Duran on 76-14-5159Cuehykctao [Mass/Vol]1.0 mg/dL0.6-1.3 [facility] HospitalComment on above:ER/ESD physician is notified/shown all ISTAT results. Critical values may be confirmed by laboratory testing if deemed necessary by ER attending doctor.ISTAT XRay CREon 78-77-7015Iabuymrqhs [Mass/Vol]1.0 mg/dLNormal0.6-1.3FFirelands Regional Medical CenterComment on above:Result Comment: ER/ESD physician is notified/shown all ISTAT results. Critical values may be confirmed by laboratory testing if deemed necessary by ER attending doctor.Performed By: #### ISCRE #### [address] Point of Care testing ,ISTAT GFR (> 60[facility] Jewish HospitalComment on above:Result Comment: GFR estimated reference range: According to KDOQI guidelines, <60 ml/min/1.73m2 is sufficient to diagnose a patient with chronic kidney disease. PERFORMED BY: [place] [address] PATHOLOGIST ASSISTANT [employer]PORATE SECRETARY LIAN ZHANG M.D.Performed By: #### ISCRE #### [facility] [address] Point of Care testing ,ISTAT GFR (Non- Am> 60NoTrinity Health System West CampusComment on above:Performed By: #### ISCRE #### [facility] [address] Point of Care testing ,No Panel InformationOrdered By: Ankur Duran on 46-77-9299SNA Estimated GFR > 60St. [facility] HospitalComment on above:GFR estimated reference range: According to KDOQI guidelines, <60 ml/min/1.73m2 is sufficient todiagnose a patient with chronic kidney disease.POC Estimated GFR Non- Amer> 60St. Vincent HospitalXR pre/post mri xrayon 21-15-5579GP pre/post mri xrayWADSWORTH-RITTMAN [facility] Main [place] [address] [place] [address] XRay Report Signed Patient: Ayala Damian MR#: [id number] : 1945 Acct:[id number] Age/Sex: 76 / M ADM Date: 03/17/22 Loc: Room: Type: [facility] Attending Dr: Ankur Duran Jr, MD Ordering Provider: Ankur Duran Jr, MD, FACS Date of Service: 03/17/22 XR/XR pre/post mri xray: HAND R/O METAL Copies to: Ankur Duran Jr, MD, [facility] Left hand 03/17/2022. CLINICAL DATA: Pre-MRI screening [...] Erickson Jr., M.D.03/17/2022 1:43 PM Dictation Location: [place] [address] Transcribed By: ABELINO 03/17/22 1343 Dictated By: Teofilo Erickson Jr, MD 03/17/22 1340 Signed By: 03/17/22 1343NoTrinity Health System West Campus Vital Signs Date TimeVital SignValuePerforming ZyaeciizsOmbkkrlm89-58-0758 13:54-0400Body .42 cmSt. Vincent Hospital10-07-2025 13:54-0400Body mass index (BMI) [Ratio]33.6 kg/v8LqlopzjgoSt. Vincent Hospital10-07-2025 13:54-0400Body okvaisyrfqv62.3 [degF][facility]10-07-2025 13:54-0400Body agjiiv624.[address]St[address] [facility]10-07-2025 13:54-0400Diastolic blood zwcxeaxj46 mm[Hg][facility] 07-17-2025 13:54-0400Heart rate62 /[facility] 07-17-2025 13:54-0400Respiratory rate18 /[facility] 07-17-2025 13:54-2136TvC8% (BldA) [Mass fraction]95 %[facility]10-07-2025 13:54-0400Systolic blood mm[Hg][facility]07-17-2025 13:02-0400Body rymiqqvmunz40.01 [degF]GUILLERMINA Gabriel MD Work Phone: [facility]07-17-2025 13:02-0400Body urlmbx489.9 kgGUILLERMINA Gabriel MD Work Phone: [facility]07-17-2025 13:02-0400Diastolic blood mm[Hg]GUILLERMINA Gabriel MD Work Phone: [facility]07-17-2025 13:02-0400Heart rate68 /min GUILLERMINA Gabriel MD Work Phone: [facility]07-17-2025 13:02-0400Respiratory rate 16 /GovindGUILLERMINA Gabriel MD Work Phone: [facility]07-17-2025 13:02-3164DpK3% (BldA) [Mass fraction]97 %GUILLERMINA Gabriel MD Work Phone: [facility]07-17-2025 13:02-0400Systolic blood mm[Hg]GUILLERMINA Gabriel MD Work Phone: [facility]04-17-2025 13:21-0400Body temperature 96.91 [degF]GUILLERMINA Gabriel MD Work Phone: [facility]04-17-2025 13:21-0400Body zynavh726 kg NA Lesia MAGANA Work Phone: [facility]04-17-2025 13:21-0400Respiratory rate 16 /GovindGUILLERMINA Gabriel MD Work Phone: [facility]04-17-2025 13:21-6781EsL8% (BldA) [Mass fraction]93 %GUILLERMINA Gabriel MD Work Phone: [facility]04-08-2025 09:20-0400Body hufyqn829.4 cmMerrill Iraheta MD Work Phone: [facility] HospitalFflqzcrxgo96-72-9029 09:20-0400Body mass index (BMI) [Ratio]33.78 kg/m2Merrill Iraheta MD Work Phone: [facility] HospitalFvsgdjvdsn16-77-6680 09:20-0400Body temperature 97.11 [degF]Merrill Iraheta MD Work Phone: [facility] HospitalQyvaltyxtf83-86-3490 09:20-0400Body aaxjfw087.12 kgMerrill Iraheta MD Work Phone: [facility] HospitalJauacndgei99-76-1571 09:20-0400Diastolic blood lfleeryu49 mm[Hg]Merrill Iraheta MD Work Phone: [facility] HospitalUujohgdgbo88-70-3134 09:20-0400Heart rate75 /min Merrill Iraheta MD Work Phone: noDe[facility] SystemPxrbnyonyf77-71-0478 09:20-0400Respiratory rate18 /minMerrill Iraheta MD Work Phone: [place] [address]Ohgjievzwr37-08-8663 09:20-8579JfW8% (BldA) [Mass fraction]95 %Merrill Iraheta MD Work Phone: [place] [address]Wtwlrxrbor55-17-0086 09:20-0400Systolic blood vzmvatjc337 mm[Hg]Merrill Iraheta MD Work Phone: [phone] HospitalUfjnjnvhzh54-76-3876 13:20-0400Body temperature 98.2 [degF]GUILLERMINA Gabriel MD Work Phone: [facility]10-17-2024 13:20-0400Body hgknha606.6 kgGUILLERMINA Gabriel MD Work Phone: [facility]10-17-2024 13:20-0400Diastolic blood rokturox85 mm[Hg]GUILLERMINA Gabriel MD Work Phone: [facility]10-17-2024 13:20-0400Heart rate63 /min GUILLERMINA Gabriel MD Work Phone: [facility]10-17-2024 13:20-0400Respiratory rate 18 /GovindGUILLERMINA Gabriel MD Work Phone: [facility]10-17-2024 13:20-5822YoZ0% (BldA) [Mass fraction]94 %GUILLERMINA Gabriel MD Work Phone: [facility]10-17-2024 13:20-0400Systolic blood nlfhkuwf195 mm[Hg]GUILLERMINA Gabriel MD Work Phone: [facility]10-08-2024 14:31-0400Body fpwaqo418.4 cmMerrill Iraheta MD Work Phone: [facility] HospitalGyxmggorpq20-69-1314 14:31-0400Body mass index (BMI) [Ratio]34.3 kg/m2Merrill Iraheta MD Work Phone: [facility] HospitalDfoyrdudvd57-28-0493 14:31-0400Body temperature 97.5 [degF]Merrill Iraheta MD Work Phone: [facility] HospitalRlptfbpqcz60-02-9148 14:31-0400Body twhbey221.94 kgMerrill Iraheta MD Work Phone: [facility] HospitalUchxurybqg01-98-5790 14:31-0400Diastolic blood fybwadub39 mm[Hg]Merrill Iraheta MD Work Phone: [facility] HospitalIjovbdwarq44-80-4570 14:31-0400Heart rate62 /min Merrill Iraheta MD Work Phone: [facility] HospitalFuofimnjmx55-56-6363 14:31-0400Respiratory rate16 /minMerrill Iraheta MD Work Phone: [facility] HospitalYcwqctifkm59-98-5998 14:31-6151FeK7% (BldA) [Mass fraction]96 %Merrill Iraheta MD Work Phone: [facility] HospitalKqegrruapr97-88-4291 14:31-0400Systolic blood mm[Hg]Merrill Iraheta MD Work Phone: [facility] HospitalOtmwodxxth53-72-8027 11:16-0400Body temperature 97.3 [degF]GUILLERMINA Gabriel MD Work Phone: [facility]04-24-2024 11:16-0400Body kptojv230.3 kgGUILLERMINA Gabriel MD Work Phone: [facility]04-24-2024 11:16-0400Diastolic blood xphsedxo54 mm[Hg]GUILLERMINA Gabriel MD Work Phone: [facility]04-24-2024 11:16-0400Heart rate62 /min GUILLERMINA Gabriel MD Work Phone: [facility]04-24-2024 11:16-0400Respiratory rate 18 /GovindGUILLERMINA Gabriel MD Work Phone: [facility]04-24-2024 11:16-6145VaK1% (BldA) [Mass fraction]97 %GUILLERMINA Gabriel MD Work Phone: [facility]04-24-2024 11:16-0400Systolic blood mm[Hg]GUILLERMINA Gabriel MD Work Phone: [facility]03-25-2024 11:54-0400Body temperature 97.59 [degF]GUILLERMINA Gabriel MD Work Phone: [place] [address]-25-2024 11:54-0400Body xkuqnx671 kg GUILLERMINA Gabriel MD Work Phone: 1(513) [phone] [address]25-2024 11:54-0400Diastolic blood cmldaadb29 mm[Hg]GUILLERMINA Gabriel MD Work Phone: [place] [address]-25-2024 11:54-0400Heart rate61 /min GUILLERMINA Gabriel MD Work Phone: 1(662) 160-541400 [address]25-2024 11:54-0400Respiratory rate 16 /GovindGUILLERMINA Gabriel MD Work Phone: [place] [address]-25-2024 11:54-8315VoW6% (BldA) [Mass fraction]97 %GUILLERMINA Gabriel MD Work Phone: [place] [address]-25-2024 11:54-0400Systolic blood ivhfjijh074 mm[Hg]GUILLERMINA Gabriel MD Work Phone: 1(513) 610-680800 [address]15-2024 11:30-0400Body temperature 97.5 [degF]GUILLERMINA Gabriel MD Work Phone: 1(739) [phone] [address]15-2024 11:30-0400Body imnuao728.2 kgGUILLERMINA Gabriel MD Work Phone: [place] [address]-15-2024 11:30-0400Diastolic blood iwviqvzg29 mm[Hg]GUILLERMINA Gabriel MD Work Phone: 1(321) [phone] [address]15-2024 11:30-0400Heart rate71 /min GUILLEMRINA Gabriel MD Work Phone: [place] [address]-15-2024 11:30-0400Respiratory rate 16 /GovindGUILLERMINA Gabriel MD Work Phone: 1(341) [phone] [address]15-2024 11:30-9603UbB4% (BldA) [Mass fraction]96 %GUILLERMINA Gabriel MD Work Phone: [place] [address]-15-2024 11:30-0400Systolic blood nwxgrkej441 mm[Hg]GUILLERMINA Gabriel MD Work Phone: [facility]03-11-2024 11:30-0400Body temperature 97.39 [degF]GUILLERMINA Gabriel MD Work Phone: [facility]03-11-2024 11:30-0400Body nouojc432.8 kgGUILLERMINA Gabriel MD Work Phone: [place] [address]-11-2024 11:30-0400Diastolic blood eotfrumx65 mm[Hg]GUILLERMINA Gabriel MD Work Phone: [place] [address]-11-2024 11:30-0400Heart rate68 /min GUILLERMINA Gabriel MD Work Phone: [facility]03-11-2024 11:30-0400Respiratory rate 16 /GovindGUILLERMINA Gabriel MD Work Phone: [place] [address]-11-2024 11:30-6868YqW7% (BldA) [Mass fraction]97 %GUILLERMINA Gabriel MD Work Phone: [facility]03-11-2024 11:30-0400Systolic blood nkckvfoc525 mm[Hg]GUILLERMINA Gabriel MD Work Phone: [facility]03-04-2024 11:24-0500Body temperature 97.39 [degF]GUILLERMINA Gabriel MD Work Phone: [facility]03-04-2024 11:24-0500Body xlhekv818.1 kgGUILLERMINA Gabriel MD Work Phone: [facility]03-04-2024 11:24-0500Diastolic blood cullnamp05 mm[Hg]GUILLERMINA Gabriel MD Work Phone: [facility]03-04-2024 11:24-0500Heart rate68 /min GUILLERMINA Gabriel MD Work Phone: [facility]03-04-2024 11:24-0500Respiratory rate 18 /GovindGUILLERMINA Gabriel MD Work Phone: [facility]03-04-2024 11:24-3417TjR0% (BldA) [Mass fraction]95 %GUILLERMINA Gabriel MD Work Phone: [facility]03-04-2024 11:24-0500Systolic blood tfrmfehp899 mm[Hg]GUILLERMINA Gabriel MD Work Phone: [facility]02-19-2024 11:05-0500Body temperature 97.5 [degF]GUILLERMINA Gabriel MD Work Phone: [facility]02-19-2024 11:05-0500Body .6 kgGUILLERMINA Gabriel MD Work Phone: [facility]02-19-2024 11:05-0500Diastolic blood ixcotijq54 mm[Hg]GUILLERMINA Gabriel MD Work Phone: [facility]02-19-2024 11:05-0500Heart rate56 /min GUILLERMINA Gabriel MD Work Phone: [facility]02-19-2024 11:05-0500Respiratory rate 16 /GovindGUILLERMINA Gabriel MD Work Phone: [facility]02-19-2024 11:05-3702FhV5% (BldA) [Mass fraction]96 %GUILLERMINA Gabriel MD Work Phone: [facility]02-19-2024 11:05-0500Systolic blood mm[Hg]GUILLERMINA Gabriel MD Work Phone: [facility]02-15-2024 11:46-0500Body filbhr690.8 kgGUILLERMINA Gabriel MD Work Phone: [facility]02-05-2024 14:41-0500Blood [facility]OS [facility]02-05-2024 14:41-0500Diastolic blood sihcgfvk93 mm[Hg]Vernellraji RAMOS [facility]02-05-2024 14:41-0500Heart rate68 /minPatrick RAMOS [facility]02-05-2024 14:41-0500Respiratory rate16 /minPatrick RAMOS [facility]02-05-2024 14:41-0500Systolic blood mm[Hg]Vernell RAMOS [facility]12-01-2023 11:40-0500Blood Pressure LocationPatrick RAMOS [facility]12-01-2023 11:40-0500Diastolic blood rcfhzrpy61 mm[Hg]Vernellraji RAMOS [facility]12-01-2023 11:40-0500Heart rate80 /minPatrick RAMOS [facility]12-01-2023 11:40-0500Respiratory rate16 /minPatrick RAMOS [facility]12-01-2023 11:40-0500Systolic blood mm[Hg]Vernell RAMOS [facility]09-25-2023 13:04-0400Blood Pressure LocationPatrick RAMOS [facility]09-25-2023 13:04-0400Diastolic blood fcjuiqpg34 mm[Hg]Vernell RAMOS [facility]09-25-2023 13:04-0400Heart rate70 /minVernell RAMOS [facility]09-25-2023 13:04-0400Respiratory rate16 /minVernell RAMOS [facility]09-25-2023 13:04-0400Systolic blood mm[Hg]Vernell RAMOS [facility]05-10-2022 09:31-0400Blood Pressure LocationAnkur Duran Jr. [facility] 05-10-2022 09:31-0400Diastolic blood jcxvpecu25 mm[Hg] Ankur Duran Jr. [facility] 05-10-2022 09:31-0400Heart rate79 /Ciro Duran Jr. [facility] 05-10-2022 09:31-0400Respiratory rate16 /Ciro Duran Jr. [facility] 05-10-2022 09:31-0400Systolic blood hlibkvbz506 mm[Hg] Ankur Duran Jr. [facility] Encounters Encounter DateEncounter TypeCare ProviderFacilityStart: 39-46-0313bfeyamukvf Vernell RAMOSFacility: [place]vueStart: 30-46-0683nedbolthkuHjvstyl R WATERS Facility:EU BellevueStart: 07-17-2025 End: 91-06-3451vsjuihwxfyNDFGalion Hospital Work Phone: Start: 07-17-2025 End: 85-67-6009Kjobbby encounter procedureMerrill Iraheta MD-[facility] Work Phone: Start: 04-26-2025 End: 66-61-4791Jxrfhb outpatient visit 15 minutesG Sukhdev Gabriel MD Work Phone: Radiation OncologyComment on above:Malignant neoplasm of prostate (HCC) (Primary Dx)Start: 04-26-2025 End: 71-37-1715nwbbrrapjtNJose Angel BELTRANRFacility:[facility] Start: 04-19-2025 End: 56-25-5914Hmiqyykfl Result EncounterGeneric External Data ProviderNOMS External Department UnsolicitedStart: 04-19-2025 End: 72-15-3146Kbyquiqis Result EncounterGeneric External Data ProviderNOMS External Department UnsolicitedStart: 04-19-2025 End: 55-69-4263nzkwbqbpenKKRV A NADERERFacility:[facility]art: 04-18-2025 End: 15-31-1665Yeppcggws encounterG Sukhdev Gabriel MD Work Phone: Radiation OncologyComment on above:OrdersStart: 01-26-2025 End: 80-62-3661dxkvziaujfVtdvdrw R WATERSFacility:PIERO [facility] HospitalueStart: 01-25-2025 End: 38-77-6612Xviuucz encounter procedureRadha Zapien [employer].SOFTWARE SALES CONSULTANT Work Phone: Hematology/OncologyStart: 01-25-2025 End: 44-45-4400Njygsw outpatient visit 15 minutesG Sukhdev Gabriel MD Work Phone: Radiation OncologyComment on above:Malignant neoplasm of prostate (HCC) (Primary Dx)Start: 01-25-2025 End: 21-16-3592xegslwlhtwLmyli Martinez [employer].SOFTWARE SALES CONSULTANT Work Phone: Hematology/OncologyComment on above:Prostate cancer (HCC) (Primary Dx)Start: 01-18-2025 End: 21-70-0259Lvobrykeq Result EncounterGeneric External Data ProviderNOMS External Department UnsolicitedStart: 01-18-2025 End: 51-66-9040Vnqjkegud Result EncounterGeneric External Data ProviderNOMS External Department UnsolicitedStart: 01-18-2025 End: 48-49-2083mmsbyxgieeQTTK A NADERERFacility:[facility] Centertart: 01-16-2025 End: 46-73-8372Upsgbg flowsKaitlyn Iraheta MD Work Phone: NOHZ CWM FMStart: 01-16-2025 End: 21-16-1056Xmouky Lidia Iraheta MD Work Phone: noms CWM FMStart: 01-16-2025 End: 35-31-0409Kbroim outpatient visit 25 minutesMerrill Iraheta MD Work Phone: noms CWM FMComment on above:Benign essential hypertension (CMS/HCC) (Primary Dx); Primary osteoarthritis of right knee; Prostate cancer (CMS/HCC); Benign essential tremorStart: 01-16-2025 End: 39-65-9469pqhmqtkztlXVWQ NADERERNot AvailableStart: 11-09-2024 End: 28-12-6470UdwredJ Sukhdev Gabriel MD Work Phone: Radiation OncologyComment on above:Refill Request Start: 07-27-2024 End: 74-38-1797gxxqmoapcgJJose Angel CANASacility:[facility] Start: 07-27-2024 End: 95-06-7993Dqwkdma encounter procedureAdelfo Gabriel MD Work Phone: Radiation OncologyComment on above:Malignant neoplasm of prostate (HCC) (Primary Dx)Start: 07-20-2024 End: 97-97-8274Gdnheudyo Result EncounterMerrill Iraheta MD Work Phone: noms External Department UnsolicitedStart: 07-20-2024 End: 04-45-2594Rgnzkjzre Result EncounterMerrill Iraheta MD Work Phone: noms External Department UnsolicitedStart: 07-20-2024 End: 49-60-1011magrmufacpGKPF A NADJOHNRFacility:[facility] Centertart: 07-18-2024 End: 92-43-8727Koyegc follow up visit related to original Praveen Iraheta MD Work Phone: noms CWM FMComment on above:Encounter for Medicare annual wellness exam (Primary Dx); Benign essential hypertension (CMS/HCC); Prostate cancer (CMS/HCC); Dyslipidemia (CMS/HCC); Encounter for long-term (current) use of medications; Prediabetes; Obesity (BMI 30-39.9); Abdominal aortic aneurysm (AAA) without rupture, unspecified part (CMS/HCC) Start: 07-18-2024 End: 24-75-6622mhsalbwcosHCQX NADERERNot AvailableStart: 07-18-2024 End: 30-88-5888Fdesdm flowsKaitlyn Iraheta MD Work Phone: noms CWM FMStart: 07-18-2024 End: 09-58-8498Dznohg flowsKaitlyn Iraheta MD Work Phone: noms CWM FMStart: 07-18-2024 End: 63-86-1093Hvrrlsq encounter procedureMerrill Iraheta MD Work Phone: [facility] Work Phone: Start: 07-17-2024 End: 16-05-7168VpbxuqHvly Naderer MD Work Phone: noms CWM FMComment on above:Osteoarthritis, unspecified osteoarthritis type, unspecified site (Primary Dx)Start: 05-12-2024 End: 30-35-5110Nhuapgf encounter procedureVernell RAMOS [facility] start: 12-75-5514EtyiakBAdelfo Gabriel MD Work Phone: Radiation OncologyComment on above:Refill Request Start: 02-02-2024 End: 33-53-6968Ffcpqgm encounter procedureAdelfo Gabriel MD Work Phone: Radiation OncologyComment on above:Malignant neoplasm of prostate (HCC) (Primary Dx)Start: 01-03-2024 End: 76-98-0948Auykpuq encounter procedureAdelfo Gabriel MD Work Phone: Radiation OncologyComment on above:Malignant neoplasm of prostate (HCC) (Primary Dx)Start: 12-24-2023 End: 64-24-7265Azxqocf encounter procedureAdelfo Gabriel MD Work Phone: Radiation OncologyComment on above:Malignant neoplasm of prostate (HCC) (Primary Dx)Start: 12-20-2023 End: 55-97-2917Sxtvyls encounter procedureAdelfo Gabriel MD Work Phone: Radiation OncologyComment on above:Malignant neoplasm of prostate (HCC) (Primary Dx)Start: 12-13-2023 End: 29-11-4035Ucduvcs encounter procedureAdelfo Gabriel MD Work Phone: Radiation OncologyComment on above:Malignant neoplasm of prostate (HCC) (Primary Dx)Start: 12-02-2023 End: 28-37-5992Uvywcsl encounter procedureBryan/Nakia Vincent Work Phone: Radiation OncologyComment on above:Malignant neoplasm of prostate (HCC)Start: 11-29-2023 End: 83-02-7607Kxqcyht encounter procedureAdelfo Gabriel MD Work Phone: Radiation OncologyComment on above:Malignant neoplasm of prostate (HCC) (Primary Dx)Start: 11-25-2023 End: 59-35-7528Vvamljs encounter procedureAdelfo Gabriel MD Work Phone: Radiation OncologyComment on above:Malignant neoplasm of prostate (HCC) (Primary Dx)Start: 86-30-3098Sudxswmkx encounterAdelfo Gabriel MD Work Phone: Radiation OncologyComment on above:OrdersStart: 81-17-4453Ykxyhmu encounter procedureAdelfo Gabriel MD Work Phone: SANDUSKYStart: 77-50-4106Remrvdgfc Oncology NoteG Sukhdev Gabriel MD Work Phone: Radiation OncologyComment on above:Simulation Note Treatment PlanningStart: 11-17-2023 End: 16-56-7596Vpdevtlcti hospital visit by physicianAdelfo Gabriel MD Work Phone: Radiology Pet CTStart: 11-15-2023 End: 16-11-9187Ubnukqm encounter procedurePadelfino RAMOS [facility] start: 65-47-5920fpbqqqwoekJhljlg Graves LPNRadiation OncologyComment on above:Patient EducationStart: 10-14-2023 End: 75-11-6335Ltvrhdafji hospital visit by physicianArrival Time Radiology Work Phone: Radiology Pet CTComment on above:Cancer of prostate w/med recur risk (T2b-c or Arrington 7 or PSA 10-20) (HCC) [C61]Start: 09-21-2023 End: 69-87-9125Kaakaso encounter procedureAdelfo Gabriel MD Work Phone: Radiation OncologyComment on above:Cancer of prostate w/med recur risk (T2b-c or Arrington 7 or PSA 10-20) (HCC) (Primary Dx)Start: 53-27-0951Zdepurhro encounterAdelfo Gabriel MD Work Phone: Cancer Appts MCComment on above:Nm Pet RequestStart: 68-95-6886Ajqlk Abdifatah Aguilar RN Work Phone: Hematology/OncologyComment on above:Research (GU010 Prescreen)Start: 09-10-2023 End: 06-05-7668Mhltwfu encounter procedurePadelfino RAMOS [facility] start: 07-05-2023 End: 88-25-4748Mtqdnfx encounter procedurePadelfino Juan RAMOS [facility] start: 02-22-2023 End: 31-42-9739zovhwqxxogRB MERRILL Fisher NADERERFacility:B8Eamsv: 12-11-2022 End: 85-53-6435jmusgzeeurDF VERNELL RAMOS .Facility:D0Ysake: 12-08-2022 End: 83-66-3724Zulzxxe encounter procedureVernell Martinez RAMOS [facility] Start: 11-14-2022 End: 72-14-4951nxdwzxgnloZI MERRILL Fisher NADERERFacility:O1Oncyh: 03-17-2022 End: 50-28-9471Ovjcugi encounter procedureMD Ankur Duran Jr Work Phone: [facility] CampusStart: 02-17-2022 End: 17-39-7634Qklnrtt encounter procedureAnkur Duran Jr. [facility] Procedures DateProcedureProcedure DetailPerforming ClinicianStart: 25-65-0731QVF PSA SERPL-MCNCGeneric External Data ProviderStart: 71-86-9366RTX PSA SERPL-MCNC Generic External Data ProviderStart: 63-42-9447UWQ CBC W AUTO DIFF BLDMarc Esequiel MAGANA Work Phone: Start: 26-78-6453Ppddo count complete auto&auto difrntl wbcG Sukhdev Gabriel MD Work Phone: Start: 27-96-1474Qqz imaging ct attenuation skull base mid-thighG Sukhdev Gabriel MD Work Phone: Start: 33-03-4223Egfifoboczg biopsy of prostate using ultrasound guidanceGeneral Cybernetics Start: 81-48-1925VyjgwnzwrnCrxnkib WATERS Start: 77-63-0701DA pre/post mri xrayMD Ankur Duran Jr Work Phone: Start: 96-64-1232Ftfrt ablation of prostateGeneral Cybernetics Comment on above:Green Light laserStart: 12-26-2014 Transrectal biopsy of prostate using ultrasound guidanceGeneral Cybernetics Start: 50-81-7150Zqxiedhg cystoscopyGeneral Cybernetics Start: 58-25-6745Tkuiwcxawfk biopsy of prostate using ultrasound guidanceGeneral [employer]netics Start: 34-13-5809Eoqokomt cystoscopyGeneral [employer]netics Cataract (morphologic abnormality)Ankur Duran Jr. colonoscopyAnkur Duran Jr. Plan of Treatment DateCare ActivityDetailAuthorStart: 04-83-9894Pwvlevcr ScreeningDiabetes ScreeningOhio State Harding Hospitaltart: 10-31-2025 End: 74-38-4881Ghfpkvb encounter jhfgizrkq34/21/2026 9:30 AM EST Office Visit Radiation Oncology [address] [address] Adelfo Gabriel MD [address] [address] 6 month follow upRadiation OncologyComment on above:6 month follow upStart: 10-27-2025 End: 36-27-2907Aydiciew specific Ag [Mass/volume] in Serum or PlasmaPROSTATE- SPECIFIC ANTIGEN DIAGNOSTIC Lab Routine Malignant neoplasm of prostate (HCC) Expected: 10/27/2025, Expires: 01/26/2026[facility] Work Phone: Comment on above:Expected: 10/27/2025, Expires: 01/26/2026Start: 10-24-2025 End: 54-96-0652Pfqwjee encounter /14/2026 9:30 AM EST Office Visit [facility] [address] [place] [address] labNortVibra [facility] of [facility] LaboratoryComment on above:labStart: 07-23-2025 End: 18-68-1515Bubdgms encounter apqbuikof67/13/2025 8:00 AM EDT Office Visit [facility] [address] [place] [id number] Merrill Iraheta MD [address] [place] [address] [facility] CWM FMStart: 10-08-2025Medicare Annual Wellness (AWV)Medicare Annual Wellness (AWV)[facility] HealthcareStart: 67-82-6349Ucqvmwv [facility] Work Phone: Start: 81-32-8173WpfibbyaxRiverside Regional Medical Center Start: 04-26-2025 End: 26-62-7595KQI/PROSTATE SPECIFIC ANTIGEN SCREENINGPSA/PROSTATE SPECIFIC ANTIGEN SCREENING Lab Routine Malignant neoplasm of prostate (HCC) Expected: 0 04/26/2025, Expires: 07/26/2025[facility] Work Phone: Comment on above:Expected: 04/26/2025, Expires: 07/26/2025Start: 04-26-2025 End: 25-77-3242Hddxsal encounter /17/2025 1:30 PM EDT Office Visit Radiation Oncology [address] [place] [address] Adelfo Gabriel MD [address] [place] [address] 3 month follow upRadiation OncologyComment on above:3 month follow upStart: 04-19-2025 End: 37-67-3325Baphllpb specific Ag [Mass/volume] in Serum or PlasmaPROSTATE- SPECIFIC ANTIGEN DIAGNOSTIC Lab Routine Malignant neoplasm of prostate (HCC) Expected: 04/19/2025, Expires: 07/19/2025[facility] Work Phone: Comment on above:Expected: 04/19/2025, Expires: 07/19/2025Start: 04-19-2025 End: 62-95-2621Aapvzfa encounter procedureUniversity Medical Center LaboratoryComment on above:labStart: 01-25-2025 End: 40-21-1337yqxalalwbk07/17/2025 2:00 PM EDT Visit (SP) Office Hematology/Oncology [address] [place] [address] [address] [place], [place] [phone] Radha Zapien APRN.SOFTWARE SALES CONSULTANT [address] [place] [address] survivorshipHematology/OncologyComment on above:survivorship Start: 01-25-2025 End: 89-68-4531Qutducjf specific Ag [Mass/volume] in Serum or PlasmaPROSTATE- SPECIFIC ANTIGEN DIAGNOSTIC Lab Routine Malignant neoplasm of prostate (HCC) Expected: 01/25/2025 (Approximate), Expires: 04/26/2025[facility] Work Phone: Comment on above:Expected: 01/25/2025 (Approximate), Expires: 04/26/2025Start: 01-25-2025 End: 99-00-3655Vspismz encounter hnitkgidu36/17/2025 1:30 PM EDT Office Visit Radiation Oncology [address] [address] Adelfo Gabriel MD [address] [address] 6 month rvRadiation OncologyComment on above:6 month rvStart: 01-18-2025 End: 04-47-5270Fcvqtsf encounter cidhfwbdf83/10/2025 11:00 AM EDT Office Visit [facility] [address] [address] LABNortVib[facility] LaboratoryComment on above:LABStart: 01-16-2025 End: 93-46-6987Rbzlwyv encounter procedureNOMS CWM FMComment on above:Arrived Start: 35-47-6190Wfufbtr Directive DiscussionAdvance Directive Discussion [facility]Medicare Advantage Annual Wellness Visit Medicare Advantage Annual Wellness VisitOhio State [facility]ing Hospitaltart: 08-03-2024 End: 08-25-3308Oyjyespj specific Ag [Mass/volume] in Serum or PlasmaPROSTATE- SPECIFIC ANTIGEN DIAGNOSTIC Lab Routine Malignant neoplasm of prostate (HCC) Expected: 08/03/2024, Expires: 11/02/2024[facility] Work Phone: Comment on above:Expected: 08/03/2024, Expires: 11/02/2024Start: 07-27-2024 End: 88-20-2247imqjfbyxfr06/17/2024 2:00 PM EDT Visit (SP) Office Hematology/Oncology [address] [place], [place] [phone] Radha Zapien APRN.SOFTWARE SALES CONSULTANT [address] [address] survivorshipHematology/OncologyComment on above:survivorship Start: 07-27-2024 End: 00-23-8163Vucsiyn encounter /17/2024 1:15 PM EDT Office Visit Radiation Oncology [address] [address] Adelfo Gabriel MD [address] [address] 6 month rvRadiation OncologyComment on above:6 month rvStart: 07-20-2024 End: 09-06-3620Qptgckg encounter pavqxbczq13/10/2024 10:45 AM EDT Office Visit [facility] [address] [place] [address] [place] [address] LabNortVib[facility] LaboratoryComment on above:LabStart: 07-18-2024 End: 23-20-2614Kelkkue encounter procedureNOMS CWM FMComment on above:Arrived Start: 07-18-2024 End: 71-90-9007Zltnd metabolic 1998 panel - Serum or PlasmaBasic metabolic panel Lab Routine Benign essential hypertension (CMS/HCC) Expected: 07/18/2024 (Appr oximate), Expires: 07/18/2025[place] HealthcareComment on above:Expected: 07/18/2024 (Approximate), Expires: 07/18/2025Start: 07-18-2024 End: 75-58-6245PXH W Auto Differential panel - BloodCBC and differential Lab Routine Encounter for long-term (current) use of medications Expected: 05/2024 (Approximate), Expires: 07/18/2025[facility] HealthcareComment on above: Expected: 07/18/2024 (Approximate), Expires: 07/18/2025Start: 07-18-2024 End: 61-55-5567Uuecjcqcus A1c/Hemoglobin.total in BloodHemoglobin A1c Lab Routine Prediabetes Expected: 07/18/2024 (Approximate), Expires: 07/18/2025[facility] Work Phone: Comment on above:Expected: 07/18/2024 (Approximate), Expires: 07/18/2025Start: 07-18-2024 End: 73-53-2352Ytowpdk function 2000 panel - Serum or PlasmaHepatic function panel Lab Routine Encounter for long-term (current) use of medications Expected: 07/18/2024 (Approximate), Expires: 07/18/2025[facility] HealthcareComment on above: Expected: 07/18/2024 (Approximate), Expires: 07/18/2025Start: 07-18-2024 End: 39-31-1227Llzhr 1996 panel - Serum or PlasmaLipid panel Lab Routine Dyslipidemia (CMS/HCC) Expected: 07/18/2024 (Approximate), Expires: 07/18/2025 [facility] HealthcareComment on above:Expected: 07/18/2024 (Approximate), Expires: 07/18/2025Start: 07-18-2024 End: 81-87-2798Pfqxsbcqvff [Units/volume] in Serum or PlasmaTSH Lab Routine Obesity (BMI 30-39.9) Expected: 07/18/2024 (Approximate), Expires: 07/18/2025 [facility] HealthcareComment on above:Expected: 07/18/2024 (Approximate), Expires: 07/18/2025Start: 51-90-6620Yekna-19 Vaccine ()Covid-19 Vaccine ()[facility]: 30-78-7721Pirzb-19 Vaccine ()Covid-19 Vaccine ()[facility]: 96-09-3202Qlqdogkdq vaccinationInfluenza Vaccine (#1)[facility]: 02-03-2024 End: 61-63-0541Sithnpbv specific Ag [Mass/volume] in Serum or Plasma PSA/PROSTSPECAG DIAG Lab Routine Malignant neoplasm of prostate (HCC) Expected: 02/03/2024 (Approximate), Expires: 05/04/2024[facility] Work Phone: Comment on above:Expected: 02/03/2024 (Approximate), Expires: 05/04/2024Start: 11-98-6037Megnb-19 Vaccine ()Covid- 19 Vaccine ()[facility]: 12-02-2023 End: 18-02-0924ERU W Auto Differential panel - BloodCBC + DIFF Lab Routine Malignant neoplasm of prostate (HCC) Expected: 12/02/2023, Expires: 03/02/2024 [facility] Work Phone: Comment on above:Expected: 12/02/2023, Expires: 03/02/2024Start: 68-53-3731Zszzybs Directive DiscussionAdvance Directive DiscussionOhio [facility] Hospital[facility]: 24-61-5240Dgodmmdipb Health ScreeningBehavioral Health ScreeningOhio State Harding Hospitaltart: 66-50-6305Qtvjrokoiq Assessment Depression AssessmentOhio State Harding Hospitaltart: 93-60-3844Pkiuhwcms vaccination Influenza Vaccine (#1)[facility]: 83-57-1835WTT Vaccine (1 - 1-dose 75+ series)RSV Vaccine (1 - 1-dose 75+ series)[facility]: 10-11-2022 Advance Directive DiscussionAdvance Directive DiscussionOhio State Harding Hospitaltart: 20-00-7288Wjjxupbzcg AssessmentDepression AssessmentOhio State Harding Hospitaltart: 46-87-5029[place] prostate wo/w conMR prostate wo/w [facility]: 93-08-6147Oqeahbhilewl Vaccine: 65+ (1 - PCV)Pneumococcal Vaccine: 65+ (1 - PCV)[facility]: 27-84-7915Tphzikbkszfv Vaccine: 65+ (1 of 1 - PCV)Pneumococcal Vaccine: 65+ (1 of 1 - PCV)[facility]: 2012 Pneumococcal Vaccine: 65+ Years (1 of 1 - PCV)Pneumococcal Vaccine: 65+ Years (1 of 1 - PCV)[facility]: 10-30-7350PMV Vaccine (1 - 1-dose 60+ series) RSV Vaccine (1 - 1-dose 60+ series)[facility]: 91-30-2101Tzcuwwvtbmzj Vaccine: 50+ (1 of 1 - PCV)Pneumococcal Vaccine: 50+ (1 of 1 - PCV)[facility]: 59-14-3900Rrtgyedx Vaccine (1 of 2)Shingrix Vaccine (1 of 2) [facility]: 75-41-8418Qljkauhzq (FIT-DNA)Cologuard (FIT-DNA)[facility]: 40-51-7187McwaezcneftGcoijofnkcpOonvnaykb ClinicStart: 1992 Colorectal Cancer ScreeningColorectal Cancer ScreeningOhio State Harding Hospitaltart: 29-51-4017WB ColonographyCT ColonographyOhio State Harding Hospitaltart: 1992 Diabetes ScreeningDiabetes ScreeningOhio State Harding Hospitaltart: 92-48-4553Zhlei Occult BloodFecal Occult BloodOhio State Harding Hospitaltart: 18-23-3703Wftbwkjhv for malignant neoplasm of colonOhio State Harding Hospitaltart: 93-43-6167Nrexjtfrplcqs SigmoidoscopyOhio State Harding Hospitaltart: 04-27-6041Gxbaq 1996 panel - Serum or Plasma Lipid ScreeningOhio State Harding Hospitaltart: 47-40-1214Ckwex panelLipid Screening [facility]: 08-40-0339Ugejmhvmljek Vaccine: 65+ Years (1 of 2 - PCV) Pneumococcal Vaccine: 65+ Years (1 of 2 - PCV)[facility] HealthcareStart: 1966 Urine microalbumin profileDTaP,Tdap,Td Vaccine (1 - Tdap)[facility]: 47-05-9935Gqikjbl ScreeningAnxiety ScreeningOhio State Harding Hospitaltart: 1965 Depression ScreeningDepression ScreeningOhio State [facility]ing Hospitaltart: 1965 Hepatitis C ScreeningHepatitis C ScreeningOhio State Harding Hospitaltart: 1965 Hepatitis C screeningHepatitis C ScreeningOhio State Harding Hospitaltart: 1953 Pneumococcal Vaccine: 65+ Years (1 of 2 - PCV)Pneumococcal Vaccine: 65+ Years (1 of 2 - PCV)[facility] HospitalStart: 17-92-6407Orege-19 Vaccine (#1)Covid-19 Vaccine (#1)[facility]: 02-14-1948Medicare Annual Wellness (AWV) Medicare Annual Wellness (AWV)[facility] End: 55-56-3307HU PET/CT PROSTATE WHOLE BODY IMAGINGNM PET/CT PROSTATE WHOLE BODY IMAGING Radiology Routine Cancer of prostate w/med recur risk (T2b-c or Arrington 7 or PSA 10-20) (HCC) 1 Occurrences starting 09/21/2023 until 10/20/2024 [facility] Work Phone: Comment on above:1 Occurrences starting 09/21/2023 until 10/20/2024[facility] Work Phone: [facility] Immunizations Immunization DateImmunizationNotesCare QbuysdlnXsmxjfzp89-08-4157umxmbfgjo virus vaccine, unspecified formulationMerrill Iraheta MD Work Phone: [facility] HospitalKklzlmtnch96-79-8316cuswsbhgs virus vaccine, unspecified formulationUofl Health - Peace Hospitalmatilde RAMOS [facility]10-18-2022influenza virus vaccine, unspecified formulationBasin RAMOS [facility]10-02-2022SARS-CoV-2 (COVID-19) mRNAMUL.ORD![id number] WATERS [facility]05-13-2022COVID-19 mRNAAnna (Pfizer)MD Ankur Duran Jr Work Phone: [facility]05-13-2022SARS-CoV-2 mRNA (thupmmhlelj-eaqo-rtngfnf) vaccineBasin RAMOS [facility]11-13-2021COVID-19 mRNAAnna (Pfizer)MD Ankur Duran Jr Work Phone: [facility]11-13-2021SARS-CoV-2 mRNA (tozinameran 5y-11y) Christine Duran Jr. [facility] [id number]-43 mRNAAnna (Pfizer)MD Ankur Duran Jr Work Phone: [facility]03-03-2021SARS-CoV-2 mRNA (tozinameran 5y-11y) Christine Duran Jr. [facility] [id number]-17 mRNA, Anna (Pfizer)MD Ankur Duran Jr Work Phone: [facility]02-12-2021SARS-CoV-2 mRNA (tozinameran 5y-11y) Christine Duran Jr. [facility] [id number] virus vaccine, unspecified formulationPariver valley behavioral health hospitalmatilde RAMOS [facility] Payers DatePayer CategoryPayerPolicy ID2022Medicare [id number] 2022Medicare (Managed Care) [id number] [id number] [id number] [id number] [id number] [id number] [id number] [id number] [id number] [id number]-paySelf Pay [id number] Social History DateTypeDetailFacilityStart: 02-17-2022 End: 20-21-6617Fjycutq smoking statusNever smoked tobacco (finding)[facility] start: 09-21-2023 End: 41-01-3540Ucs Assigned At [facility] start: 12-11-8345Cpr Assigned At [facility]: 11-23-2022 End: 05-63-5207Suckrpn smoking statusEx-smoker (finding)[facility] smoking statusNeverExec[facility] smoking status NHISTobacco smoking consumption unknownChillicothe Va Medical Center Work Phone: Start: 18-13-8341Ihf Assigned At [facility] HospitalNot on file [facility]: 10-11-1963 End: 30-36-1802Mtrbfeo of tobacco useCurrent smokerOhio State Harding Hospitaltart: 10-11-1963 End: 61-24-3972Kcqrmyu of tobacco useCigarette SmokerOhio State Harding Hospitaltart: 09-21-2023 End: 36-68-2933Dqdwkefuqu smoked current (pack per day) - Reported1.5[facility] ClinicStart: 09-21-2023 End: 72-84-1294Xtuezsh use and exposureSmokeless tobacco non-userOhio State Harding Hospitaltart: 09-21-2023 End: 76-63-9047Lshwenm intakeCurrent drinker of alcohol (finding)[facility]: 60-21-0405Ktydirf Comment2-3 mixed drink per dayOhio State Harding Hospitalex Male (finding)[facility] Functional Status SsxxEwbzqbfugmAjhssbAudylqfl41-73-1895Tecwvykanj StatusN/AExec[facility]02-05-2024Functional StatusN/A[facility]12-01-2023Functional StatusN/A [facility]09-25-2023Functional StatusN/AExec[facility] Clinical Notes 02-17-2022 to 07-17-2025 Note Date & VxjnFygzEvjutnvr91-53-5666 Hospital Discharge instructionsAmbulatory Orders* Referral to Orthopedic Surgery Time Frame: 07/17/25, Location: None Selected [facility] Work Phone: 1(310) 809-147907-17-2025 NoteHNO ID: [id number] Author: Adelfo GABRIEL MD Service: ? Author Type: Physician Type: Progress Notes Filed: 04/26/2025 13:29 Note Text: Radiation Oncology - Follow Up Note PATIENT NAME: Ayala Damian PATIENT DIAGNOSIS: Prostate adenocarcinoma, 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 RADIATION SUMMARY: DATES OF TREATMENT: 11/25/2023 to 01/03/2024 AREA TREATED: Pelvis Prostate DELIVERED DOSE: Area: Pelvis Prostate 7,000 cGy in 39 fractions, 3Fields, IMRT, 10 MV with daily CBCT TOTAL: 7,000 cGy in 28 fractions ELAPSED TIME: 39 days. INTERVAL HISTORY: Doing well no new problems. PSA HISTORY: PSA (ng/mL) Date Value 04/19/2025 0.30 01/18/2025 0.51 07/20/2024 0.25 01/31/2024 0.59 ALLERGIES Allergen Reactions Penicillins Hives tamsulosin (FLOMAX) 0.4 mg Take 1 capsule by mouth daily at bedtime. amLODIPine (NORVASC) 5 mg tablet Take 5 mg by mouth. Atenolol-Chlorthalidone 100-25 mg per tablet Take 1 tablet by mouth once daily. simvastatin (ZOCOR) 40 mg tablet Take 40 mg by mouth. nabumetone (RELAFEN) 500 mg tablet Refills(s) 0 REVIEW OF SYSTEMS: D/N = 4-5/1-2 Hematuria: none Dysuria: none Incontinence: none Urgency: none Catheter use: none Medications to aid urination: flomax - Total AUA Score: 5 Bowel movement frequency: 1/day Bowel movement quality: normal Blood per rectum: none Androgen deprivation: Lupron x 1 PHYSICAL EXAM: BP 156/76 Pulse 68 Temp 36.7 ?C (98 ?F) Resp 16 Wt 115.9 kg (255 lb 8.2 oz) SpO2 97% BMI (P) 34.65 kg/m? KPS: 100 General Appearance: Alert and oriented. No acute distress. No neck supraclavicular or axillary lymphadenopathy Rectal exam is deferred. ASSESSMENT/PLAN: Prostate adenocarcinoma, initial PSA 9.5, biopsy Sahil score 4 + 3 = 7 (grade group 3), clinical stage T1c, N0, M0, stage IIC [T1-T2, N0, M0, PSA <20, GG 3] (AJCC 8th ed.), s/p definitive radiation completed December 2023. Doing well. No significant posttreatment issues. PSA is low and stable over the last 12 months. Slight rise last evaluation likely related to ADT withdrawal and testosterone recovery. He continues close follow-up with his urologist. Recommend continued surveillance we will plan to see patient back in 6 months for further follow-up. Plan to see patient back in 3 months. Signed by: Adelfo Gabriel MD cc: Merrill Iraheta MD ([facility]) [address] [place] [address] RghiwyhoiOhiohealth Shelby Hospital07-17-2025 History of Present illness Narrative* Adelfo Gabriel MD - 04/26/2025 1:08 PM EDT Radiation Oncology - Follow Up Note PATIENT NAME: Ayala Damian PATIENT DIAGNOSIS: Prostate adenocarcinoma, 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 RADIATION SUMMARY: DATES OF TREATMENT: 11/25/2023 to 01/03/2024 AREA TREATED: Pelvis Prostate DELIVERED DOSE: Area: Pelvis Prostate 7,000 cGy in 39 fractions, 3Fields, IMRT, 10 MV with daily CBCT TOTAL: 7,000 cGy in 28 fractions ELAPSED TIME: 39 days. INTERVAL HISTORY: Doing well no new problems. PSA HISTORY: PSA (ng/mL) Date Value 04/19/2025 0.30 01/18/2025 0.51 07/20/2024 0.25 01/31/2024 0.59 ALLERGIES Allergen Reactions Penicillins Hives tamsulosin (FLOMAX) 0.4 mg Take 1 capsule by mouth daily at bedtime. amLODIPine (NORVASC) 5 mg tablet Take 5 mg by mouth. Atenolol-Chlorthalidone 100-25 mg per tablet Take 1 tablet by mouth once daily. simvastatin (ZOCOR) 40 mg tablet Take 40 mg by mouth. nabumetone (RELAFEN) 500 mg tablet Refills(s) 0 REVIEW OF SYSTEMS: D/N = 4-5/1-2 Hematuria: none Dysuria: none Incontinence: none Urgency: none Catheter use: none Medications to aid urination: flomax - Total AUA Score: 5 Bowel movement frequency: 1/day Bowel movement quality: normal Blood per rectum: none Androgen deprivation: Lupron x 1 PHYSICAL EXAM: BP 156/76 Pulse 68 Temp 36.7 C (98 F) Resp 16 Wt 115.9 kg (255 lb 8.2 oz) SpO2 97% BMI (P) 34.65 kg/m KPS: 100 General Appearance: Alert and oriented. No acute distress. No neck supraclavicular or axillary lymphadenopathy Rectal exam is deferred. ASSESSMENT/PLAN: Prostate adenocarcinoma, initial PSA 9.5, biopsy Sahil score 4 + 3 = 7 (grade group 3), clinical stage T1c, N0, M0, stage IIC [T1-T2, N0, M0, PSA <20, GG 3] (AJCC 8th ed.), s/p definitive radiation completed December 2023. Doing well. No significant posttreatment issues. PSA is low and stable over the last 12 months. Slight rise last evaluation likely related to ADT withdrawal and testosterone recovery. He continues close follow-up with his urologist. Recommend continued surveillance we will plan to see patient back in 6 months for further follow-up. Plan to see patient back in 3 months. Signed by: Adelfo Gabriel MD cc: Merrill Iraheta MD ([facility]) [address] [place] [address] * Olga Monge RN - 04/26/2025 1:03 PM EDT AUA= 5 documented in this encounterChillicothe Va Medical Center07-17-2025 NoteHNO ID: [id number] Author: OLGA MONGE RN Service: ? Author Type: Registered Nurse Type: Progress Notes Filed: 04/26/2025 13:29 Note Text: AUA= 5CSelect [facility] Telephone encounter Note* Telephone Encounter - Olga Monge RN - 04/18/2025 12:04 PM EDT Please sign pended PSA order for 04/19/25 appt. Previous PSA order is for a screening. Thanks Olga Monge RN [facility]07-09-2025 Miscellaneous Notes* Telephone Encounter - Olga Monge RN - 04/18/2025 12:04 PM EDT Please sign pended PSA order for 04/19/25 appt. Previous PSA order is for a screening. Thanks Olga Monge RN documented in this encounterChillicothe Va Medical Center04-18-2025 NotePatient Education Oncology Prostate Cancer The prostate is [...] more likely to develop this condition if: ??? You are 65 years of age or older. ??? You have a family history of prostate cancer. ??? You have a family history of breast and ovarian cancer. ??? You have genes that are passed from parent to child (inherited), such as BRCA1 and BRCA2. ??? 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 men and men of descent are diagnosed with prostate cancer at higher rates than other men. The reasons for this are not well understood and are likely due to a combination of genetic and environmental factors. What are the signs or symptoms? Symptoms of this condition include: ??? Problems with urination. This may include: ? A weak or interrupted flow of urine. ? Trouble starting or stopping urination. ? Trouble emptying the bladder all the way. ? The need to urinate more often, especially at night. ??? Blood in urine or semen. ??? Persistent pain or discomfort in the lower back, lower abdomen, or hips. ??? Trouble getting an erection. ??? Weakness or numbness in the legs or feet. How is this diagnosed? This condition can be diagnosed with: ??? A digital rectal exam. For this exam, a health care provider inserts a gloved finger into the rectum to feel the prostate gland. ??? A blood test called a prostate-specific antigen (PSA) test. ??? A procedure in which a sample of tissue is taken from the prostate and checked under a microscope (prostate biopsy). ??? An imaging test called transrectal ultrasonography. Once the condition is diagnosed, tests will be done to determine how far the cancer has spread. This is called staging the cancer. Staging may involve imaging tests, such as a bone scan, CT scan, PETscan, or MRI. Stages of prostate cancer The stages of prostate cancer are as follows: ??? Stage 1 (I). At this stage, the cancer is found in the prostate only. The cancer is not visibleon imaging tests, and it is usually found by accident, such as during prostate surgery. ??? Stage 2 (II). At this stage, the cancer is more advanced than it is in stage 1, but the cancer has not spread outside the prostate. ??? Stage 3 (III). At this stage, the cancer has spread beyond the outer layer of the prostate to nearby tissues. The cancer may be found in the seminal vesicles, which are near the bladder and the prostate. ??? Stage 4 (IV). At this stage, the [...] greater thelikelihood that the cancer will spread. ??? Sahil 6 or lower: This indicates that the cancer cells look similar to normal prostate cells (well differentiated). ??? Arrington 7: This indicates that the cancer cells look somewhat similar to normal prostate cells (moderately differentiated). ??? Arrington 8, 9, or 10: This indicates that the cancer cells look very different than normal prostate cells (poorly differentiated). How is this treated? Treatment for this condition depends on several factors, including the stage of the cancer, your age, personal preferences, and your overall health. Talk with your health care provider about treatment options that are recommended for you. Common treatments include: ??? Observation for early stage prostate cancer (active surveillance). This involves having exams, blood tests, and in some cases, more biopsies. For some men, this is the only treatment needed. ??? Surgery. Types of surgeries include: ? Open [...] surgery to freeze and destroy cancer cells. ??? Radiation treatment. Types of radiation treatment include: ? External beam radiation. This type aims beams of radiation from outside the body at the prostate to destroy cancerous cells. ? Brachytherapy. This type uses radioactive needles, seeds, wires, o (more content not included)...[facility]04-18-2025 NoteHNO ID: [id number] Author: RADHA ZAPIEN APRN.CNP Service: ? Author Type: Nurse Practitioner Type: Progress Notes Filed: 01/26/2025 08:59 Note Text: Ayala Damian returns for scheduled follow-up. Patient was seen and examined by Dr. Gabriel today. He is doing well. He offers no new complaints today. He denies any unusual pain. No bone pain. He is urinating well. No pain, burning or difficulty with urination. No hematuria. He denies any problems with his bowels. No constipation or diarrhea. Patient was given treatment summary and survivorship care plan for prostate cancer. Patient will follow-up as scheduled. Radha Zapien APRN.CNPOhiohealth Shelby Hospital04-18-2025 History of Present illness Narrative* Radha Zapien APRN.CNP - 01/26/2025 8:43 AM EDT Ayala Damian returns for scheduled follow-up. Patient was seen and examined by Dr. Gabriel today. He is doing well. He offers no new complaints today. He denies any unusual pain. No bone pain. He is urinating well. No pain, burning or difficulty with urination. No hematuria. He denies any problems with his bowels. No constipation or diarrhea. Patient was given treatment summary and survivorship care plan for prostate cancer. Patient will follow-up as scheduled. Radha Zapien APRN.CNP documented in this encounterChillicothe [facility]04-17-2025 NoteHNO ID: [id number] Author: Adelfo GABRIEL MD Service: ? Author Type: Physician Type: Progress Notes Filed: 01/25/2025 13:47 Note Text: Radiation Oncology - Follow Up Note PATIENT NAME: Ayala Damian PATIENT DIAGNOSIS: Prostate adenocarcinoma, 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 RADIATION SUMMARY: DATES OF TREATMENT: 11/25/2023 to 01/03/2024 AREA TREATED: Pelvis Prostate DELIVERED DOSE: Area: Pelvis Prostate 7,000 cGy in 39 fractions, 3Fields, IMRT, 10 MV with daily CBCT TOTAL: 7,000 cGy in 28 fractions ELAPSED TIME: 39 days. INTERVAL HISTORY: Doing well no new problems. PSA HISTORY: PSA (ng/mL) Date Value 01/18/2025 0.51 07/20/2024 0.25 01/31/2024 0.59 ALLERGIES Allergen Reactions Penicillins Hives tamsulosin (FLOMAX) 0.4 mg Take 1 capsule by mouth daily at bedtime. amLODIPine (NORVASC) 5 mg tablet Take 5 mg by mouth. Atenolol-Chlorthalidone 100-25 mg per tablet Take 1 tablet by mouth once daily. simvastatin (ZOCOR) 40 mg tablet Take 40 mg by mouth. nabumetone (RELAFEN) 500 mg tablet Refills(s) 0 REVIEW OF SYSTEMS: D/N = 4-5/1-2 Hematuria: none Dysuria: none Incontinence: none Urgency: none Catheter use: none Medications to aid urination: flomax - Total AUA Score: 8 Bowel movement frequency: 1/day Bowel movement quality: normal Blood per rectum: none Androgen deprivation: Lupron x 1 PHYSICAL EXAM: Temp 36.1 ?C (96.9 ?F) Resp 16 Wt 116 kg (255 lb 11.7 oz) SpO2 93% BMI (P) 34.68 kg/m? KPS: 100 General Appearance: Alert and oriented. No acute distress. Rectal exam is deferred. ASSESSMENT/PLAN: Prostate adenocarcinoma, initial PSA 9.5, biopsy Sahil score 4 + 3 = 7 (grade group 3), clinical stage T1c, N0, M0, stage IIC [T1-T2, N0, M0, PSA <20, GG 3] (AJCC 8th ed.), s/p definitive radiation completed December 2023. Doing well. No significant posttreatment issues. PSA has increased somewhat from last fall. Still relatively low value. This may represent effect of testosterone recovery after prior ADT. Recommend rechecking in 3 months. If continues to increase significantly would consider PSMA PET for further evaluation. Plan to see patient back in 3 months. Signed by: Adelfo Gabriel MD cc: Merrill Iraheta MD (C) [address] [place] [address] Dr. [facility] History of Present illness Narrative* Adelfo Gabriel MD - 01/25/2025 1:37 PM EDT Radiation Oncology - Follow Up Note PATIENT NAME: Ayala Damian PATIENT DIAGNOSIS: Prostate adenocarcinoma, 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 RADIATION SUMMARY: DATES OF TREATMENT: 11/25/2023 to 01/03/2024 AREA TREATED: Pelvis Prostate DELIVERED DOSE: Area: Pelvis Prostate 7,000 cGy in 39 fractions, 3Fields, IMRT, 10 MV with daily CBCT TOTAL: 7,000 cGy in 28 fractions ELAPSED TIME: 39 days. INTERVAL HISTORY: Doing well no new problems. PSA HISTORY: PSA (ng/mL) Date Value 01/18/2025 0.51 07/20/2024 0.25 01/31/2024 0.59 ALLERGIES Allergen Reactions Penicillins Hives tamsulosin (FLOMAX) 0.4 mg Take 1 capsule by mouth daily at bedtime. amLODIPine (NORVASC) 5 mg tablet Take 5 mg by mouth. Atenolol-Chlorthalidone 100-25 mg per tablet Take 1 tablet by mouth once daily. simvastatin (ZOCOR) 40 mg tablet Take 40 mg by mouth. nabumetone (RELAFEN) 500 mg tablet Refills(s) 0 REVIEW OF SYSTEMS: D/N = 4-5/1-2 Hematuria: none Dysuria: none Incontinence: none Urgency: none Catheter use: none Medications to aid urination: flomax - Total AUA Score: 8 Bowel movement frequency: 1/day Bowel movement quality: normal Blood per rectum: none Androgen deprivation: Lupron x 1 PHYSICAL EXAM: Temp 36.1 C (96.9 F) Resp 16 Wt 116 kg (255 lb 11.7 oz) SpO2 93% BMI (P) 34.68 kg/m KPS: 100 General Appearance: Alert and oriented. No acute distress. Rectal exam is deferred. ASSESSMENT/PLAN: Prostate adenocarcinoma, initial PSA 9.5, biopsy Arrington score 4 + 3 = 7 (grade group 3), clinical stage T1c, N0, M0, stage IIC [T1-T2, N0, M0, PSA <20, GG 3] (AJCC 8th ed.), s/p definitive radiation completed December 2023. Doing well. No significant posttreatment issues. PSA has increased somewhat from last fall. Still relatively low value. This may represent effect oftestosterone recovery after prior ADT. Recommend rechecking in 3 months. If continues to increase significantly would consider PSMA PET for further evaluation. Plan to see patient back in 3 months. Signed by: Adelfo Gabriel MD cc: Merrill Iraheta MD ([facility]) [address] [place] [address] Dr. Ramos * Chelsy Flores RN - 01/25/2025 1:23 PM EDT ROSALIO Flores RN documented in this encounterChillicothe [facility]04-17-2025 NoteHNO ID: [id number] Author: CHELSY FLORES RN Service: ? Author Type: Registered Nurse Type: Progress Notes Filed: 01/25/2025 13:47 Note Text: ROSALIO Flores RNOhiohealth Shelby Hospital04-08-2025 History of Present illness Narrative* Merrill Iraheta MD - 01/16/2025 9:50 AM EDTAssociated Problem(s): Prostate cancer (CMS/HCC) Follow with oncology. * Merrill Iraheta MD - 01/16/2025 9:50 AM EDTAssociated Problem(s): Primary osteoarthritis of right knee Pain stable and use relafen PRN. * Merrill Iraheta MD - 01/16/2025 9:49 AM EDTAssociated Problem(s): Benign essential tremor Occasional tremor and likely essential tremor. Discussed options including primidone but wants to monitor. * Merrill Iraheta MD - 01/16/2025 9:49 AM EDTAssociated Problem(s): Benign essential hypertension (CMS/HCC) BP controlled and monitor PRN. * Merrill Iraheta MD - 01/16/2025 9:15 AM EDT Images from the original note were not included. Subjective Patient ID: Ayala Damian is a 79 y.o. male who presents for Follow-up (6 m). Follow up HTN, OA knee, and prostate cancer. Patient feels well today. Checking BP PRN and typically controlled. BP normal today. Taking medication daily and tolerating without side effects. OA knee stable. Occasional pain and stiffness and notice worse with weather change. Stiff if sit prolonged but improved once up and moving. Mild swelling. Frequent popping and clicking. Using relafen PRN and pain tolerable. Following with oncology and recent PSA 0.25. Completed radiation and monitoring. C/otremor in both hands for few years but getting worse. Hands fine at rest and no tremor at rest. If try to use hands to write or eat notice tremor. Worse with holding things and at times hard to hold cup. If have a few cocktails tremor improves. Review of Systems Constitutional: Negative for fatigue. Respiratory: Negative for cough, shortness of breath and wheezing. Cardiovascular: Negative for chest pain and palpitations. Gastrointestinal: Negative for abdominal pain, diarrhea, nausea and vomiting. Genitourinary: Negative for dysuria. Objective Physical Exam Constitutional: General: He is not in acute distress. Appearance: Normal appearance. HENT: Head: Normocephalic. Right Ear: Tympanic membrane and ear canal normal. Left Ear: Tympanic membrane and ear canal normal. Eyes: Extraocular Movements: Extraocular movements intact. Pupils: Pupils are equal, round, and reactive to light. Cardiovascular: Rate and Rhythm: Normal rate and regular rhythm. Heart sounds: No murmur heard. No friction rub. No gallop. Pulmonary: Breath sounds: Normal breath sounds. No wheezing, rhonchi or rales. Abdominal: General: Bowel sounds are normal. There is no distension. Palpations: Abdomen is soft. Tenderness: There is no abdominal tenderness. There is no guarding or rebound. Musculoskeletal: Left lower leg: No edema. Neurological: Mental Status: He is alert. Assessment/Plan Problem List Items Addressed This Visit Prostate cancer (CMS/HCC) Follow with oncology. Benign essential hypertension (CMS/HCC) - Primary BP controlled and monitor PRN. Primary osteoarthritis of right knee Pain stable and use relafen PRN. Benign essential tremor Occasional tremor and likely essential tremor. Discussed options including primidone but wants to monitor. documented in this encounterJefferson Memorial [id number] NoteHNO ID: [id number] Author: Adelfo GABRIEL MD Service: ? Author Type: Physician Type: Progress Notes Filed: 07/27/2024 13:37 Note Text: Radiation Oncology - Follow Up Note PATIENT NAME: Ayala Damian PATIENT DIAGNOSIS: Prostate adenocarcinoma, 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 RADIATION SUMMARY: DATES OF TREATMENT: 11/25/2023 to 01/03/2024 AREA TREATED: Pelvis Prostate DELIVERED DOSE: Area: Pelvis Prostate 7,000 cGy in 39 fractions, 3Fields, IMRT, 10 MV with daily CBCT TOTAL: 7,000 cGy in 28 fractions ELAPSED TIME: 39 days. INTERVAL HISTORY: Doing well no new problems. PSA HISTORY: PSA (ng/mL) Date Value 07/20/2024 0.25 01/31/2024 0.59 ALLERGIES Allergen Reactions Penicillins Hives tamsulosin (FLOMAX) 0.4 mg Take 1 capsule by mouth daily at bedtime. amLODIPine (NORVASC) 5 mg tablet Take 5 mg by mouth. Atenolol-Chlorthalidone 100-25 mg per tablet Take 1 tablet by mouth once daily. simvastatin (ZOCOR) 40 mg tablet Take 40 mg by mouth. nabumetone (RELAFEN) 500 mg tablet Refills(s) 0 REVIEW OF SYSTEMS: D/N = 4-5/1-2 Hematuria: none Dysuria: none Incontinence: none Urgency: none Catheter use: none Medications to aid urination: flomax - Total AUA Score: 5 Bowel movement frequency: 1/day Bowel movement quality: normal Blood per rectum: none Androgen deprivation: Currently being treated with Lupron. PHYSICAL EXAM: BP 137/66 Pulse 63 Temp 36.8 ?C (98.2 ?F) Resp 18 Wt 117.6 kg (259 lb 4.2 oz) SpO2 94% BMI (P) 35.16 kg/m? KPS: 100 General Appearance: Alert and oriented. No acute distress. Rectal exam is deferred. ASSESSMENT/PLAN: Prostate adenocarcinoma, initial PSA 9.5, biopsy Sahil score 4 + 3 = 7 (grade group 3), clinical stage T1c, N0, M0, stage IIC [T1-T2, N0, M0, PSA <20, GG 3] (AJCC 8th ed.), s/p definitive radiation completed December 2023. Doing well. PSA continues to respond very well. No significant posttreatment related issues. Recommend follow-up in 6 months. He has continued follow-up with his urologist Dr. Ramos. Signed by: Adelfo Gabriel MD cc: Merrill Iraheta MD ([facility]) [address] [place] [address] No referring provider defined for this encounter.[facility] History of Present illness Narrative* Adelfo Gabriel MD - 07/27/2024 1:28 PM EDT Radiation Oncology - Follow Up Note PATIENT NAME: Ayala Damian PATIENT DIAGNOSIS: Prostate adenocarcinoma, 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 RADIATION SUMMARY: DATES OF TREATMENT: 11/25/2023 to 01/03/2024 AREA TREATED: Pelvis Prostate DELIVERED DOSE: Area: Pelvis Prostate 7,000 cGy in 39 fractions, 3Fields, IMRT, 10 MV with daily CBCT TOTAL: 7,000 cGy in 28 fractions ELAPSED TIME: 39 days. INTERVAL HISTORY: Doing well no new problems. PSA HISTORY: PSA (ng/mL) Date Value 07/20/2024 0.25 01/31/2024 0.59 ALLERGIES Allergen Reactions Penicillins Hives tamsulosin (FLOMAX) 0.4 mg Take 1 capsule by mouth daily at bedtime. amLODIPine (NORVASC) 5 mg tablet Take 5 mg by mouth. Atenolol-Chlorthalidone 100-25 mg per tablet Take 1 tablet by mouth once daily. simvastatin (ZOCOR) 40 mg tablet Take 40 mg by mouth. nabumetone (RELAFEN) 500 mg tablet Refills(s) 0 REVIEW OF SYSTEMS: D/N = 4-5/1-2 Hematuria: none Dysuria: none Incontinence: none Urgency: none Catheter use: none Medications to aid urination: flomax - Total AUA Score: 5 Bowel movement frequency: 1/day Bowel movement quality: normal Blood per rectum: none Androgen deprivation: Currently being treated with Lupron. PHYSICAL EXAM: BP 137/66 Pulse 63 Temp 36.8 C (98.2 F) Resp 18 Wt 117.6 kg (259 lb 4.2 oz) SpO2 94% BMI (P) 35.16 kg/m KPS: 100 General Appearance: Alert and oriented. No acute distress. Rectal exam is deferred. ASSESSMENT/PLAN: Prostate adenocarcinoma, initial PSA 9.5, biopsy Sahil score 4 + 3 = 7 (grade group 3), clinical stage T1c, N0, M0, stage IIC [T1-T2, N0, M0, PSA <20, GG 3] (AJCC 8th ed.), s/p definitive radiation completed December 2023. Doing well. PSA continues to respond very well. No significant posttreatment related issues. Recommend follow-up in 6 months. He has continued follow-up with his urologist Dr. Ramos. Signed by: Adelfo Gabriel MD cc: Merrill Iraheta MD ([facility]) [address] [place] [address] No referring provider defined for this encounter. documented in this encounterChillicothe [facility]10-17-2024 Nurse Note* Chelsy Flores RN - 07/27/2024 1:23 PM EDT ROSALIO Flores RN [facility]10-[facility] Nurse Note* Chelsy Flores RN - 07/27/2024 1:23 PM EDT ROSALIO 5 Chelsy Flores RN documented in this encounterChillicothe Va [facility] Center10-08-2024 History of Present illness Narrative* Merrill Iraheta MD - 07/18/2024 3:09 PM EDTAssociated Problem(s): AAA (abdominal aortic aneurysm) without rupture (CMS/HCC) Follow with specialists. * Merrill Iraheta MD - 07/18/2024 3:07 PM EDTAssociated Problem(s): Prostate cancer (CMS/HCC) Follow with oncology. * Merrill Iraheta MD - 07/18/2024 3:07 PM EDTAssociated Problem(s): Benign essential hypertension (CMS/HCC) BP controlled and monitor PRN. * Merrill Iraheta MD - 07/18/2024 3:07 PM EDTAssociated Problem(s): Encounter for Medicare annual wellness exam Due for labs. Discussed proper diet and regular aerobic exercise. Need aerobic exercise 5-6 days a week for 30 minutes at a time. Smaller portions and limit total calories. Colonoscopy every 10 years. Tetanus every 10 years. Advised not to smoke. Discussed daily Aspirin therapy. * Merrill Iraheta MD - 07/18/2024 2:30 PM EDT Images from the original note were not included. Subjective Patient ID: Ayala Damian is a 78 y.o. male who presents for Medicare Annual Wellness Visit Subsequent (wellness). Presents for medicare annual wellness visit. Patient feels well today. Weight down 4 pounds in pastyear. Active around house but no regular exercise or activity. Tries to watch diet and eat healthy.Increased fruits and vegetables. Smaller portions and limits snacking. Tries to limit total daily calories. Due for labs. Checking BP PRN and typically controlled. BP normal today. Taking medication daily and tolerating without side effects. Diagnosed with prostate cancer and treated with radiation. Did well and following with oncology. Review of Systems Constitutional: Negative for fatigue. Respiratory: Negative for cough, shortness of breath and wheezing. Cardiovascular: Negative for chest pain and palpitations. Gastrointestinal: Negative for abdominal pain, diarrhea, nausea and vomiting. Genitourinary: Negative for dysuria. Objective Physical Exam Constitutional: General: He is not in acute distress. Appearance: Normal appearance. HENT: Head: Normocephalic. Right Ear: Tympanic membrane and ear canal normal. Left Ear: Tympanic membrane and ear canal normal. Eyes: Extraocular Movements: Extraocular movements intact. Pupils: Pupils are equal, round, and reactive to light. Cardiovascular: Rate and Rhythm: Normal rate and regular rhythm. Heart sounds: No murmur heard. No friction rub. No gallop. Pulmonary: Breath sounds: Normal breath sounds. No wheezing, rhonchi or rales. Abdominal: General: Bowel sounds are normal. There is no distension. Palpations: Abdomen is soft. Tenderness: There is no abdominal tenderness. There is no guarding or rebound. Musculoskeletal: General: Normal range of motion. Left lower leg: No edema. Neurological: General: No focal deficit present. Mental Status: He is alert. Cranial Nerves: No cranial nerve deficit. Deep Tendon Reflexes: Reflexes normal. Assessment/Plan Problem List Items Addressed This Visit Prostate cancer (CMS/HCC) Follow with oncology. Benign essential hypertension ([facility]/HCC) BP controlled and monitor PRN. Relevant Orders Basic metabolic panel Prediabetes Relevant Orders Hemoglobin A1c Encounter for long-term (current) use of medications Relevant Orders CBC and differential Hepatic function panel Dyslipidemia (CMS/HCC) Relevant Orders Lipid panel Encounter for Medicare annual wellness exam - Primary Due for labs. Discussed proper diet and regular aerobic exercise. Need aerobic exercise 5-6 days a week for 30 minutes at a time. Smaller portions and limit total calories. Colonoscopy every 10 years. Tetanus every 10 years. Advised not to smoke. Discussed daily Aspirin therapy. Obesity (BMI 30-39.9) Relevant Orders TSH documented in this encounterJefferson Memorial [id number] Hospital Discharge instructions Patient Education 05/12/2024 11:01:40 Prostate Cancer Prostate Cancer The prostate is [...] under a microscope. This is called the Arrington score and the total score can range from 6 10, indicating how likely it is that the cancer will spread (metastasize) to other parts of the body. The higher the score, the greater thelikelihood that the cancer will spread. Sahil 6 or lower: This indicates that [...] stress of having cancer. General instructions Take [id number] and prescription medicines only as told by your health care provider. If you have to go to the hospital, notify your cancer specialist (oncologist). Keep all follow-up visits. This is important. Where to find more information [employer]: www.cancer.org [employer] On[employer]: www.cancer.net National Cancer [place]: www.cancer.gov Contact a health care provider if: [...] provider. Document Revised: 12/24/2021 Document Reviewed: 12/24/2021 [employer] Patient Education 2022 [facility]. Follow Up Care 07/05/2023 14:43:00 With:RICHARD MAGANA, Vernell Martinez, URL Address: [address] [place] [address]- When: Unknown [facility] 05-03-2024 Telephone encounter Note* Telephone Encounter - Chelsy Flores RN - 02/11/2024 8:03 AM EDT Please authorize 90 day supply if agreeable. Thank you! Chelsy Flores RN [facility]05-03-2024 Miscellaneous Notes* Telephone Encounter - Chelsy Flores RN - 02/11/2024 8:03 AM EDT Please authorize 90 day supply if agreeable. Thank you! Chelsy Flores RN documented in this encounterChillicothe Va Medical Center04-24-2024 History of Present illness Narrative* Adelfo Gabriel MD - 02/02/2024 11:33 AM EDT Radiation Oncology - Follow Up Note PATIENT NAME: Ayala Damian PATIENT DIAGNOSIS: Prostate adenocarcinoma, 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 RADIATION SUMMARY: DATES OF TREATMENT: 11/25/2023 to 01/03/2024 AREA TREATED: Pelvis Prostate DELIVERED DOSE: Area: Pelvis Prostate 7,000 cGy in 39 fractions, 3Fields, IMRT, 10 MV with daily CBCT TOTAL: 7,000 cGy in 28 fractions ELAPSED TIME: 39 days. INTERVAL HISTORY: Doing well. Bladder function much improved. No other new problems. PSA HISTORY: PSA (ng/mL) Date Value 01/31/2024 0.59 ALLERGIES Allergen Reactions Penicillins Hives tamsulosin (FLOMAX) 0.4 mg Take 1 capsule by mouth daily at bedtime. amLODIPine (NORVASC) 5 mg tablet Take 5 mg by mouth. Atenolol-Chlorthalidone 100-25 mg per tablet Take 1 tablet by mouth once daily. simvastatin (ZOCOR) 40 mg tablet Take 40 mg by mouth. nabumetone (RELAFEN) 500 mg tablet Refills(s) 0 REVIEW OF SYSTEMS: D/N = 4-5/1-2 Hematuria: none Dysuria: none Incontinence: none Urgency: none Catheter use: none Medications to aid urination: flomax - Total AUA Score: 4 Bowel movement frequency: 1/day Bowel movement quality: normal Blood per rectum: none Androgen deprivation: Currently being treated with Lupron. PHYSICAL EXAM: BP 152/68 Pulse 62 Temp 36.3 C (97.3 F) Resp 18 Wt 116.3 kg (256 lb 6.3 oz) SpO2 97% BMI (P) 34.77 kg/m KPS: 100 General Appearance: Alert and oriented. No acute distress. Rectal exam is deferred. ASSESSMENT/PLAN: Prostate adenocarcinoma, initial PSA 9.5, biopsy Arrington score 4 + 3 = 7 (grade group 3), clinical stage T1c, N0, M0, stage IIC [T1-T2, N0, M0, PSA <20, GG 3] (AJCC 8th ed.), s/p definitive radiation completed December 2023. Doing well. Good initial PSA response. Remains on Lupron and has continued follow-up with Dr. Ramos. I will plan to see patient back in 6 months for further postradiation follow-up. Signed by: Adelfo Gabriel MD cc: Merrill Iraheta MD ([facility]) [address] [place] [address] No referring provider defined for this encounter. documented in this encounterChillicothe Va [facility] Center04-24-2024 Nurse Note* Olga Monge LPN - 02/02/2024 11:18 AM EDT AUA= 4 [facility]04-24-2024 Nurse Note* Olga Monge LPN - 02/02/2024 11:18 AM EDT AUA= 4 * Olga Monge LPN - 02/02/2024 11:14 AM EDT AUA= documented in this encounterChillicothe Va [facility] Center04-24-2024 Nurse Note* Olga Monge LPN - 02/02/2024 11:14 AM EDT AUA= [facility]03-25-[facility] History of Present illness Narrative* Adelfo Gabriel MD - 01/03/2024 11:30 AM EDT Radiation Oncology - On Treatment Review (OTR) Note PATIENT NAME: Ayala Damian PATIENT DIAGNOSIS: Prostate adenocarcinoma, 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 COURSE: definitive Current dose: 7000 cGy in 28 fx Planned dose: 7000 cGy in 28 fx SUBJECTIVE: Overall doing well. Doing well no new issues. Still having some more urinary issues mild dysuria endoleak. PHYSICAL EXAM: 01/03/24 1154 BP: 147/70 Pulse: 61 Resp: 16 Temp: 36.4 C (97.6 F) SpO2: 97% Weight: 116 kg (255 lb 11.7 oz) KPS: 100 General Appearance: Alert and [...] Patient doing well. Chart and imaging reviewed. Patient finishes today. Follow-up care discussed. Adelfo Gabriel MD documented in this encounterChillicothe [facility] Center03-15-2024 History of Present illness Narrative* Adelfo Gabriel MD - 12/24/2023 11:23 AM EDT Radiation Oncology - On Treatment Review (OTR) Note PATIENT NAME: Ayala Damian PATIENT DIAGNOSIS: Prostate adenocarcinoma, 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 COURSE: definitive Current dose: 5500 cGy in 22 fx Planned dose: 7000 cGy in 28 fx SUBJECTIVE: Overall doing well. Symptoms stable. PHYSICAL EXAM: 12/24/23 1130 BP: 103/64 Pulse: 71 Resp: 16 Temp: 36.4 C (97.5 F) SpO2: 96% Weight: 116.2 kg (256 lb 2.8 oz) KPS: 100 General Appearance: Alert and [...] imaging reviewed. Continue radiation as outlined. Adelfo Gabriel MD documented in this encounterChillicothe [facility] Center03-11-2024 History of Present illness Narrative* Adelfo Gabriel MD - 12/20/2023 11:30 AM EDT Radiation Oncology - On Treatment Review (OTR) Note PATIENT NAME: Ayala Damian PATIENT DIAGNOSIS: Prostate adenocarcinoma, 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 COURSE: definitive Current dose: 4500 cGy in 18 fx Planned dose: 7000 cGy in 28 fx SUBJECTIVE: Overall doing well. Diarrhea resolved. Urinary frequency seems to worsen as the week goes on improved through the weekend. No dysuria. PHYSICAL EXAM: 12/20/23 1130 BP: 167/74 Pulse: 68 Resp: 16 Temp: 36.3 C (97.4 F) SpO2: 97% Weight: 117.8 kg (259 lb 11.2 oz) KPS: 100 General Appearance: Alert and [...] imaging reviewed. Continue radiation as outlined. Adelfo Gabriel MD documented in this encounterChillicothe [facility] Center03-04-2024 History of Present illness Narrative* Adelfo Gabriel MD - 12/13/2023 11:24 AM EST Radiation Oncology - On Treatment Review (OTR) [...] imaging reviewed. Continue radiation as outlined. Adelfo Gabriel MD documented in this encounterCh[facility]-22-[facility]24 Nurse Note* Chelsy Flores RN - 12/02/2023 11:48 AM EST Ayala Damian presents in office today for: Lab Draw only . Ordering Provider: Sukhdev Gabriel M.D. Test (s) ordered: CBC Method for obtaining blood: Phlebotomy was performed, accessing left antecubital vein. Needle removed intact. Dressing secured. Patient denies discomfort, dizziness, light-headedness or weakness and left the department without assist. Chelsy Flores RN documented in this encounterChillicothe [facility]02-19-2024 History of Present illness Narrative* Adelfo Gabriel MD - 11/29/2023 11:15 AM EST Radiation Oncology - On Treatment Review (OTR) [...] imaging reviewed. Continue radiation as outlined. Adelfo Gbariel MD documented in this encounterChillicothe [facility]02-15-2024 History of Present illness Narrative* Adelfo Gabriel MD - 11/25/2023 12:37 PM EST Radiation Oncology - On Treatment Review (OTR) Note PATIENT NAME: Ayala Damian PATIENT DIAGNOSIS: Prostate adenocarcinoma, initial PSA 9.5, biopsy Arrington score 4 + 3 = 7 (grade [...] treatment given. Continue radiation as prescribed. Adelfo Gabriel MD documented in this encounterChillicothe [facility]02-12-2024 Miscellaneous Notes* Telephone Encounter - Olga Monge LPN - 11/22/2023 10:59 AM EST CBC order pending your approval. Olga Monge RN documented in this encounterChillicothe [facility]02-07-2024 History of Present illness Narrative* Adelfo Gabriel MD - 11/17/2023 12:00 AM EST AYALA DAMIAN [id number] 11/17/2023 [facility] Radiation Oncology Department SIMULATION NOTE DATE OF SIMULATION: 11/17/2023 THERAPIST: Brandy Perdomo MACHINE: [employer] DIAGNOSIS: Malignant neoplasm of [id number] AREA: Prostate CONTRAST: None Consent in Epic: [...] be completed per nursing. Electronically Signed Sukhdev Gabriel M.D. / CDT 43:49 PM documented in this encounterChillicothe [facility]02-07-2024 History of Present illness Narrative* Adelfo Gabriel MD - 11/17/2023 12:00 AM EST AYALA DAMIAN [id number] 11/17/2023 [facility] Department of Radiation Oncology Treatment Planning Note [...] using conventional or 3D planning. The specific doserequirements for the PTV, organs at risk and dose-volume histograms are contained in this treatmentplan and/or elsewhere in the medical record. A completed summary of this plan dated 11/23/2023 incorporated herein by reference includes dose, beam arrangements, energy, blocking, isodose distribution, and/or ports and DVH. Electronically Signed Sukhdev Gabriel M.D. 41:02 PM documented in this encounterChillicothe [facility]02-05-2024 Hospital Discharge instructions Patient Education 11/15/2023 15:16:50 [...] you take these medicines, you may also beprescribed other medicines to help with side effects. LHRH antagonists. These medicines also work to lower the amount of androgens made in the testicles,but they work faster than LHRH agonist medicines [...] suppression therapy is having additional treatment options. Youmay have only one type of treatment, or two or more types at the same time. Treatments may be combined to: Help with side effects. Treat advanced cancer. Where to find more information [place] Cancer Society: www.cancer.org National Cancer [place]: www.cancer.gov Contact a health care provider if: [...] provider. Document Revised: 01/08/2022 Document Reviewed: 01/08/2022 [employer]end Patient Education 2022 [facility]. Follow Up Care 10/19/2023 13:28:55 With:RICHARD MAGANA, Vernell Martinez, URL Address: [facility] [address] , [place] [phone] When: Unknown Comments:6 mos w/ PSA and Lupron inj [facility] 01-09-2024 Nurse Note* Olga Monge LPN - 10/19/2023 11:15 AM EST Radiation Therapy - Patient Education Note PATIENT NAME: Ayala Damian PATIENT October 19, 2023 [facility] FACILITY/LOCATION: [facility] READINESS TO LEARN Cognitive Ability: alert and [...] and family verbalized understanding of radiation treatments, sideeffects, OTV, and transportation. Follow-up plan: Recommend - Recommend continued instruction and follow up as directed Supplemental material: Informational handouts on Bladder function, Diarrhea, Fatigue, Pelvic handout, Skin changes, and patient education binder. Referral (recommendation): None, Pt denied need for social work, van service, and parachute crown sewer. Was approved? No Signed by: Olga Monge LPN documented in this encounterChillicothe [facility] Center01-04-2024 History of Present illness Narrative* Dipti Guerrero RN - 10/14/2023 12:45 PM EST Radiology Service Progress Note DATE OF SERVICE: [...] Left antecubital site with a Angio cath: 24gauge. IV SITE APPEARANCE: Clean,Dry and Intact SIGNATURE: Dipti Guerrero RN PATIENT NAME: Ayala Damian DATE: October 14, 2023 TIME: 1:14 PM * Ruth Tuttle RT(R) - 10/14/2023 12:45 PM EST RADIOLOGY SERVICE PROGRESS NOTE SERVICE DATE: 10/14/2023 SERVICE TIME: 1:29 PM PATIENT IDENTITY VERIFICATION COMPLETED USING TWO (2) STANDARD IDENTIFIERS: Name and Date of confirmed by patient verbally POST EXAM PIV STATUS: Discontinued PROCEDURE TYPE: NM INJECT: PET/CT BODY SCAN. 10.8 mCi [id number]. No other medications given.. ADMINISTRATION TIME: 1230 PATIENT DISCHARGED TO: Ambulatory patient, left NM department area. A Diagnostic radioactive procedure has taken place, with no further precautions necessary other than routine body substance precautions. More information regarding radiation safety can be found usingthis link: [email or web address] SIGNATURE: RT Alethea(Juan) PATIENT NAME: Ayala Damian DATE: October 14, 2023 TIME: 1:29 PM PAGER/CONTACT #: documented in this encounterChillicothe Va [facility] Center12-12-2023 Evaluation note* Diagnosis Cancer of prostate w/med recur risk (T2b-c or Arrington 7 or PSA 10-20) (HCC)- Primary Malignant neoplasm of prostate documented in this encounter [facility] Reason for referral (narrative)* Diagnostic Procedure Only (Routine) - AuthorizedSpecialtyDiagnoses / ProceduresReferred By Contact Referred To ContactMOLECULAR & FUNCTIONAL IMAGING Diagnoses Cancer of prostate w/med recur risk (T2b-c or Sahil 7 or PSA 10-20) (HCC) Procedures NM PET/CT PROSTATE WHOLE BODY IMAGING PET IMAGING CT ATTENUATION SKULL BASE MID-THIGH F-18 PSMA Adelfo Warren MD [address] [place] [address] [place] [address] Molecular & Functional Imaging [address] [place] [address] Referral IDStatusReasonStart DateExpiration DateVisits RequestedVisits [id number] Auto-Generated Referral / [facility]12[facility] Miscellaneous Notes* Telephone Encounter - Chelsy Moran - 09/21/2023 10:49 AM EST Advised scheduling to ignore, not authorized sent to scheduling in error, when authorized will sendto Carlton to schedule * Telephone Encounter - Chelsy Moran - 09/21/2023 10:33 AM EST Auth#: [id number] Date Range:09-21-23 to 12-19-23 15686/PSMA- piflufolastat (Jaylyn) Trish MAGANA Adelfo Mcarthur MD INS Contact Number: Intake: online Case/Ref#: [id number] Notes: 09/21/2023 Submitted Clinicals information online via Julia/Milton pending review * Telephone Encounter - Chelsy Moran - 09/21/2023 10:12 AM EST Authorization number: PSMA Authorization date range: PSMA Primary Insurance: [employer] O Diagnosis: Cancer of prostate w/med recur [...] g prostate. No hypoechoic areas seen. Adenocarcinoma, Arrington 7 (4+3) from the R1 biopsy site (2 of 2 cores from that site) adenocarcinoma, initial PSA 9.5, biopsy Arrington score 4 + 3 = 7 (grade [...] a history of elevated PSA T2b-c or Arrington 7 or PSA 10-20 Radiologist Reviewed: N/A Initial/Subsequent: Initial Treatment Strategy: 0093 PET Protocol: PSMA Diagnostic Imaging Requested: No Is this a Pretreatment and/or an initial Pet scan: No - Schedule as requested Comments for Project Development Manager: TERA: As soon as insurance will allow ROUTE TO SCHEDULERS POOL P PET COMMERCIAL REAL ESTATE SALES MANAGER or P [place] SPECIAL STUDIES [facility] * Telephone Encounter - Ai Bower - 09/21/2023 9:36 AM EST This form is used for MAIN CAMPUS APPOINTMENTS ONLY. Is this request for a Main [place] PET scan appointment? Yes: Icu Nurse: Ai Grier Requesting Person Dr Gabriel: Area Code + Phone/Pager: [phone] Who do we call to schedule this appointment? Other Contact: PSMA Pet please route to Tania Tuttle in [place] Requesting Staff Dr gabriel Area Code + Phone/Pager: [phone] PET Orders (A delay in scheduling will [...] need anesthesia? NO Send requests to P [facility] documented in this encounterChillicothe [facility] Center12-12-2023 History of Present illness Narrative* Adelfo Gabriel MD - 09/21/2023 9:00 AM EST Radiation Oncology - Prostate Cancer New Patient/Consult Note PATIENT NAME: Ayala Damian PATIENT REQUESTING PROVIDER: Dr. Ramos. DIAGNOSIS: 77 year old male with prostate adenocarcinoma, initial PSA 9.5, biopsy Arrington score 4 +3 = 7 (grade group [...] g prostate. No hypoechoic areas seen. 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 Prostate cancer (C61), 2019 NCCN Risk Group: Unfavorable Intermediate Risk Group Clinical State: Localized Cancer - New Diagnosis Patient presents with a fairly low volume prostate cancer though with Sahil grade group 3 histology. Patient's health status [...] PET for further discussion. Signed by: Adelfo Gabriel MD cc: Vernell Ramos [phone] [facility] [id number] documented in this encounterChillicothe Va [facility] Center12-12-2023 Nurse Note* Olga Monge LPN - 09/21/2023 8:58 AM EST Pacemaker/Defibrillator?N Previous Cancer(s)?N Previous Radiation?N Lupus/Scleroderma?N On body monitoring device?N Olga Monge RN AUA= 12 documented in this encounterChillicothe [facility] Center12-11-2023 History of Present illness Narrative* Clarice Aguilar RN - 09/20/2023 9:09 AM ESTSummary: GU010 Prescreen [id number] [id number] Parallel Phase III Randomized Trials of Genomic-Risk Stratified Unfavorable Intermediate Risk Prostate Cancer: De-Intensification and Intensification Clinical Trial Evaluation (Guidance) Ayala Oconnellr was reviewed for potential clinical trial enrollment on [facility] #GU010 by the [facility] group on 09/20/23. Per initial review, patient has disease type Prostate cancer, Arrington 7=4+3 and appears to be preliminarily eligible and further testing/procedures required to determine final eligibility. [facility] notified. Clarice Aguilar, MSN, RN Clinical Research Nurse documented in this encounterChillicothe [facility] Center12-01-2023 Hospital Discharge instructions Patient Education 09/10/2023 [...] under a microscope. This is called the Arrington score and the total score can range from 6 10, indicating how likely it is that the cancer will spread (metastasize) to other parts of the body. The higher the score, the greater thelikelihood that the cancer will spread. Arrington 6 or lower: This indicates that the cancer cells look similar to normal prostate cells (well differentiated). Arrington 7: This indicates that the cancer cells look somewhat similar to normal prostate cells (moderately differentiated). Arrington 8, 9, or 10: This indicates that [...] stress of having cancer. General instructions Take ppbt-hcs-vulallw and prescription medicines only as told by your health care provider. If you have to go to the hospital, notify your cancer specialist (oncologist). Keep all follow-up visits. This is important. Where to find more information Welsh Cancer Society: www.cancer.org Welsh Society of Clinical Oncology: www.cancer.net National Cancer [place]: www.cancer.gov Contact a health care provider if: [...] provider. Document Revised: 12/24/2021 Document Reviewed: 12/24/2021 MarkTend Patient Education 2022 [facility]. Follow Up Care 07/13/2023 13:24:51 With:RICHARD MAGANA, Vernell Martinez, URL Address: [address] [place] [address] [place] [address]- When: Unknown [facility] 09-25-2023 Hospital Discharge instructions Patient Education 07/05/2023 [...] treatment? Where to find more information The [employer] Cancer Society: www.cancer.org [employer] Association: www.auanet.org Contact a health care [...] provider. Document Revised: 03/23/2022 Document Reviewed: 03/23/2022 MarkTend Patient Education 2022 [facility]. Follow Up Care 05/17/2023 15:23:06 With:RICHARD MAGANA, Vernell aMrtinez, URL Address: [facility] [address] , [place] [phone] When: Unknown [facility] 02-28-2023 Hospital Discharge instructions Patient Education 12/08/2022 11:25:58 [...] degrees. Follow Up Care 11/23/2022 13:52:07 With:Vernell RAMOS Address: [facility] [address] [place] [address]- [facility] (1) When:06/07/2023 11:25:41 Comments:with a psa [facility]05-10-2022 Hospital Discharge instructions Patient Education 02/17/2022 09:44:20 [...] have oneof these risk factors: ?Being of -Welsh descent. ?Having a family history of prostate [...] you: Are older than age 55. Are -Welsh. Have a father, brother, or uncle who [...] 07/08/2018 Document Revised: 09/09/2018 Document Reviewed: 07/08/2018 MarkTend Patient Education 2020 [facility]. Follow Up Care 01/16/2022 09:03:48 With:Roger Elias MD, Ankur Lawtno, URO Address: [facility] [address], [place] [address]- When: Unknown Comments:will schedule a follow up after the MRI [facility] evaluation + Plan note No data available for this section [facility] evaluation + Plan note Future Appointments Appointment Date:05/31/2023 09:30:00 AM Scheduled Provider:Vernell RAMOS MD Location:[facility] Appointment Type:URO Office Visit Diagnostic Tests Pending * [facility] Fish and Urine Cyto ([facility]) 12/08/22 [facility] Future Appointments Appointment Date:02/07/2024 08:45:00 AM Scheduled Provider:[facility] Office Visit Diagnostic Tests Pending * PSA Free & Total 07/05/23 [facility] evaluation + Plan note Future Appointments Appointment Date:02/07/2024 08:45:00 AM Scheduled Provider:Vernell RAMOS MD Location:[facility] Appointment Type:URO Office Visit [facility] evaluation + Plan note Future Appointments Appointment Date:05/08/2024 10:15:00 AM Scheduled Provider:Vernell RAMOS MD Location:[facility] Appointment Type:URO Office Visit Diagnostic Tests Pending * PSA Total 11/15/23 [facility] evaluation + Plan note Future Appointments Appointment Date:01/08/2025 10:30:00 AM Scheduled Provider:Vernell RAMOS MD Location:[facility] Appointment Type:URO Office Visit Diagnostic Tests Pending * PSA Total 02/08/25 [facility] noteNo assessment information available [facility] Work Phone: Evaluation note* Diagnosis Malignant neoplasm of prostate (HCC)- Primary Malignant neoplasm of prostate [facility] Diagnosis Malignant neoplasm of prostate (HCC)- Primary Malignant neoplasm of prostate [facility] Diagnosis Malignant neoplasm of prostate (HCC)- Primary Malignant neoplasm of prostate [facility] Diagnosis Malignant neoplasm of prostate (HCC) Malignant neoplasm of prostate [facility] Diagnosis Malignant neoplasm of prostate (HCC)- Primary Malignant neoplasm of prostate [facility] Diagnosis Malignant neoplasm of prostate (HCC)- Primary Malignant neoplasm of prostate [facility] Diagnosis Malignant neoplasm of prostate (HCC)- Primary Malignant neoplasm of prostate [facility]* Diagnosis Malignant neoplasm of prostate (HCC)- Primary Malignant neoplasm of prostate [facility]* Diagnosis Malignant neoplasm of prostate (HCC)- Primary Malignant neoplasm of prostate [facility] Diagnosis Cancer of prostate w/med recur risk (T2b-c or Sahil 7 or PSA 10-20) (HCC) Malignant neoplasm of prostate [facility]* Diagnosis Osteoarthritis, unspecified osteoarthritis type, unspecified site- Primary [facility] Encounter for Medicare annual wellness exam- Primary Benign essential hypertension (CMS/HCC) Essential hypertension, benign Prostate cancer (CMS/HCC) Malignant neoplasm of prostate Dyslipidemia (CMS/HCC) Other and unspecified hyperlipidemia Encounter for long-term (current) use of medications Encounter for long-term (current) use of other medications Prediabetes Other abnormal glucose Obesity (BMI 30-39.9) Abdominal aortic aneurysm (AAA) without rupture, unspecified part (CMS/HCC) documented in this encounter [facility]* Diagnosis Encounter for Medicare annual wellness exam- Primary Benign essential hypertension (CMS/HCC) Essential hypertension, benign Prostate cancer (CMS/HCC) Malignant neoplasm of prostate Dyslipidemia (CMS/HCC) Other and unspecified hyperlipidemia Encounter for long-term (current) use of medications Encounter for long-term (current) use of other medications Prediabetes Other abnormal glucose Obesity (BMI 30-39.9) Abdominal aortic aneurysm (AAA) without rupture, unspecified part (CMS/HCC) Benign essential hypertension (CMS/HCC)- Primary Essential hypertension, benign Primary osteoarthritis of right knee Prostate cancer (CMS/HCC) Malignant neoplasm of prostate Benign essential tremor Essential and other specified forms of tremor documented in this encounter [facility]* Diagnosis Prostate cancer (HCC)- Primary Malignant neoplasm of prostate [facility] [place] [facility]* Diagnosis Malignant neoplasm of prostate (HCC)- Primary Malignant neoplasm of prostate [facility] in [facility] [place] [facility]* Diagnosis Onset Date Resolution Status Admit Date Primary osteoarthritis of right knee acuteOctober 2024 1:45pm [facility] Work Phone: Progress note No data available for this section [facility] CenterReason for referral (narrative) Referred by: Vernell RAMOS MD [facility] reason for referral (narrative)* Diagnostic Procedure Only (Routine) - ClosedSpecialtyDiagnoses / ProceduresReferred By Contact Referred To ContactMOLECULAR & FUNCTIONAL IMAGING Diagnoses Cancer of prostate w/med recur risk (T2b-c or Arrington 7 or PSA 10-20) (HCC) Procedures NM PET/CT PROSTATE WHOLE BODY IMAGING PET IMAGING CT ATTENUATION SKULL BASE MID-THIGH F-18 PSMA Adelfo Warren MD [address] [place] [address] [place] [address] Molecular & Functional Imaging [address] [place] [address] Referral IDStatusReasonStart DateExpiration DateVisits RequestedVisits [id number] Auto-Generated Referral / [facility] (narrative)No reason for referral information availableMercy Health [facility] Work Phone: Chief Complaint and Reason for Visit Chief Complaint elevated psa Chief Complaint Admit Date Knee Pain July 17, 2025 1: 45pm Reason for Visit Admit Date Primary osteoarthritis of right knee Oct 2024 1:45pm Advance Directives No Advanced Directives Records Found Advance Directive Response Recorded Date/ Time Advance Directives No February 27 12:47pm Summary Purpose Family History No Family History Records FoundNo Family History Records Found No data available for this section No data available for this section No data available for this section No Family History Records FoundNo Family History Records FoundNo Family History Records Found Additional Source Comments Care Teams (unrecognized sec tion and content) Team Status: Active Member Role Status Dates NON STAFF Primary Care Provider Active Team Status: Inactive Member Role Status Dates NON STAFF Primary Care Provider Active Start: July 17, 2025 End: July 17, 2025[facility] Emilia rIahetaending ProviderActiveStart: July 17, 2025 End: July 17, 2025 Team Status: Inactive Member Role Status Dates Ankur Duran Jr, MD Attending Provider Active NON STAFFPrimary Care ProviderActiveTeam MemberRelationshipSpecialtyStart Date End Date Merrill Iraheta [address] [place] [address] PCP - GeneralFamily Medicine10/14/23Team MemberRelationshipSpecialtyStart DateEnd Date Merrill Iraheta [address] [place] [place] [address] PCP - GeneralFamily Medicine10/14/23Team MemberRelationshipSpecialtyStart DateEnd Date Merrill Iraheta [address] [place] [address] PCP - GeneralFamily Medicine10/14/23Team MemberRelationshipSpecialtyStart DateEnd Date Merrill Iraheta [address] [place] [address] PCP - GeneralFamily Medicine10/14/23Team MemberRelationshipSpecialtyStart DateEnd Date Merrill Iraheta [address] [place] [address] PCP - GeneralFamily Medicine10/14/23Team MemberRelationshipSpecialtyStart DateEnd Date Merrill Iraheta [address] [place] [address] PCP - GeneralFamily Medicine10/14/23Team MemberRelationshipSpecialtyStart DateEnd Date Merrill Iraheta [address] [place] [address] PCP - GeneralFamily Medicine10/14/23Team MemberRelationshipSpecialtyStart DateEnd Date Merrill Iraheta [address] [place] [address] PCP - GeneralFamily Medicine10/14/23Team MemberRelationshipSpecialtyStart DateEnd Date Merrill Iraheta [address] [place] [address] PCP - GeneralFamily Medicine10/14/23Team MemberRelationshipSpecialtyStart DateEnd Date Merrill Iraheta [address] [place] [address] PCP - GeneralFamily Medicine10/14/23Team MemberRelationshipSpecialtyStart DateEnd Date Merrill Iraheta [address] [place] [address] PCP - GeneralFamily Medicine10/14/23Team MemberRelationshipSpecialtyStart DateEnd Date Merrill Iraheta [address] [place] [address] PCP - GeneralFamily Medicine10/14/23Team MemberRelationshipSpecialtyStart DateEnd Date Merrill Iraheta [address] [place] [address] PCP - GeneralFamily Medicine10/14/23Team MemberRelationshipSpecialtyStart DateEnd Date Merrill Iraheta [address] [place] [address] PCP - GeneralFamily Medicine10/14/23Team MemberRelationshipSpecialtyStart DateEnd Date Merrill Iraheta [address] [place] [address] PCP - GeneralFamily Medicine10/14/23Team MemberRelationshipSpecialtyStart DateEnd Date Merrill Iraheta MD [address] [place] [address] PCP - GeneralFamily Cbtmbxma76/6/23Team MemberRelationshipSpecialtyStart DateEnd Date Merrill Iraheta MD [address] [place] [address] PCP - GeneralFamily Zxnmzrua95/6/23Team MemberRelationshipSpecialtyStart DateEnd Date Merrill Iraheta MD [address] [place] [address] PCP - GeneralFamily Yyypsiww96/6/23Team MemberRelationshipSpecialtyStart DateEnd Date Merrill Iraheta MD [address] [place] [address] PCP - GeneralFamily Nqxqkbdj98/6/23Team MemberRelationshipSpecialtyStart DateEnd Date Merrill Iraheta MD [address] [place] [address] PCP - GeneralFamily Medicine10/14/23Team MemberRelationshipSpecialtyStart DateEnd Date Merrill Iraheta MD [address] [place] [address] PCP - GeneralFamily Medicine10/14/23Team MemberRelationshipSpecialtyStart DateEnd Date Merrill Iraheta MD [address] [place] [address] PCP - GeneralFamily Ypscrauf12/6/23 Merrill Iraheta MD [address] [place] [address] PCP - [facility]09/10/24Te MemberRelationshipSpecialtyStart DateEnd Date Merrill Iraheta MD [address] [place] [phone] PCP - [facility]08/16/23 Merrill Iraheta MD [address] [place] [address] PCP [facility]09/10/24Te MemberRelationshipSpecialtyStart DateEnd Date Merrill Iraheta MD [address] [place] [phone] [facility]08/16/23 Merrill Iraheta MD [address] [place] [address] [facility]09/10/24Te MemberRelationshipSpecialtyStart DateEnd Date Merrill Iraheta MD [address] [place] [address] PCP - [facility]10/14/23 Goals (unrecognized section and content) Goals may be documented in a n alternate section (unrecognized sect ion and content) No Status Records FoundNo Status Records FoundNo Status Records FoundNo Status Records FoundNo Status Records Found INFORMATION SOURCE (unrecogn ized section and content) DATE CREATED AUTHOR 04/02/2022 [facility] DATE CREATED AUTHOR AUTHOR'S ORGANIZ ATION 02/23/2023 [facility] DATE CREATED AUTHOR AUTHOR'S ORGANIZ ATION 01/17/2025 [facility] DATE CREATED AUTHOR AUTHOR[facility]S ORGANIZ ATION [facility] DATE CREATED AUTHOR AUTHOR'S ORGANIZ ATION 08/08/2025 [facility] Source Comments (unrecognize d section and content) In the event this informatio n is protected by the Federal Confidentiality of Alcohol and Drug Abuse Patient Records regulations: The Federal rules restrict any use of the information to criminally investigate or prosecute any alcohol or drug abuse patient.[facility] the event this information is protected by the Federal Confidentiality of Alcohol and Drug Abuse Patient Records regulations: The Federal rules restrict any use of the information to criminally investigate or prosecute any alcohol or drug abuse patient.[facility] Center[facility] the event this information is protected by the Federal Confidentiality of Alcohol and Drug Abuse Patient Records regulations: The Federal rules restrict any use of the information to criminally investigate or prosecute any alcohol or drug abuse patient.[facility] Center[facility] the event this information is protected by the Federal Confidentiality of Alcohol and Drug Abuse Patient Records regulations: The Federal rules restrict any use of the information to criminally investigate or prosecute any alcohol or drug abuse patient.[facility] Center[facility] the event this information is protected by the Federal Confidentiality of Alcohol and Drug Abuse Patient Records regulations: The Federal rules restrict any use of the information to criminally investigate or prosecute any alcohol or drug abuse patient.[facility] CenterIn the event this information is protected by the Federal Confidentiality of Alcohol and Drug Abuse Patient Records regulations: The Federal rules restrict any use of the information to criminally investigate or prosecute any alcohol or drug abuse patient.[facility] Center[facility] the event this information is protected by the Federal Confidentiality of Alcohol and Drug Abuse Patient Records regulations: The Federal rules restrict any use of the information to criminally investigate or prosecute any alcohol or drug abuse patient.[facility] Center[facility] the event this information is protected by the Federal Confidentiality of Alcohol and Drug Abuse Patient Records regulations: The Federal rules restrict any use of the information to criminally investigate or prosecute any alcohol or drug abuse patient.[facility] Center[facility] the event this information is protected by the Federal Confidentiality of Alcohol and Drug Abuse Patient Records regulations: The Federal rules restrict any use of the information to criminally investigate or prosecute any alcohol or drug abuse patient.[facility] CenterIn the event this information is protected by the Federal Confidentiality of Alcohol and Drug Abuse Patient Records regulations: The Federal rules restrict any use of the information to criminally investigate or prosecute any alcohol or drug abuse patient.[facility] CenterIn the event this information is protected by the Federal Confidentiality of Alcohol and Drug Abuse Patient Records regulations: The Federal rules restrict any use of the information to criminally investigate or prosecute any alcohol or drug abuse patient.[facility] CenterIn the event this information is protected by the Federal Confidentiality of Alcohol and Drug Abuse Patient Records regulations: The Federal rules restrict any use of the information to criminally investigate or prosecute any alcohol or drug abuse patient.[facility] CenterIn the event this information is protected by the Federal Confidentiality of Alcohol and Drug Abuse Patient Records regulations: The Federal rules restrict any use of the information to criminally investigate or prosecute any alcohol or drug abuse patient.[facility] CenterIn the event this information is protected by the Federal Confidentiality of Alcohol and Drug Abuse Patient Records regulations: The Federal rules restrict any use of the information to criminally investigate or prosecute any alcohol or drug abuse patient.[facility] CenterIn the event this information is protected by the Federal Confidentiality of Alcohol and Drug Abuse Patient Records regulations: The Federal rules restrict any use of the information to criminally investigate or prosecute any alcohol or drug abuse patient.[facility] CenterIn the event this information is protected by the Federal Confidentiality of Alcohol and Drug Abuse Patient Records regulations: The Federal rules restrict any use of the information to criminally investigate or prosecute any alcohol or drug abuse patient.[facility] CenterIn the event this information is protected by the Federal Confidentiality of Alcohol and Drug Abuse Patient Records regulations: The Federal rules restrict any use of the information to criminally investigate or prosecute any alcohol or drug abuse patient.[facility] CenterIn the event this information is protected by the Federal Confidentiality of Alcohol and Drug Abuse Patient Records regulations: The Federal rules restrict any use of the information to criminally investigate or prosecute any alcohol or drug abuse patient.[facility] CenterIn the event this information is protected by the Federal Confidentiality of Alcohol and Drug Abuse Patient Records regulations: The Federal rules restrict any use of the information to criminally investigate or prosecute any alcohol or drug abuse patient.[facility] CenterIn the event this information is protected by the Federal Confidentiality of Alcohol and Drug Abuse Patient Records regulations: The Federal rules restrict any use of the information to criminally investigate or prosecute any alcohol or drug abuse patient.[facility] CenterIn the event this information is protected by the Federal Confidentiality of Alcohol and Drug Abuse Patient Records regulations: The Federal rules restrict any use of the information to criminally investigate or prosecute any alcohol or drug abuse patient.[facility] CenterIn the event this information is protected by the Federal Confidentiality of Alcohol and Drug Abuse Patient Records regulations: The Federal rules restrict any use of the information to criminally investigate or prosecute any alcohol or drug abuse patient.[facility] CenterIn the event this information is protected by the Federal Confidentiality of Alcohol and Drug Abuse Patient Records regulations: The Federal rules restrict any use of the information to criminally investigate or prosecute any alcohol or drug abuse patient.[facility] CenterIn the event this information is protected by the Federal Confidentiality of Alcohol and Drug Abuse Patient Records regulations: The Federal rules restrict any use of the information to criminally investigate or prosecute any alcohol or drug abuse patient.[facility] CenterIn the event this information is protected by the Federal Confidentiality of Alcohol and Drug Abuse Patient Records regulations: The Federal rules restrict any use of the information to criminally investigate or prosecute any alcohol or drug abuse patient.[facility] Reason for Visit (unrecogniz ed section and content) [id number] PrescreenReasonCommentsConsultReasonCommentsNm Pet RequestReasonCommentsPatient EducationReasonCommentsOrdersReasonComments Radiotherapy On-treatment VisitReasonCommentsPhlebotomyReasonCommentsProstate CancerReasonOnset DateCommentsRefill Rzugkhl4002/11/2024SpecialtyDiagnoses / ProceduresReferred By ContactReferred To ContactRadiation Oncology / RADIATION ONCOLOGY Diagnoses Malignant neoplasm of prostate sim treating prostate eng IMRT PROSTATE 28FX PLUS SIM Procedures INTENSITY MODULATED RADIATION TX DLVR SIMPLE SIMULATION CARLTON IMRT PROSTATE 28FX PLUS SIM Adelfo Gabriel MD [address] [place] [address] [place] [address] Adelfo Gabriel MD [address] [place] [address] [place] [address] Referral IDStatusReasonStart DateExpiration DateVisits RequestedVisits [id number] NMSpecialty Diagnoses / ProceduresReferred By ContactReferred To ContactMOLECULAR & FUNCTIONAL IMAGING Diagnoses Cancer of prostate w/med recur risk (T2b-c or Arrington 7 or PSA 10-20) (HCC) Procedures NM PET/CT PROSTATE WHOLE BODY IMAGING PET IMAGING CT ATTENUATION SKULL BASE MID-THIGH F-18 PSMA PYLARIFY Adelfo Gabriel MD [address] [place] [address] [place] [address] Molecular & Functional Imaging [address] [place] [address] Referral IDStatusReasonStart DateExpiration DateVisits RequestedVisits [id number] Auto-Generated Referral /[id number] DateCommentsMed [id number] Medicare Annual Wellness Visit SubsequentwellnessReasonOnset DateCommentsRefill Cmzqyns6811/09/2024ReasonCommentsFollow-up6 m FOR RECORDS PERTAINING TO PATIENTS WHO ARE [...] BE BASED ON THE PRIMARY CLINICAL RECORDS. [employer] provides no warranty or guarantee of the accuracy or completeness of information in this document.
[2025-09-03 12:06] LABS: Hematocrit 41.2 % (42.0-54.0); Hemoglobin 14.4 g/dL (14.0-18.0); Mean Corpuscular HGB Conc 35.0 g/dL (29.9-35.2); Mean Corpuscular Hemoglobin 32.4 pg (25.9-34.0); Mean Corpuscular Volume 92.8 fL (80.0-94.0); Platelet Count 166 10^3/uL (150-450); Red Blood Count 4.44 10^6/uL (4.70-6.10); White Blood Count 6.4 10^3/uL (4.0-11.0)
[2025-09-03 12:24] LABS: Alanine Aminotransferase 59 U/L (16-63); Albumin Globulin Ratio 1.1; Albumin Level 3.8 g/dL (3.4-5.0); Alkaline Phosphatase 67 U/L (46-116); Anion Gap 8.9; Aspartate Amino Transferase 47 U/L (15-37); Blood Urea Nitrogen 18.0 mg/dL (7.0-18.0); Calcium 10.0 mg/dL (8.5-10.1); Carbon Dioxide 32.2 mmol/L (21.0-32.0); Chloride 101 mmol/L (98-107); Cholesterol 153 mg/dL (<=200); Estimated GFR (African America >60 (>=60 mL/min/1.73m^2); Estimated GFR (Non-African Ame >60 (>=60 mL/min/1.73m^2); Globulin 3.6 g/dL; Glucose 148 mg/dL (74-106); HDL Cholesterol 45 mg/dL (40-60); Potassium 3.1 mmol/L (3.5-5.1); Sodium 139 mmol/L (136-145); Thyroid Stimulating Hormone 1.224 uIU/mL (0.358-3.740); Total Protein 7.4 g/dL (6.4-8.2); Triglycerides 92 mg/dL (<=150); VLDL CHOLESTEROL 18.4 mg/dL
[2025-09-03 12:47] LABS: Band Neutrophils Absolute 0.1 10^3/uL (0.0-0.3); Basophils Abs Manual 0.00 10^3/uL (0.00-0.10); Basophils Percent Manual 0.0 % (0.2-2.0); Lymphocytes Absolute Manual 0.25 10^3/uL (1.20-3.80); Lymphocytes Percent Manual 4.0 % (20.5-60.0); Monocytes Absolute Manual 0.57 10^3/uL (0.30-0.80); Monocytes Percent Manual 9.0 % (1.7-12.0); Segmented Neut Absolute Manual 5.31 10^3/uL (1.4-6.5); Segmented Neutrophils % Manual 83.0 (43.0-75.0)
[2025-09-03 12:49] LABS: Eosinophils Absolute Manual 0.19 10^3/uL (0.00-0.70); Eosinophils Percent Manual 3.0 % (0.9-7.0); Giant Platelets 5; Smudge Cells 1
[2025-09-03 12:51] LABS: Polychromasia 1+; RBC Morphology ABNORMAL
== END 2025-09-03 11:25 | disposition home or self-care (01) ==
LOC: LAB 11:26
PROVIDERS: PCP Family Medicine; Visit Provider Family Medicine
DX: Z79.899 Other long term (current) drug therapy (principal); R73.03 Prediabetes; E66.811 Obesity, class 1; E66.09 Other obesity due to excess calories; Z68.33 Body mass index [BMI] 33.0-33.9, adult; E78.5 Hyperlipidemia, unspecified
CPT/HCPCS: 36415; 80053; 80061; 83036; 84443; 85007; 85027